=== PATIENT | male | born 1960 | race Caucasian/White ===

== ENCOUNTER → 2017-02-14 11:44 | Outpatient (CLI) | payer MEDICARE, SELFPAY ==
[2017-02-14 13:42] LABS: Hemoglobin A1C 6.7 % (0.0-7.0)
== END ==
PROVIDERS: PCP Internal Medicine Adolescent Medicine; Visit Provider Internal Medicine Adolescent Medicine
DX: E11.621 Type 2 diabetes mellitus with foot ulcer (principal)
CPT/HCPCS: 83036

== ENCOUNTER → 2017-03-06 08:12 | Outpatient (CLI) | payer MEDICARE, SELFPAY ==
--- NOTE | 2017-03-06 08:17 | CA_ITS ---
PROCEDURE: 2-D M-mode and color Doppler study INDICATIONS FOR THE TEST: Chest pain COPD Heart Murmur Tobacco Smoking+ Palpitations Fatigue Syncope Edema Hypertension+Diabetes Mellitus Rheumatic Fever SOB BUTTS+Obesity+Hyperlipidemia+ Family History HD Additional History new onset AFIB PATIENT INFORMATION HEIGHT: 71 WEIGHT: 275 GENDER: Male B/P: 148/82 2-D/M-MODE INTERPRETATION: 2-D MEASUREMENTS OBSERVED VALUES IN CMS Right Ventricular Dimension (RVDd) 2.7 Interventricular Septum (Thickness)(IVsd) 1.3 Left Ventricular Internal Dimensions(LVIDd) 4.0 Left Ventricular Posterior Wall (Thickness)(LVPWd) 1.5 Aortic Root 2.8 Aortic Cusp Separation 2.2 Left Atrial Dimensions (LAD) 4.2 2D 1. Left atrium is mildly enlarged, left ventricle is normal size, there is mild concentric left ventricular hypertrophy, visually estimated ejection fraction approximately 45%, there appears to be mild hypokinesis involving mid to distal septum and anterior wall., Endocardial surfaces are somewhat poorly visualized. 2. The right atrium is mildly enlarged, right ventricle is mildly dilated with normal contractility. 3. The aortic valve is minimally thickened and fibrosed. 4. The mitral and tricuspid valve leaflets are minimally thickened. 5. The pulmonic valve is poorly visualized. 6. No significant pericardial effusion noted. DOPPLER INTERROGATION: Doppler interrogation of the aortic, mitral and tricuspid valvular presence of mild mitral and tricuspid regurgitation, tricuspid and jet velocity insufficient for calculation of the right ventricular systolic pressure, inferior vena cava is dilated without significant inspiratory collapse. CONCLUSION: 1. Biatrial enlargement, normal left ventricular size, mild concentric left ventricular hypertrophy, visually estimated ejection fraction 45%, with segmental wall motion abnormality described above. 2. Mildly enlarged right ventricle normal contractility. 3. Mild mitral and tricuspid regurgitation. 4. No significant pericardial effusion noted.
== END ==
PROVIDERS: Family Provider Internal Medicine Adolescent Medicine; PCP Internal Medicine Adolescent Medicine; Visit Provider Internal Medicine Adolescent Medicine
DX: I48.0 Paroxysmal atrial fibrillation (principal)
CPT/HCPCS: 93306

== ENCOUNTER → 2017-03-22 09:41 | Outpatient (REF) | payer MEDICARE, SELFPAY ==
[2017-03-22 13:41] LABS: Anion Gap 15.3 mEq/L (5-15); Blood Urea Nitrogen 16 mg/dL (7-18); Carbon Dioxide 27 mmol/L (21.0-32.0); Chloride 103 mmol/L (98-107); Estimated Glomerular Filt Rate 69 ml/min (>60); GFR (African American) 83 ML/MIN (>60); Glucose 109 mg/dL (74-106); Potassium 3.3 mmoL/L (3.5-5.1); Sodium 142 mmol/L (136-145)
== END ==
LOC: LAB.CARL 09:41
PROVIDERS: Visit Provider Internal Medicine Adolescent Medicine
DX: R60.9 Edema, unspecified (principal)
CPT/HCPCS: 80048

== ENCOUNTER → 2017-06-12 10:24 | Outpatient (REF) | payer MEDICARE, SELFPAY ==
[2017-06-12 13:27] LABS: Basophils # 0.1 K/mm3 (0-0.2); Basophils % 1.3 % (0.1-2.0); Eosinophils # 0.2 K/mm3 (0.0-0.4); Eosinophils % 2.5 % (0.1-12.0); Hematocrit 53.2 % (42.0-52.0); Hemoglobin 16.6 g/dL (14.1-18.0); Lymphocytes # 1.6 K/mm3 (0.7-4.5); Lymphocytes % 22.1 K/mm3 (10-50); Mean Corpuscular HGB Conc 31.2 g/dL (31.8-35.4); Mean Corpuscular Hemoglobin 28.8 pg (27.0-31.2); Mean Corpuscular Volume 92.4 fl (80-94); Mean Platelet Volume 8.5 fl (7.4-10.4); Monocytes # 0.6 K/mm3 (0.1-1.0); Monocytes % 7.9 % (1.7-9.3); Neutrophils # 4.6 K/mm3 (1.8-7.8); Neutrophils % 66.2 % (37.0-80.0); Platelet Count 231 K/mm3 (142-424); Red Blood Count 5.76 M/mm3 (4.60-6.20); Red Cell Distribution Width 13.8 % (11.5-17.5)
[2017-06-12 13:48] LABS: Hemoglobin A1C 6.1 % (0.0-7.0)
[2017-06-12 17:06] LABS: Alanine Aminotransferase 36 U/L (12-78); Albumin Level 3.6 gm/dL (3.4-5.0); Alkaline Phosphatase 74 U/L (46-116); Anion Gap 14.6 mEq/L (5-15); Aspartate Amino Transferase 26 U/L (15-37); Bilirubin,Total 0.9 mg/dL (0.2-1.0); Blood Urea Nitrogen 13 mg/dL (7-18); Calcium 9.1 mg/dL (8.5-10.1); Carbon Dioxide 26 mmol/L (21.0-32.0); Chloride 101 mmol/L (98-107); Chol/HDL Ratio 6.4 (1-3.5); Cholesterol 193 mg/dL (140-200); Creatinine,Serum 1.19 mg/dL (0.70-1.30); Estimated Glomerular Filt Rate 63 ml/min (>60); GFR (African American) 76 ML/MIN (>60); Globulin 3.5 gm/dl (1.3-3.2); Glucose 121 mg/dL (74-106); HDL Cholesterol 30 mg/dL (27-67); LDL Cholesterol 148 mg/dL (0-130); Potassium 3.6 mmoL/L (3.5-5.1); Sodium 138 mmol/L (136-145); Thyroid Stimulating Hormone 3.86 uIU/ml (0.358-3.740); Total Protein,Serum 7.1 gm/dL (6.4-8.2); Triglycerides 75 mg/dL (30-200); VLDL Cholesterol 15 mg/dL (0-40)
== END ==
LOC: LAB.CARL 10:24
PROVIDERS: Visit Provider Internal Medicine Adolescent Medicine
DX: I10 Essential (primary) hypertension (principal); E11.9 Type 2 diabetes mellitus without complications; E78.5 Hyperlipidemia, unspecified; R53.83 Other fatigue
CPT/HCPCS: 80053; 80061; 83036; 84443; 85025

== ENCOUNTER → 2017-09-25 09:54 | Outpatient (REF) | payer MEDICARE, SELFPAY ==
[2017-09-25 13:21] LABS: Alanine Aminotransferase 32 U/L (12-78); Albumin Level 3.6 gm/dL (3.4-5.0); Albumin/Globulin Ratio 1.1 (1.1-1.8); Alkaline Phosphatase 72 U/L (46-116); Anion Gap 14.2 mEq/L (5-15); Aspartate Amino Transferase 18 U/L (15-37); Blood Urea Nitrogen 13 mg/dL (7-18); Carbon Dioxide 28 mmol/L (21.0-32.0); Chloride 102 mmol/L (98-107); Chol/HDL Ratio 6.8 (1-3.5); Cholesterol 205 mg/dL (140-200); Creatinine,Serum 1.38 mg/dL (0.70-1.30); Estimated Glomerular Filt Rate 53 ml/min (>60); GFR (African American) 64 ML/MIN (>60); Globulin 3.3 gm/dl (1.3-3.2); Glucose 120 mg/dL (74-106); HDL Cholesterol 30 mg/dL (27-67); LDL Cholesterol 161 mg/dL (0-130); Potassium 3.2 mmoL/L (3.5-5.1); Sodium 141 mmol/L (136-145); Total Protein,Serum 6.9 gm/dL (6.4-8.2); Triglycerides 71 mg/dL (30-200); VLDL Cholesterol 14 mg/dL (0-40)
[2017-09-25 13:31] LABS: Hemoglobin A1C 6.7 % (0.0-7.0)
[2017-09-25 13:45] LABS: Basophils # 0.1 K/mm3 (0-0.2); Basophils % 0.9 % (0.1-2.0); Eosinophils # 0.2 K/mm3 (0.0-0.4); Eosinophils % 2.1 % (0.1-12.0); Hematocrit 51.5 % (42.0-52.0); Hemoglobin 16.5 g/dL (14.1-18.0); Lymphocytes # 1.7 K/mm3 (0.7-4.5); Lymphocytes % 19.6 K/mm3 (10-50); Mean Corpuscular HGB Conc 32.1 g/dL (31.8-35.4); Mean Corpuscular Hemoglobin 29.8 pg (27.0-31.2); Mean Corpuscular Volume 92.7 fl (80-94); Mean Platelet Volume 8.5 fl (7.4-10.4); Monocytes # 0.7 K/mm3 (0.1-1.0); Monocytes % 7.6 % (1.7-9.3); Neutrophils % 69.8 % (37.0-80.0); Platelet Count 208 K/mm3 (142-424); Red Blood Count 5.55 M/mm3 (4.60-6.20); Red Cell Distribution Width 14.9 % (11.5-17.5); White Blood Count 8.6 K/mm3 (4.8-10.8)
== END ==
LOC: LAB.CARL 09:54
PROVIDERS: Visit Provider Internal Medicine Adolescent Medicine
DX: I10 Essential (primary) hypertension (principal); E11.9 Type 2 diabetes mellitus without complications; E78.5 Hyperlipidemia, unspecified
CPT/HCPCS: 80053; 80061; 83036; 85025

== ENCOUNTER → 2018-01-01 11:18 | Outpatient (CLI) | payer MEDICARE, SELFPAY ==
[2018-01-01 14:13] LABS: Alanine Aminotransferase 34 U/L (12-78); Albumin Level 3.2 gm/dL (3.4-5.0); Alkaline Phosphatase 72 U/L (46-116); Anion Gap 15.4 mEq/L (5-15); Aspartate Amino Transferase 15 U/L (15-37); Bilirubin,Total 0.3 mg/dL (0.2-1.0); Blood Urea Nitrogen 28 mg/dL (7-18); Calcium 8.6 mg/dL (8.5-10.1); Carbon Dioxide 27 mmol/L (21.0-32.0); Chloride 100 mmol/L (98-107); Chol/HDL Ratio 6.5 (1-3.5); Cholesterol 182 mg/dL (140-200); Creatinine,Serum 1.17 mg/dL (0.70-1.30); Estimated Glomerular Filt Rate 64 ml/min (>60); GFR (African American) 77 ML/MIN (>60); Globulin 3.3 gm/dl (1.3-3.2); Glucose 147 mg/dL (74-106); HDL Cholesterol 28 mg/dL (27-67); LDL Cholesterol 121 mg/dL (0-130); Potassium 3.4 mmoL/L (3.5-5.1); Sodium 139 mmol/L (136-145); Total Protein,Serum 6.5 gm/dL (6.4-8.2); Triglycerides 164 mg/dL (30-200); VLDL Cholesterol 33 mg/dL (0-40)
[2018-01-01 17:31] LABS: Hemoglobin A1C 6.9 % (0.0-7.0)
== END ==
PROVIDERS: Visit Provider Internal Medicine Adolescent Medicine
DX: E11.9 Type 2 diabetes mellitus without complications (principal); E78.5 Hyperlipidemia, unspecified; I10 Essential (primary) hypertension
CPT/HCPCS: 80053; 80061; 83036

== ENCOUNTER → 2018-04-06 08:27 | Outpatient (CLI) | payer BC, SELFPAY ==
[2018-04-06 14:18] LABS: Basophils # 0.1 K/mm3 (0-0.2); Basophils % 1.4 % (0.1-2.0); Eosinophils # 0.1 K/mm3 (0.0-0.4); Hematocrit 44.4 % (42.0-52.0); Hemoglobin 14.6 g/dL (14.1-18.0); Lymphocytes # 1.5 K/mm3 (0.7-4.5); Lymphocytes % 26.5 % (10-50); Mean Corpuscular HGB Conc 32.8 g/dL (31.8-35.4); Mean Corpuscular Hemoglobin 30.2 pg (27.0-31.2); Mean Corpuscular Volume 92.1 fl (80-94); Mean Platelet Volume 8.6 fl (7.4-10.4); Monocytes # 0.5 K/mm3 (0.1-1.0); Monocytes % 8.1 % (1.7-9.3); Neutrophils # 3.6 K/mm3 (1.8-7.8); Platelet Count 337 K/mm3 (142-424); Red Blood Count 4.82 M/mm3 (4.60-6.20); Red Cell Distribution Width 13.9 % (11.5-17.5); White Blood Count 5.8 K/mm3 (4.8-10.8)
[2018-04-06 14:34] LABS: Alanine Aminotransferase 29 U/L (12-78); Albumin Level 3.1 gm/dL (3.4-5.0); Albumin/Globulin Ratio 0.8 (1.1-1.8); Alkaline Phosphatase 75 U/L (46-116); Anion Gap 15.3 mEq/L (5-15); Aspartate Amino Transferase 15 U/L (15-37); Blood Urea Nitrogen 20 mg/dL (7-18); Calcium 9.3 mg/dL (8.5-10.1); Carbon Dioxide 25 mmol/L (21.0-32.0); Chloride 102 mmol/L (98-107); Chol/HDL Ratio 4.5 (1-3.5); Cholesterol 153 mg/dL (140-200); Creatinine,Serum 1.38 mg/dL (0.70-1.30); Estimated Glomerular Filt Rate 53 ml/min (>60); GFR (African American) 64 ML/MIN (>60); Globulin 3.9 gm/dl (1.3-3.2); Glucose 95 mg/dL (74-106); HDL Cholesterol 34 mg/dL (27-67); LDL Cholesterol 103 mg/dL (0-130); Potassium 4.3 mmoL/L (3.5-5.1); Sodium 138 mmol/L (136-145); Triglycerides 82 mg/dL (30-200); VLDL Cholesterol 16 mg/dL (0-40)
[2018-04-06 15:22] LABS: Hemoglobin A1C 6.9 % (0.0-7.0)
== END ==
PROVIDERS: PCP Internal Medicine Adolescent Medicine; Visit Provider Internal Medicine Adolescent Medicine
DX: I25.10 Atherosclerotic heart disease of native coronary artery without angina pectoris (principal); E11.69 Type 2 diabetes mellitus with other specified complication; E78.5 Hyperlipidemia, unspecified
CPT/HCPCS: 36415; 80053; 80061; 83036; 85025

== ENCOUNTER → 2018-09-26 10:35 | Outpatient (CLI) | payer MEDICARE, SELFPAY ==
[2018-09-26 16:48] LABS: Hemoglobin A1C 6.4 % (0.0-7.0)
[2018-09-26 18:11] LABS: Alanine Aminotransferase 25 U/L (12-78); Albumin Level 3.2 gm/dL (3.4-5.0); Alkaline Phosphatase 68 U/L (46-116); Anion Gap 17.3 mEq/L (5-15); Aspartate Amino Transferase 13 U/L (15-37); Bilirubin,Total 0.9 mg/dL (0.2-1.0); Blood Urea Nitrogen 13 mg/dL (7-18); Calcium 8.9 mg/dL (8.5-10.1); Carbon Dioxide 24 mmol/L (21.0-32.0); Chloride 102 mmol/L (98-107); Chol/HDL Ratio 6.5 (1-3.5); Cholesterol 182 mg/dL (140-200); Creatinine,Serum 1.05 mg/dL (0.70-1.30); Estimated Glomerular Filt Rate 72 ml/min (>60); GFR (African American) 87 ML/MIN (>60); Globulin 3.3 gm/dl (1.3-3.2); Glucose 99 mg/dL (74-106); HDL Cholesterol 28 mg/dL (27-67); LDL Cholesterol 137 mg/dL (0-130); Potassium 3.3 mmoL/L (3.5-5.1); Sodium 140 mmol/L (136-145); Total Protein,Serum 6.5 gm/dL (6.4-8.2); Triglycerides 87 mg/dL (30-200); VLDL Cholesterol 17 mg/dL (0-40)
== END ==
PROVIDERS: PCP Internal Medicine Adolescent Medicine; Visit Provider Internal Medicine Adolescent Medicine
DX: E11.9 Type 2 diabetes mellitus without complications (principal); M25.50 Pain in unspecified joint
CPT/HCPCS: 80053; 80061; 83036; 84550

== ENCOUNTER 2019-02-21 12:26 | Observation (INO) ==
--- NOTE | 2019-02-21 12:39 | Emergency Department Note ---
ED Disposition Clinical Impression: Community acquired pneumonia, Acute exacerbation of chronic obstructive airways disease, Congestive heart failure, Atrial fibrillation, Lymphedema Disposition: Admitted As Inpatient Condition on Discharge: Serious Time of Disposition: 16:10 - Critical Care Critical Care Time: No Attestation: On , the high probability of a clinically significant, sudden or life threa tening deterioration of the following system(s) required my full and direct attention, intervention and personal management. The time I documented below is in addition to time spent performing reported procedures but includes the following listed in this critical care notation. Medical Decision Making - Medical Records Medical records reviewed: Yes: I reviewed the patient's medical records. - Mendez Inquiry Pt receiving controlled substance: No Vital Signs: 02/21/19 12:27 02/21/19 15:36 02/21/19 16:00 Temperature 98.4 F Temperature Source Oral Pulse Rate Pulse Rate [Left Radial] 100 H 86 Respiratory Rate 30 H Blood Pressure [Right Arm] 144/55 H 149/66 H Blood Pressure Mean [Right Arm] 84 93 Blood Pressure Position [Right Arm] Sitting Sitting 02 Sat by Pulse Oximetry 92 L 92 L 88 L Oxygen Delivery Method Room Air Room Air Room Air Oxygen Flow Rate (LPM) 02/21/19 16:27 Temperature Temperature Source Pulse Rate 87 Pulse Rate [Left Radial] Respiratory Rate Blood Pressure [Right Arm] Blood Pressure Mean [Right Arm] Blood Pressure Position [Right Arm] 02 Sat by Pulse Oximetry 97 Oxygen Delivery Method Nasal Cannula Oxygen Flow Rate (LPM) 2 - Lab Data Lab results reviewed: Yes: I reviewed the patient's lab results. Lab Results 02/21/19 12:15: WBC 5.5, RBC 5.29, Hgb 15.9, Hct 50.4, MCV 95.3 H, MCH 30.1, MCHC 31.6 L, RDW 14.7, Plt Count 223, MPV 8.3, Neut % (Auto) 78.2, Lymph % (Auto) 9.8 L, [place] % (Auto) 10.9 H, Eos % (Auto) 0.1, Baso % (Auto) 1.0, Neut # (Auto) 4.3, Lymph # (Auto) 0.5 L, [place] # (Auto) 0.6, Eos # (Auto) 0.0, Baso # (Auto) 0.1 02/21/19 12:15: Sodium 143, Potassium 3.8, Chloride 101, Carbon Dioxide 29, Anion Gap 16.8 H, BUN 13, Creatinine 1.31 H, Estimated Creat Clear 106, Estimated GFR 56 L, Est GFR ( Amer) 68, Glucose 96, Calcium 8.1 L, Total Bilirubin 1.2 H, Direct Bilirubin 0.4 H, Indirect Bilirubin 0.8, AST 21, ALT 15, Alkaline Phosphatase 64, Troponin I 0.06, Total Protein 6.5, Albumin 2.9 L 02/21/19 12:15: B-Natriuretic Peptide 267 H 02/21/19 12:30: Specimen Source Right radial, O2 % room air, ABG pH 7.42, ABG pCO2 42.2, ABG pO2 55.7 L, ABG HCO3 27.0 H, ABG Total CO2 28.3 H, ABG O2 Saturation 89 L, ABG Base Excess 2.6 H, Douglas Test Acceptable 02/21/19 14:31: Lactate 1.7 02/21/19 15:55: Troponin I 0.06 Result diagrams: 02/21/19 12:15 02/21/19 12:15 Orders (Tests/Meds): ED MEDICATIONS Generic Name Dose Route Start Last Admin Trade Name Freq PRN Reason Stop Dose Admin Albuterol/Ipratropium 3 ml 02/21/19 16:46 Duoneb 3ml Neb IH 03/23/19 16:45 Q4H MICHAEL Piperacillin Sod/Tazobactam 50 mls @ 100 mls/hr 02/21/19 16:46 Sod 3.375 gm/ Sodium Chloride IV 03/07/19 16:45 Q6H MICHAEL Protocol Methylprednisolone Sodium Succinate 40 mg 02/21/19 16:46 Methylprednisolone Sod Succinate 40mg Vial IV 03/23/19 16:45 Q6H MICHAEL Nicotine 21 mg 02/22/19 09:00 Nicoderm 21mg/24hr Patch TD 03/23/19 16:29 DAILY MICHAEL Sodium Chloride 10 ml 02/21/19 16:46 Rad-Saline Flush 10ml Syringe IV 03/23/19 15:25 NEEDED PRN Maintain IV Site Discontinued Medications Generic Name Dose Route Start Last Admin Trade Name Freq PRN Reason Stop Dose Admin Albuterol/Ipratropium 3 ml 02/21/19 16:01 02/21/19 16:26 Duoneb 3ml Neb IH 02/21/19 16:02 3 ml ONCE ONE Administration Furosemide 40 mg 02/21/19 13:57 02/21/19 14:20 Lasix 40mg/4ml Vial IV 02/21/19 13:58 40 mg ONCE ONE Administration Piperacillin Sod/Tazobactam 50 mls @ 100 mls/hr 02/21/19 13:56 02/21/19 15:05 Sod 3.375 gm/ Sodium Chloride IV 02/21/19 14:25 100 mls/hr ONCE ONE Administration Protocol Ioversol 70 ml 02/21/19 15:22 02/21/19 15:25 Rad-Optiray 350 100ml Vial IV 02/21/19 15:23 70 ml ONCE ONE Administration Protocol Magnesium Oxide 400 mg 02/21/19 13:58 02/21/19 14:20 Mag-Ox 400mg Tab PO 02/21/19 13:59 400 mg ONCE ONE Administration Methylprednisolone Sodium Succinate 125 mg 02/21/19 16:01 02/21/19 16:10 Solu-Medrol 125mg/2ml Vial IV 02/21/19 16:02 125 mg ONCE ONE Administration Nicotine 21 mg 02/21/19 16:30 Nicoderm 21mg/24hr Patch TD 03/23/19 16:29 DAILY MICHAEL Potassium Chloride 20 meq 02/21/19 13:59 02/21/19 14:21 Klor-Con 20meq Tablet PO 02/21/19 14:00 20 meq ONCE ONE Administration Sodium Chloride 20 ml 02/21/19 15:22 02/21/19 15:25 Rad-Ns 20ml Vial IV 02/21/19 15:23 20 ml ONCE ONE Administration Sodium Chloride 10 ml 02/21/19 15:22 02/21/19 15:27 Rad-Saline Flush 10ml Syringe IV 02/21/19 15:23 10 ml ONCE ONE Administration Sodium Chloride 20 ml 02/21/19 15:26 02/21/19 15:27 Rad-Ns 20ml Vial IV 02/21/19 15:27 20 ml ONCE ONE Administration Sodium Chloride 10 ml 02/21/19 15:26 Rad-Saline Flush 10ml Syringe IV 03/23/19 15:25 NEEDED PRN Maintain IV Site ORDERS Category Date Time Status Troponin I Q3H Lab 02/21/19 18:45 Ordered Blood Culture Stat Micro 02/21/19 14:31 Received - Radiology Data #1 Image(s): Chest Image Reviewed: Yes I reviewed the patient's radiology results, Yes I have reviewed radiologist's interpretation Preliminary Findings: Abnormal Patient: Jermaine GaviriaMR#: [id number] : 1960 Acct:[id number] Age/Sex: 58 / M ADM Date: 0 Loc: ER Attending Dr: Ordering Physician: David Ribera MD Date of Service: 02/21/19 Procedure(s): XR chest portable Accession Number(s): [id number] cc: Douglas Gupta MD; Jag Carmichael MD~ PROCEDURE: XR CHEST PORTABLE CLINICAL HISTORY: sob Shortness of breath COMPARISON: CXR CHEST(2 VIEWS-NOT PORTABLE) from 10/22/2014 CXR1 CHEST-PORTABLE from 10/24/2014 FINDINGS: There is cardiomegaly without failure. There is increased density in the right lower lobe consistent with pneumonia with small right effusion. There is increased density in the right paratracheal region possibly related to overlying vasculature probably not significantly changed. CT may better evaluate if clinically desired. . IMPRESSION: The right lower lobe pneumonia with small effusion Dictated by: Douglas Gupta MD 02/21/2019 13:11 Electronically signed by Douglas Gupta MD in [place] 02/21/2019 13:11 - CT Data CT Scan: Chest Time Received: 15:[address] Reviewed: Yes: I have reviewed the patient's CT results Preliminary Findings: Abnormal Findings Narrative: Patient: Jermaine Gaviria MR#: [id number] : 1960 Acct:[id number] Age/Sex: 58 / M ADM Date: 0 Loc: ER Attending Dr: Ordering Physician: David Ribera MD Date of Service: 02/21/19 Procedure(s): CT angio chest Accession Number(s): [id number] cc: Douglas Gupta MD; Jag Carmichael MD; David Ribera MD~ PROCEDURE: CT ANGIO CHEST CLINCIAL INDICATION: Shortness of breath abnormal chest x-ray. Shortness of air, pneumonia, COMPARISON: XR CHEST PORTABLE from 02/21/2019 TECHNIQUE: IV Contrast: 70ML OPTIRAY 350 Axial images obtained with sagittal and coronal reformats. All CT scans at the facility use one or more dose reduction, viz: automated exposure control, ma/kV adjustment per patient size (including targeted exams where dose is matched to indication, i.e. head), or iterative reconstruction technique. FINDINGS: No evidence of pulmonary embolus or aortic aneurysm. There is mild mediastinal adenopathy with mildly prominent lymph nodes in the paratracheal region, AP window, and subcarinal region. No hilar adenopathy evident. There is a small right-sided pleural effusion. Patchy consolidation is present within the inferior aspect of the right upper lobe, inferior right middle lobe, and right lung base with some compressive atelectatic changes in the right lower lobe. Patchy infiltrate is also present in the left lower lobe with some atelectatic changes posteriorly. Patchy central infiltrate also noted in the lingula. There are degenerative changes in the thoracic spine. IMPRESSION: 1. No evidence of pulmonary embolus. 2. Bilateral pneumonia with small right pleural effusion and bibasilar atelectasis Dictated by: Douglas Gupta MD 02/21/2019 15:51 Electronically signed by Douglas Gupta MD in [facility] 02/21/2019 15:51 - ECG Data Tracing #1 I reviewed this ECG and interpreted as documented below: Atrial fibrillation with a ventricular rate of 82 bpm. QRS duration normal at 106 ms. Corrected QT interval normal at 443 ms. Left axis deviation with a QRS axis at -61 degrees. ECG initial impression date: 02/21/19 ECG initial impression time: 16:18 Normal Sinus Rhythm: No Arrhythmias present: afib - Physician Consults Physician Consulted: Dr. Sahu for Dr. Carmichael who is the patient's primary care provider Time: 16:14 Reason -: Admission Comment/Response: Dr. Sahu agrees with admission for this patient and treatment for pneumonia. General Adult HPI - General Chief complaint: Shortness of Breath/Dyspnea Stated complaint: sob Time Seen by Provider: 02/21/19 12:27 Mode of Arrival: EMS Limitations: No Limitations Description of Symptoms (Recalled from ER Triage Doc. by RN): to ed per squad with c/o sob, swelling feet ankles generalized weakness. pt states home health jose worley came to home and reported to squad that pt has been having symptoms x 2 weeks with no improvement. pt currently getting dressing changes to rt foot due to "wound" soco lower legs with redness, swelling up to thigh. pt denies fever, chills, nausea, vomiting, chest pain - History of Present Illness HPI narrative: 58-year-old morbidly obese male with history of COPD and lymphedema presents with a two-week history of progressively worse shortness of breath, fatigue and lower extremity swelling. Onset (ago): week(s) (2) Severity: severe Consistency: constant Relieving factors: none Exacerbating factors: none - Related Data Home Medications Medication Instructions Recorded Confirmed Clopidogrel Bisulfate [Plavix 75mg 75 mg PO DAILY 02/21/19 02/21/19 Tab] Furosemide [Furosemide 20mg Tab] 20 mg PO DAILY 02/21/19 02/21/19 Meloxicam 7.5 mg PO DAILY 02/21/19 02/21/19 Metformin HCl [Metformin 1000mg 500 mg PO BID 02/21/19 02/21/19 Tablets] Rivaroxaban [Xarelto 20mg Tablet*] 20 mg PO DAILY 02/21/19 02/21/19 dilTIAZem HCl [Dilt-Xr] 240 mg PO DAILY 02/21/19 02/21/19 lisinopriL [Lisinopril 40mg Tablet] 80 mg PO DAILY 02/21/19 02/21/19 Allergies Allergy/AdvReac Type Severity Reaction Status Date / Time NO KNOWN ALLERGIES Allergy Uncoded 01/31/17 15:11 [facility] History - Hepatitis A Screen Drug use history?: No High risk sexual behaviors?: No History of sexually transmitted infection?: No Currently employed?: No Childcare worker?: No Do you have indoor plumbing?: Yes Do you have electricity?: Yes Attestation statement:: This patient has been screened for Hepatitis A risk factors. I have reviewed the patient's past medical history: Yes Medical History: Reports:: Diabetes Mellitus Type 2 Denies:: Diabetes Mellitus Type 1 - Social History Smoking Status: Current every day smoker Tobacco Type: cigarettes # Packs/Day (cigarettes): 1 Alcohol Intake: never Alcohol Intake Frequency:: a few times a week Occupational Status: disabled ROS Obtained: Yes Systems reviewed as appropriate & no additional complaints - Constitutional Constitutional: Reports fatigue, Reports malaise - Eyes Eyes: Reports system reviewed and no additional complaints, except as docu - ENT Ears, Nose, Mouth, and Throat: Reports system reviewed and no additional complaints, except as docu - Cardiovascular Cardiovascular: Reports dyspnea on exertion, Reports leg edema - Respiratory Respiratory: Yes cough, Yes dyspnea on exertion - Gastrointestinal Gastrointestingal: Reports: system reviewed and no additional complaints, except as docu - Genitourinary Male Genitourinary: Reports system reviewed and no additional complaints, except as docu - Musculoskeletal Musculoskeletal: Reports system reviewed and no additional complaints, except as docu - Integumentary/Breasts Skin/Breast: Reports system reviewed and no additional complaints, except as docu - Neurologic Neurologic: Reports system reviewed and no additional complaints, except as docu - Endocrine Endocrine: Reports system reviewed and no additional complaints, except as docu - Hematologic/Lymphatic Henatologic/Lymphatic: Reports system reviewed and no additional complaints, except as docu - Allergic/Immunologic Allergic/Immunologic: Reports system reviewed and no additional complaints, except as docu Physical Exam - General General appearance: alert, in no apparent distress - Head Head exam: atraumatic, normocephalic, normal inspection - Eye Eye exam: Present: normal appearance, PERRL, EOMI - ENT ENT exam: Present: normal exam, normal oropharynx, mucous membranes moist, TM's normal bilaterally, normal external ear exam - Neck Neck exam: Present: normal inspection, full ROM, trachea midline. Absent: meningismus, lymphadenopathy - Chest Chest inspection: Present: normal inspection, symmetric chest wall rise. Absent: tenderness - Respiratory Respiratory exam: Present: prolonged expiratory phase, other (Diminished breath sounds bilaterally). Absent: respiratory distress - Cardiovascular Cardiovascular exam: Present: regular rate, normal rhythm, normal heart sounds. Absent: JVD - Abdominal Exam Abdominal exam: Present: soft, normal bowel sounds. Absent: distention, tenderness, guarding - Extremities Exam Extremities exam: Present: normal inspection, full ROM, normal capillary refill. Absent: calf tenderness - Back Exam Back exam: Present: normal inspection. Absent: tenderness - Neurological Exam Neurological exam: Present: alert, oriented X3, CN II-XII intact, normal gait. Absent: motor sensory deficit - Psychiatric Psychiatric exam: Present: normal affect, normal mood - Skin Skin exam: Present: warm, dry, other (Lymphedema and venous stasis noted to lower extremities bilaterally.)
[2019-02-21 12:55] LABS: White Blood Count 5.5 K/mm3 (4.8-10.8)
[2019-02-21 12:56] LABS: Hematocrit 50.4 % (42.0-52.0); Hemoglobin 15.9 g/dL (14.1-18.0); Mean Corpuscular HGB Conc 31.6 g/dL (31.8-35.4); Mean Corpuscular Volume 95.3 fl (80-94); Red Blood Count 5.29 M/mm3 (4.60-6.20)
[2019-02-21 12:57] LABS: Basophils # 0.1 K/mm3 (0-0.2); Eosinophils % 0.1 % (0.1-12.0); Lymphocytes # 0.5 K/mm3 (0.7-4.5); Lymphocytes % 9.8 % (10-50); Mean Platelet Volume 8.3 fl (7.4-10.4); Monocytes # 0.6 K/mm3 (0.1-1.0); Monocytes % 10.9 % (1.7-9.3); Neutrophils # 4.3 K/mm3 (1.8-7.8); Neutrophils % 78.2 % (37.0-80.0); Platelet Count 223 K/mm3 (142-424); Red Cell Distribution Width 14.7 % (11.5-17.5)
[2019-02-21 12:58] LABS: Albumin Level 2.9 gm/dL (3.4-5.0); Bilirubin,Direct 0.4 mg/dL (0.0-0.2); Bilirubin,Indirect 0.8 mg/dL (0.0-0.9); Bilirubin,Total 1.2 mg/dL (0.2-1.0); Calcium 8.1 mg/dL (8.5-10.1); Total Protein,Serum 6.5 gm/dL (6.4-8.2)
[2019-02-21 13:04] LABS: Anion Gap 16.8 mEq/L (5-15)
[2019-02-21 13:22] LABS: ABG Base Excess 2.6 mmol/L (-2.4-2.3); ABG Oxygen Saturation 89 % (90-100); ABG PCO2 42.2 mmhg (35.0-45.0); ABG PH 7.42 mmol/L (7.35-7.45); ABG PO2 55.7 mmhg (80-100); ABG TCO2 28.3 mmhg (23-27)
[2019-02-21 13:23] LABS: Allen's Test Acceptable; Oxygen room air %
--- NOTE | 2019-02-21 17:37 | History & Physical Report ---
*Admission Date: 02/21/19 *Chief complaint: SOA *History of present illness: Jermaine Gaviria is a 58-year-old gentleman with history of blindness, diabetes, hypertension, coronary artery disease status post stent placement in March 2018, and recurring lymphedema and stasis dermatitis of bilateral lower extr emities. He presented to the ER due to worsening shortness of breath over the past week. States he is continued to have dyspnea with exertion, complains of some orthopnea, and worsening heaviness and swelling in his legs. Denies any chest pain, nausea, vomiting, diarrhea. Does complain of worsening general fatigue. Upon presentation to the ER was found to have hypoxemia, elevated BNP, and slight abnormality of troponin. Imaging concerning for pneumonia on chest x-ray however CT shows by lateral congestion and effusions. No white cell count on exam. No fever. Met sepsis criteria due to tachycardia and tachypnea with possible pneumonia versus CHF exacerbation. Per review of previous echo in 2018, left ventricular ejection fraction approximately 45%. [facility] History I have reviewed the patient's past medical history: Yes Medical History: Reports:: Congestive Heart Failure, Coronary Artery Disease, Diabetes Mellitus Type 2, Hypertension Denies:: Diabetes Mellitus Type 1, Home Oxygen *Have you ever received a pneumonia vaccine?: No *Have you received a flu vaccine this season?: No Comment:: blindness - *Social History Smoking Status: Current every day smoker Tobacco Type: cigarettes # Packs/Day (cigarettes): 1 Alcohol Intake: never Alcohol Intake Frequency:: a few times a week *Occupational Status:: disabled *Travel in the last 8 weeks: None Family Hx:: Non-contributory Review of Systems - Review of Systems Review of systems:: pertinent systems reviewed and negative unless documented below Meds Home Medications Medication Instructions Recorded Confirmed Type Clopidogrel Bisulfate [Plavix 75mg 75 mg PO DAILY 02/21/19 02/21/19 History Tab] Furosemide [Furosemide 20mg Tab] 20 mg PO DAILY 02/21/19 02/21/19 History Meloxicam 7.5 mg PO DAILY 02/21/19 02/21/19 History Metformin HCl [Metformin 1000mg 500 mg PO BID 02/21/19 02/21/19 History Tablets] Rivaroxaban [Xarelto 20mg Tablet*] 20 mg PO DAILY 02/21/19 02/21/19 History dilTIAZem HCl [Dilt-Xr] 240 mg PO DAILY 02/21/19 02/21/19 History lisinopriL [Lisinopril 40mg Tablet] 80 mg PO DAILY 02/21/19 02/21/19 History Allergies Allergy/AdvReac Type Severity Reaction Status Date / Time NO KNOWN ALLERGIES Allergy Uncoded 01/31/17 15:11 Exam Vital signs and Labs for Last 24 Hours: Temp Pulse Resp BP Pulse Ox 98.3 F 84 20 138/65 97 02/21/19 17:01 02/21/19 17:01 02/21/19 17:02/21/19 17:02/21/19 16:27 Laboratory Results - last 24 hr 02/21/19 12:15: WBC 5.5, RBC 5.29, Hgb 15.9, Hct 50.4, MCV 95.3 H, MCH 30.1, MCHC 31.6 L, RDW 14.7, Plt Count 223, MPV 8.3, Neut % (Auto) 78.2, Lymph % (Auto) 9.8 L, King % (Auto) 10.9 H, Eos % (Auto) 0.1, Baso % (Auto) 1.0, Neut # (Auto) 4.3, Lymph # (Auto) 0.5 L, King # (Auto) 0.6, Eos # (Auto) 0.0, Baso # (Auto) 0.1 02/21/19 12:15: Sodium 143, Potassium 3.8, Chloride 101, Carbon Dioxide 29, Anion Gap 16.8 H, BUN 13, Creatinine 1.31 H, Estimated Creat Clear 106, Estimated GFR 56 L, Est GFR ( Amer) 68, Glucose 96, Calcium 8.1 L, Total Bilirubin 1.2 H, Direct Bilirubin 0.4 H, Indirect Bilirubin 0.8, AST 21, ALT 15, Alkaline Phosphatase 64, Troponin I 0.06, Total Protein 6.5, Albumin 2.9 L 02/21/19 12:15: B-Natriuretic Peptide 267 H 02/21/19 12:30: Specimen Source Right radial, O2 % room air, ABG pH 7.42, ABG pCO2 42.2, ABG pO2 55.7 L, ABG HCO3 27.0 H, ABG Total CO2 28.3 H, ABG O2 Saturation 89 L, ABG Base Excess 2.6 H, Douglas Test Acceptable 02/21/19 14:31: Lactate 1.7 02/21/19 15:55: Troponin I 0.06 I & O for Last 24 hours: Intake & Output 02/18/19 02/19/19 02/20/19 02/21/19 23:59 23:59 23:59 23:59 Weight 124.738 kg - Constitutional mild distress, obese - *Routine HEENT Exam Head: Present: normocephalic ENT: Present: mucous membranes moist - *Routine Neck Exam Present: supple. Absent: lymphadenopathy - *Routine Respiratory Exam Present: crackles (Bilateral bases), distant breath sounds. Absent: wheezes - *Routine Cardiovascular Exam Present: RRR - *Routine Abdominal Exam Present: soft, normoactive bowel sounds. 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 Absent: cyanosis, clubbing - *Routine Skin Exam Present: warm. Absent: rash - *Routine Neurological Exam Present: alert, oriented X3 Assessment and Plan (1) Blindness Current visit: Yes Status: Chronic Category: Medical Code(s): H54.7 - Unspecified visual loss Blind since childhood. Lives independently. Manages his own ADLs. Complicates care. Will take precaution with placing alert button close to patient and urinal within patient's reach. Up with assistance due to new environment in unfamiliar surroundings to minimize risk for fall and injury (2) Class 2 obesity Current visit: Yes Status: Chronic Category: Medical Code(s): E66.9 - Obesity, unspecified Complicates all aspects of his care (3) Diabetes Current visit: Yes Status: Chronic Qualifiers: Diabetes mellitus type: type 2 Diabetes mellitus complication detail: with nephropathy Category: Medical Code(s): E11.9 - Type 2 diabetes mellitus without complications Fingerstick glucose before meals and at bedtime, sliding scale insulin per protocol. Will hold metformin in the inpatient setting. (4) Acute exacerbation of chronic obstructive airways disease Current visit: Yes Status: Acute Category: Medical Code(s): J44.1 - Chronic obstructive pulmonary disease with (acute) exacerbation Steroids and antibiotics as ordered. Oxygen with goal saturation greater than 92% while awake, greater than 88% while asleep. Breathing treatments every 4hrs as needed (5) Community acquired pneumonia Current visit: Yes Status: Acute Category: Medical Code(s): J18.9 - Pneumonia, unspecified organism Differential for respiratory failure concerning for pneumonia versus CHF exacerbation. Will cover empirically with ceftriaxone while we assess response to diuresis. Cultures obtained due to sepsis criteria. Further management pending culture results and improvement over the next 24 to 48 hours for CHF exacerbation treatment. (6) Congestive heart failure Current visit: Yes Status: Chronic Qualifiers: Heart failure type: systolic Category: Medical Code(s): I50.9 - Heart failure, unspecified Repeat echo pending to assess progression of CHF. Appears to have acute on chronic CHF at this time with volume overload. Will diurese and assess for improvement. Bilateral "pneumonia" concerning more for volume overload and CHF exacerbation infectious etiology in the setting of normal white cell count and no fever. (7) Lymphedema Current visit: Yes Status: Chronic Category: Medical Code(s): I89.0 - Lymphedema, not elsewhere classified We will consult wound care and podiatry for further recommendation. Longstanding. Patient has home health wound care and podiatry that he sees at . In the acute setting however, would appreciate recommendations and reassessment of condition (8) Coagulopathy Current visit: Yes Status: Chronic Category: Medical Code(s): D68.9 - Coagulation defect, unspecified Patient has elevated INR and PTT. Is on dual antiplatelet therapy and anticoagulation with Xarelto for coronary artery disease. Do not suspect endorgan dysfunction at this time in the setting of these medications. (9) Sepsis Current visit: Yes Status: Acute Qualifiers: Sepsis type: sepsis due to unspecified organism Acute respiratory failure type: with hypoxia Severe sepsis shock status: without septic shock Category: Medical Code(s): A41.9 - Sepsis, unspecified organism Heart rate greater than 90, respiratory rate greater than 20 on presentation, presumed infection with respiratory infection/pneumonia. Antibiotics and fluids per protocol. Cultures obtained. Further management pending results. Continue to monitor for resolution symptoms - Assessment and plan all Dx Assessment and Plan for all problems:: 58-year-old visually impaired gentleman with multiple comorbidities who presents with findings concerning for CHF exacerbation versus pneumonia versus sepsis. Treatment as described above. Will monitor for response. Echocardiogram pending. Consults to wound care and podiatry pending appreciate recommendations. Continues to require inpatient management.
[2019-02-21 17:38] LABS: Activated Partial Thrombo Time 45.1 seconds (23.6-34.0); INR 1.41 (0.9-1.1); Prothrombin Time 14.4 seconds (9.4-11.8)
--- NOTE | 2019-02-22 07:23 | Pharmacy Consult Notes ---
[facility] Pharmacy VTE Monitoring - Patient Demographics Admission date: 02/21/19 Report Date: 02/22/19 Time: 07:22 Allergies/Adverse Reactions: Patient Allergies NO KNOWN ALLERGIES Allergy (Uncoded 01/31/17 15:11) Height: 1.8 m Weight: 124.965 kg Patient Problems: Current Active Problems Community acquired pneumonia (Acute) Acute exacerbation of chronic obstructive airways disease (Acute) Congestive heart failure (Chronic) Atrial fibrillation (Acute) Lymphedema (Chronic) Blindness (Chronic) Class 2 obesity (Chronic) Diabetes (Chronic) Coagulopathy (Chronic) Sepsis (Acute) - VTE Risk Labs: VTE Related Lab Results Hgb 15.9 g/dL (14.1-18.0) 02/21/19 12:15 Hct 50.4 % (42.0-52.0) 02/21/19 12:15 Plt Count 223 K/mm3 (142-424) 02/21/19 12:15 PT 14.4 seconds (9.4-11.8) H 02/21/19 17:20 INR 1.41 (0.9-1.1) H 02/21/19 17:20 APTT 45.1 seconds (23.6-34.0) H 02/21/19 17:20 BUN 13 mg/dL (7-18) 02/21/19 12:15 Creatinine 1.31 mg/dL (0.70-1.30) H 02/21/19 12:15 Estimated Creat Clear 106 mL/min (50-200) 02/21/19 12:15 Clinical Trial Participant: No - Prophylaxis VTE Prophylaxis Ordered?: Yes Types of VTE Prophylaxis: TEDS Knee High
[2019-02-22 07:51] LABS: Basophils % 0.4 % (0.1-2.0); Hematocrit 49.2 % (42.0-52.0); Hemoglobin 15.6 g/dL (14.1-18.0); Lymphocytes # 0.2 K/mm3 (0.7-4.5); Lymphocytes % 5.4 % (10-50); Mean Corpuscular HGB Conc 31.7 g/dL (31.8-35.4); Mean Corpuscular Volume 93.5 fl (80-94); Mean Platelet Volume 8.5 fl (7.4-10.4); Monocytes # 0.3 K/mm3 (0.1-1.0); Monocytes % 7.2 % (1.7-9.3); Neutrophils # 3.3 K/mm3 (1.8-7.8); Platelet Count 211 K/mm3 (142-424); Red Blood Count 5.26 M/mm3 (4.60-6.20); Red Cell Distribution Width 14.6 % (11.5-17.5); White Blood Count 3.9 K/mm3 (4.8-10.8)
[2019-02-22 08:01] LABS: Albumin Level 2.8 gm/dL (3.4-5.0); Albumin/Globulin Ratio 0.8 (1.1-1.8); Anion Gap 12.9 mEq/L (5-15); Bilirubin,Total 0.8 mg/dL (0.2-1.0); Calcium 8.1 mg/dL (8.5-10.1); Chol/HDL Ratio 4.7 (1-3.5); Globulin 3.5 gm/dl (1.3-3.2); Phosphorous 3.4 mg/dL (2.4-4.9); Total Protein,Serum 6.3 gm/dL (6.4-8.2)
--- NOTE | 2019-02-22 08:47 | Progress Note ---
Internal Medicine - PN: Subj *Date: 02/22/19 *Time: 08:43 Interval history: Feels much better.... good UOP and good wt loss. No pain Exam Vital signs and Labs for Last 24 Hours: Temp Pulse Resp BP Pulse Ox 97.4 F L 115 H 18 165/78 H 95 02/22/19 04:00 02/22/19 08:37 02/22/19 04:00 02/22/19 04:00 02/22/19 05:45 Laboratory Results - last 24 hr 02/21/19 12:15: WBC 5.5, RBC 5.29, Hgb 15.9, Hct 50.4, MCV 95.3 H, MCH 30.1, MCHC 31.6 L, RDW 14.7, Plt Count 223, MPV 8.3, Neut % (Auto) 78.2, Lymph % (Auto) 9.8 L, Dixie % (Auto) 10.9 H, Eos % (Auto) 0.1, Baso % (Auto) 1.0, Neut # (Auto) 4.3, Lymph # (Auto) 0.5 L, Dixie # (Auto) 0.6, Eos # (Auto) 0.0, Baso # (Auto) 0.1 02/21/19 12:15: Sodium 143, Potassium 3.8, Chloride 101, Carbon Dioxide 29, Anion Gap 16.8 H, BUN 13, Creatinine 1.31 H, Estimated Creat Clear 106, Estimated GFR 56 L, Est GFR ( Amer) 68, Glucose 96, Calcium 8.1 L, Total Bilirubin 1.2 H, Direct Bilirubin 0.4 H, Indirect Bilirubin 0.8, AST 21, ALT 15, Alkaline Phosphatase 64, Troponin I 0.06, Total Protein 6.5, Albumin 2.9 L 02/21/19 12:15: B-Natriuretic Peptide 267 H 02/21/19 12:30: Specimen Source Right radial, O2 % room air, ABG pH 7.42, ABG pCO2 42.2, ABG pO2 55.7 L, ABG HCO3 27.0 H, ABG Total CO2 28.3 H, ABG O2 Saturation 89 L, ABG Base Excess 2.6 H, Douglas Test Acceptable 02/21/19 14:31: Lactate 1.7 02/21/19 15:55: Troponin I 0.06 02/21/19 17:20: PT 14.4 H, INR 1.41 H, APTT 45.1 H 02/21/19 18:45: Troponin I 0.05 02/22/19 05:41: POC Glucose 179 H 02/22/19 07:38: WBC 3.9 L D, RBC 5.26, Hgb 15.6, Hct 49.2, MCV 93.5, MCH 29.7, MCHC 31.7 L, RDW 14.6, Plt Count 211, MPV 8.5, Neut % (Auto) 86.0 H, Lymph % (Auto) 5.4 L, Dixie % (Auto) 7.2, Eos % (Auto) 1.0, Baso % (Auto) 0.4, Neut # (Auto) 3.3, Lymph # (Auto) 0.2 L, Dixie # (Auto) 0.3, Eos # (Auto) 0.0, Baso # (Auto) 0.0 02/22/19 07:38: Sodium 139, Potassium 2.9 L* D, Chloride 101, Carbon Dioxide 28, Anion Gap 12.9, BUN 19 H D, Creatinine 1.39 H, Estimated Creat Clear 100, Estimated GFR 52 L, Est GFR ( Amer) 63, Glucose 200 H D, Calcium 8.1 L, Phosphorus 3.4, Magnesium 1.8, Total Bilirubin 0.8, AST 18, ALT 10 L D, Alkaline Phosphatase 60, Total Protein 6.3 L, Albumin 2.8 L, Globulin 3.5 H, Albumin/Globulin Ratio 0.8 L, Triglycerides 49, Cholesterol 126 L, LDL Cholesterol 89, VLDL Cholesterol 10, HDL Cholesterol 27, Cholesterol/HDL Ratio 4.7 H 02/22/19 07:38: C-Reactive Protein 11.4 H I & O for Last 24 hours: Intake & Output 02/19/19 02/20/19 02/21/19 02/22/19 11:59 11:59 11:59 11:59 Intake Total 390 / 390 Output Total 2450 / 2450 Balance -2059 / Weight 275 lb 8 oz Microbiology Reports for the Last 24 Hours: Microbiology 02/21/19 19:15 Sputum - Expectorated Sputum Gram Stain - Final - Constitutional no acute distress, morbidly obese - *Routine HEENT Exam Head: Present: normocephalic ENT: Present: mucous membranes moist - *Routine Neck Exam Present: full ROM. Absent: JVD - *Routine Respiratory Exam Present: rales (in bases). Absent: accessory muscle use - *Routine Cardiovascular Exam Present: murmur, irregular rhythm - *Routine Abdominal Exam Present: soft, normoactive bowel sounds. Absent: tenderness - *Routine Extremities Exam Present: edema (2 plus - some better than yesterday.). Absent: cyanosis - *Routine Neurological Exam Present: alert, oriented X3 Assessment and Plan (1) Blindness Current visit: Yes Status: Chronic Category: Medical Code(s): H54.7 - Unspecified visual loss (2) Class 2 obesity Current visit: Yes Status: Chronic Category: Medical Code(s): E66.9 - Obesity, unspecified (3) Diabetes Current visit: Yes Status: Chronic Qualifiers: Diabetes mellitus type: type 2 Diabetes mellitus complication detail: with nephropathy Category: Medical Code(s): E11.9 - Type 2 diabetes mellitus without complications (4) Acute exacerbation of chronic obstructive airways disease Current visit: Yes Status: Acute Category: Medical Code(s): J44.1 - Chronic obstructive pulmonary disease with (acute) exacerbation Patient without wheezing. Stop steroids. Respiratory issues seem to be more from CHF exacerbation. (5) Community acquired pneumonia Current visit: Yes Status: Acute Category: Medical Code(s): J18.9 - Pneumonia, unspecified organism (6) Congestive heart failure Current visit: Yes Status: Chronic Qualifiers: Heart failure type: systolic Category: Medical Code(s): I50.9 - Heart failure, unspecified EF 35% on prelim echo. Continue IV diuresis. Will be appropriate for Entresto. Stop lisinopril today. Ongoing meds for afib issues. (7) Lymphedema Current visit: Yes Status: Chronic Category: Medical Code(s): I89.0 - Lymphedema, not elsewhere classified (8) Coagulopathy Current visit: Yes Status: Chronic Category: Medical Code(s): D68.9 - Coagulation defect, unspecified (9) Sepsis Current visit: Yes Status: Acute Qualifiers: Sepsis type: sepsis due to unspecified organism Acute respiratory failure type: with hypoxia Severe sepsis shock status: without septic shock Category: Medical Code(s): A41.9 - Sepsis, unspecified organism (10) Hypokalemia Current visit: Yes Status: Acute Category: Medical Code(s): E87.6 - Hypokalemia Probably from diuretic issues. Replace orally
[2019-02-22 08:48] LABS: Lymphocytes % 4 % (10-50); Monocytes % 4 % (2-9); Neutrophils % 92 % (42-76); RBC Morphology Normal; Total Cells Counted 100
--- NOTE | 2019-02-22 09:37 | Consult Report ---
*Admission Date: 02/21/19 <Madonna Esparza - 02/22/19 11:03> *Reason for consult:: B/L Lymphedema, ulcer on right ankle, foot care <Madonna Esparza 02/22/19 11:03> *History of present illness: Jermaine Gaviria is a 58-year-old gentleman with history of blindness, diabetes, hypertension, coronary artery disease status post stent placement in March 2018, and recurring lymphedema and stasis dermatitis of bilateral lower extremities. The patient was admitted on 02/21/2019 for SOA, he Met sepsis criteria due to tachycardia and tachypnea with possible pneumonia versus CHF exacerbation. The patient has since then bee diuresed well with Lasix and edema is some better this am. Patient states he is breathing better as well. The patient states he sees a Home Health Physical Therapist in [place], Dr. Nura Piedra for his routine foot care and has a follow up appointment on 03/14/19. <GerardoannmarieMadonna Alyce 02/22/19 11:03> Review of Systems - Constitutional Reports weakness <VilmaMadonna Alyce 02/22/19 11:03> - Eyes Reports loss of vision <VilmaMadonna Alyce 02/22/19 11:03> Comments: Patient is blind in both eyes, and has been since the age of 75 years old. 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 <GerardoannmarieMadonna Alyce 02/22/19 11:03> - ENT Denies abnormal hearing, Denies dizziness <GerardoannmarieMadonna Alyce 02/22/19 11:03> - *Cardiovascular Reports shortness of breath with activity, Denies chest pain <SantoshimerMadonna Alyce 02/22/19 11:03> - *Respiratory Reports cough <SantoshimerMadonna Alyce 02/22/19 11:03> - *Gastrointestinal Denies abdominal pain <GerardoannmarieMadonna Alyce 02/22/19 11:03> - *Musculoskeletal Reports numbness, Reports stiffness <GerardoannmarieMadonna Alyce 02/22/19 11:03> - Integumentary/Breasts Reports dry skin, Reports redness, Reports skin ulcer <Madonna Esparza 02/22/19 11:03> - *Neurologic Reports localized weakness, Denies confusion <SantoshimerMadonna Alyce 02/22/19 11:03> - Psychiatric Denies anxiety <VilmaMadonna Alyce 02/22/19 11:03> [facility] History I have reviewed the patient's past medical history: Yes <VilmaMadonna Alyce 02/22/19 11:03> Medical History: Reports:: Congestive Heart Failure, Coronary Artery Disease, Diabetes Mellitus Type 2, Hypertension Denies:: Diabetes Mellitus Type 1, Home Oxygen <Madonna Esparza 02/22/19 11:03> *Have you ever received a pneumonia vaccine?: No <SantoshimerMadonna Alyce 02/22/19 11:03> *Have you received a flu vaccine this season?: No <VilmaMadonna Mead 02/22/19 11:03> - *Social History Educational Level: Completed High School <SantoshimerMadonna Alyce 02/22/19 11:03> Smoking Status: Current every day smoker <VilmaMadonna Alyce 02/22/19 11:03> Tobacco Type: cigarettes <SantoshimerMadonna Alyce 02/22/19 11:03> # Packs/Day (cigarettes): 2 <VilmaMadonna Alyce 02/22/19 11:03> #Yrs smoked (if former smoker): 45 <GerardosalbadorimerMadonna Alyce 02/22/19 11:03> Alcohol Intake: current <SantoshimerMadonna Alyce 02/22/19 11:03> Alcohol Intake Frequency:: holidays/special occasions only <SantoshimerMadonna Alyce 02/22/19 11:03> *Occupational Status:: disabled <VilmaMadonna Alyce 02/22/19 11:03> *Travel in the last 8 weeks: None <VilmaMadonna L 02/22/19 11:03> Family Hx:: Non-contributory <Madonna Esparza 02/22/19 11:03> Meds Home Medications Medication Instructions Recorded Confirmed Type Clopidogrel Bisulfate [Plavix 75mg 75 mg PO DAILY 02/21/19 02/21/19 History Tab] Furosemide [Furosemide 20mg Tab] 20 mg PO DAILY 02/21/19 02/21/19 History Meloxicam 7.5 mg PO DAILY 02/21/19 02/21/19 History Rivaroxaban [Xarelto 20mg Tablet*] 20 mg PO DAILY 02/21/19 02/21/19 History dilTIAZem HCl [Dilt-Xr] 240 mg PO DAILY 02/21/19 02/21/19 History lisinopriL [Lisinopril 40mg Tablet] 80 mg PO DAILY 02/21/19 02/21/19 History Metformin HCl 500 mg PO BID 02/22/19 02/22/19 History <Digna Lantigua - 02/22/19 13:58> Allergies Allergy/AdvReac Type Severity Reaction Status Date / Time No Known Allergies Allergy Unverified 02/22/19 07:24 <Digna Lantigua - 02/22/19 13:58> Exam Vital signs and Labs for Last 24 Hours: Temp Pulse Resp BP Pulse Ox 97.7 F 115 H 20 131/89 95 02/22/19 08:00 02/22/19 08:37 02/22/19 08:00 02/22/19 08:00 02/22/19 08:00 Laboratory Results - last 24 hr 02/21/19 12:15: WBC 5.5, RBC 5.29, Hgb 15.9, Hct 50.4, MCV 95.3 H, MCH 30.1, MCHC 31.6 L, RDW 14.7, Plt Count 223, MPV 8.3, Neut % (Auto) 78.2, Lymph % (Auto) 9.8 L, [place] % (Auto) 10.9 H, Eos % (Auto) 0.1, Baso % (Auto) 1.0, Neut # (Auto) 4.3, Lymph # (Auto) 0.5 L, [place] # (Auto) 0.6, Eos # (Auto) 0.0, Baso # (Auto) 0.1 02/21/19 12:15: Sodium 143, Potassium 3.8, Chloride 101, Carbon Dioxide 29, Anion Gap 16.8 H, BUN 13, Creatinine 1.31 H, Estimated Creat Clear 106, Estimated GFR 56 L, Est GFR ( Amer) 68, Glucose 96, Calcium 8.1 L, Total Bilirubin 1.2 H, Direct Bilirubin 0.4 H, Indirect Bilirubin 0.8, AST 21, ALT 15, Alkaline Phosphatase 64, Troponin I 0.06, Total Protein 6.5, Albumin 2.9 L 02/21/19 12:15: B-Natriuretic Peptide 267 H 02/21/19 12:30: Specimen Source Right radial, O2 % room air, ABG pH 7.42, ABG pCO2 42.2, ABG pO2 55.7 L, ABG HCO3 27.0 H, ABG Total CO2 28.3 H, ABG O2 Saturation 89 L, ABG Base Excess 2.6 H, [place] Test Acceptable 02/21/19 14:31: Lactate 1.7 02/21/19 15:55: Troponin I 0.06 02/21/19 17:20: PT 14.4 H, INR 1.41 H, APTT 45.1 H 02/21/19 18:45: Troponin I 0.05 02/22/19 05:41: POC Glucose 179 H 02/22/19 07:38: WBC 3.9 L D, RBC 5.26, Hgb 15.6, Hct 49.2, MCV 93.5, MCH 29.7, MCHC 31.7 L, RDW 14.6, Plt Count 211, MPV 8.5, Neut % (Auto) 86.0 H, Lymph % (Auto) 5.4 L, [place] % (Auto) 7.2, Eos % (Auto) 1.0, Baso % (Auto) 0.4, Neut # (Auto) 3.3, Lymph # (Auto) 0.2 L, [place] # (Auto) 0.3, Eos # (Auto) 0.0, Baso # (Auto) 0.0, Total Counted 100, Neutrophils % (Manual) 92 H, Lymphocytes % (Manual) 4 L, Monocytes % (Manual) 4, Platelet Estimate Normal, RBC Morphology Normal 02/22/19 07:38: Sodium 139, Potassium 2.9 L* D, Chloride 101, Carbon Dioxide 28, Anion Gap 12.9, BUN 19 H D, Creatinine 1.39 H, Estimated Creat Clear 100, Estimated GFR 52 L, Est GFR ( Amer) 63, Glucose 200 H D, Calcium 8.1 L, Phosphorus 3.4, Magnesium 1.8, Total Bilirubin 0.8, AST 18, ALT 10 L D, Alkaline Phosphatase 60, Total Protein 6.3 L, Albumin 2.8 L, Globulin 3.5 H, Albumin/Globulin Ratio 0.8 L, Triglycerides 49, Cholesterol 126 L, LDL Cholesterol 89, VLDL Cholesterol 10, HDL Cholesterol 27, Cholesterol/HDL Ratio 4.7 H 02/22/19 07:38: ESR 7 02/22/19 07:38: C-Reactive Protein 11.4 H <RhinaDigna - 02/22/19 13:58> Temp Pulse Resp BP Pulse Ox 97.7 F 115 H 20 131/89 92 L 02/22/19 08:00 02/22/19 08:37 02/22/19 08:00 02/22/19 08:00 02/22/19 08:00 Laboratory Results - last 24 hr 02/21/19 12:15: WBC 5.5, RBC 5.29, Hgb 15.9, Hct 50.4, MCV 95.3 H, MCH 30.1, MCHC 31.6 L, RDW 14.7, Plt Count 223, MPV 8.3, Neut % (Auto) 78.2, Lymph % (Auto) 9.8 L, [place] % (Auto) 10.9 H, Eos % (Auto) 0.1, Baso % (Auto) 1.0, Neut # (Auto) 4.3, Lymph # (Auto) 0.5 L, [place] # (Auto) 0.6, Eos # (Auto) 0.0, Baso # (Auto) 0.1 02/21/19 12:15: Sodium 143, Potassium 3.8, Chloride 101, Carbon Dioxide 29, Anion Gap 16.8 H, BUN 13, Creatinine 1.31 H, Estimated Creat Clear 106, Estimated GFR 56 L, Est GFR ( Amer) 68, Glucose 96, Calcium 8.1 L, Total Bilirubin 1.2 H, Direct Bilirubin 0.4 H, Indirect Bilirubin 0.8, AST 21, ALT 15, Alkaline Phosphatase 64, Troponin I 0.06, Total Protein 6.5, Albumin 2.9 L 02/21/19 12:15: B-Natriuretic Peptide 267 H 02/21/19 12:30: Specimen Source Right radial, O2 % room air, ABG pH 7.42, ABG pCO2 42.2, ABG pO2 55.7 L, ABG HCO3 27.0 H, ABG Total CO2 28.3 H, ABG O2 Saturation 89 L, ABG Base Excess 2.6 H, [place] Test Acceptable 02/21/19 14:31: Lactate 1.7 02/21/19 15:55: Troponin I 0.06 02/21/19 17:20: PT 14.4 H, INR 1.41 H, APTT 45.1 H 02/21/19 18:45: Troponin I 0.05 02/22/19 05:41: POC Glucose 179 H 02/22/19 07:38: WBC 3.9 L D, RBC 5.26, Hgb 15.6, Hct 49.2, MCV 93.5, MCH 29.7, MCHC 31.7 L, RDW 14.6, Plt Count 211, MPV 8.5, Neut % (Auto) 86.0 H, Lymph % (Auto) 5.4 L, [place] % (Auto) 7.2, Eos % (Auto) 1.0, Baso % (Auto) 0.4, Neut # (Auto) 3.3, Lymph # (Auto) 0.2 L, [place] # (Auto) 0.3, Eos # (Auto) 0.0, Baso # (Auto) 0.0, Total Counted 100, Neutrophils % (Manual) 92 H, Lymphocytes % ([place]) 4 L, Monocytes % (Manual) 4, Platelet Estimate Normal, RBC Morphology Normal 02/22/19 07:38: Sodium 139, Potassium 2.9 L* D, Chloride 101, Carbon Dioxide 28, Anion Gap 12.9, BUN 19 H D, Creatinine 1.39 H, Estimated Creat Clear 100, Estimated GFR 52 L, Est GFR ( Amer) 63, Glucose 200 H D, Calcium 8.1 L, Phosphorus 3.4, Magnesium 1.8, Total Bilirubin 0.8, AST 18, ALT 10 L D, Alkaline Phosphatase 60, Total Protein 6.3 L, Albumin 2.8 L, Globulin 3.5 H, Albumin/Globulin Ratio 0.8 L, Triglycerides 49, Cholesterol 126 L, LDL Cholesterol 89, VLDL Cholesterol 10, HDL Cholesterol 27, Cholesterol/HDL Ratio 4.7 H 02/22/19 07:38: C-Reactive Protein 11.4 H <Madonna Esparza - 02/22/19 11:03> I & O for Last 24 hours: Intake & Output 02/19/19 02/20/19 02/21/19 02/22/19 11:59 11:59 11:59 11:59 Intake Total 390 / 390 Output Total 2900 / 2900 Balance -2510 / -2510 Weight 275 lb 8 oz <Digna Lantigua - 02/22/19 13:58> Intake & Output 02/19/19 02/20/19 02/21/19 02/22/19 23:59 23:59 23:59 23:59 Intake Total 380 / 380 Output Total 550 / 550 2350 / 2350 Balance -170 / -170 -2340 / -2340 Weight 281 lb 275 lb 8 oz <SantoshimerMadonna L - 02/22/19 11:03> Microbiology Reports for the Last 24 Hours: Microbiology 02/21/19 19:15 Sputum - Expectorated Sputum Gram Stain - Final <RhinaDigna hanna - 02/22/19 13:58> Microbiology 02/21/19 19:15 Sputum - Expectorated Sputum Gram Stain - Final <VilmaMadonna L - 02/22/19 11:03> - *Routine HEENT Exam Head: Present: normocephalic <SantoshimerMadonna Mead - 02/22/19 11:03> ENT: Present: mucous membranes moist <SantoshimerMadonna L - 02/22/19 11:03> - *Routine Neck Exam Present: supple, full ROM <SantoshimerMadonna Mead - 02/22/19 11:03> - *Routine Respiratory Exam Absent: respiratory distress <SantoshimerMadonna L - 02/22/19 11:03> - *Routine Cardiovascular Exam Absent: JVD <GerardoannmarieMadonna L - 02/22/19 11:03> - *Routine Abdominal Exam Absent: distended <GerardoannmarieMadonna Alyec - 02/22/19 11:03> - *Routine Extremities Exam Present: edema, normal capillary refill, amputation. Absent: calf tenderness <GerardoannmarieMadonna L 02/22/19 11:03> Comments: Right 5th digit was amputated in 2014. The patient stated he had some infection in the toe. <Madonna Esparza 02/22/19 11:03> - Routine Back/Spine/Pelvis Exam Back/Spine: Present: full ROM <Madonna Esparza 02/22/19 11:03> - *Routine Skin Exam Present: erythema, dry <Madonna Esparza 02/22/19 11:03> Comments: B/L Lymphedema, 3+ edema to B/L legs, ankles and feet. <Madonna Esparza 02/22/19 11:03> - *Routine Neurological Exam Present: oriented X3 <Madonna Esparza 02/22/19 11:03> - Routine Psychiatric Exam Present: normal affect, cooperative <Madonna Esparza 02/22/19 11:03> - Detailed Lower Extremity Exam Lower leg: Bilateral swelling, Bilateral erythema, Bilateral warmth <Madonna Esparza 02/22/19 11:03> Ankle: Right wound (anterior ankle ), Bilateral erythema, Bilateral swelling <Madonna Esparza 02/22/19 11:03> Foot/Toes: Left nail abnormalities (hallux partial nail avulsion ), Right amputation (5th digit ), Right deformity (2nd digit, skin tag medial side), Bilateral erythema, Bilateral hammer toe, Bilateral onychomycosis, Bilateral swelling (Blister to the left midfoot, deroofed, clear drainage noted.) <Madonna Esparza 02/22/19 11:03> Leg image: 1 - Right lower leg lymphedema, 3+ edema noted. No open lesions or weeping noted. Dry skin noted to ankle, foot and between toes. No maceration noted interdigits. Ulcer to anterior right ankle ( 2.2 cm x 1.2cm x 0.0 cm). The ulcer is dry, scabbed, mild erythema surrounding skin, dry and cracked. Right 5th digit amputated 2 - Left lower leg lymphedema, 3+ edema noted. No open lesions or weeping noted. Dry skin noted to ankle, foot and between toes. No maceration noted interdigits. <Madonna Esparza - 02/22/19 11:03> Ankle image: 1 - Right anterior ankle ulcer ( 2.2cm x 1.2cm x 0.0 cm ) dry and scabbed, no drainage noted, surrounding skin has some erythema, and dry cracked skin. 2 - Left midfoot blister, de-roofed with clear drainage noted, left intact. <Madonna Esparza - 02/22/19 11:03> Results - Labs Result Diagrams: 02/22/19 07:38 02/22/19 07:38 <Digna Lantigua - 02/22/19 13:58> Labs: Abnormal lab results 02/21/19 02/21/19 02/21/19 Range/Units 12:15 12:15 12:15 WBC (4.8-10.8) K/mm3 MCV 95.3 H (80-94) fl MCHC 31.6 L (31.8-35.4) g/dL Neut % (Auto) (37.0-80.0) % Lymph % (Auto) 9.8 L (10-50) % [place] % (Auto) 10.9 H (1.7-9.3) % Lymph # (Auto) 0.5 L (0.7-4.5) K/mm3 Neutrophils % (Manual) (42-76) % Lymphocytes % (Manual) (10-50) % PT (9.4-11.8) seconds INR (0.9-1.1) APTT (23.6-34.0) seconds ABG pO2 (80-100) mmhg ABG HCO3 (22.0-26.0) mmhg ABG Total CO2 (23-27) mmhg ABG O2 Saturation (90-100) % ABG Base Excess (-2.4-2.3) mmol/L Potassium (3.5-5.1) mmoL/L Anion Gap 16.8 H (5-15) mEq/L BUN (7-18) mg/dL Creatinine 1.31 H (0.70-1.30) mg/dL Estimated GFR 56 L (>60) ml/min Glucose (74-106) mg/dL POC Glucose (70-110) Calcium 8.1 L (8.5-10.1) mg/dL Total Bilirubin 1.2 H (0.2-1.0) mg/dL Direct Bilirubin 0.4 H (0.0-0.2) mg/dL ALT (12-78) U/L C-Reactive Protein (0.0-0.9) mg/dL B-Natriuretic Peptide 267 H (0-100) pg/mL Total Protein (6.4-8.2) gm/dL Albumin 2.9 L (3.4-5.0) gm/dL Globulin (1.3-3.2) gm/dl Albumin/Globulin Ratio (1.1-1.8) Cholesterol (140-200) mg/dL Cholesterol/HDL Ratio (1-3.5) 02/21/19 02/21/19 02/22/19 Range/Units 12:30 17:20 05:41 WBC (4.8-10.8) K/mm3 MCV (80-94) fl MCHC (31.8-35.4) g/dL Neut % (Auto) (37.0-80.0) % Lymph % (Auto) (10-50) % [place] % (Auto) (1.7-9.3) % Lymph # (Auto) (0.7-4.5) K/mm3 Neutrophils % (Manual) (42-76) % Lymphocytes % (Manual) (10-50) % PT 14.4 H (9.4-11.8) seconds INR 1.41 H (0.9-1.1) APTT 45.1 H (23.6-34.0) seconds ABG pO2 55.7 L (80-100) mmhg ABG HCO3 27.0 H (22.0-26.0) mmhg ABG Total CO2 28.3 H (23-27) mmhg ABG O2 Saturation 89 L (90-100) % ABG Base Excess 2.6 H (-2.4-2.3) mmol/L Potassium (3.5-5.1) mmoL/L Anion Gap (5-15) mEq/L BUN (7-18) mg/dL Creatinine (0.70-1.30) mg/dL Estimated GFR (>60) ml/min Glucose (74-106) mg/dL POC Glucose 179 H (70-110) Calcium (8.5-10.1) mg/dL Total Bilirubin (0.2-1.0) mg/dL Direct Bilirubin (0.0-0.2) mg/dL ALT (12-78) U/L C-Reactive Protein (0.0-0.9) mg/dL B-Natriuretic Peptide (0-100) pg/mL Total Protein (6.4-8.2) gm/dL Albumin (3.4-5.0) gm/dL Globulin (1.3-3.2) gm/dl Albumin/Globulin Ratio (1.1-1.8) Cholesterol (140-200) mg/dL Cholesterol/HDL Ratio (1-3.5) 02/22/19 02/22/19 02/22/19 Range/Units 07:38 07:38 07:38 WBC 3.9 L D (4.8-10.8) K/mm3 MCV (80-94) fl MCHC 31.7 L (31.8-35.4) g/dL Neut % (Auto) 86.0 H (37.0-80.0) % Lymph % (Auto) 5.4 L (10-50) % [place] % (Auto) (1.7-9.3) % Lymph # (Auto) 0.2 L (0.7-4.5) K/mm3 Neutrophils % (Manual) 92 H (42-76) % Lymphocytes % (Manual) 4 L (10-50) % PT (9.4-11.8) seconds INR (0.9-1.1) APTT (23.6-34.0) seconds ABG pO2 (80-100) mmhg ABG HCO3 (22.0-26.0) mmhg ABG Total CO2 (23-27) mmhg ABG O2 Saturation (90-100) % ABG Base Excess (-2.4-2.3) mmol/L Potassium 2.9 L* D (3.5-5.1) mmoL/L Anion Gap (5-15) mEq/L BUN 19 H D (7-18) mg/dL Creatinine 1.39 H (0.70-1.30) mg/dL Estimated GFR 52 L (>60) ml/min Glucose 200 H D (74-106) mg/dL POC Glucose (70-110) Calcium 8.1 L (8.5-10.1) mg/dL Total Bilirubin (0.2-1.0) mg/dL Direct Bilirubin (0.0-0.2) mg/dL ALT 10 L D (12-78) U/L C-Reactive Protein 11.4 H (0.0-0.9) mg/dL B-Natriuretic Peptide (0-100) pg/mL Total Protein 6.3 L (6.4-8.2) gm/dL Albumin 2.8 L (3.4-5.0) gm/dL Globulin 3.5 H (1.3-3.2) gm/dl Albumin/Globulin Ratio 0.8 L (1.1-1.8) Cholesterol 126 L (140-200) mg/dL Cholesterol/HDL Ratio 4.7 H (1-3.5) H & H 02/21/19 02/22/19 Range/Units 12:15 07:38 Hgb 15.9 15.6 (14.1-18.0) g/dL Hct 50.4 49.2 (42.0-52.0) % Coagulation 02/21/19 Range/Units 17:20 INR 1.41 H (0.9-1.1) All other labs normal. <Digna Lantigua - 02/22/19 13:58> Abnormal lab results 02/21/19 02/21/19 02/21/19 Range/Units 12:15 12:15 12:15 WBC (4.8-10.8) K/mm3 MCV 95.3 H (80-94) fl MCHC 31.6 L (31.8-35.4) g/dL Neut % (Auto) (37.0-80.0) % Lymph % (Auto) 9.8 L (10-50) % [place] % (Auto) 10.9 H (1.7-9.3) % Lymph # (Auto) 0.5 L (0.7-4.5) K/mm3 Neutrophils % (Manual) (42-76) % Lymphocytes % (Manual) (10-50) % PT (9.4-11.8) seconds INR (0.9-1.1) APTT (23.6-34.0) seconds ABG pO2 (80-100) mmhg ABG HCO3 (22.0-26.0) mmhg ABG Total CO2 (23-27) mmhg ABG O2 Saturation (90-100) % ABG Base Excess (-2.4-2.3) mmol/L Potassium (3.5-5.1) mmoL/L Anion Gap 16.8 H (5-15) mEq/L BUN (7-18) mg/dL Creatinine 1.31 H (0.70-1.30) mg/dL Estimated GFR 56 L (>60) ml/min Glucose (74-106) mg/dL POC Glucose (70-110) Calcium 8.1 L (8.5-10.1) mg/dL Total Bilirubin 1.2 H (0.2-1.0) mg/dL Direct Bilirubin 0.4 H (0.0-0.2) mg/dL ALT (12-78) U/L C-Reactive Protein (0.0-0.9) mg/dL B-Natriuretic Peptide 267 H (0-100) pg/mL Total Protein (6.4-8.2) gm/dL Albumin 2.9 L (3.4-5.0) gm/dL Globulin (1.3-3.2) gm/dl Albumin/Globulin Ratio (1.1-1.8) Cholesterol (140-200) mg/dL Cholesterol/HDL Ratio (1-3.5) 02/21/19 02/21/19 02/22/19 Range/Units 12:30 17:20 05:41 WBC (4.8-10.8) K/mm3 MCV (80-94) fl MCHC (31.8-35.4) g/dL Neut % (Auto) (37.0-80.0) % Lymph % (Auto) (10-50) % [place] % (Auto) (1.7-9.3) % Lymph # (Auto) (0.7-4.5) K/mm3 Neutrophils % (Manual) (42-76) % Lymphocytes % (Manual) (10-50) % PT 14.4 H (9.4-11.8) seconds INR 1.41 H (0.9-1.1) APTT 45.1 H (23.6-34.0) seconds ABG pO2 55.7 L (80-100) mmhg ABG HCO3 27.0 H (22.0-26.0) mmhg ABG Total CO2 28.3 H (23-27) mmhg ABG O2 Saturation 89 L (90-100) % ABG Base Excess 2.6 H (-2.4-2.3) mmol/L Potassium (3.5-5.1) mmoL/L Anion Gap (5-15) mEq/L BUN (7-18) mg/dL Creatinine (0.70-1.30) mg/dL Estimated GFR (>60) ml/min Glucose (74-106) mg/dL POC Glucose 179 H (70-110) Calcium (8.5-10.1) mg/dL Total Bilirubin (0.2-1.0) mg/dL Direct Bilirubin (0.0-0.2) mg/dL ALT (12-78) U/L C-Reactive Protein (0.0-0.9) mg/dL B-Natriuretic Peptide (0-100) pg/mL Total Protein (6.4-8.2) gm/dL Albumin (3.4-5.0) gm/dL Globulin (1.3-3.2) gm/dl Albumin/Globulin Ratio (1.1-1.8) Cholesterol (140-200) mg/dL Cholesterol/HDL Ratio (1-3.5) 02/22/19 02/22/19 02/22/19 Range/Units 07:38 07:38 07:38 WBC 3.9 L D (4.8-10.8) K/mm3 MCV (80-94) fl MCHC 31.7 L (31.8-35.4) g/dL Neut % (Auto) 86.0 H (37.0-80.0) % Lymph % (Auto) 5.4 L (10-50) % [place] % (Auto) (1.7-9.3) % Lymph # (Auto) 0.2 L (0.7-4.5) K/mm3 Neutrophils % (Manual) 92 H (42-76) % Lymphocytes % (Manual) 4 L (10-50) % PT (9.4-11.8) seconds INR (0.9-1.1) APTT (23.6-34.0) seconds ABG pO2 (80-100) mmhg ABG HCO3 (22.0-26.0) mmhg ABG Total CO2 (23-27) mmhg ABG O2 Saturation (90-100) % ABG Base Excess (-2.4-2.3) mmol/L Potassium 2.9 L* D (3.5-5.1) mmoL/L Anion Gap (5-15) mEq/L BUN 19 H D (7-18) mg/dL Creatinine 1.39 H (0.70-1.30) mg/dL Estimated GFR 52 L (>60) ml/min Glucose 200 H D (74-106) mg/dL POC Glucose (70-110) Calcium 8.1 L (8.5-10.1) mg/dL Total Bilirubin (0.2-1.0) mg/dL Direct Bilirubin (0.0-0.2) mg/dL ALT 10 L D (12-78) U/L C-Reactive Protein 11.4 H (0.0-0.9) mg/dL B-Natriuretic Peptide (0-100) pg/mL Total Protein 6.3 L (6.4-8.2) gm/dL Albumin 2.8 L (3.4-5.0) gm/dL Globulin 3.5 H (1.3-3.2) gm/dl Albumin/Globulin Ratio 0.8 L (1.1-1.8) Cholesterol 126 L (140-200) mg/dL Cholesterol/HDL Ratio 4.7 H (1-3.5) H & H 02/21/19 02/22/19 Range/Units 12:15 07:38 Hgb 15.9 15.6 (14.1-18.0) g/dL Hct 50.4 49.2 (42.0-52.0) % Coagulation 02/21/19 Range/Units 17:20 INR 1.41 H (0.9-1.1) All other labs normal. <Madonna Esparza L - 02/22/19 11:03> Assessment and Plan (1) Blindness Current visit: Yes Status: Chronic Category: Medical Code(s): H54.7 - Unspecified visual loss (2) Class 2 obesity Current visit: Yes Status: Chronic Category: Medical Code(s): E66.9 - Obesity, unspecified (3) Diabetes Current visit: Yes Status: Chronic Qualifiers: Diabetes mellitus type: type 2 Diabetes mellitus complication detail: with nephropathy Category: Medical Code(s): E11.9 - Type 2 diabetes mellitus without complications (4) Acute exacerbation of chronic obstructive airways disease Current visit: Yes Status: Acute Category: Medical Code(s): J44.1 - Chronic obstructive pulmonary disease with (acute) exacerbation (5) Community acquired pneumonia Current visit: Yes Status: Acute Category: Medical Code(s): J18.9 - Pneumonia, unspecified organism (6) Congestive heart failure Current visit: Yes Status: Chronic Qualifiers: Heart failure type: systolic Category: Medical Code(s): I50.9 - Heart failure, unspecified (7) Lymphedema Start date: 02/22/19 Current visit: Yes Status: Chronic Category: Medical Code(s): I89.0 - Lymphedema, not elsewhere classified Lymphedema Clinic consult for today to assess and treat. Possible Unna boot application to b/l lower legs. (8) Coagulopathy Current visit: Yes Status: Chronic Category: Medical Code(s): D68.9 - Coagulation defect, unspecified (9) Sepsis Current visit: Yes Status: Acute Qualifiers: Sepsis type: sepsis due to unspecified organism Acute respiratory failure type: with hypoxia Severe sepsis shock status: without septic shock Category: Medical Code(s): A41.9 - Sepsis, unspecified organism (10) Hypokalemia Current visit: Yes Status: Acute Category: Medical Code(s): E87.6 - Hypok alemia <Madonna Esparza Alyce - 02/22/19 13:43> (1) Blindness Current visit: Yes Status: Chronic Category: Medical Code(s): H54.7 - Unspecified visual loss (2) Class 2 obesity Current visit: Yes Status: Chronic Category: Medical Code(s): E66.9 - Obesity, unspecified (3) Diabetes Current visit: Yes Status: Chronic Qualifiers: Diabetes mellitus type: type 2 Diabetes mellitus complication detail: with nephropathy Category: Medical Code(s): E11.9 - Type 2 diabetes mellitus without complications (4) Acute exacerbation of chronic obstructive airways disease Current visit: Yes Status: Acute Category: Medical Code(s): J44.1 - Chronic obstructive pulmonary disease with (acute) exacerbation (5) Community acquired pneumonia Current visit: Yes Status: Acute Category: Medical Code(s): J18.9 - Pneumonia, unspecified organism (6) Congestive heart failure Current visit: Yes Status: Chronic Qualifiers: Heart failure type: systolic Category: Medical Code(s): I50.9 - Heart failure, unspecified (7) Lymphedema Start date: 02/22/19 Current visit: Yes Status: Chronic Category: Medical Code(s): I89.0 - Lymphedema, not elsewhere classified (8) Coagulopathy Current visit: Yes Status: Chronic Category: Medical Code(s): D68.9 - Coagulation defect, unspecified (9) Sepsis Current visit: Yes Status: Acute Qualifiers: Sepsis type: sepsis due to unspecified organism Acute respiratory failure type: with hypoxia Severe sepsis shock status: without septic shock Category: Medical Code(s): A41.9 - Sepsis, unspecified organism (10) Hypokalemia Current visit: Yes Status: Acute Category: Medical Code(s): E87.6 - Hypokalemia (11) Lymphedema of both lower extremities Current visit: Yes Status: Acute Category: Medical Code(s): I89.0 - Lymphedema, not elsewhere classified (12) History of foot surgery Current visit: Yes Status: Acute Category: Surgical Code(s): Z98.890 - Other specified postprocedural states (13) History of osteomyelitis Current visit: Yes Status: Acute Category: Medical Code(s): Z87.39 - Personal history of other diseases of the musculoskeletal system and connective tissue (14) Chronic ulcer of right ankle Current visit: Yes Status: Acute Category: Medical Code(s): L97.319 - Non-pressure chronic ulcer of right ankle with unspecified severity (15) Varicose veins of both legs with edema Current visit: Yes Status: Acute Category: Medical Code(s): I83.893 - Varicose veins of bilateral lower extremities with other complications <Digna Lantigua - 02/22/19 13:58> - Assessment and plan all Dx Assessment and Plan for all problems:: Physician Attestation I was present during all of the critical components of the office visit. The patient was seen, evaluated and examined by me. I have read the office note that was documented by the staff and/or [employer] and agree with the documentation. I saw the patient. We discussed plan of care. He is being treated by Dr. Nura Piedra [facility] and has home health care. He has a history of right ankle ulceration. The wound is closed with some dried yellow eschar and scabbing and crusts noted but hypopigmented skin from where ulcer was is visible. No SOI to either LE. 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 I called and discussed plan of care with Dr. Nura Piedra with [facility] ([phone]). He stated the patient is under his care and has a history of right ankle ulcer. The ulcer heals and breaks open again with swelling from varicoe veins and lymphedema. Dr. Piedra mentioned possibly doing a tibialis anterior tendon release to reduce pressure from the ankle to try to prevent the wound from returning, but concerned over complication of drop foot. He recommended continue home health care (which is already arranged) and is okay for Unna boots and compression/lymphedema therapy until his follow up 03/14/19. Unna boot applied to bilateral lower extremity by wound care. Follow up with Dr. Piedra and [facility] as previously scheduled. <Digna Lantigua - 02/22/19 13:58> Plan 1.Podiatry consulted with the patient this am, cleaned his legs with Hibbiclens solution and 4x4 gauze. 2. Instructed the patient to try to keep legs elevated and heels offloaded on a pillow while in bed as much as possible to reduce edema. 3. Lymphedema consulted and will be up today to see the patient, may place unna boots on lower legs. 4. Patient diet advanced to 2Gm Low Sodium, may now have breakfast. <Madonna Esparza - 02/22/19 11:03>
--- NOTE | 2019-02-22 14:17 | Cardiology Report ---
APPROVED REPORT EXAM: Comprehensive 2D, Doppler, and color-flow Echocardiogram Model And Mold Maker Plaster: Jaz Avila RDCS Ht: 5 ft 6 in Wt: 233lbs BSA: 2.13 BP: 138/65 mmHg Indications: COPD, Atrial Fibrillation, Obesity 2D Dimensions LVOT 1.91 cm (M/F) 1.5-2.5 M-Mode Dimensions RVDd 2.61 cm (0.9-2.6)LVDd 4.97 cm (3.5-5.7) LVDs 4.49 cm (3.5-5.7)IVSd 1.39 cm (0.6-1.1) PWd 1.10 cm (0.6-1.1)EF (Teich) 21.10% FS 9.70% EDV (Teich) 116.60 mL ESV (Teich) 92.00 mL Left Ventricle Left atrium is mildly enlarged, left ventricle is normal size, mild concentric left ventricular hypertrophy, moderately reduced left ventricular systolic function, visually estimated ejection fraction 35 to 40% with left ventricular global hypokinesis, there is abnormal septal motion. Diastolic parameters are inconclusive. Right Ventricle Right atrium and right ventricular normal size and contractility. Aortic Valve Aortic valve is minimally thickened and fibrosed. Mitral Valve Mitral valve is grossly normal, there is no mitral regurgitation. Tricuspid Valve Tricuspid valve is grossly normal, there is mild tricuspid regurgitation. Pulmonic Valve Pulmonic valve is poorly visualized. Aortic Great Vessels Aortic root is normal size. Pericardium No significant pericardial effusion noted. Conclusion 1. Technically difficult study because of the patient factors and poor acoustic windows 2. Mildly enlarged left atrium, normal left ventricular size, mild concentric left ventricular hypertrophy, moderately reduced left ventricular systolic function, visually estimated ejection fraction 35 to 40%, left ventricle is globally hypokinetic, there is abnormal septal motion. Diastolic parameters are inconclusive. 3. Mild mitral and tricuspid regurgitation. 4. No significant pericardial effusion noted. Electronically signed by : Crow Alexander, 02/22/2019 14:16:47
--- NOTE | 2019-02-22 14:34 | Pharmacy Consult Notes ---
- Pharmacy Consult Date: 02/22/19 Time: 14:34 Referring provider: DR. NEGRON Reason for Consult:: VANCOMYCIN DOSING Allergies and ADEs:: Allergies Allergy/AdvReac Type Severity Reaction Status Date / Time No Known Allergies Allergy Unverified 02/22/19 07:24 Home Medications:: Home Medications Medication Instructions Recorded Confirmed Type Clopidogrel Bisulfate [Plavix 75mg 75 mg PO DAILY 02/21/19 02/21/19 History Tab] Furosemide [Furosemide 20mg Tab] 20 mg PO DAILY 02/21/19 02/21/19 History Meloxicam 7.5 mg PO DAILY 02/21/19 02/21/19 History Rivaroxaban [Xarelto 20mg Tablet*] 20 mg PO DAILY 02/21/19 02/21/19 History dilTIAZem HCl [Dilt-Xr] 240 mg PO DAILY 02/21/19 02/21/19 History lisinopriL [Lisinopril 40mg Tablet] 80 mg PO DAILY 02/21/19 02/21/19 History Metformin HCl 500 mg PO BID 02/22/19 02/22/19 History Height: 1.8 m Weight: 124.965 kg Laboratory Results:: Laboratory Results - last 24 hr 02/21/19 14:31: Lactate 1.7 02/21/19 15:55: Troponin I 0.06 02/21/19 17:20: PT 14.4 H, INR 1.41 H, APTT 45.1 H 02/21/19 18:45: Troponin I 0.05 02/22/19 05:41: POC Glucose 179 H 02/22/19 07:38: WBC 3.9 L D, RBC 5.26, Hgb 15.6, Hct 49.2, MCV 93.5, MCH 29.7, MCHC 31.7 L, RDW 14.6, Plt Count 211, MPV 8.5, Neut % (Auto) 86.0 H, Lymph % (Auto) 5.4 L, Roberts % (Auto) 7.2, Eos % (Auto) 1.0, Baso % (Auto) 0.4, Neut # (Auto) 3.3, Lymph # (Auto) 0.2 L, Roberts # (Auto) 0.3, Eos # (Auto) 0.0, Baso # (Auto) 0.0, Total Counted 100, Neutrophils % (Manual) 92 H, Lymphocytes % (Manual) 4 L, Monocytes % (Manual) 4, Platelet Estimate Normal, RBC Morphology Normal 02/22/19 07:38: Sodium 139, Potassium 2.9 L* D, Chloride 101, Carbon Dioxide 28, Anion Gap 12.9, BUN 19 H D, Creatinine 1.39 H, Estimated Creat Clear 100, Estimated GFR 52 L, Est GFR ( Amer) 63, Glucose 200 H D, Calcium 8.1 L, Phosphorus 3.4, Magnesium 1.8, Total Bilirubin 0.8, AST 18, ALT 10 L D, Alkaline Phosphatase 60, Total Protein 6.3 L, Albumin 2.8 L, Globulin 3.5 H, Albumin/Globulin Ratio 0.8 L, Triglycerides 49, Cholesterol 126 L, LDL Cholesterol 89, VLDL Cholesterol 10, HDL Cholesterol 27, Cholesterol/HDL Ratio 4.7 H 02/22/19 07:38: ESR 7 02/22/19 07:38: C-Reactive Protein 11.4 H 02/22/19 11:38: POC Glucose 245 H Medical History: Reports:: Congestive Heart Failure, Coronary Artery Disease, Diabetes Mellitus Type 2, Hypertension Denies:: Diabetes Mellitus Type 1, Home Oxygen Assessment and Plan (1) Blindness Current visit: Yes Status: Chronic Category: Medical Code(s): H54.7 - Unspecified visual loss (2) Class 2 obesity Current visit: Yes Status: Chronic Category: Medical Code(s): E66.9 - Obesity, unspecified (3) Diabetes Current visit: Yes Status: Chronic Qualifiers: Diabetes mellitus type: type 2 Diabetes mellitus complication detail: with nephropathy Category: Medical Code(s): E11.9 - Type 2 diabetes mellitus without complications (4) Acute exacerbation of chronic obstructive airways disease Current visit: Yes Status: Acute Category: Medical Code(s): J44.1 - Chronic obstructive pulmonary disease with (acute) exacerbation (5) Community acquired pneumonia Current visit: Yes Status: Acute Category: Medical Code(s): J18.9 - Pneumonia, unspecified organism (6) Congestive heart failure Current visit: Yes Status: Chronic Qualifiers: Heart failure type: systolic Category: Medical Code(s): I50.9 - Heart failure, unspecified (7) Lymphedema Start date: 02/22/19 Current visit: Yes Status: Chronic Category: Medical Code(s): I89.0 - Ly mphedema, not elsewhere classified (8) Coagulopathy Current visit: Yes Status: Chronic Category: Medical Code(s): D68.9 - Coagulation defect, unspecified (9) Sepsis Current visit: Yes Status: Acute Qualifiers: Sepsis type: sepsis due to unspecified organism Acute respiratory failure type: with hypoxia Severe sepsis shock status: without septic shock Category: Medical Code(s): A41.9 - Sepsis, unspecified organism (10) Hypokalemia Current visit: Yes Status: Acute Category: Medical Code(s): E87.6 - Hypokalemia (11) Lymphedema of both lower extremities Current visit: Yes Status: Acute Category: Medical Code(s): I89.0 - Lymphedema, not elsewhere classified (12) History of foot surgery Current visit: Yes Status: Acute Category: Surgical Code(s): Z98.890 - Other specified postprocedural states (13) History of osteomyelitis Current visit: Yes Status: Acute Category: Medical Code(s): Z87.39 - Personal history of other diseases of the musculoskeletal system and connective tissue (14) Chronic ulcer of right ankle Current visit: Yes Status: Acute Category: Medical Code(s): L97.319 - Non- pressure chronic ulcer of right ankle with unspecified severity (15) Varicose veins of both legs with edema Current visit: Yes Status: Acute Category: Medical Code(s): I83.893 - Varicose veins of bilateral lower extremities with other complications - Assessment and plan all Dx Assessment and Plan for all problems:: BASED ON PATIENT'S FACTORS, RECOMMEND STARTING WITH VANCOMYCIN 2250 MG Q18H AT THIS TIME.
--- NOTE | 2019-02-22 15:43 | Cardiology Report ---
APPROVED REPORT Bilateral Lower Extremity Venous Study for DVT. Carbonating Stone Cleaner: Brenda Sherman RT(R) Indications Lower Extremity Edema: Bilateral Current Smoker edema Risk Factors Obesity Current Smoker Patient had excessive swelling in LE. Legs had cracking, oozing, skin including blisters on top of feet. Vein Imaging CFV (R): compressive, spontaneous, phasic, augmentation FEM (R): compressive, spontaneous, phasic, augmentation POP (R): compressive, spontaneous, phasic, augmentation PTV (R): Compressible GSV (R): compressive, spontaneous, phasic, augmentation SSV (R): Compressible Peroneals (R):Compressible GAS (R): Compressible CFV (L): compressive, spontaneous, phasic, augmentation FEM (L): compressive, spontaneous, phasic, augmentation POP (L): compressive, spontaneous, phasic, augmentation PTV (L): Compressible GSV (L): compressive, spontaneous, phasic, augmentation GAS (L): Compressible Findings No evidence of DVT or superficial thrombophlebitis in the veins scanned of the right lower extremity. No evidence of DVT or superficial thrombophlebitis in the veins scanned of the left lower extremity. Conclusion No evidence of DVT or superficial thrombophlebitis in the veins scanned of the right lower extremity. No evidence of DVT or superficial thrombophlebitis in the veins scanned of the left lower extremity. subcutaneous edema Electronically signed by : Douglas Gupta MD 02/22/2019 15:42:53
[2019-02-23 07:39] LABS: Basophils % 0.1 % (0.1-2.0); Eosinophils % 0.1 % (0.1-12.0); Hematocrit 51.4 % (42.0-52.0); Hemoglobin 15.8 g/dL (14.1-18.0); Lymphocytes # 0.4 K/mm3 (0.7-4.5); Lymphocytes % 5.4 % (10-50); Mean Corpuscular HGB Conc 30.7 g/dL (31.8-35.4); Mean Corpuscular Volume 95.8 fl (80-94); Monocytes # 0.4 K/mm3 (0.1-1.0); Monocytes % 4.6 % (1.7-9.3); Neutrophils # 7.2 K/mm3 (1.8-7.8); Neutrophils % 89.7 % (37.0-80.0); Platelet Count 216 K/mm3 (142-424); Red Blood Count 5.37 M/mm3 (4.60-6.20); Red Cell Distribution Width 14.6 % (11.5-17.5)
[2019-02-23 07:47] LABS: Anion Gap 12.4 mEq/L (5-15); Calcium 8.7 mg/dL (8.5-10.1)
[2019-02-23 09:07] LABS: Thyroid Stimulating Hormone 1.45 uIU/ml (0.358-3.740)
--- NOTE | 2019-02-23 09:07 | Progress Note ---
Internal Medicine - PN: Subj *Date: 02/23/19 *Time: 09:05 Interval history: Overall patient feels better. Up on the side of the bed, breathing is easier. Continues to have a mild cough. Exam Vital signs and Labs for Last 24 Hours: Temp Pulse Resp BP Pulse Ox 97.9 F 113 H 18 112/85 99 02/23/19 08:00 02/23/19 08:00 02/23/19 08:00 02/23/19 08:00 02/23/19 08:00 Laboratory Results - last 24 hr 02/22/19 07:38: ESR 7 02/22/19 11:38: POC Glucose 245 H 02/22/19 21:03: POC Glucose 183 H 02/23/19 06:08: POC Glucose 158 H 02/23/19 06:50: WBC 8.0 D, RBC 5.37, Hgb 15.8, Hct 51.4, MCV 95.8 H, MCH 29.5, MCHC 30.7 L, RDW 14.6, Plt Count 216, MPV 9.0, Neut % (Auto) 89.7 H, Lymph % (Auto) 5.4 L, Lake % (Auto) 4.6, Eos % (Auto) 0.1, Baso % (Auto) 0.1, Neut # (Auto) 7.2, Lymph # (Auto) 0.4 L, [place] # (Auto) 0.4, Eos # (Auto) 0.0, Baso # (Auto) 0.0 02/23/19 06:50: Sodium 141, Potassium 3.4 L, Chloride 102, Carbon Dioxide 30, Anion Gap 12.4, BUN 29 H D, Creatinine 1.22, Estimated Creat Clear 113, Estimated GFR 61, Est GFR ( Amer) 73, Glucose 156 H D, Calcium 8.7 I & O for Last 24 hours: Intake & Output 02/20/19 02/21/19 02/22/19 02/23/19 11:59 11:59 11:59 11:59 Intake Total 540 / 540 520 / 520 Output Total 3550 / 3550 900 / 900 Balance -3010 / -3010 -380 / -380 Weight 275 lb 8 oz 274 lb 1 oz Microbiology Reports for the Last 24 Hours: Microbiology 02/21/19 14:31 Blood Blood Culture - Preliminary Gram Positive Cocci 02/21/19 19:15 Sputum - Expectorated Sputum Gram Stain - Final 02/21/19 19:15 Sputum - Expectorated Sputum Sputum Culture - Preliminary Narrative: Alert, oriented x3. Has had some runs of rapid A. fib with no chest pain, rates as high as 150 but they spontaneously resolved. Pressures been acceptable. Legs wrapped in compression stockings. Lungs are clear with better air entry. Moving all extremities well. Abdomen soft and nontender Assessment and Plan (1) Blindness Current visit: Yes Status: Chronic Category: Medical Code(s): H54.7 - Unspecified visual loss (2) Class 2 obesity Current visit: Yes Status: Chronic Category: Medical Code(s): E66.9 - Obesity, unspecified (3) Diabetes Current visit: Yes Status: Chronic Qualifiers: Diabetes mellitus type: type 2 Diabetes mellitus complication detail: with nephropathy Category: Medical Code(s): E11.9 - Type 2 diabetes mellitus without complications (4) Acute exacerbation of chronic obstructive airways disease Current visit: Yes Status: Acute Category: Medical Code(s): J44.1 - Chronic obstructive pulmonary disease with (acute) exacerbation (5) Community acquired pneumonia Current visit: Yes Status: Acute Category: Medical Code(s): J18.9 - Pneumonia, unspecified organism (6) Congestive heart failure Current visit: Yes Status: Chronic Qualifiers: Heart failure type: systolic Category: Medical Code(s): I50.9 - Heart failure, unspecified (7) Lymphedema Start date: 02/22/19 Current visit: Yes Status: Chronic Category: Medical Code(s): I89.0 - Lymphedema, not elsewhere classified (8) Coagulopathy Current visit: Yes Status: Chronic Category: Medical Code(s): D68.9 - Coagulation defect, unspecified (9) Sepsis Current visit: Yes Status: Acute Qualifiers: Sepsis type: sepsis due to unspecified organism Acute respiratory failure type: with hypoxia Severe sepsis shock status: without septic shock Category: Medical Code(s): A41.9 - Sepsis, unspecified organism Sepsis improving. Hemodynamically stable. Cultures from blood have revealed gram-positive cocci. Await final sensitivity. Vancomycin added yesterday. Patient tolerating this well. Anticipate discharge with antibiotics once sensitivities from sputum cultures and blood cultures are known. (10) Hypokalemia Current visit: Yes Status: Acute Category: Medical Code(s): E87.6 - Hypokalemia (11) Lymphedema of both lower extremities Current visit: Yes Status: Acute Category: Medical Code(s): I89.0 - Lymphedema, not elsewhere classified (12) History of foot surgery Current visit: Yes Status: Acute Category: Surgical Code(s): Z98.890 - Other specified postprocedural states (13) History of osteomyelitis Current visit: Yes Status: Acute Category: Medical Code(s): Z87.39 - Personal history of other diseases of the musculoskeletal system and connective tissue (14) Chronic ulcer of right ankle Current visit: Yes Status: Acute Category: Medical Code(s): L97.319 - Non- pressure chronic ulcer of right ankle with unspecified severity (15) Varicose veins of both legs with edema Current visit: Yes Status: Acute Category: Medical Code(s): I83.893 - Varicose veins of bilateral lower extremities with other complications (16) Atrial fibrillation Current visit: Yes Status: Acute Category: Medical Code(s): I48.91 - Unspecified atrial fibrillation Add digoxin today. Patient already on diltiazem. Patient is asymptomatic. Add TSH, magnesium and cardiac enzymes to labs this morning
[2019-02-23 09:53] LABS: Eosinophils % 1 % (0-3); Lymphocytes % 5 % (10-50); Monocytes % 5 % (2-9); Neutrophils % 89 % (42-76); Nucleated Red Blood Cells 1; Total Cells Counted 100
[2019-02-23 09:54] LABS: RBC Morphology Normal
--- NOTE | 2019-02-23 14:19 | Electrocardiograph Report ---
APPROVED REPORT Exam: Resting ECG HR:124 bpm ECG Measurements Heart Rate 124 AXES NM 184 P 23 QRSd 102 QRS -56 QT 282 T50 QTc 405 <Conclusion> Sinus tachycardia with occasional premature ventricular complexes and fusion complexes with junctional escape complexes Left axis deviation Anterior infarct, age undetermined Abnormal ECG Electronically signed by : Kevin Walker, 02/23/2019 14:18:49
--- NOTE | 2019-02-23 14:21 | Electrocardiograph Report ---
APPROVED REPORT Exam: Resting ECG HR:82 bpm ECG Measurements Heart Rate 82 AXES QRSd 106 QRS -61 QT 380 T67 QTc 443 <Conclusion> Atrial fibrillation Left axis deviation Abnormal ECG Electronically signed by : Kevin Walker, 02/23/2019 14:21:12
[2019-02-24 07:37] LABS: Basophils % 0.3 % (0.1-2.0); Eosinophils % 0.2 % (0.1-12.0); Hematocrit 50.8 % (42.0-52.0); Hemoglobin 15.6 g/dL (14.1-18.0); Lymphocytes # 0.4 K/mm3 (0.7-4.5); Lymphocytes % 6.6 % (10-50); Mean Corpuscular HGB Conc 30.6 g/dL (31.8-35.4); Mean Corpuscular Volume 95.8 fl (80-94); Mean Platelet Volume 8.7 fl (7.4-10.4); Monocytes # 0.3 K/mm3 (0.1-1.0); Monocytes % 5.6 % (1.7-9.3); Neutrophils % 87.3 % (37.0-80.0); Platelet Count 180 K/mm3 (142-424); Red Cell Distribution Width 14.5 % (11.5-17.5); White Blood Count 5.8 K/mm3 (4.8-10.8)
[2019-02-24 07:45] LABS: Anion Gap 8.6 mEq/L (5-15); Calcium 8.4 mg/dL (8.5-10.1)
--- NOTE | 2019-02-24 08:39 | Progress Note ---
Internal Medicine - PN: Subj *Date: 02/24/19 *Time: 08:37 Interval history: Patient had an episode through the night of coughing, chest pain, some anxiety issues, was given Ativan and a breathing treatment, the seem to help him and this morning he feels a little bit better. Is up in the chair. Exam Vital signs and Labs for Last 24 Hours: Temp Pulse Resp BP Pulse Ox 99.0 F 101 H 22 184/77 H 92 L 02/24/19 04:00 02/24/19 06:59 02/24/19 04:00 02/24/19 04:00 02/24/19 06:59 Laboratory Results - last 24 hr 02/23/19 06:50: Total Counted 100, Neutrophils % (Manual) 89 H, Lymphocytes % (Manual) 5 L, Monocytes % (Manual) 5, Eosinophils % (Manual) 1, Nucleated RBCs 1, Platelet Estimate Normal, RBC Morphology Normal 02/23/19 06:50: Magnesium 1.9, Troponin I < 0.02, TSH 1.45 D 02/23/19 11:13: POC Glucose 152 H 02/23/19 17:17: POC Glucose 160 H 02/23/19 20:41: POC Glucose 112 H 02/24/19 05:46: POC Glucose 103 02/24/19 07:10: WBC 5.8 D, RBC 5.30, Hgb 15.6, Hct 50.8, MCV 95.8 H, MCH 29.4, MCHC 30.6 L, RDW 14.5, Plt Count 180, MPV 8.7, Neut % (Auto) 87.3 H, Lymph % (Auto) 6.6 L, Bond % (Auto) 5.6, Eos % (Auto) 0.2, Baso % (Auto) 0.3, Neut # (Auto) 5.0, Lymph # (Auto) 0.4 L, Bond # (Auto) 0.3, Eos # (Auto) 0.0, Baso # (Auto) 0.0 02/24/19 07:10: Sodium 139, Potassium 3.6, Chloride 99, Carbon Dioxide 35 H, Anion Gap 8.6, BUN 25 H, Creatinine 1.27, Estimated Creat Clear 109, Estimated GFR 58 L, Est GFR ( Amer) 70, Glucose 101, Calcium 8.4 L I & O for Last 24 hours: Intake & Output 02/21/19 02/22/19 02/23/19 02/24/19 11:59 11:59 11:59 11:59 Intake Total 540 / 540 760 / 760 620 / 620 Output Total 3550 / 3550 900 / 900 1750 / 1750 Balance -3010 / -3010 -140 / -140 -1130 / -1130 Weight 275 lb 8 oz 274 lb 1 oz 275 lb 6 oz Microbiology Reports for the Last 24 Hours: Microbiology 02/21/19 19:15 Sputum - Expectorated Sputum Gram Stain - Final 02/21/19 19:15 Sputum - Expectorated Sputum Sputum Culture - Preliminary Gram Negative Rods Gram Negative Rods#2 02/21/19 14:31 Blood Blood Culture - Preliminary Staphylococcus capitis 02/21/19 14:31 Blood Blood Culture - Preliminary NO GROWTH AFTER 48 HOURS Narrative: Patient is awake. Alert. Has rhonchi and loose wheezes in both lower lung cardona, heart rate irregular with rate in the low 100s. Blood pressure has been slightly high. Legs are wrapped and look much better. Abdomen soft and nontender. Assessment and Plan (1) Blindness Current visit: Yes Status: Chronic Category: Medical Code(s): H54.7 - Unspecified visual loss (2) Class 2 obesity Current visit: Yes Status: Chronic Category: Medical Code(s): E66.9 - Obesity, unspecified (3) Diabetes Current visit: Yes Status: Chronic Qualifiers: Diabetes mellitus type: type 2 Diabetes mellitus complication detail: with nephropathy Category: Medical Code(s): E11.9 - Type 2 diabetes mellitus without complications (4) Acute exacerbation of chronic obstructive airways disease Current visit: Yes Status: Acute Category: Medical Code(s): J44.1 - Chronic obstructive pulmonary disease with (acute) exacerbation (5) Community acquired pneumonia Current visit: Yes Status: Acute Category: Medical Code(s): J18.9 - Pneumonia, unspecified organism (6) Congestive heart failure Current visit: Yes Status: Chronic Qualifiers: Heart failure type: systolic Category: Medical Code(s): I50.9 - Heart failure, unspecified (7) Lymphedema Start date: 02/22/19 Current visit: Yes Status: Chronic Category: Medical Code(s): I89.0 - Lymphedema, not elsewhere classified (8) Coagulopathy Current visit: Yes Status: Chronic Category: Medical Code(s): D68.9 - Coagulation defect, unspecified (9) Sepsis Current visit: Yes Status: Acute Qualifiers: Sepsis type: sepsis due to unspecified organism Acute respiratory failure type: with hypoxia Severe sepsis shock status: without septic shock Category: Medical Code(s): A41.9 - Sepsis, unspecified organism (10) Hypokalemia Current visit: Yes Status: Acute Category: Medical Code(s): E87.6 - Hypokalemia (11) Lymphedema of both lower extremities Current visit: Yes Status: Acute Category: Medical Code(s): I89.0 - Lymphedema, not elsewhere classified (12) History of foot surgery Current visit: Yes Status: Acute Category: Surgical Code(s): Z98.890 - Other specified postprocedural states (13) History of osteomyelitis Current visit: Yes Status: Acute Category: Medical Code(s): Z87.39 - Personal history of other diseases of the musculoskeletal system and connective tissue (14) Chronic ulcer of right ankle Current visit: Yes Status: Acute Category: Medical Code(s): L97.319 - Non- pressure chronic ulcer of right ankle with unspecified severity (15) Varicose veins of both legs with edema Current visit: Yes Status: Acute Category: Medical Code(s): I83.893 - Varicose veins of bilateral lower extremities with other complications (16) Atrial fibrillation Current visit: Yes Status: Acute Category: Medical Code(s): I48.91 - Unspecified atrial fibrillation - Assessment and plan all Dx Assessment and Plan for all problems:: Patient with multiple comorbidities as noted above. In regards to lung crackles and rhonchi check chest x-ray today. Sputum culture is growing 2 species of gram-negative rods. Await final sensitivities, continue ceftriaxone and vancomycin to cover both his lung infection and his skin issues with his lower extremities as well as the staph culture from blood. Lisinopril has been held for 2 days in anticipation of starting Entresto. This will be started today and hopefully will help with diuresis and his blood pressure issues.
[2019-02-24 09:47] LABS: Lymphocytes % 6 % (10-50); Monocytes % 5 % (2-9); Neutrophils % 89 % (42-76); Total Cells Counted 100
[2019-02-24 09:50] LABS: Hypochromasia 1+
[2019-02-24 09:51] LABS: Nucleated Red Blood Cells 4
--- NOTE | 2019-02-24 10:42 | Progress Note ---
Internal Medicine - PN: Subj *Date: 02/24/19 *Time: 10:41 Exam Vital signs and Labs for Last 24 Hours: Temp Pulse Resp BP Pulse Ox 99.8 F H 61 22 141/77 H 94 L 02/24/19 08:00 02/24/19 09:51 02/24/19 08:00 02/24/19 08:00 02/24/19 08:00 Laboratory Results - last 24 hr 02/23/19 11:13: POC Glucose 152 H 02/23/19 17:17: POC Glucose 160 H 02/23/19 20:41: POC Glucose 112 H 02/24/19 05:46: POC Glucose 103 02/24/19 07:10: WBC 5.8 D, RBC 5.30, Hgb 15.6, Hct 50.8, MCV 95.8 H, MCH 29.4, MCHC 30.6 L, RDW 14.5, Plt Count 180, MPV 8.7, Neut % (Auto) 87.3 H, Lymph % (Auto) 6.6 L, [place] % (Auto) 5.6, Eos % (Auto) 0.2, Baso % (Auto) 0.3, Neut # (Auto) 5.0, Lymph # (Auto) 0.4 L, [place] # (Auto) 0.3, Eos # (Auto) 0.0, Baso # (Auto) 0.0, Total Counted 100, Neutrophils % (Manual) 89 H, Lymphocytes % (Manual) 6 L, Monocytes % (Manual) 5, Nucleated RBCs 4, Platelet Estimate Slight decrease, Hypochromasia 1+ 02/24/19 07:10: Sodium 139, Potassium 3.6, Chloride 99, Carbon Dioxide 35 H, Anion Gap 8.6, BUN 25 H, Creatinine 1.27, Estimated Creat Clear 109, Estimated GFR 58 L, Est GFR ( Amer) 70, Glucose 101, Calcium 8.4 L I & O for Last 24 hours: Intake & Output 02/21/19 02/22/19 02/23/19 02/24/19 23:59 23:59 23:59 23:59 Intake Total 380 / 380 680 / 680 610 / 610 250 / 250 Output Total 550 / 1100 3300 / 3600 1500 / 1500 970 / 970 Balance -170 / -720 -2620 / -2920 -890 / -890 -720 / -720 Weight 127.459 kg 124.9 kg 124.313 kg 124.908 kg Microbiology Reports for the Last 24 Hours: Microbiology 02/21/19 19:15 Sputum - Expectorated Sputum Gram Stain - Final 02/21/19 19:15 Sputum - Expectorated Sputum Sputum Culture - Preliminary Gram Negative Rods Gram Negative Rods#2 02/21/19 14:31 Blood Blood Culture - Preliminary Staphylococcus capitis 02/21/19 14:31 Blood Blood Culture - Preliminary NO GROWTH AFTER 48 HOURS Assessment and Plan (1) Blindness Current visit: Yes Status: Chronic Category: Medical Code(s): H54.7 - Unspecified visual loss (2) Class 2 obesity Current visit: Yes Status: Chronic Category: Medical Code(s): E66.9 - Obesity, unspecified (3) Diabetes Current visit: Yes Status: Chronic Qualifiers: Diabetes mellitus type: type 2 Diabetes mellitus complication detail: with nephropathy Category: Medical Code(s): E11.9 - Type 2 diabetes mellitus without complications (4) Acute exacerbation of chronic obstructive airways disease Current visit: Yes Status: Acute Category: Medical Code(s): J44.1 - Chronic obstructive pulmonary disease with (acute) exacerbation (5) Community acquired pneumonia Current visit: Yes Status: Acute Category: Medical Code(s): J18.9 - Pneumonia, unspecified organism (6) Congestive heart failure Current visit: Yes Status: Chronic Qualifiers: Heart failure type: systolic Category: Medical Code(s): I50.9 - Heart failure, unspecified (7) Lymphedema Start date: 02/22/19 Current visit: Yes Status: Chronic Category: Medical Code(s): I89.0 - Lymphedema, not elsewhere classified (8) Coagulopathy Current visit: Yes Status: Chronic Category: Medical Code(s): D68.9 - Coagulation defect, unspecified (9) Sepsis Current visit: Yes Status: Acute Qualifiers: Sepsis type: sepsis due to unspecified organism Acute respiratory failure type: with hypoxia Severe sepsis shock status: without septic shock Category: Medical Code(s): A41.9 - Sepsis, unspecified organism (10) Hypokalemia Current visit: Yes Status: Acute Category: Medical Code(s): E87.6 - Hypokalemia (11) Lymphedema of both lower extremities Current visit: Yes Status: Acute Category: Medical Code(s): I89.0 - Lymphedema, not elsewhere classified (12) History of foot surgery Current visit: Yes Status: Acute Category: Surgical Code(s): Z98.890 - Other specified postprocedural states (13) History of osteomyelitis Current visit: Yes Status: Acute Category: Medical Code(s): Z87.39 - Personal history of other diseases of the musculoskeletal system and connective tissue (14) Chronic ulcer of right ankle Current visit: Yes Status: Acute Category: Medical Code(s): L97.319 - Non- pressure chronic ulcer of right ankle with unspecified severity (15) Varicose veins of both legs with edema Current visit: Yes Status: Acute Category: Medical Code(s): I83.893 - Varicose veins of bilateral lower extremities with other complications (16) Atrial fibrillation Current visit: Yes Status: Acute Category: Medical Code(s): I48.91 - Unspecified atrial fibrillation The patient's infection will respond to the chosen ABx?: Yes Is the patient receiving the right drug, dose, and route?: Yes Could a more targeted ABx be ordered?: No (VANCO-STAPH CAPITIS, ROCEPHIN-GRAM NEGATIVE RODS. CONTINUE CURRENT.)
[2019-02-25 07:57] LABS: Anion Gap 12.6 mEq/L (5-15); Calcium 8.1 mg/dL (8.5-10.1)
[2019-02-25 07:58] LABS: Basophils % 0.7 % (0.1-2.0); Eosinophils % 0.1 % (0.1-12.0); Hematocrit 53.6 % (42.0-52.0); Hemoglobin 17.1 g/dL (14.1-18.0); Lymphocytes # 0.5 K/mm3 (0.7-4.5); Mean Corpuscular HGB Conc 31.8 g/dL (31.8-35.4); Mean Corpuscular Volume 91.6 fl (80-94); Monocytes # 0.3 K/mm3 (0.1-1.0); Monocytes % 9.3 % (1.7-9.3); Neutrophils # 2.7 K/mm3 (1.8-7.8); Neutrophils % 75.9 % (37.0-80.0); Platelet Count 141 K/mm3 (142-424); Red Blood Count 5.85 M/mm3 (4.60-6.20); Red Cell Distribution Width 14.6 % (11.5-17.5); White Blood Count 3.5 K/mm3 (4.8-10.8)
--- NOTE | 2019-02-25 11:48 | Pharmacy Consult Notes ---
- Pharmacy Consult Date: 02/25/19 Time: 11:47 Referring provider: DR. NEGRON Reason for Consult:: VANCOMYCIN TROUGH LEVEL Allergies and ADEs:: Allergies Allergy/AdvReac Type Severity Reaction Status Date / Time No Known Allergies Allergy Unverified 02/22/19 07:24 Home Medications:: Home Medications Medication Instructions Recorded Confirmed Type Clopidogrel Bisulfate [Plavix 75mg 75 mg PO DAILY 02/21/19 02/21/19 History Tab] Furosemide [Furosemide 20mg Tab] 20 mg PO DAILY 02/21/19 02/21/19 History Meloxicam 7.5 mg PO DAILY 02/21/19 02/21/19 History Rivaroxaban [Xarelto 20mg Tablet*] 20 mg PO DAILY 02/21/19 02/21/19 History dilTIAZem HCl [Dilt-Xr] 240 mg PO DAILY 02/21/19 02/21/19 History lisinopriL [Lisinopril 40mg Tablet] 80 mg PO DAILY 02/21/19 02/21/19 History Metformin HCl 500 mg PO BID 02/22/19 02/22/19 History Height: 1.8 m Weight: 124.908 kg Laboratory Results:: Laboratory Results - last 24 hr 02/24/19 16:20: POC Glucose 110 02/24/19 20:35: Vancomycin Trough 15.2 02/24/19 20:58: POC Glucose 111 H 02/25/19 05:46: POC Glucose 116 H 02/25/19 06:55: WBC 3.5 L D, RBC 5.85, Hgb 17.1, Hct 53.6 H, MCV 91.6, MCH 29.1, MCHC 31.8, RDW 14.6, Plt Count 141 L, MPV 10.0, Neut % (Auto) 75.9, Lymph % (Auto) 14.0, [place] % (Auto) 9.3, Eos % (Auto) 0.1, Baso % (Auto) 0.7, Neut # (Auto) 2.7, Lymph # (Auto) 0.5 L, [place] # (Auto) 0.3, Eos # (Auto) 0.0, Baso # (Auto) 0.0 02/25/19 06:55: Sodium 138, Potassium 4.6 D, Chloride 100, Carbon Dioxide 30, Anion Gap 12.6, BUN 18 D, Creatinine 1.02, Estimated Creat Clear 136, Estimated GFR 74, Est GFR ( Amer) 90 D, Glucose 117 H, Calcium 8.1 L Medical History: Reports:: Congestive Heart Failure, Coronary Artery Disease, Diabetes Mellitus Type 2, Hypertension Denies:: Diabetes Mellitus Type 1, Home Oxygen Assessment and Plan (1) Blindness Current visit: Yes Status: Chronic Category: Medical Code(s): H54.7 - Unspecified visual loss (2) Class 2 obesity Current visit: Yes Status: Chronic Category: Medical Code(s): E66.9 - Obesity, unspecified (3) Diabetes Current visit: Yes Status: Chronic Qualifiers: Diabetes mellitus type: type 2 Diabetes mellitus complication detail: with nephropathy Category: Medical Code(s): E11.9 - Type 2 diabetes mellitus without complications (4) Acute exacerbation of chronic obstructive airways disease Current visit: Yes Status: Acute Category: Medical Code(s): J44.1 - Chronic obstructive pulmonary disease with (acute) exacerbation (5) Community acquired pneumonia Current visit: Yes Status: Acute Category: Medical Code(s): J18.9 - Pneumonia, unspecified organism (6) Congestive heart failure Current visit: Yes Status: Chronic Qualifiers: Heart failure type: systolic Category: Medical Code(s): I50.9 - Heart failure, unspecified (7) Lymphedema Start date: 02/22/19 Current visit: Yes Status: Chronic Category: Medical Code(s): I89.0 - Lymphedema, not elsewhere classified (8) Coagulopathy Current visit: Yes Status: Chronic Category: Medical Code(s): D68.9 - Coagulation defect, unspecified (9) Sepsis Current visit: Yes Status: Acute Qualifiers: Sepsis type: sepsis due to unspecified organism Acute respiratory failure type: with hypoxia Severe sepsis shock status: without septic shock Category: Medical Code(s): A41.9 - Sepsis, unspecified organism (10) Hypokalemia Current visit: Yes Status: Acute Category: Medical Code(s): E87.6 - Hypokalemia (11) Lymphedema of both lower extremities Current visit: Yes Status: Acute Category: Medical Code(s): I89.0 - Lymphedema, not elsewhere classified (12) History of foot surgery Current visit: Yes Status: Acute Category: Surgical Code(s): Z98.890 - Other specified postprocedural states (13) History of osteomyelitis Current visit: Yes Status: Acute Category: Medical Code(s): Z87.39 - Personal history of other diseases of the musculoskeletal system and connective tissue (14) Chronic ulcer of right ankle Current visit: Yes Status: Acute Category: Medical Code(s): L97.319 - Non- pressure chronic ulcer of right ankle with unspecified severity (15) Varicose veins of both legs with edema Current visit: Yes Status: Acute Category: Medical Code(s): I83.893 - Varicose veins of bilateral lower extremities with other complications (16) Atrial fibrillation Current visit: Yes Status: Acute Category: Medical Code(s): I48.91 - Unspecified atrial fibrillation - Assessment and plan all Dx Assessment and Plan for all problems:: BASED ON PATIENT FACTORS AND VANCOMYCIN TROUGH LEVEL, RECOMMEND CONTINUING VANCOMYCIN 2250 MG IV Q18H. PHARMACY WILL CONTINUE TO MONITOR DAILY AND ADJUST APPROPRIATE.
--- NOTE | 2019-02-25 13:05 | Progress Note ---
Internal Medicine - PN: Subj *Date: 02/25/19 *Time: 13:02 Exam Vital signs and Labs for Last 24 Hours: Temp Pulse Resp BP Pulse Ox 97.8 F 94 H 20 129/77 92 L 02/25/19 12:00 02/25/19 12:00 02/25/19 12:00 02/25/19 12:00 02/25/19 12:00 Laboratory Results - last 24 hr 02/24/19 16:20: POC Glucose 110 02/24/19 20:35: Vancomycin Trough 15.2 02/24/19 20:58: POC Glucose 111 H 02/25/19 05:46: POC Glucose 116 H 02/25/19 06:55: WBC 3.5 L D, RBC 5.85, Hgb 17.1, Hct 53.6 H, MCV 91.6, MCH 29.1, MCHC 31.8, RDW 14.6, Plt Count 141 L, MPV 10.0, Neut % (Auto) 75.9, Lymph % (Auto) 14.0, [place] % (Auto) 9.3, Eos % (Auto) 0.1, Baso % (Auto) 0.7, Neut # (Auto) 2.7, Lymph # (Auto) 0.5 L, [place] # (Auto) 0.3, Eos # (Auto) 0.0, Baso # (Auto) 0.0 02/25/19 06:55: Sodium 138, Potassium 4.6 D, Chloride 100, Carbon Dioxide 30, Anion Gap 12.6, BUN 18 D, Creatinine 1.02, Estimated Creat Clear 136, Estimated GFR 74, Est GFR ( Amer) 90 D, Glucose 117 H, Calcium 8.1 L 02/25/19 11:46: POC Glucose 100 I & O for Last 24 hours: Intake & Output 02/22/19 02/23/19 02/24/19 02/25/19 23:59 23:59 23:59 23:59 Intake Total 680 / 680 610 / 610 490 / 490 490 / 490 Output Total 3300 / 3600 1500 / 1500 3170 / 3570 1200 / 1200 Balance -2620 / -2920 -890 / -890 -2680 / -3080 -710 / -710 Weight 124.9 kg 124.313 kg 124.908 kg Microbiology Reports for the Last 24 Hours: Microbiology 02/21/19 19:15 Sputum - Expectorated Sputum Gram Stain - Final 02/21/19 19:15 Sputum - Expectorated Sputum Sputum Culture - Final Escherichia coli Proteus vulgaris Assessment and Plan (1) Blindness Current visit: Yes Status: Chronic Category: Medical Code(s): H54.7 - Unspecified visual loss (2) Class 2 obesity Current visit: Yes Status: Chronic Category: Medical Code(s): E66.9 - Obesity, unspecified (3) Diabetes Current visit: Yes Status: Chronic Qualifiers: Diabetes mellitus type: type 2 Diabetes mellitus complication detail: with nephropathy Category: Medical Code(s): E11.9 - Type 2 diabetes mellitus without complications (4) Acute exacerbation of chronic obstructive airways disease Current visit: Yes Status: Acute Category: Medical Code(s): J44.1 - Chronic obstructive pulmonary disease with (acute) exacerbation (5) Community acquired pneumonia Current visit: Yes Status: Acute Category: Medical Code(s): J18.9 - Pneumonia, unspecified organism (6) Congestive heart failure Current visit: Yes Status: Chronic Qualifiers: Heart failure type: systolic Category: Medical Code(s): I50.9 - Heart failure, unspecified (7) Lymphedema Start date: 02/22/19 Current visit: Yes Status: Chronic Category: Medical Code(s): I89.0 - Lymphedema, not elsewhere classified (8) Coagulopathy Current visit: Yes Status: Chronic Category: Medical Code(s): D68.9 - Coagulation defect, unspecified (9) Sepsis Current visit: Yes Status: Acute Qualifiers: Sepsis type: sepsis due to unspecified organism Acute respiratory failure type: with hypoxia Severe sepsis shock status: without septic shock Category: Medical Code(s): A41.9 - Sepsis, unspecified organism (10) Hypokalemia Current visit: Yes Status: Acute Category: Medical Code(s): E87.6 - Hypokalemia (11) Lymphedema of both lower extremities Current visit: Yes Status: Acute Category: Medical Code(s): I89.0 - Lymphedema, not elsewhere classified (12) History of foot surgery Current visit: Yes Status: Acute Category: Surgical Code(s): Z98.890 - Other specified postprocedural states (13) History of osteomyelitis Current visit: Yes Status: Acute Category: Medical Code(s): Z87.39 - Personal history of other diseases of the musculoskeletal system and connective tissue (14) Chronic ulcer of right ankle Current visit: Yes Status: Acute Category: Medical Code(s): L97.319 - Non- pressure chronic ulcer of right ankle with unspecified severity (15) Varicose veins of both legs with edema Current visit: Yes Status: Acute Category: Medical Code(s): I83.893 - Varicose veins of bilateral lower extremities with other complications (16) Atrial fibrillation Current visit: Yes Status: Acute Category: Medical Code(s): I48.91 - Unspecified atrial fibrillation The patient's infection will respond to the chosen ABx?: No (SENSITIVITIES SHOWED RESISTANCE TO ROCEPHIN) Is the patient receiving the right drug, dose, and route?: No Could a more targeted ABx be ordered?: Yes (SPOKE WITH DR NEGRON. DISCONTINUED ROCEPHIN. STARTED JOAN.)
--- NOTE | 2019-02-25 15:50 | Progress Note ---
Internal Medicine - PN: Subj *Date: 02/25/19 *Time: 15:48 Interval history: Patient states that he feels better than yesterday, has diuresed fairly well. Blood pressure is somewhat improved. Exam Vital signs and Labs for Last 24 Hours: Temp Pulse Resp BP Pulse Ox 97.8 F 93 H 20 129/77 92 L 02/25/19 12:00 02/25/19 14:24 02/25/19 12:00 02/25/19 12:00 02/25/19 12:00 Laboratory Results - last 24 hr 02/24/19 16:20: POC Glucose 110 02/24/19 20:35: Vancomycin Trough 15.2 02/24/19 20:58: POC Glucose 111 H 02/25/19 05:46: POC Glucose 116 H 02/25/19 06:55: WBC 3.5 L D, RBC 5.85, Hgb 17.1, Hct 53.6 H, MCV 91.6, MCH 29.1, MCHC 31.8, RDW 14.6, Plt Count 141 L, MPV 10.0, Neut % (Auto) 75.9, Lymph % (Auto) 14.0, [place] % (Auto) 9.3, Eos % (Auto) 0.1, Baso % (Auto) 0.7, Neut # (Auto) 2.7, Lymph # (Auto) 0.5 L, [place] # (Auto) 0.3, Eos # (Auto) 0.0, Baso # (Auto) 0.0 02/25/19 06:55: Sodium 138, Potassium 4.6 D, Chloride 100, Carbon Dioxide 30, Anion Gap 12.6, BUN 18 D, Creatinine 1.02, Estimated Creat Clear 136, Estimated GFR 74, Est GFR ( Amer) 90 D, Glucose 117 H, Calcium 8.1 L 02/25/19 11:46: POC Glucose 100 I & O for Last 24 hours: Intake & Output 02/23/19 02/24/19 02/25/19 02/26/19 11:59 11:59 11:59 11:59 Intake Total 760 / 760 620 / 620 730 / 730 Output Total 900 / 900 1870 / 1870 3400 / 3400 Balance -140 / -140 -1250 / -1250 -2670 / -2670 Weight 274 lb 1 oz 275 lb 6 oz Microbiology Reports for the Last 24 Hours: Microbiology 02/21/19 19:15 Sputum - Expectorated Sputum Gram Stain - Final 02/21/19 19:15 Sputum - Expectorated Sputum Sputum Culture - Final Escherichia coli Proteus vulgaris Narrative: Up in the chair at bedside. Feet remain swollen with significant wounds as noted, wrapped as previously noted. Lungs somewhat clearer. Abdomen soft, heart rate regular. No JVD. Assessment and Plan (1) Blindness Current visit: Yes Status: Chronic Category: Medical Code(s): H54.7 - Unspecified visual loss (2) Class 2 obesity Current visit: Yes Status: Chronic Category: Medical Code(s): E66.9 - Obesity, unspecified (3) Diabetes Current visit: Yes Status: Chronic Qualifiers: Diabetes mellitus type: type 2 Diabetes mellitus complication detail: with nephropathy Category: Medical Code(s): E11.9 - Type 2 diabetes mellitus without complicati ons (4) Acute exacerbation of chronic obstructive airways disease Current visit: Yes Status: Acute Category: Medical Code(s): J44.1 - Chronic obstructive pulmonary disease with (acute) exacerbation (5) Community acquired pneumonia Current visit: Yes Status: Acute Category: Medical Code(s): J18.9 - Pneumonia, unspecified organism Cultures have returned showing E. coli and Proteus, ESBL positive. We will change therapy to Invanz. (6) Congestive heart failure Current visit: Yes Status: Chronic Qualifiers: Heart failure type: systolic Category: Medical Code(s): I50.9 - Heart failure, unspecified 35% ejection fraction, acute on chronic CHF. Interestingly his brother called the nursing staff today to let us know that patient had been to the [facility] in March of last year, had received a couple of stents and transferred to [facility] where pacemaker had been recommended, but patient has refused. Plan to start Entresto today. This has been started, follow closely. (7) Lymphedema Start date: 02/22/19 Current visit: Yes Status: Chronic Category: Medical Code(s): I89.0 - Lymphedema, not elsewhere classified (8) Coagulopathy Current visit: Yes Status: Chronic Category: Medical Code(s): D68.9 - Coagulation defect, unspecified (9) Sepsis Current visit: Yes Status: Acute Qualifiers: Sepsis type: sepsis due to unspecified organism Acute respiratory failure type: with hypoxia Severe sepsis shock status: without septic shock Category: Medical Code(s): A41.9 - Sepsis, unspecified organism (10) Hypokalemia Current visit: Yes Status: Acute Category: Medical Code(s): E87.6 - Hypokalemia (11) Lymphedema of both lower extremities Current visit: Yes Status: Acute Category: Medical Code(s): I89.0 - Lymphedema, not elsewhere classified (12) History of foot surgery Current visit: Yes Status: Acute Category: Surgical Code(s): Z98.890 - Other specified postprocedural states (13) History of osteomyelitis Current visit: Yes Status: Acute Category: Medical Code(s): Z87.39 - Personal history of other diseases of the musculoskeletal system and connective tissue (14) Chronic ulcer of right ankle Current visit: Yes Status: Acute Category: Medical Code(s): L97.319 - Non- pressure chronic ulcer of right ankle with unspecified severity (15) Varicose veins of both legs with edema Current visit: Yes Status: Acute Category: Medical Code(s): I83.893 - Varicose veins of bilateral lower extremities with other complications (16) Atrial fibrillation Current visit: Yes Status: Acute Category: Medical Code(s): I48.91 - Unspecified atrial fibrillation
--- NOTE | 2019-02-26 07:54 | Progress Note ---
Internal Medicine - PN: Subj *Date: 02/26/19 *Time: 08:40 Interval history: Overnight patient did well. Continue to require oxygen. Cultures still pending for sensitivity as of this morning. This afternoon respiratory cultures showed ESBL resistance with likely ertapenem being the only antibiotic that will treat both Proteus and E. coli. Tolerating good p.o. intake. Extensive discussion this morning about care moving forward. Patient really wants to go home however discussed having strong concern for his ability to be safe and care for himself knowing that he will need IV antibiotics with a PICC line and careful management to decrease risk for infection for at least 2 weeks. Discussed transitioning to swing status, discharging to a facility such as [facility], or home health with family/friends caring for him. Hemodynamically stable, no chest pain, nausea, vomiting. Exam Vital signs and Labs for Last 24 Hours: Temp Pulse Resp BP Pulse Ox 97.8 F 65 20 102/68 L 95 02/26/19 04:00 02/26/19 06:02 02/26/19 04:00 02/26/19 04:00 02/26/19 06:02 Laboratory Results - last 24 hr 02/25/19 05:46: POC Glucose 116 H 02/25/19 06:55: WBC 3.5 L D, RBC 5.85, Hgb 17.1, Hct 53.6 H, MCV 91.6, MCH 29.1, MCHC 31.8, RDW 14.6, Plt Count 141 L, MPV 10.0, Neut % (Auto) 75.9, Lymph % (Auto) 14.0, [place] % (Auto) 9.3, Eos % (Auto) 0.1, Baso % (Auto) 0.7, Neut # (Auto) 2.7, Lymph # (Auto) 0.5 L, [place] # (Auto) 0.3, Eos # (Auto) 0.0, Baso # (Auto) 0.0 02/25/19 06:55: Sodium 138, Potassium 4.6 D, Chloride 100, Carbon Dioxide 30, Anion Gap 12.6, BUN 18 D, Creatinine 1.02, Estimated Creat Clear 136, Estimated GFR 74, Est GFR ( Amer) 90 D, Glucose 117 H, Calcium 8.1 L 02/25/19 11:46: POC Glucose 100 01/13/20 16:58: POC Glucose 126 H 02/25/19 20:02: POC Glucose 145 H I & O for Last 24 hours: Intake & Output 02/23/19 02/24/19 02/25/19 02/26/19 23:59 23:59 23:59 23:59 Intake Total 610 / 610 490 / 490 850 / 850 Output Total 1500 / 1500 3170 / 3570 2600 / 2600 550 / 550 Balance -890 / -890 -2680 / -3080 -1750 / -1750 -550 / -550 Weight 124.313 kg 124.908 kg 124.369 kg Microbiology Reports for the Last 24 Hours: Microbiology 02/21/19 19:15 Sputum - Expectorated Sputum Gram Stain - Final 02/21/19 19:15 Sputum - Expectorated Sputum Sputum Culture - Final Escherichia coli Proteus vulgaris Narrative: Up in the chair at bedside, alert and oriented x3. Feet remain swollen with significant wounds as noted, wrapped as previously noted. Lungs with fair air movement bilaterally, faint crackles on right posterior lung field Abdomen soft heart rate regular, no murmur, no JVD. Assessment and Plan (1) Blindness Current visit: Yes Status: Chronic Category: Medical Code(s): H54.7 - Unspecified visual loss (2) Class 2 obesity Current visit: Yes Status: Chronic Category: Medical Code(s): E66.9 - Obesity, unspecified (3) Diabetes Current visit: Yes Status: Chronic Qualifiers: Diabetes mellitus type: type 2 Diabetes mellitus complication detail: with nephropathy Category: Medical Code(s): E11.9 - Type 2 diabetes mellitus without complications (4) Acute exacerbation of chronic obstructive airways disease Current visit: Yes Status: Acute Category: Medical Code(s): J44.1 - Chronic obstructive pulmonary disease with (acute) exacerbation (5) Community acquired pneumonia Current visit: Yes Status: Acute Category: Medical Code(s): J18.9 - Pneumonia, unspecified organism (6) Congestive heart failure Current visit: Yes Status: Chronic Qualifiers: Heart failure type: systolic Category: Medical Code(s): I50.9 - Heart failure, unspecified (7) Lymphedema Start date: 02/22/19 Current visit: Yes Status: Chronic Category: Medical Code(s): I89.0 - Lymphedema, not elsewhere classified (8) Coagulopathy Current visit: Yes Status: Chronic Category: Medical Code(s): D68.9 - Coagulation defect, unspecified (9) Sepsis Current visit: Yes Status: Acute Qualifiers: Sepsis type: sepsis due to unspecified organism Acute respiratory failure type: with hypoxia Severe sepsis shock status: without septic shock Category: Medical Code(s): A41.9 - Sepsis, unspecified organism (10) Hypokalemia Current visit: Yes Status: Acute Category: Medical Code(s): E87.6 - Hypokalemia (11) Lymphedema of both lower extremities Current visit: Yes Status: Acute Category: Medical Code(s): I89.0 - Lymphedema, not elsewhere classified (12) History of foot surgery Current visit: Yes Status: Acute Category: Surgical Code(s): Z98.890 - Other specified postprocedural states (13) History of osteomyelitis Current visit: Yes Status: Acute Category: Medical Code(s): Z87.39 - Personal history of other diseases of the musculoskeletal system and connective tissue (14) Chronic ulcer of right ankle Current visit: Yes Status: Acute Category: Medical Code(s): L97.319 - Non- pressure chronic ulcer of right ankle with unspecified severity (15) Varicose veins of both legs with edema Current visit: Yes Status: Acute Category: Medical Code(s): I83.893 - Varicose veins of bilateral lower extremities with other complications (16) Atrial fibrillation Current visit: Yes Status: Acute Category: Medical Code(s): I48.91 - Unspecified atrial fibrillation (17) Acute hypoxemic respiratory failure Current visit: Yes Status: Acute Category: Medical Code(s): J96.01 - Acute respiratory failure with hypoxia On presentation patient had a PSI of 90 points for age, sex, CHF history, renal disease history, PA O2 less than 60. Found to have pneumonia. Complicated by blindness, insulin-dependent diabetes, and worsening peripheral edema. At this time his cultures are growing 2 different gram-negative rods from sputum sample. Awaiting sensitivity, but anticipate needing prolonged course of IV antibiotics. Will additionally need oxygen at discharge, this is a new requirement for him. - Assessment and plan all Dx Assessment and Plan for all problems:: 58-year-old male with multiple comorbidities, blindness, worsening congestive heart failure with ESBL pneumonia. Sensitivities returns afternoon showing limited available antibiotic options. Have ordered PIC, anticipate placement Monday morning. Will transition to ertapenem for continued therapy, 14 days total therapy for his pneumonia. We will also need continued oxygen therapy and wound management of his legs. At this time, feel patient would be best served by long-term though his preference is to go home. Have strong reservation about his ability to care for himself in the home setting given his vision impairment and comorbidities. Will discuss options again in the morning with the patient. Continues to require inpatient management. No other changes to wound management, diabetes management, CHF exacerbation.
--- NOTE | 2019-02-27 08:07 | Progress Note ---
Internal Medicine - PN: Subj *Date: 02/27/19 *Time: 08:04 Interval history: Overall patient has done well over the past 24 hours. No fevers. I reviewed blood cultures and sputum cultures with patient today. Reviewed his overall condition with him. Exam Vital signs and Labs for Last 24 Hours: Temp Pulse Resp BP Pulse Ox 98.2 F 88 18 150/79 H 94 L 02/27/19 04:00 02/27/19 06:12 02/27/19 04:00 02/27/19 04:00 02/27/19 06:12 Laboratory Results - last 24 hr 02/26/19 05:34: POC Glucose 117 H 02/26/19 11:17: POC Glucose 124 H 02/26/19 16:50: POC Glucose 95 02/26/19 20:44: POC Glucose 135 H 02/27/19 05:54: POC Glucose 89 I & O for Last 24 hours: Intake & Output 02/24/19 02/25/19 02/26/19 02/27/19 11:59 11:59 11:59 11:59 Intake Total 620 / 620 730 / 730 720 / 720 1330 / 1330 Output Total 1870 / 1870 3400 / 3400 1950 / 1950 1300 / 1300 Balance -1250 / -1250 -2670 / -2670 -1230 / -1230 30 / 30 Weight 275 lb 6 oz 274 lb 3 oz 273 lb 3 oz Microbiology Reports for the Last 24 Hours: Microbiology 02/21/19 14:31 Blood Blood Culture - Final NO GROWTH AFTER 5 DAYS Narrative: Patient is sitting up on the side of the bed. Breathing easily. Heart rate regular. Eating breakfast vigorously. No evidence of neurologic dysfunction over his baseline. Legs remain wrapped with bandages. Feet remain reddened, thick, brawny, afflicted with old wound scarring. Assessment and Plan (1) Blindness Current visit: Yes Status: Chronic Category: Medical Code(s): H54.7 - Unspecified visual loss (2) Class 2 obesity Current visit: Yes Status: Chronic Category: Medical Code(s): E66.9 - Obesity, unspecified (3) Diabetes Current visit: Yes Status: Chronic Qualifiers: Diabetes mellitus type: type 2 Diabetes mellitus complication detail: with nephropathy Category: Medical Code(s): E11.9 - Type 2 diabetes mellitus without complications (4) Acute exacerbation of chronic obstructive airways disease Current visit: Yes Status: Acute Category: Medical Code(s): J44.1 - Chronic obstructive pulmonary disease with (acute) exacerbation (5) Community acquired pneumonia Current visit: Yes Status: Acute Category: Medical Code(s): J18.9 - Pneumonia, unspecified organism (6) Congestive heart failure Current visit: Yes Status: Chronic Qualifiers: Heart failure type: systolic Category: Medical Code(s): I50.9 - Heart failure, unspecified (7) Lymphedema Start date: 02/22/19 Current visit: Yes Status: Chronic Category: Medical Code(s): I89.0 - Lymphedema, not elsewhere classified (8) Coagulopathy Current visit: Yes Status: Chronic Category: Medical Code(s): D68.9 - Coagulation defect, unspecified (9) Sepsis Current visit: Yes Status: Acute Qualifiers: Sepsis type: sepsis due to unspecified organism Acute respiratory failure type: with hypoxia Severe sepsis shock status: without septic shock Category: Medical Code(s): A41.9 - Sepsis, unspecified organism (10) Hypokalemia Current visit: Yes Status: Acute Category: Medical Code(s): E87.6 - Hypokalemia (11) Lymphedema of both lower extremities Current visit: Yes Status: Acute Category: Medical Code(s): I89.0 - Lymphedema, not elsewhere classified (12) History of foot surgery Current visit: Yes Status: Acute Category: Surgical Code(s): Z98.890 - Other specified postprocedural states (13) History of osteomyelitis Current visit: Yes Status: Acute Category: Medical Code(s): Z87.39 - Personal history of other diseases of the musculoskeletal system and connective tissue (14) Chronic ulcer of right ankle Current visit: Yes Status: Acute Category: Medical Code(s): L97.319 - Non- pressure chronic ulcer of right ankle with unspecified severity (15) Varicose veins of both legs with edema Current visit: Yes Status: Acute Category: Medical Code(s): I83.893 - Varicose veins of bilateral lower extremities with other complications (16) Atrial fibrillation Current visit: Yes Status: Acute Category: Medical Code(s): I48.91 - Unspecified atrial fibrillation (17) Acute hypoxemic respiratory failure Current visit: Yes Status: Acute Category: Medical Code(s): J96.01 - Acute respiratory failure with hypoxia - Assessment and plan all Dx Assessment and Plan for all problems:: I had a long discussion with patient about his ongoing medical problems. He has 2 separate gram-negative rods in his sputum, both of which are sensitive to intravenous Invanz. I believe patient needs a PICC line today and then placed at a swing bed/short-term rehabilitation facility for 10 to 14 days to finish up his IV antibiotics. I do not believe home health care is a good option for this patient given his multiple medical problems, the new institution of [facility] which could cause orthostatic hypotension at home and given that he lives by himself with poor self-care activities I would be very concerned about safety issues. Also, patient needs several more days of physical therapy/hygiene for his feet which have been chronically infected and he is unable to take care of these in an adequate manner. Patient is resistant to this idea. I have basically told him this is the only option that I would recommend. We will find a facility acceptable to patient. Care management is contacting his family to discuss the case with him.
[2019-02-27 20:38] LABS: Anion Gap 4.8 mEq/L (5-15); Calcium 8.5 mg/dL (8.5-10.1)
--- NOTE | 2019-02-28 09:40 | Discharge Summary ---
General - General Admission date:: 02/21/19 Discharge date: 02/28/19 HPI HPI: Jermaine Gaviria is a 58-year-old gentleman with history of blindness, diabetes, hypertension, coronary artery disease status post stent placement in March 2018, and recurring lymphedema and stasis dermatitis of bilateral lower extremities. He presented to the ER due to worsening shortness of breath over the past week. States he is continued to have dyspnea with exertion, complains of some orthopnea, and worsening heaviness and swelling in his legs. Denies any chest pain, nausea, vomiting, diarrhea. Does complain of worsening general fatigue. Upon presentation to the ER was found to have hypoxemia, elevated BNP, and slight abnormality of troponin. Imaging concerning for pneumonia on chest x-ray however CT shows by lateral congestion and effusions. No white cell count on exam. No fever. Met sepsis criteria due to tachycardia and tachypnea with possible pneumonia versus CHF exacerbation. Per review of previous echo in 2018, left ventricular ejection fraction approximately 45%. Hospital Course Hospital Course: Mr. Gaviria was admitted for respiratory failure and found to have ESBL pneumonia with Proteus and E. coli. Sensitivities returned during his hospital stay necessitating treatment for 14 days with Invanz. PICC line was placed the day before discharge on 02/27/2019 with plan for completing Invanz antibiotics for treatment of pneumonia on 03/10/2019. Respiratory status gradually improved with no longer needing oxygen by day of discharge. His care overall was complicated by his chronic heart failure which appears to be getting worse on echo performed during this admission, and his blindness which she has had since the age of 5, his chronic stasis dermatitis in his lower extremities and chronic lymphedema. Wound care was involved with Unna boots and wraps of his feet. At this time he is medically stable for discharge however is not safe to go home with the complexity of his care and his vision impairment. Plan to discharge to [facility] for continued management of wound care, PIC management, daily antibiotics, and physical therapy while there to optimize his chance of getting discharged home in stable condition after completion of IV antibiotics. Patient's diabetes is been managed with sliding scale insulin. Resume his home regimen of medications at time of discharge. Denies chest pain or shortness of breath. Still having a slightly productive cough. Denies nausea, vomiting, diarrhea. Does complain of some rash in his groin but he tends to get these with antibiotics and it is being treated with topical cream and powder. Patient otherwise has no complaints today and is ready to be discharged from the hospital. For his brother to transport him via private vehicle and I stressed the importance of the patient going to the group home today for best chance of successfully completing treatment and decreasing risk for readmission. We will Follow in the outpatient setting at [facility] once he is admitted there. Objective Vital signs: Temp Pulse Resp BP Pulse Ox 97.5 F L 70 18 162/70 H 91 L 02/28/19 08:00 02/28/19 08:25 02/28/19 08:00 02/28/19 08:00 02/28/19 08:00 Narrative: Patient is sitting up in bedside chair. Breathing comfortably no acute distress on room air. Heart rate regular. 2+ edema to knees, baseline No evidence of neurologic dysfunction over his baseline. Legs remain wrapped with bandages. Chronic stasis changes in feet distal to bandage Feet remain reddened, thick, brawny, afflicted with old wound scarring; peeling Results Labs on day of discharge: Labs from last 24 hours 02/28/19 02/27/19 02/27/19 06:08 20:25 20:25 Sodium 142 Potassium 3.8 Chloride 104 Carbon Dioxide 37 H D Anion Gap 4.8 L BUN 22 H Creatinine 1.35 H D Estimated Creat Clear 102 Estimated GFR 54 L Est GFR ( Amer) 65 D Glucose 173 H POC Glucose 88 Calcium 8.5 Vancomycin Trough 20.9 H 02/27/19 02/27/19 02/27/19 20:13 16:33 10:29 Sodium Potassium Chloride Carbon Dioxide Anion Gap BUN Creatinine Estimated Creat Clear Estimated GFR Est GFR ( Amer) Glucose POC Glucose 153 H 99 121 H Calcium Vancomycin Trough Preliminary micro results at discharge 02/21/19 14:31 Blood Culture - Preliminary Blood Staphylococcus capitis DS: Diagnosis - Discharge Diagnosis (1) Blindness Status: Chronic (2) Class 2 obesity Status: Chronic (3) Diabetes Status: Chronic (4) Acute exacerbation of chronic obstructive airways disease Status: Acute (5) Community acquired pneumonia Status: Acute (6) Congestive heart failure Status: Chronic (7) Lymphedema Status: Chronic (8) Coagulopathy Status: Chronic (9) Sepsis Status: Resolved (10) Hypokalemia Status: Resolved (11) Lymphedema of both lower extremities Status: Chronic (12) History of foot surgery Status: Chronic (13) History of osteomyelitis Status: Chronic (14) Chronic ulcer of right ankle Status: Chronic (15) Varicose veins of both legs with edema Status: Chronic (16) Atrial fibrillation Status: Chronic (17) Acute hypoxemic respiratory failure Status: Resolved Discharge Plan - Patient Discharge Instructions ACTIVITY: Ambulate as tolerated DIET: continue same diet Patient Instructions: DI for Pneumonia -- Adult, DI for Multiple Drug-resistant Organism (MDRO) Infection, Extended Spectrum Beta-Lactamase Infection, DI for Extended Spectrum Beta-Lactamase Infection - Follow up Plan Disposition: [facility] Home Medications: Home Medications Medication Instructions Recorded Confirmed Type Clopidogrel Bisulfate [Plavix 75mg 75 mg PO DAILY 02/21/19 02/21/19 History Tab] Furosemide [Furosemide 20mg Tab] 20 mg PO DAILY 02/21/19 02/21/19 History Meloxicam 7.5 mg PO DAILY 02/21/19 02/21/19 History Rivaroxaban [Xarelto 20mg Tablet*] 20 mg PO DAILY 02/21/19 02/21/19 History dilTIAZem HCl [Dilt-Xr] 240 mg PO DAILY 02/21/19 02/21/19 History lisinopriL [Lisinopril 40mg Tablet] 80 mg PO DAILY 02/21/19 02/21/19 History Metformin HCl 500 mg PO BID 02/22/19 02/22/19 History Digoxin [Digoxin 0.125mg Tablet] 125 mcg PO DAILY 30 Days #30 tab 02/28/19 Rx Ertapenem Sodium [Invanz 1gm Vial] 1 gm IV Q24H 10 Days #10 vial 02/28/19 Rx Sacubitril/Valsartan [Entresto 1 each PO BID 30 Days #60 tab 02/28/19 Rx 24/26mg Tablet] Prescriptions/Medication Reconciliation: New Ipratropium/Albuterol Sulfate [Duoneb 3mL neb] 3 ml IH Q6HP PRN ampul.neb PRN Reason: Shortness Of Breath Or Wheezing Sacubitril/Valsartan [Entresto 24/26mg Tablet] 1 each PO BID 30 Days #60 tab Nicotine [Nicoderm 21mg/24hr patch] 21 mg TD DAILY patch.td24 Digoxin [Digoxin 0.125mg Tablet] 125 mcg PO DAILY 30 Days #30 tab Ertapenem Sodium [Invanz 1gm Vial] 1 gm IV Q24H 10 Days #10 vial Continued Rivaroxaban [Xarelto 20mg Tablet*] 20 mg PO DAILY Furosemide [Furosemide 20mg Tab] 20 mg PO DAILY dilTIAZem HCl [Dilt-Xr] 240 mg PO DAILY Clopidogrel Bisulfate [Plavix 75mg Tab] 75 mg PO DAILY lisinopriL [Lisinopril 40mg Tablet] 80 mg PO DAILY Metformin HCl 500 mg PO BID Changed Meloxicam 7.5 mg PO DAILY PRN 30 Days PRN Reason: Moderate Pain - Problem Reconciliation Problems Reviewed?: Yes
--- NOTE | 2019-02-28 10:59 | Pharmacy Consult Notes ---
- Pharmacy Consult Date: 02/28/19 Time: 10:58 Referring provider: DR. NEGRON Reason for Consult:: VANCOMYCIN TROUGH LEVEL Allergies and ADEs:: Allergies Allergy/AdvReac Type Severity Reaction Status Date / Time No Known Allergies Allergy Unverified 02/22/19 07:24 Home Medications:: Home Medications Medication Instructions Recorded Confirmed Type Clopidogrel Bisulfate [Plavix 75mg 75 mg PO DAILY 02/21/19 02/21/19 History Tab] Furosemide [Furosemide 20mg Tab] 20 mg PO DAILY 02/21/19 02/21/19 History Rivaroxaban [Xarelto 20mg Tablet*] 20 mg PO DAILY 02/21/19 02/21/19 History dilTIAZem HCl [Dilt-Xr] 240 mg PO DAILY 02/21/19 02/21/19 History lisinopriL [Lisinopril 40mg Tablet] 80 mg PO DAILY 02/21/19 02/21/19 History Metformin HCl 500 mg PO BID 02/22/19 02/22/19 History Digoxin [Digoxin 0.125mg Tablet] 125 mcg PO DAILY 30 Days #30 tab 02/28/19 Rx Ertapenem Sodium [Invanz 1gm Vial] 1 gm IV Q24H 10 Days #10 vial 02/28/19 Rx Ipratropium/Albuterol Sulfate 3 ml IH Q6HP PRN ampul.neb 02/28/19 Rx [Duoneb 3mL neb] Meloxicam 7.5 mg PO DAILY PRN 30 Days 02/28/19 02/21/19 Rx Nicotine [Nicoderm 21mg/24hr 21 mg TD DAILY patch.td24 02/28/19 Rx patch] Sacubitril/Valsartan [Entresto 1 each PO BID 30 Days #60 tab 02/28/19 Rx 24/26mg Tablet] Height: 1.8 m Weight: 114.05 kg Laboratory Results:: Laboratory Results - last 24 hr 02/27/19 16:33: POC Glucose 99 02/27/19 20:13: POC Glucose 153 H 02/27/19 20:25: Sodium 142, Potassium 3.8, Chloride 104, Carbon Dioxide 37 H D, Anion Gap 4.8 L, BUN 22 H, Creatinine 1.35 H D, Estimated Creat Clear 102, Estimated GFR 54 L, Est GFR ( Amer) 65 D, Glucose 173 H, Calcium 8.5 02/27/19 20:25: Vancomycin Trough 20.9 H 02/28/19 06:08: POC Glucose 88 Medical History: Reports:: Congestive Heart Failure, Coronary Artery Disease, Diabetes Mellitus Type 2, Hypertension Denies:: Diabetes Mellitus Type 1, Home Oxygen Assessment and Plan (1) Blindness Current visit: Yes Status: Chronic Category: Medical Code(s): H54.7 - Unspecified visual loss (2) Class 2 obesity Current visit: Yes Status: Chronic Category: Medical Code(s): E66.9 - Obesity, unspecified (3) Diabetes Current visit: Yes Status: Chronic Qualifiers: Diabetes mellitus type: type 2 Diabetes mellitus complication detail: with nephropathy Category: Medical Code(s): E11.9 - Type 2 diabetes mellitus without complications (4) Acute exacerbation of chronic obstructive airways disease Current visit: Yes Status: Acute Category: Medical Code(s): J44.1 - Chronic obstructive pulmonary disease with (acute) exacerbation (5) Community acquired pneumonia Current visit: Yes Status: Acute Category: Medical Code(s): J18.9 - Pneumonia, unspecified organism (6) Congestive heart failure Current visit: Yes Status: Chronic Qualifiers: Heart failure type: systolic Category: Medical Code(s): I50.9 - Heart failure, unspecified (7) Lymphedema Start date: 02/22/19 Current visit: Yes Status: Chronic Category: Medical Code(s): I89.0 - Lymphedema, not elsewhere classified (8) Coagulopathy Current visit: Yes Status: Chronic Category: Medical Code(s): D68.9 - Coagulation defect, unspecified (9) Sepsis Current visit: Yes Status: Resolved Qualifiers: Sepsis type: sepsis due to unspecified organism Acute respiratory failure type: with hypoxia Severe sepsis shock status: without septic shock Category: Medical Code(s): A41.9 - Sepsis, unspecified organism (10) Hypokalemia Current visit: Yes Status: Resolved Category: Medical Code(s): E87.6 - Hypokalemia (11) Lymphedema of both lower extremities Current visit: Yes Status: Chronic Category: Medical Code(s): I89.0 - Lymphedema, not elsewhere classified (12) History of foot surgery Current visit: Yes Status: Chronic Category: Surgical Code(s): Z98.890 - Other specified postprocedural states (13) History of osteomyelitis Current visit: Yes Status: Chronic Category: Medical Code(s): Z87.39 - Personal history of other diseases of the musculoskeletal system and connective tissue (14) Chronic ulcer of right ankle Current visit: Yes Status: Chronic Category: Medical Code(s): L97.319 - Non-pressure chronic ulcer of right ankle with unspecified severity (15) Varicose veins of both legs with edema Current visit: Yes Status: Chronic Category: Medical Code(s): I83.893 - Varicose veins of bilateral lower extremities with other complications (16) Atrial fibrillation Current visit: Yes Status: Chronic Category: Medical Code(s): I48.91 - Unspecified atrial fibrillation (17) Acute hypoxemic respiratory failure Current visit: Yes Status: Resolved Category: Medical Code(s): J96.01 - Acute respiratory failure with hypoxia - Assessment and plan all Dx Assessment and Plan for all problems:: BASED ON PATIENT FACTORS AND VANCOMYCIN TROUGH LEVEL LAST NIGHT, RECOMMEND CHANGING INTERVAL TO VANCOMYCIN 2250 MG IV Q24H. PATIENT IS BEING DISCHARGED ON INVANZ TODAY.
--- NOTE | 2019-02-28 11:05 | Progress Note ---
Internal Medicine - PN: Subj *Date: 02/28/19 *Time: 11:05 Exam Vital signs and Labs for Last 24 Hours: Temp Pulse Resp BP Pulse Ox 97.5 F L 70 18 162/70 H 91 L 02/28/19 08:00 02/28/19 08:25 02/28/19 08:00 02/28/19 08:00 02/28/19 08:00 Laboratory Results - last 24 hr 02/27/19 16:33: POC Glucose 99 02/27/19 20:13: POC Glucose 153 H 02/27/19 20:25: Sodium 142, Potassium 3.8, Chloride 104, Carbon Dioxide 37 H D, Anion Gap 4.8 L, BUN 22 H, Creatinine 1.35 H D, Estimated Creat Clear 102, Estim ated GFR 54 L, Est GFR ( Amer) 65 D, Glucose 173 H, Calcium 8.5 02/27/19 20:25: Vancomycin Trough 20.9 H 02/28/19 06:08: POC Glucose 88 I & O for Last 24 hours: Intake & Output 02/25/19 02/26/19 02/27/19 02/28/19 23:59 23:59 23:59 23:59 Intake Total 850 / 850 1440 / 1440 2218 / 2218 240 / 240 Output Total 2600 / 2600 1550 / 1550 1200 / 1200 1000 / 1000 Balance -1750 / -1750 -110 / -110 1018 / 1018 -760 / -760 Weight 124.369 kg 123.916 kg 114.05 kg Assessment and Plan (1) Blindness Current visit: Yes Status: Chronic Category: Medical Code(s): H54.7 - Unspecified visual loss (2) Class 2 obesity Current visit: Yes Status: Chronic Category: Medical Code(s): E66.9 - Obesity, unspecified (3) Diabetes Current visit: Yes Status: Chronic Qualifiers: Diabetes mellitus type: type 2 Diabetes mellitus complication detail: with nephropathy Category: Medical Code(s): E11.9 - Type 2 diabetes mellitus without complications (4) Acute exacerbation of chronic obstructive airways disease Current visit: Yes Status: Acute Category: Medical Code(s): J44.1 - Chronic obstructive pulmonary disease with (acute) exacerbation (5) Community acquired pneumonia Current visit: Yes Status: Acute Category: Medical Code(s): J18.9 - Pneumonia, unspecified organism (6) Congestive heart failure Current visit: Yes Status: Chronic Qualifiers: Heart failure type: systolic Category: Medical Code(s): I50.9 - Heart failure, unspecified (7) Lymphedema Start date: 02/22/19 Current visit: Yes Status: Chronic Category: Medical Code(s): I89.0 - Lymphedema, not elsewhere classified (8) Coagulopathy Current visit: Yes Status: Chronic Category: Medical Code(s): D68.9 - Coagulation defect, unspecified (9) Sepsis Current visit: Yes Status: Resolved Qualifiers: Sepsis type: sepsis due to unspecified organism Acute respiratory failure type: with hypoxia Severe sepsis shock status: without septic shock Category: Medical Code(s): A41.9 - Sepsis, unspecified organism (10) Hypokalemia Current visit: Yes Status: Resolved Category: Medical Code(s): E87.6 - Hypokalemia (11) Lymphedema of both lower extremities Current visit: Yes Status: Chronic Category: Medical Code(s): I89.0 - Lymphedema, not elsewhere classified (12) History of foot surgery Current visit: Yes Status: Chronic Category: Surgical Code(s): Z98.890 - Other specified postprocedural states (13) History of osteomyelitis Current visit: Yes Status: Chronic Category: Medical Code(s): Z87.39 - Personal history of other diseases of the musculoskeletal system and connective tissue (14) Chronic ulcer of right ankle Current visit: Yes Status: Chronic Category: Medical Code(s): L97.319 - Non-pressure chronic ulcer of right ankle with unspecified severity (15) Varicose veins of both legs with edema Current visit: Yes Status: Chronic Category: Medical Code(s): I83.893 - Varicose veins of bilateral lower extremities with other complications (16) Atrial fibrillation Current visit: Yes Status: Chronic Category: Medical Code(s): I48.91 - Unspecified atrial fibrillation (17) Acute hypoxemic respiratory failure Current visit: Yes Status: Resolved Category: Medical Code(s): J96.01 - Acute respiratory failure with hypoxia The patient's infection will respond to the chosen ABx?: Yes Is the patient receiving the right drug, dose, and route?: Yes Could a more targeted ABx be ordered?: No 10 (PATIENT IS BEING DISCHARGED TODAY TO CONTINUE 10 DAYS OF INVANZ AT [facility])
== END 2019-02-28 12:31 ==
LOC: ER 12:26 → 2ND 12:26
PROVIDERS: ADMIT Family Medicine; ATTEND Internal Medicine Adolescent Medicine
CPT/HCPCS: 36415; 36569; 71010; 71020; 71045; 71046; 71275; 73610; 73630; 80048; 80053; 80061; 80076; 80202; 82803; 82962; 83605; 83735; 83880; 84100; 84443; 84484; 85007; 85025; 85610; 85651; 85730; 86140; 87040; 87070; 87077; 87186; 87205; 93005; 93306; 93970; 94640; 94760; 94761; 96366; 96374; 96375; 99284; C1751; G0378; J1335; J2543; J3370; Q9967

== ENCOUNTER 2019-06-11 10:00 | Outpatient (RCR) | payer MEDICARE, SELFPAY ==
--- NOTE | 2019-04-29 09:59 | HMH.PTOPWND ---
Rehab Outpt Wound Evaluation Rehab OP Wound Evaluation Start: 04/29/19 09:03 Freq: Status: Active Protocol: Document 04/29/19 09:51 CHARLIE (Rec: 04/29/19 09:59 PHOBOBBY [id number]) Electronically Signed By Ray Haider, PT 04/29/19 09:51 Subjective/History History History Pt is 58 yowm who presents with many year hx of B LE edema and chronic anterior R ankle wound. He reports that currently his ankle wound, looks better than it has in a long time, and it does present with no open sores noted at this time. He has obvious severe varicosity throughout B lower legs and hemosiderin staining, R > L. He presents wearing compression stockings that he got ~ 1 yr ago, but he has significant difficulty donning them. He is completley blind at baseline and reports significant OA, although he does live alone. He has further hx of DM-II, CAD, HTN, and CHF. Subjective Subjective No current c/o pain, sensation to B feet is decreased with monofilament testing. Lymphedema Eval Classification of Lymphedema Secondary Lymphedema Yes Stemmer's sign Stemmer's Sign yes Stage of Lymphedema Lymphedema stages Stage II (Pitting edema, increased fibrosis w/ decreased pitting) Skin Changes Dry Skin Yes Hyperkeratosis Yes: minimal Redness Yes Wounds Yes Discoloration of Skin Yes Other Changes Yes Pain Scale Pain Scale (0-10) 0 Affected Extremities Areas Affected by Lymphedema/Edema Right Lower Extremity,Left Lower Extremity Manual Lymphatic Drainage Treatment Area MLD Treatment Area Right Lower Extremity,Left Lower Extremity Wound Problems/Impairments Impairments Problems/Impairmments Impaired Range of Motion, Impaired Gait Pattern,Impaired Walking,Impaired Household Care,Increased Edema, L
--- NOTE | 2019-05-23 11:26 | HMH.RHREAS ---
Rehab Reassessment Rehab OP Re-assessment Start: 05/23/19 11:22 Freq: Status: Active Protocol: Document 05/23/19 11:23 CHARLIE (Rec: 05/23/19 11:26 CHARLIE [id number]) Electronically Signed By Ray Haider, PT 05/23/19 11:23 Rehab Re-assessment Subjective Subjective Pt reports he feels much better overall, he likes his compression wraps. Objective Objective Notes Circumferential measurements: R LE is 198.0 cm which is -14. 9 cm since initial eval. L LE is 189.5 cm which is -13. 2 cm since initial eval. Assessment Progress Assessment Progressing as Expected Assessment Notes Pt with decreased edema overall, but some edema continues. R anterior ankle wound appears healthy. Patient goals met ST,2,3 Goals Not Met LT,2,3,4 Revised Goals none Plan Plan Continue per initial POC. Frequency of Therapy 2 x/wk Duration of therapy 8 wks Time and Billing Re-Eval Time 15 Re-Eval Billing Units 1 PHYSICIAN CERTIFICATION: I certify the specified therapy services for Jermaine Gaviria are required, authorized, and reviewed every 30 days.
== END 2019-06-11 10:05 | disposition home or self-care (01) ==
LOC: PT 10:00
PROVIDERS: Visit Provider Podiatrist
DX: I89.0 Lymphedema, not elsewhere classified (principal)
CPT/HCPCS: 97140; 97163; 97164; 97760

== ENCOUNTER → 2020-10-05 18:10 | Outpatient (CLI) | payer MEDICARE, SELFPAY ==
[2020-10-05 19:05] LABS: Chloride 99 mmol/L (98-107)
[2020-10-05 19:06] LABS: Potassium 3.8 mmoL/L (3.5-5.1); Sodium 136 mmol/L (136-145)
[2020-10-05 19:08] LABS: Alanine Aminotransferase 9 U/L (12-78); Alkaline Phosphatase 113 U/L (38-126); Anion Gap 14.8 mEq/L (5-15); Aspartate Amino Transferase 51 U/L (17-59); Bilirubin,Total 0.9 mg/dl (0.2-1.3); Blood Urea Nitrogen 17 mg/dl (9-20); Carbon Dioxide 26 mmol/L (22.0-30.0); Cholesterol 115 mg/dl (140-200); Estimated Glomerular Filt Rate 68 ml/min (>60); GFR (African American) 82 ML/MIN (>60); Triglycerides 88 mg/dl (30-150); VLDL Cholesterol 18 mg/dL (0-40)
[2020-10-05 19:09] LABS: Albumin Level 3.4 g/dl (3.5-5.0); Albumin/Globulin Ratio 1.1 (1.1-1.8); Calcium 8.7 mg/dl (8.4-10.2); Chol/HDL Ratio 2.5 (1-3.5); Glucose 101 mg/dl (74-100); HDL Cholesterol 46 mg/dl (40-60); Total Protein,Serum 6.4 g/dl (6.3-8.2)
[2020-10-05 19:17] LABS: Basophils # 0.1 K/mm3 (0-0.2); Basophils % 0.8 % (0.1-2.0); Eosinophils # 0.1 K/mm3 (0.0-0.4); Eosinophils % 1.1 % (0.1-12.0); Hematocrit 45.7 % (42.0-52.0); Hemoglobin 14.8 g/dL (14.1-18.0); Lymphocytes # 1.1 K/mm3 (0.7-4.5); Lymphocytes % 17.8 % (10-50); Mean Corpuscular HGB Conc 32.5 g/dL (31.8-35.4); Mean Corpuscular Hemoglobin 29.8 pg (27.0-31.2); Mean Corpuscular Volume 91.6 fl (80-94); Monocytes # 0.6 K/mm3 (0.1-1.0); Monocytes % 9.4 % (1.7-9.3); Neutrophils # 4.5 K/mm3 (1.8-7.8); Neutrophils % 70.9 % (37.0-80.0); Platelet Count 374 K/mm3 (142-424); Red Blood Count 4.98 M/mm3 (4.60-6.20); Red Cell Distribution Width 14.2 % (11.5-17.5); White Blood Count 6.4 K/mm3 (4.8-10.8)
[2020-10-05 19:19] LABS: Direct LDL Cholesterol 49.28 mg/dL (100-129)
[2020-10-05 20:04] LABS: Hemoglobin A1C 5.8 % (4.0-6.0)
[2020-10-05 20:35] LABS: Erythrocyte Sedimentation Rate 34 mm/hr (0-20)
== END ==
PROVIDERS: Visit Provider Internal Medicine Adolescent Medicine
DX: I25.10 Atherosclerotic heart disease of native coronary artery without angina pectoris (principal); E11.9 Type 2 diabetes mellitus without complications; L97.512 Non-pressure chronic ulcer of other part of right foot with fat layer exposed; Z79.84 Long term (current) use of oral hypoglycemic drugs
CPT/HCPCS: 80053; 80061; 83036; 85025; 85651; 86140

== ENCOUNTER → 2020-10-06 11:25 | Outpatient (CLI) | payer MEDICARE, SELFPAY ==
--- NOTE | 2020-10-06 11:35 | XR_ITS ---
PROCEDURE: XR FOOT RT MIN 3V CLINICAL INDICATION: ULCER OF RT FOOT W/ FAT LAYER EXPOSED COMPARISON: CR FTR3 FOOT-RT-3 VIEWS from 10/22/2014 CR XR FOOT RT MIN 3V from 02/22/2019 CR XR FOOT LT MIN 3V from 02/22/2019 FINDINGS: Status post 5th metatarsal amputation. Osteoarthritic changes are present at the 1st MTP joint. There is a persistent area of lucency involving the proximal and medial aspect of the proximal phalanx of the 4th toe the which could be due to an area of osteomyelitis and may be slightly more prominent. Cystic changes are present at the distal aspect of the 1st metatarsal. IMPRESSION: Persistent lucency at the proximal and medial aspect of the proximal phalanx of the great toe and may be slightly more prominent compared to the previous exam. This could be due to an area osteomyelitis or erosive arthritic changes. Dictated by: Douglas Gupta MD 10/06/2020 13:47 Douglas Gupta MD in [place] 10/06/2020 13:50
== END ==
PROVIDERS: PCP Internal Medicine Adolescent Medicine; Visit Provider Internal Medicine Adolescent Medicine
DX: L97.512 Non-pressure chronic ulcer of other part of right foot with fat layer exposed (principal)
CPT/HCPCS: 73630

== ENCOUNTER → 2020-10-07 19:55 | Outpatient (CLI) | payer MEDICARE, SELFPAY | PROVIDERS: Visit Provider Nurse Practitioner | DX: Z51.89 Encounter for other specified aftercare (principal); L97.514 Non-pressure chronic ulcer of other part of right foot with necrosis of bone; L97.512 Non-pressure chronic ulcer of other part of right foot with fat layer exposed | CPT/HCPCS: 87070; 87077; 87186; 87205 ==

== ENCOUNTER 2020-10-19 14:08 | Inpatient (IN) | payer MEDICARE, SELFPAY ==
[2020-10-19 14:11] VITALS: BP 124/61; PULSE 84; RESP 18; TEMP 36.9; O2SAT 98; BMI 29.1
--- NOTE | 2020-10-19 14:34 | HMH.EDSKAF ---
ED Disposition Clinical Impression: Gangrene associated with type 2 diabetes mellitus Cellulitis Qualifiers: Site of cellulitis: extremity Site of cellulitis of extremity: lower extremity Laterality: right Qualified Code(s): L03.115 - Cellulitis of right lower limb Disposition: Admitted as Observation Condition on Discharge: Fair - Critical Care Critical Care Time: No Attestation: On 10/19/20, the high probability of a clinically significant, sudden or life threatening deterioration of the following system(s) required my full and direct attention, intervention and personal management. The time I documented below is in addition to time spent performing reported procedures but includes the following listed in this critical care notation. Medical Decision Making - Medical Records Medical records reviewed: Yes: I reviewed the patient's medical records. - Mendez Inquiry Pt receiving controlled substance: No Vital Signs: 10/19/20 14:11 Temperature 98.4 F Temperature Source Oral Pulse Rate [Right Radial] 84 Respiratory Rate 18 Blood Pressure [Right Arm] 124/61 Blood Pressure Mean [Right Arm] 82 Blood Pressure Source [Right Arm] Automatic Cuff Blood Pressure Position [Right Arm] Sitting 02 Sat by Pulse Oximetry 98 Oxygen Delivery Method Room Air - Lab Data Lab results reviewed: Yes: I reviewed the patient's lab results. Lab Results 10/19/20 15:08: WBC 6.7, RBC 4.86, Hgb 14.3, Hct 44.4, MCV 91.4, MCH 29.4, MCHC 32.2, RDW 13.8, Plt Count 354, MPV 9.4, Neut % (Auto) 75.8, Lymph % (Auto) 14.2, Bailey % (Auto) 8.3, Eos % (Auto) 0.7, Baso % (Auto) 1.1, Neut # (Auto) 5.1, Lymph # (Auto) 0.9, Bailey # (Auto) 0.6, Eos # (Auto) 0.1, Baso # (Auto) 0.1 10/19/20 15:08: Sodium 136, Potassium 3.2 L, Chloride 99, Carbon Dioxide 29, Anion Gap 11.2, BUN 18, Creatinine 1.10, Estimated Creat Clear 95, Estimated GFR 68, Est GFR ( Amer) 82, Glucose 109 H, Calcium 8.9, Total Bilirubin 0.7, AST 19, ALT 12, Alkaline Phosphatase 103, Total Protein 6.4, Albumin 3.2 L, Globulin 3.2, Albumin/Globulin Ratio 1.0 L 10/19/20 15:08: Lactate 1.1 Result diagrams: 10/19/20 15:08 10/19/20 15:08 Orders (Tests/Meds): ED MEDICATIONS Generic Name Dose Route Start Last Admin Trade Name Vipin PRN Reason Stop Dose Admin Piperacillin Sod/Tazobactam 50 mls @ 100 mls/hr 10/19/20 22:00 Sod 3.375 gm/ Sodium Chloride IV 10/26/20 21:59 Q6H MICHAEL Piperacillin Sod/Tazobactam 50 mls @ 100 mls/hr 10/19/20 16:15 Sod 3.375 gm/ Sodium Chloride IV 11/02/20 16:14 Q8H MICHAEL ORDERS Category Date Time Status Consult to Podiatry [CONS] Routine Cons 10/19/20 15:58 Active Rapid PCR Covid and Flu A/B Stat Lab 10/19/20 15:53 Received - Radiology Data #1 Image(s): Foot/Toes Image Reviewed: Yes I reviewed the patient's radiology image, Yes I have reviewed radiologist's interpretation Preliminary Findings: Abnormal (Swelling without evidence of gas gangrene) - Physician Consults Physician Consulted: Neus Time: 15:50 Reason -: Admission Comment/Response: Agreed to admit the patient and has requested a podiatry consult to be entered by me. Medical Decision Narrative: The patient presents to the emergency department complaining of right foot pain and swelling. He is a diabetic. The patient's work-up in the emergency department is consistent with gangrene of the right foot. There is significant swelling. Cellulitis is is obvious. A plain radiograph did not reveal any gas within the tissues. The patient is failing outpatient antibiotic management. Therefore, the patient will be admitted to the in-service department Skin/Abscess/FB HPI - General Chief complaint: Skin/Abscess/Foreign Body Stated complaint: rt ankle pain,drainage Time Seen by Provider: 10/19/20 14:34 Mode of Arrival: Ambulatory Source of Information: Patient - History of Present Illness HPI narrative: The patient presents to the emergency department c
--- NOTE | 2020-10-19 14:40 | XR_ITS ---
PROCEDURE INFORMATION: Exam: XR Right Foot Exam date and time: 10/19/2020 2:40 PM Age: 59 years old Clinical indication: Other: Gangrenous 2nd toe, RT foot; Prior surgery; Surgery date: 6+ months; Surgery type: RT fifth toe removed; Additional info: Suspected gangrene TECHNIQUE: Imaging protocol: XR Right foot. Views: 1 or 2 views. COMPARISON: No relevant prior studies available. FINDINGS: Bones/joints: Status post amputation of the 5th toe at the proximal portion of the metatarsal. No definite evidence of osteomyelitis as imaged. Hallux valgus deformity noted. Degenerative changes are noted throughout the foot. Soft tissues: Lateral soft tissue swelling is present without evidence of subcutaneous emphysematous changes. IMPRESSION: 1. Status post amputation of the 5th toe at the proximal portion of the metatarsal. 2. Lateral soft tissue swelling is present without evidence of subcutaneous emphysematous changes. 3. No definite evidence of osteomyelitis as imaged. 4. Hallux valgus deformity noted.
[2020-10-19 15:22] LABS: Basophils # 0.1 K/mm3 (0-0.2); Basophils % 1.1 % (0.1-2.0); Eosinophils # 0.1 K/mm3 (0.0-0.4); Eosinophils % 0.7 % (0.1-12.0); Hematocrit 44.4 % (42.0-52.0); Hemoglobin 14.3 g/dL (14.1-18.0); Lymphocytes # 0.9 K/mm3 (0.7-4.5); Lymphocytes % 14.2 % (10-50); Mean Corpuscular HGB Conc 32.2 g/dL (31.8-35.4); Mean Corpuscular Hemoglobin 29.4 pg (27.0-31.2); Mean Corpuscular Volume 91.4 fl (80-94); Mean Platelet Volume 9.4 fl (7.4-10.4); Monocytes # 0.6 K/mm3 (0.1-1.0); Monocytes % 8.3 % (1.7-9.3); Neutrophils # 5.1 K/mm3 (1.8-7.8); Neutrophils % 75.8 % (37.0-80.0); Platelet Count 354 K/mm3 (142-424); Red Blood Count 4.86 M/mm3 (4.60-6.20); Red Cell Distribution Width 13.8 % (11.5-17.5); White Blood Count 6.7 K/mm3 (4.8-10.8)
[2020-10-19 15:29] LABS: Chloride 99 mmol/L (98-107); Potassium 3.2 mmoL/L (3.5-5.1); Sodium 136 mmol/L (136-145)
[2020-10-19 15:31] LABS: Alanine Aminotransferase 12 U/L (12-78); Aspartate Amino Transferase 19 U/L (17-59); Blood Urea Nitrogen 18 mg/dl (9-20); Creatinine Clearance Estimated 95 mL/min (50-200); Estimated Glomerular Filt Rate 68 ml/min (>60); GFR (African American) 82 ML/MIN (>60)
[2020-10-19 15:32] LABS: Albumin Level 3.2 g/dl (3.5-5.0); Alkaline Phosphatase 103 U/L (38-126); Anion Gap 11.2 mEq/L (5-15); Bilirubin,Total 0.7 mg/dl (0.2-1.3); Calcium 8.9 mg/dl (8.4-10.2); Carbon Dioxide 29 mmol/L (22.0-30.0); Globulin 3.2 g/dL (1.3-3.2); Glucose 109 mg/dl (74-100); Lactic Acid 1.1 mmol/L (0.7-2.1); Total Protein,Serum 6.4 g/dl (6.3-8.2)
[2020-10-19 16:00] LABS: Coronavirus 19, PCR Not Detected (NotDetected); Influenza A, PCR Not Detected (NotDetected); Influenza B, PCR Not Detected (NotDetected)
[2020-10-19 17:10] VITALS: BP 129/75; PULSE 72; RESP 16; TEMP 36.8; O2SAT 97
[2020-10-19 17:38] VITALS: BP 128/71; PULSE 84; RESP 20; TEMP 36.9; O2SAT 97; BMI 34.3
--- NOTE | 2020-10-19 18:57 | PC.WOUNDNOTE ---
R foot ganegrene, other pic taken at different view and will not upload. Pic nuber is 39 and 40. R pinky toe amputated.
--- NOTE | 2020-10-19 19:42 | PC.NURSE ---
Nicotine patch 21 mg applied at approx 1845. Awaiting med to be on apr. Have faxed order for night watch. Dr. Arteaga ordered nicotine patch prn and diabetic diet.
--- NOTE | 2020-10-19 19:54 | PC.NURSE ---
Sara at [facility] is calling in RE to setting up ordered MRI on pt.
[2020-10-19 20:00] VITALS: BP 110/51; PULSE 85; RESP 20; TEMP 36.5; O2SAT 99
[2020-10-20] VITALS (23 sets, daily range): BP systolic 109–177; BP diastolic 52–88; PULSE 51–79; RESP 12–22; TEMP 36.5–43; O2SAT 96–99; BMI 34.2
--- NOTE | 2020-10-20 02:37 | PC.NURSE ---
Patient is alert and oriented x4. Patient is able to ambulated independently in the room. He is very pleasant and cooperative with care. Patient has had complaints of pain in the right lower extremity. VSS, call light within reach, will continue to monitor.
[2020-10-20 06:02] LABS: POC Glucose,Bedside 117 (70-110)
[2020-10-20 06:25] LABS: Erythrocyte Sedimentation Rate 101 mm/hr (0-20)
--- NOTE | 2020-10-20 07:30 | HMH.PHAINT ---
MEDICATION RECONCILIATION COMPLETED USING EXTERNAL PHARMACY FILL HISTORY.
--- NOTE | 2020-10-20 07:31 | HMH.PHAVTE ---
[facility] Pharmacy VTE Monitoring - Patient Demographics Admission date: 10/19/20 Report Date: 10/20/20 Time: 07:31 Allergies/Adverse Reactions: Patient Allergies No Known Allergies Allergy (Verified 10/19/20 14:53) Height: 1.78 m Weight: 108.545 kg Patient Problems: Current Active Problems Cellulitis (Acute) Gangrene associated with type 2 diabetes mellitus (Acute) - VTE Risk Labs: VTE Related Lab Results Hgb 14.3 g/dL (14.1-18.0) 10/19/20 15:08 Hct 44.4 % (42.0-52.0) 10/19/20 15:08 Plt Count 354 K/mm3 (142-424) 10/19/20 15:08 BUN 18 mg/dl (9-20) 10/19/20 15:08 Creatinine 1.10 mg/dl (0.66-1.25) 10/19/20 15:08 Estimated Creat Clear 95 mL/min (50-200) 10/19/20 15:08 - Prophylaxis VTE Prophylaxis Ordered?: Yes Types of VTE Prophylaxis: TEDS Knee High Location of Applied Device: Left Leg
--- NOTE | 2020-10-20 07:48 | HMH.HP ---
*Admission Date: 10/19/20 *Chief complaint: foot infection *History of present illness: Mr. Gaviria is a legally blind 59-year-old male with multiple comorbidities including coronary artery disease, CHF, type 2 diabetes, peripheral artery disease, history of AK. He smokes daily and drinks daily. Presented to the ER last night due to worsening smell with his right foot. Over the past week and a half he has been seen by both myself and podiatry for intermittent pain in his foot and concern for infection/diabetic ulcer. Was being worked up as an outpatient on antibiotics (doxycycline), status post x-ray with suspicion for osteomyelitis, awaiting ABIs and MRI. Unfortunately his foot has progressed per his report leading to him coming to the ER last night for further management. He was noted to have increased redness/cellulitis in the distal lower extremity. Progression of gangrene of his middle digit on right foot. No significant drainage but does have a foul odor. Initial labs noted to have slight increase in his inflammatory markers from a week and a half ago. Admitted to medicine for further management of his chronic comorbidities and consultation with podiatry for possible amputation. On assessment this morning, patient is in good spirits. Denies significant pain. Complains of worsening progression of some pain at home intermittently with smell of his foot. It concerned him to the point he came to the ER for further assessment. Denies any nausea, vomiting, shortness of breath, chest pain, confusion. Asked on morning rounds if he could go outside and smoke, informed him that this was not possible. [facility] History I have reviewed the patient's past medical history: Yes Medical History: Reports:: Atrial Fibrillation, Coronary Artery Disease, Diabetes Mellitus Type 2, Hypertension Denies:: Cancer, MRSA *Have you ever received a pneumonia vaccine?: No *Have you received a flu vaccine this season?: No Other Medical History: Reports: Glaucoma Other Surgeries: Yes: Coronary Stent Amputation: Yes (R pinky toe) - *Social History Smoking Status: Current every day smoker # Packs/Day (cigarettes): 1 Alcohol Intake: current Alcohol Intake Frequency:: a few times a week *Occupational Status:: unemployed *Travel in the last 8 weeks: None Family Hx:: No significant family history Review of Systems - Review of Systems Review of systems:: pertinent systems reviewed and negative unless documented below (14 point review of systems performed, pertinent positives and negatives as per HPI) Meds Home Medications Medication Instructions Recorded Confirmed Type Atorvastatin Calcium [Lipitor 20mg 20 mg PO HS 10/19/20 10/19/20 History Tab] Digoxin [Digoxin 0.125mg Tablet] 125 mcg PO DAILY 10/19/20 10/20/20 History Furosemide [Furosemide 20mg Tab*] 20 mg PO DAILY 10/19/20 10/20/20 History Metformin HCl 500 mg PO BID 10/19/20 10/19/20 History Rivaroxaban [Xarelto 20mg Tablet*] 20 mg PO DAILY 10/19/20 10/20/20 History Sacubitril/Valsartan [Entresto 49 1 tab PO BID 10/19/20 10/19/20 History mg-51 mg Tablet] allopurinoL [Allopurinol 300mg 300 mg PO DAILY 10/19/20 10/20/20 History tablet] dilTIAZem HCl [Diltiazem 180mg 180 mg PO DAILY 10/19/20 10/19/20 History 24Hr ER Cap] Allergies Allergy/AdvReac Type Severity Reaction Status Date / Time No Known Allergies Allergy Verified 10/19/20 14:53 Exam Vital signs and Labs for Last 24 Hours: Temp Pulse Resp BP Pulse Ox 97.9 F 78 18 114/55 L 98 10/20/20 07:44 10/20/20 07:44 10/20/20 07:44 10/20/20 07:44 10/20/20 07:44 Laboratory Results - last 24 hr 10/19/20 15:08: WBC 6.7, RBC 4.86, Hgb 14.3, Hct 44.4, MCV 91.4, MCH 29.4, MCHC 32.2, RDW 13.8, Plt Count 354, MPV 9.4, Neut % (Auto) 75.8, Lymph % (Auto) 14.2, [place] % (Auto) 8.3, Eos % (Auto) 0.7, Baso % (Auto) 1.1, Neut # (Auto) 5.1, Lymph # (Auto) 0.9, [place]imble # (Auto) 0.6, Eos # (Auto) 0.1, Baso # (Auto) 0.1 10/19/20
--- NOTE | 2020-10-20 08:00 | US_ITS ---
APPROVED REPORT Exam Type: Lower Extremity Segmental Pressures Solution Director: CHET UrbinaT Indications Claudication: Bilaterally Rest Pain: Bilaterally Edema Current Smoker PT HAS GANGRENE RT 3RD TOE, ULCER SOLE OF RT FOOT,CELLULITIS,5TH TOE AMPUTATION. Risk Factors Hypertension Hyperlipidemia Diabetes Current Smoker Pressures/Indices Right Indices Left Indices Brachial 163.00 mmHg Brachial 175.00 mmHg Low Thigh 125.00 mmHg 0.71 Low Thigh 255.00 mmHg Calf 80.00 mmHg 0.46 Calf 117.00 mmHg 0.67 Ankle(PT) 63.00 mmHg 0.36 Ankle(PT) 104.00 mmHg 0.59 Ankle(DP) 78.00 mmHg 0.45 Ankle(DP) 123.00 mmHg 0.70 Digit 38.00 mmHg 0.22 Digit 62.00 mmHg 0.35 Findings RT AKSHAT:0.45 LT AKSHAT:0.70 RT TBI:0.22 LT TBI:0.35 DAMPENED PULSES AT ALL LEVELS BILATERAL DAMPANED WAVEFORMS AT ALL LEVELS BILATERAL Conclusion RT AKSHAT:0.45 LT AKSHAT:0.70 RT TBI:0.22 LT TBI:0.35 Severe Rt and moderate lt arterial dz RUE BP 12pt < LUE suggesting stenosis on the rt DAMPENED PULSES AT ALL LEVELS BILATERAL DAMPANED WAVEFORMS AT ALL LEVELS BILATERAL Electronically signed by : Douglas Gupta MD 10/20/2020 16:29:10
--- NOTE | 2020-10-20 08:23 | HMH.ORTHOCON ---
*Admission Date: 10/19/20 <Madonna Esparza - 10/20/20 08:26> *Reason for consult:: Cellulits Right foot and Multiple DM ulcers, gangrene toe <Madonna Esparza - 10/20/20 08:26> *History of present illness: *Admission Date: 10/19/20 *Chief complaint: foot infection [facility] History I have reviewed the patient's past medical history: Yes Medical History: Reports:: Atrial Fibrillation, Coronary Artery Disease, Diabetes Mellitus Type 2, Hypertension Denies:: Cancer, MRSA *Have you ever received a pneumonia vaccine?: No *Have you received a flu vaccine this season?: No Other Medical History: Reports: Glaucoma Other Surgeries: Yes: Coronary Stent Amputation: Yes (R pinky toe) - *Social History Smoking Status: Current every day smoker # Packs/Day (cigarettes): 1 Alcohol Intake: current Alcohol Intake Frequency:: a few times a week *Occupational Status:: unemployed *Travel in the last 8 weeks: None Podiatry consult-patient resting in bed this morning was admitted yesterday for increasing pain and cellulitis to the right lower extremity. Patient stated more drainage and was noted to the toes on the right foot. Patient was obtaining ABIs when entering the room. Patient is scheduled for MRI later today and possibly TMA surgery once all of his testing is completed. Site was marked and dated. Patient will be having a cardiology consult today as well. <Madonna Esparza - 10/20/20 09:01> [facility] History I have reviewed the patient's past medical history: Yes <Madonna Esparza - 10/20/20 13:00> Medical History: Reports:: Atrial Fibrillation, Coronary Artery Disease, Diabetes Mellitus Type 2, Hypertension Denies:: Cancer, MRSA <Madonna Esparza - 10/20/20 08:26> *Have you ever received a pneumonia vaccine?: No <Madonna Esparza 10/20/20 08:26> *Have you received a flu vaccine this season?: No <Madonna Esparza 10/20/20 08:26> Other Medical History: Reports: Glaucoma <Madonna Esparza 10/20/20 08:26> Other Surgeries: Yes: Coronary Stent <Madonna Esparza 10/20/20 08:26> Amputation: Yes (R pinky toe) <Madonna Esparza 10/20/20 08:26> - *Social History Smoking Status: Current every day smoker <Madonna Esparza 10/20/20 08:26> # Packs/Day (cigarettes): 1 <Madonna Esparza 10/20/20 08:26> Alcohol Intake: current <Madonna Esparza 10/20/20 08:26> Alcohol Intake Frequency:: a few times a week <Madonna Esparza 10/20/20 08:26> *Occupational Status:: unemployed <Madonna Esparza 10/20/20 08:26> *Travel in the last 8 weeks: None <Madonna Esparza 10/20/20 08:26> Family Hx:: Unable to obtain <Madonna Esparza 10/20/20 13:13> Review of Systems - Constitutional Denies chills, Denies fever(s) <Madonna Esparza 10/20/20 13:00> - Eyes Reports other (Legally blind in both eyes) <Madonna Esparza 10/20/20 13:00> - ENT Denies abnormal hearing <Madonna Esparza 10/20/20 13:00> - *Cardiovascular Reports leg swelling, Reports foot swelling (Right foot and lower extremity cellulitis), Denies chest pain, Denies shortness of breath <VilmaMadonna Mead 10/20/20 13:00> - *Respiratory Denies cough, Denies shortness of breath <VilmaMadonna Mead 10/20/20 13:00> - *Gastrointestinal Denies abdominal pain <VilmaMadonna Mead 10/20/20 13:00> - *Genitourinary Denies difficulty urinating <VilmaMadonna Mead 10/20/20 13:00> - *Musculoskeletal Reports abnormal walking (Related to ulcers to right foot) <SantoshimerMadonna Mead 10/20/20 13:00> - Integumentary/Breasts Reports dry skin, Reports redness, Reports wounds (Right hallux ulcer, right subfirst, right third (gangrene), R4th exp. bone) <Madonna Esparza 10/20/20 13:00> - *Neurologic Reports loss of vision (Legally blind), Denies abnormal speech, Denies confusion <Madonna Esparza 10/20/20 13:00> - Psychiatric Denies confusion, Denies irritability <Madonna Esparza 10/20/20 13:00> - Endocrine Denies cold intolerance <Madonna Esparza
--- NOTE | 2020-10-20 08:33 | CA_ITS ---
APPROVED REPORT EXAM: Comprehensive 2D, Doppler, and color-flow Echocardiogram Manager Content: Brenda Sherman RT(R) Ht: 5 ft 10 in Wt: 239lbs BSA: 2.25 BP: 114/55 mmHg Indications: smoker, HTN, DM, CAD, AFIB, gangrene right foot 2D Dimensions LVOT 2.24 cm (M/F) 1.5-2.5 LA Volume 92.70 mL LA Volume Index 41.20 mL/m2 (M/F) 16-34 M-Mode Dimensions RVDd 2.53 cm (0.9-2.6) LA Diam 5.41 cm (1.9-4.0) LVDd 5.78 cm (3.5-5.7) Ao Diam 2.42 cm (2.0-3.7) LVDs 4.58 cm (3.5-5.7) IVSd 0.92 cm (0.6-1.1) PWd 1.08 cm (0.6-1.1) EF (Teich) 41.70% FS 20.80% EDV (Teich) 165.20 mL ESV (Teich) 96.30 mL Aortic Valve AI PHT 520.00 ms Left Ventricle Left atrium is moderately enlarged, left ventricle is normal size, there is no concentric left ventricular hypertrophy, visually estimated ejection fraction 55% with no regional wall motion abnormality, diastolic parameters are inconclusive. Right Ventricle Right atrium and right ventricle are mildly enlarged with normal contractility. Aortic Valve Aortic valve is thickened and calcified without aortic stenosis, there is mild aortic insufficiency. Mitral Valve Mitral valve is thickened and and calcified, there is restriction in the leaflet mobility, there is mitral stenosis, which is not quantified in this study. There is at least moderate mitral regurgitation, a repeat study with focus on mitral inflow velocity and pressure half-time is recommended to calculate mitral valve area. Tricuspid Valve Right cuspid valve is grossly normal, there is trace tricuspid regurgitation, tricuspid regurgitation jet velocity is inadequate for calculation of the right ventricular systolic pressure. Pulmonic Valve Pulmonic valve is poorly visualized. Great Vessels Aortic root is normal size. Inferior vena cava is mildly dilated with normal inspiratory collapse. Pericardium No significant pericardial effusion noted. Conclusion 1. Biatrial enlargement, normal left ventricular size, visually estimated ejection fraction 55% with no regional wall motion abnormality, diastolic parameters are inconclusive. 2. Thickened and calcified aortic valve without aortic stenosis, there is mild aortic insufficiency. 3. Abnormal mitral valve with mitral stenosis, repeat study with better Doppler technique is recommended as described above to calculate mitral valve area. Moderate mitral regurgitation. 4. Mild tricuspid regurgitation, tricuspid regurgitation jet velocity is inadequate for calculation of the right ventricular systolic pressure. 5. No significant pericardial effusion noted. Electronically signed by : Crow Alexander MD 10/20/2020 19:05:51
--- NOTE | 2020-10-20 08:53 | HMH.CNCARD ---
History of Present Illness Consult date: 10/20/20 Requesting physician: Jag Carmichael Consult reason: pre-op evaluation Chief complaint: Atrial fib and preop clearance History of present illness: 59-year-old male admitted to [facility] with gangrene of the right foot. Patient is legally blind. Cardiology was consulted from PCP and silo operator due to possible amputation of the right toes and foot due to gangrene. Patient does have swelling of the lower extremities. Patient does wear compression hose to alleviate the swelling. Patient denies chest pain, tightness or pressure. Patient denies shortness of breath with exertion. Patient denies palpitations or dizziness. Patient does have history of atrial fibrillation. Patient states he was diagnosed with atrial fibrillation 3 years ago. Patient is currently taking Xarelto for anticoagulation. Xarelto is currently being held by PCP due to possible surgery. He does state he did undergo heart catheterization with 2 stent placements in [facility] with Dr. Cast in 2019. Patient states he has followed up with Dr. Cast within the past year. Patient does have history of cardiomyopathy in which she is on Entresto. History of of renal artery stenosis in which patient states he did have a stent placed in his kidney in 1995. Patient is a known smoker of 1 pack/day and has been for 30+ years. Patient has known diabetes which is controlled. History of hypertension which is controlled. Patient is currently being treated for gangrene of the right foot and toes by podiatry. Patient did undergo AKSHAT this a.m. which was abnormal. Podiatry is requesting cardiac clearance due to patient's history of cardiomyopathy and atrial fibrillation. Discussed plan of care with Dr. Cast. Orders and recommendations were received from Dr. Cast. Obtain echocardiogram to assess LV function and valve status. Pending on the results of the echocardiogram, medication and treatment therapies may be recommended. Due to the abnormal AKSHAT, we will set patient up for a bilateral lower extremity runoff tomorrow afternoon to determine the extent of PAD. Please make sure patient does not take his evening dose of Xarelto. Discussed with patient the risk and benefits of undergoing a bilateral lower extremity runoff with right groin access. Patient verbalized understanding and is agreeable to procedure. Spoke with Dr. Quigley regarding patient having bilateral lower extremity runoff tomorrow afternoon. She is agreeable to this. Pending on the results of the bilateral lower extremity runoff, medication and treatment therapies may be recommended. Thank you for allowing cardiology to participate in the care of this patient. [facility] History I have reviewed the patient's past medical history: Yes Medical History: Reports:: Atrial Fibrillation, Coronary Artery Disease, Diabetes Mellitus Type 2, Hypertension Denies:: Cancer, MRSA *Have you ever received a pneumonia vaccine?: No *Have you received a flu vaccine this season?: No Other Medical History: Reports: Glaucoma Other Surgeries: Yes: Coronary Stent Amputation: Yes (R pinky toe) - *Social History Smoking Status: Current every day smoker # Packs/Day (cigarettes): 1 Alcohol Intake: current Alcohol Intake Frequency:: a few times a week *Occupational Status:: unemployed *Travel in the last 8 weeks: None Family Hx:: Coronary Artery Disease, Hyperlipidemia, Hypertension Meds Home Medications Medication Instructions Recorded Confirmed Type Atorvastatin Calcium [Lipitor 20mg 20 mg PO HS 10/19/20 10/19/20 History Tab] Digoxin [Digoxin 0.125mg Tablet] 125 mcg PO DAILY 10/19/20 10/20/20 History Furosemide [Furosemide 20mg Tab*] 20 mg PO DAILY 10/19/20 10/20/20 History Metformin HCl 500 mg PO BID 10/19/20 10/19/20 History Rivaroxaban [Xarelto 20mg Tablet*] 20 mg PO DAILY 10/19/20 10/20/20 History Sacubitril/Valsartan [Entresto 49 1 tab PO B
--- NOTE | 2020-10-20 09:12 | HMH.PHACONS ---
- Pharmacy Consult Date: 10/20/20 Time: 09:12 Referring provider: DR. CURTIS Reason for Consult:: VANCOMYCIN DOSING Allergies and ADEs:: Allergies Allergy/AdvReac Type Severity Reaction Status Date / Time No Known Allergies Allergy Verified 10/19/20 14:53 Home Medications:: Home Medications Medication Instructions Recorded Confirmed Type Atorvastatin Calcium [Lipitor 20mg 20 mg PO HS 10/19/20 10/19/20 History Tab] Digoxin [Digoxin 0.125mg Tablet] 125 mcg PO DAILY 10/19/20 10/20/20 History Furosemide [Furosemide 20mg Tab*] 20 mg PO DAILY 10/19/20 10/20/20 History Metformin HCl 500 mg PO BID 10/19/20 10/19/20 History Rivaroxaban [Xarelto 20mg Tablet*] 20 mg PO DAILY 10/19/20 10/20/20 History Sacubitril/Valsartan [Entresto 49 1 tab PO BID 10/19/20 10/19/20 History mg-51 mg Tablet] allopurinoL [Allopurinol 300mg 300 mg PO DAILY 10/19/20 10/20/20 History tablet] dilTIAZem HCl [Diltiazem 180mg 180 mg PO DAILY 10/19/20 10/19/20 History 24Hr ER Cap] Height: 1.78 m Weight: 108.545 kg Laboratory Results:: Laboratory Results - last 24 hr 10/19/20 15:08: WBC 6.7, RBC 4.86, Hgb 14.3, Hct 44.4, MCV 91.4, MCH 29.4, MCHC 32.2, RDW 13.8, Plt Count 354, MPV 9.4, Neut % (Auto) 75.8, Lymph % (Auto) 14.2, [place] % (Auto) 8.3, Eos % (Auto) 0.7, Baso % (Auto) 1.1, Neut # (Auto) 5.1, Lymph # (Auto) 0.9, [place] # (Auto) 0.6, Eos # (Auto) 0.1, Baso # (Auto) 0.1 10/19/20 15:08: Sodium 136, Potassium 3.2 L, Chloride 99, Carbon Dioxide 29, Anion Gap 11.2, BUN 18, Creatinine 1.10, Estimated Creat Clear 95, Estimated GFR 68, Est GFR ( Amer) 82, Glucose 109 H, Calcium 8.9, Total Bilirubin 0.7, AST 19, ALT 12, Alkaline Phosphatase 103, Total Protein 6.4, Albumin 3.2 L, Globulin 3.2, Albumin/Globulin Ratio 1.0 L 10/19/20 15:08: Lactate 1.1 10/19/20 15:53: SARS-CoV-2 (PCR) Not detected, Influenza A Untype (PCR) Not detected, Influenza Type B (PCR) Not detected 10/20/20 04:45: POC Glucose 117 H 10/20/20 05:45: ESR 101 H 10/20/20 05:45: C-Reactive Protein 65.0 H Medical History: Reports:: Atrial Fibrillation, Coronary Artery Disease, Diabetes Mellitus Type 2, Hypertension Denies:: Cancer, MRSA Assessment and Plan (1) Gangrene associated with type 2 diabetes mellitus Status: Acute Category: Medical Code(s): E11.52 - Type 2 diabetes mellitus with diabetic peripheral angiopathy with gangrene (2) Type 2 diabetes mellitus Status: Chronic Category: Medical Code(s): E11.9 - Type 2 diabetes mellitus without complications (3) Obesity (BMI 30.0-34.9) Status: Chronic Category: Medical Code(s): E66.9 - Obesity, unspecified (4) Tobacco use disorder Status: Chronic Category: Medical Code(s): F17.200 - Nicotine dependence, unspecified, uncomplicated (5) PAD (peripheral artery disease) Status: Chronic Category: Medical Code(s): I73.9 - Peripheral vascular disease, unspecified (6) Blind Status: Chronic Category: Medical Code(s): H54.7 - Unspecified visual loss - Assessment and plan all Dx Assessment and Plan for all problems:: Age: 59 yo Serum creatinine: 1.1 mg/dL Height: 70.1 Inches Weight (kg): 108.5 Assessment: IBW (kg): 73.23 Dosing wt(kg): 108.5 Estimated Creatinine clearance (ml/min): 73.0 CRCL method: Cockcroft and Gault using ibw(default). Drug selected: Vancomycin Loading dose (mg): 0 Vd (liters): 86.8 (factor used: 0.8 L/kg) Michael (hr-1): 0.065 Half life (hrs): 10.66 Recommended dose: 1500 mg Interval: 12 hrs Infusion time (hrs): 2.0 Predicted peak (mcg/mL): 29.9 Predicted trough (mcg/mL): 15.61 Total body weight is being used for vancomycin dosing. Recommendations: Give Vancomycin 1500 mg q 12 hrs with an expected Cpeak of 29.9 mcg/ml and an expected Ctrough of 15.61 mcg/ml ----Vanco only - ignore for aminoglycosides----- CLvanco= 5.64
--- NOTE | 2020-10-20 11:02 | MR_ITS ---
PROCEDURE INFORMATION: Exam: MR Right Lower Extremity Other Than Joint Without and With Contrast; Foot Exam date and time: 10/20/2020 11:02 AM Age: 59 years old Clinical indication: Foot and toes; Patient HX: Diabetic ulcer right foot, pain and drainage. TECHNIQUE: Imaging protocol: MR of the Right lower extremity without and with intravenous contrast. Exam focused on the foot. Contrast material: PROHANCE; Contrast volume: 22 ml; Contrast route: IV; COMPARISON: CR XR FOOT RT 2V 10/19/2020 2:54 PM FINDINGS: Limitations: The large [id number] needed to image the entire foot and ankle results in proportionally lower anatomic detail. Bones and cartilage: Abnormal signal involving the marrow space of the fourth toe remaining phalanges and fourth metatarsal head is demonstrated on both T1 weighted and fluid sensitive sequences, as well as demonstrating abnormal enhancement, consistent with osteomyelitis. Bone marrow edema and mild enhancement involving the first metatarsal head and great toe proximal phalanx is favored to be degenerative in the absence of a visible associated skin abnormality. If there is an ulcer that is not apparent on MRI, then this area would be suspicious for early osteomyelitis. Somewhat linear regions of mild bone marrow edema involving the talus and calcaneus a suggest subacute healing nondisplaced insufficiency fractures. The amputation has been performed through the proximal fifth metatarsal diaphysis with a well-healed amputation site. There is severe primary osteoarthritis of the first metatarsophalangeal joint. There are either periarticular erosions or subchondral cysts involving the first metatarsal head. Moderate hallux valgus is associated with a moderate bunion deformity. There is a large talar beak without subtalar joint coalition. Joint spaces: Moderate joint space narrowing involves the midfoot with multifocal subchondral cystic changes that are favored to be degenerative, although a crystal arthropathy such as gout cannot be excluded. LIGAMENTS: Lisfranc ligament: Unremarkable. No evidence of tear. TENDONS: Flexor tendons of foot: Unremarkable. No evidence of tear. Tibialis posterior tendon: Unremarkable as visualized. Peroneal tendons: Unremarkable as visualized. Extensor tendons of foot: Unremarkable. No evidence of tear. Tibialis anterior tendon: Unremarkable as visualized. Tarsal canal (Sinus tarsi): Unremarkable. Tarsal tunnel: Unremarkable. Soft tissues: The skin of the fourth toe is irregular favored to represent ulceration. There is no abscess. Diffuse subcutaneous edema suggests cellulitis. Plantar fascia: Unremarkable as visualized. IMPRESSION: 1. Osteomyelitis of the fourth toe and fourth metatarsal head. 2. If there is no ulcer adjacent to the first metatarsophalangeal joint, bone marrow edema and enhancement in this region is favored to be reactive. However, if there is an ulcer in this area that is not apparent on MRI, the changes would be suspicious for early osteomyelitis. 3. Cellulitis without abscess. 4. Probable subacute healing nondisplaced insufficiency fractures of the talus and calcaneus. 5. Moderate hallux valgus with severe primary osteoarthritis of the great toe metatarsophalangeal joint.
--- NOTE | 2020-10-20 15:23 | P.PN_ITS ---
[facility] Anesthesia Checklist - Structural Data Admitted From: Inpatient Planned Operative Procedure/s: r tma Consent for Planned Operative Procedure(s) Verified: Yes - Airway Assessment C-Spine Mobility Assessed: Yes TMJ Mobility Assessed: Yes Dentition: Poor Dentition - Neurological Assessment Level of Consciousness: Awake, Alert, Appropriate - Anesthesia Plan Anesthesia Risk discussed: Yes Anesthesia Plan: Verified ASA Class: III Anesthesia Type: General - Preoperative Comments Pre-Operative Comments: pt is blind [facility] History I have reviewed the patient's past medical history: Yes Medical History: Reports:: Atrial Fibrillation, Coronary Artery Disease, Diabetes Mellitus Type 2, Hypertension Denies:: Cancer, MRSA *Have you ever received a pneumonia vaccine?: No *Have you received a flu vaccine this season?: No Other Medical History: Reports: Glaucoma Anesthesia experience/problems:: none Other Surgeries: Yes: Coronary Stent Amputation: Yes (R pinky toe) - *Social History Smoking Status: Current every day smoker # Packs/Day (cigarettes): 1 Alcohol Intake: current Alcohol Intake Frequency:: a few times a week Substance Use Type: denies use *Occupational Status:: unemployed *Travel in the last 8 weeks: None Family Hx:: Unable to obtain
--- NOTE | 2020-10-20 16:14 | XR_ITS ---
PROCEDURE: XR FOOT RT MIN 3V CLINICAL INDICATION: Post op COMPARISON: CR XR FOOT RT 2V from 10/19/2020 MR MR FOOT RT WO/W CON from 10/20/2020 FINDINGS: Status post transmetatarsal amputation digits 1 through 4. Prior amputation base of digit 5. Postsurgical changes with bandage present. There is prominent bony hypertrophy along the distal and anterior aspect of the talus IMPRESSION: Interval transmetatarsal amputation Dictated by: Douglas Gupta MD 10/20/2020 16:49 Douglas Gupta MD in OV 10/20/2020 16:49
--- NOTE | 2020-10-20 16:14 | HMH.OPNOTE ---
Date of procedure: 10/20/20 Pre-op Diagnosis:: 1. Right diabetic foot infection 2. Right foot osteomyelitis 3. Right diabetic foot ulcer 4. Right toe gangrene, PAD Post-op Diagnosis:: Same Procedure performed:: 1. Right foot open transmetatarsal amputation 2. Right foot incision and drainage 3. Application of antibiotic beads Surgeon:: Digna Lantigua DPM VISOR INSTALLER:: Dimitri Gaviria Anesthesia: local (20cc 0.5% marcaine plain), LMA Estimated blood loss (mL): 15 Clinical Note:: Patient is a 59-year-old male who was admitted 10/19/2020 with worsening right foot infection. He was scheduled for MRI and ABIs outpatient today. Patient obtain both exams which showed abnormal ABIs. Cardiology consulted, plan runoff for tomorrow. Discussed due to the significant malodor and infection, proceed with right foot I&D and open amputation today. Discussed staging and bringing back after runoff in 2 days for washout and transmetatarsal amputation with delayed primary closure. All risks and benefits of the surgery were discussed with the patient. We discussed conservative versus surgical treatment options. We discussed conservative care including continued oral vs IV antibiotics and local wound care versus surgical incision and drainage. Patient understands that they could have wound healing complications including delayed healing and infection. We discussed that if the wound does not heal, it is possible that they may need further debridement. Patient understands if infection spreads into the bone, it may warrant proximal amputation and could result in further loss of digits, loss of partial foot or loss of leg. We discussed the risks and benefits in great detail. Other surgical risks include: prolonged pain and swelling, further infection requiring oral or IV antibiotics, delay in healing of soft tissue or bone, nerve or blood vessel damage, CRPS/RSD, DVT, anesthesia complications, and even . All questions answered. Patient verbalized understanding. Consent obtained verbally by patient with 2 witnesses as the patient is legally blind. Operative findings:: Pre debridement: Previous right 5th toe amputation, site well healed. Right 4th toe DM ulcer to the lateral side with exposed bone, malodor noted, site measures 2.0 x 1.5 x 0.3cm. Right sub 4th plantar surface diabetic ulcer is superficial measures 1.3 x 2.0 x 0 cm. Right third toe gangrene diabetic ulcer noted, gangrene measures 4.0 x 2.5 x 0 cm. Right hallux medial side ulcer noted no drainage when compressed site measures 0.7 x 0.5 x 0 cm. Right foot has significant malodor. Ulceration noted to the plantar subfourth metatarsal and plantar medial hallux. Open wound with exposed proximal phalanx head on the fourth toe. The third and fourth toe were both gangrenous. Drainage noted to the fourth toe, wound culture taken. Cellulitis noted to the dorsal forefoot. Malodor and purulence noted throughout the foot extending of the flexor tendons of the third and fourth toes. Operative note:: On this date and time patient was deemed an appropriate surgical candidate. With informed consent signed, the patient was taken to the operating theater. The patient was positioned supine. LMA anesthesia was induced. No tourniquet used. Pre-op right forefoot block given with 15 cc 0.5% marcaine plain. Right open transmetatarsal amputation, incision/drainage, irrigation and debridement: Previous amputation of the fifth toe and metatarsal noted. Attention was directed to the right foot where multiple toe wounds and sub 4th and 1st metatarsal ulcers noted. Exposed lateral fourth PIPJ noted with purulent drainage and malodor. Wound culture taken. Cellulitis noted extending to the forefoot. A fish mouth incision was mapped out at the level of the MPJs. Utilizing a 15 blade dissection was carried down sharply full-thickness ~1cm to the level of the bone around the proximal phalanx bases, which were disarticulated from the metatarsals. The prox
--- NOTE | 2020-10-20 16:17 | P.PN_ITS ---
[facility] Anesthesia Record Part I Intake, IV Amount: 1,500 Estimated blood loss (mL): 0 Urine output (mL): 0 Blood Pressure: 143/73 SaO2: 96 Pulse Rate: 51 Respiratory Rate: 12 Temperature: 97.8 F Patient is:: Awake, Stable Stable to PACU at:: 16:15
--- NOTE | 2020-10-20 16:31 | PC.NURSE ---
1618-checked fsbs with results 106-notified ORE CRUSHER, no further orders 1631-radiology at bedside
--- NOTE | 2020-10-20 16:58 | PC.NURSE ---
1647-detailed report called RenuRN 164-pt transported to 2nd floor room 207 via hospital bed w/soco rails up and left in care of APOLINAR Joshi. Detailed report given at bedside, javiers, pt stable
[2020-10-20 17:00] LABS: POC Glucose,Bedside 106 (70-110)
[2020-10-20 22:03] LABS: POC Glucose,Bedside 126 (70-110)
[2020-10-21] VITALS (17 sets, daily range): BP systolic 111–168; BP diastolic 63–87; PULSE 51–73; RESP 16–18; TEMP 36.4–37.7; O2SAT 90–99; BMI 34.8; BMI 34.7
--- NOTE | 2020-10-21 | IR_ITS ---
APPROVED REPORT Patient Location: Inpatient [facility] Consultant: ADIN Jacques RT (R) PROCEDURES 1. Catheter placement in the abdominal aorta 2. Abdominal aortogram 3. Bilateral iliofemoral runoff 4. Catheter placement in the right common iliac artery 5. Sheath placement in the right external iliac artery 6. Angioplasty of the right common femoral artery 7. Post angioplasty angiogram of the right common femoral artery INDICATION 1. Ischemic right foot, 2. Peripheral vascular disease SCAI INDICATION Patient is a 59-year-old white male with an ischemic right foot. He has gangrene of the toes. Underwent surgery. There is concerned that he may have poor healing. He had abnormal ankle-brachial indices. Also with known renal artery stenosis post stents. Secondary to this referred for a runoff via the left groin Informed consent was obtained prior to the procedure. COMPLICATIONS None Estimated Blood Loss: Less than 10 mls TECHNIQUE 1% lidocaine used to anesthetize the left femoral groin. The left femoral artery was accessed via the Seldinger technique. Catheters used for the procedure a pigtail catheter, a rim catheter, a long destination sheath and a trailblazer catheter ANGIOGRAPHIC RESULTS Coronary arteries are not evaluated on this examination. Pigtail catheter was placed in the abdominal aorta. Abdominal aortogram was performed which showed mild luminal irregularities of the abdominal aorta. There was a stent noted in the proximal right renal artery. That stent was free of disease. The left renal artery was solitary and angiographically normal. There was a high bifurcation of the iliac arteries. The iliac arteries were angiographically normal. Specifically normal flow into the common, external and internal iliac arteries Pigtail catheter was pulled to the distal abdominal aorta. Bilateral iliofemoral runoff was performed. On the right, the proximal right common femoral artery had a 90% stenosis. This was prior to the bifurcation of the profundus and the superficial femoral artery. Patient was noted to have an AV fistula which is apparently old that is in the right superficial femoral artery going to the femoral vein. There was normal flow in the proximal right superficial femoral artery with diffuse 30% stenosis. There was then a another eccentric 50 to 60% stenosis in the mid right superficial femoral artery. The popliteal had normal flow. The PT trunk was noted to have an 80% stenosis with diffuse 70% stenosis at the bifurcation of the anterior tibial and peroneal. Patient was then noted to have 90% stenosis of the anterior tibial. Posterior tibial was 100% occluded. Scant flow in the peroneal. One-vessel runoff to the foot. On the left, patient was noted to have moderate diffuse disease on the left superficial femoral artery. There was a focal proximal 60% stenosis followed by another distal 30% and then distal 80% stenosis. Diffuse disease in the popliteal with a one-vessel runoff to the foot via the anterior tibial. After diagnostic cardiac catheterization was performed I went in with a rim catheter up and over with an advantage wire. I went into the common iliac artery on the right. Use the advantage wire to go down into the profundus. I was then able to exchange my 5 [place] sheath for a long 6 [place] sheath. I had some difficulty getting across his high bifurcation. I used a trailblazer to help get me across. Once I was across I was able to advance the sheath. I then performed angiography which confirmed a 90% stenosis in the proximal right common femoral artery. My goal was to improve inflow. I therefore ballooned with a 6.0 x 20 mm balloon. Res
--- NOTE | 2020-10-21 | XR_ITS ---
PROCEDURE INFORMATION: Exam: XR Chest Exam date and time: 10/21/2020 12:00 AM Age: 59 years old Clinical indication: Device placement; Patient HX: Picc line placement confirmation TECHNIQUE: Imaging protocol: XR of the chest. Views: 1 view. COMPARISON: CR XR CHEST PORTABLE PICC PLAC 10/21/2020 6:14 PM FINDINGS: Tubes, catheters and devices: PICC line remains doubled over in the subclavian vein. Lungs: Bibasilar pulmonary opacities are similar to the comparison. Pleural spaces: Unremarkable. No pleural effusion. No pneumothorax. Heart/Mediastinum: Unremarkable. No cardiomegaly. Bones/joints: Unremarkable. IMPRESSION: PICC line remains doubled over in the subclavian vein.
[2020-10-21 01:52] LABS: Vancomycin,Peak 21.4 ug/ml (11-39)
[2020-10-21 05:25] LABS: POC Glucose,Bedside 105 (70-110)
--- NOTE | 2020-10-21 05:37 | PC.NURSE ---
No acute changes. Pt has slept at intervals. C/O discomfort x1 this shift. Medicated per apr. Pt has tolerated well. DSG to (R) foot is intact. Foot is floated. FSBS 105 this am. Pt informed to have light breakfast per MD. Consent is on chart. Will continue to monitor.
[2020-10-21 06:27] LABS: Basophils # 0.1 K/mm3 (0-0.2); Basophils % 0.5 % (0.1-2.0); Eosinophils % 0.4 % (0.1-12.0); Hematocrit 38.6 % (42.0-52.0); Hemoglobin 12.3 g/dL (14.1-18.0); Lymphocytes # 0.9 K/mm3 (0.7-4.5); Lymphocytes % 9.9 % (10-50); Mean Corpuscular HGB Conc 31.8 g/dL (31.8-35.4); Mean Corpuscular Hemoglobin 29.1 pg (27.0-31.2); Mean Corpuscular Volume 91.3 fl (80-94); Mean Platelet Volume 9.3 fl (7.4-10.4); Monocytes # 0.7 K/mm3 (0.1-1.0); Monocytes % 7.1 % (1.7-9.3); Neutrophils # 7.6 K/mm3 (1.8-7.8); Neutrophils % 82.1 % (37.0-80.0); Platelet Count 337 K/mm3 (142-424); Red Blood Count 4.22 M/mm3 (4.60-6.20); White Blood Count 9.3 K/mm3 (4.8-10.8)
[2020-10-21 06:50] LABS: Alanine Aminotransferase 8 U/L (12-78); Albumin Level 2.6 g/dl (3.5-5.0); Albumin/Globulin Ratio 0.9 (1.1-1.8); Alkaline Phosphatase 73 U/L (38-126); Anion Gap 10.2 mEq/L (5-15); Aspartate Amino Transferase 18 U/L (17-59); Bilirubin,Total 0.8 mg/dl (0.2-1.3); Blood Urea Nitrogen 17 mg/dl (9-20); Calcium 8.1 mg/dl (8.4-10.2); Carbon Dioxide 28 mmol/L (22.0-30.0); Chloride 101 mmol/L (98-107); Creatinine Clearance Estimated 121 mL/min (50-200); Estimated Glomerular Filt Rate 76 ml/min (>60); GFR (African American) 92 ML/MIN (>60); Glucose 110 mg/dl (74-100); Potassium 3.2 mmoL/L (3.5-5.1); Sodium 136 mmol/L (136-145); Total Protein,Serum 5.6 g/dl (6.3-8.2)
[2020-10-21 06:56] LABS: C-Reactive Protein 68.5 mg/L (0-4)
[2020-10-21 07:18] LABS: Erythrocyte Sedimentation Rate 82 mm/hr (0-20)
--- NOTE | 2020-10-21 08:13 | HMH.ACPN2 ---
Internal Medicine - PN: Subj *Date: 10/21/20 *Time: 08:13 Interval history: Patient is status post right metatarsal amputation. Slightly nauseated and feels like he has a dry mouth but otherwise feels pretty good. No significant pain complaints. Exam Vital signs and Labs for Last 24 Hours: Temp Pulse Resp BP Pulse Ox 98.9 F 57 L 16 166/84 H 97 10/21/20 04:00 10/21/20 04:00 10/21/20 04:00 10/21/20 04:00 10/21/20 04:00 Laboratory Results - last 24 hr 10/20/20 16:18: POC Glucose 106 10/20/20 20:52: POC Glucose 126 H 10/21/20 00:55: Vancomycin Peak 21.4 10/21/20 05:11: POC Glucose 105 10/21/20 05:59: WBC 9.3 D, RBC 4.22 L, Hgb 12.3 L, Hct 38.6 L, MCV 91.3, MCH 29.1, MCHC 31.8, RDW 14.0, Plt Count 337, MPV 9.3, Neut % (Auto) 82.1 H, Lymph % (Auto) 9.9 L, Kenton % (Auto) 7.1, Eos % (Auto) 0.4, Baso % (Auto) 0.5, Neut # (Auto) 7.6, Lymph # (Auto) 0.9, Kenton # (Auto) 0.7, Eos # (Auto) 0.0, Baso # (Auto) 0.1 10/21/20 05:59: Sodium 136, Potassium 3.2 L, Chloride 101, Carbon Dioxide 28, Anion Gap 10.2, BUN 17, Creatinine 1.00, Estimated Creat Clear 121, Estimated GFR 76, Est GFR ( Amer) 92, Glucose 110 H, Calcium 8.1 L, Total Bilirubin 0.8, AST 18, ALT 8 L D, Alkaline Phosphatase 73, C-Reactive Protein 68.5 H, Total Protein 5.6 L, Albumin 2.6 L, Globulin 3.0, Albumin/Globulin Ratio 0.9 L 10/21/20 05:59: ESR 82 H I & O for Last 24 hours: Intake & Output 10/18/20 10/19/20 10/20/20 10/21/20 11:59 11:59 11:59 11:59 Intake Total 1620 / 1620 Output Total 0 / 0 850 / 850 Balance 0 / 0 770 / 770 Weight 239 lb 4.8 oz 243 lb 6 oz Microbiology Reports for the Last 24 Hours: Microbiology 10/20/20 15:15 Toe,Right Fourth Gram Stain - Final 10/20/20 15:15 Toe,Right Fourth Wound Culture - Preliminary Narrative: Patient is alert. Talkative. Oriented. Anterior lung cardona are clear. Heart rate regular. Face symmetric. Previous visual loss noted. Abdomen soft. Right leg foot stump in bandage which is clean and dry. Patient is able to move all extremities equally. Assessment and Plan (1) Gangrene associated with type 2 diabetes mellitus Status: Acute Category: Medical Code(s): E11.52 - Type 2 diabetes mellitus with diabetic peripheral angiopathy with gangrene (2) Type 2 diabetes mellitus Status: Chronic Category: Medical Code(s): E11.9 - Type 2 diabetes mellitus without complications (3) Obesity (BMI 30.0-34.9) Status: Chronic Category: Medical Code(s): E66.9 - Obesity, unspecified (4) Tobacco use disorder Status: Chronic Category: Medical Code(s): F17.200 - Nicotine dependence, unspecified, uncomplicated (5) PAD (peripheral artery disease) Status: Chronic Category: Medical Code(s): I73.9 - Peripheral vascular disease, unspecified (6) Blind Status: Chronic Category: Medical Code(s): H54.7 - Unspecified visual loss (7) Cellulitis of right lower extremity Status: Acute Category: Medical Code(s): L03.115 - Cellulitis of right lower limb (8) Cellulitis of right foot Status: Acute Category: Medical Code(s): L03.115 - Cellulitis of right lower limb (9) Ulcer of right great toe due to diabetes mellitus Status: Acute Category: Medical Code(s): E11.621 - Type 2 diabetes mellitus with foot ulcer; L97.519 - Non-pressure chronic ulcer of other part of right foot with unspecified severity (10) Diabetic ulcer of right foot associated with diabetes mellitus due to underlying condition, limited to breakdown of skin Status: Acute Category: Medical Code(s): E08.621 - Diabetes mellitus due to underlying condition with foot ulcer; L97.511 - Non-pressure chronic ulcer of other part of right foot limited to breakdown of skin (11) Skin ulcer of fourth toe of right foot with necrosis of bone Start date: 10/20/20 Status: Acute Category: Medical Code(s): L97.514 - Non-pressure chronic ulcer of other part of right foot with necr
--- NOTE | 2020-10-21 09:01 | XR_ITS ---
PROCEDURE INFORMATION: Exam: XR Chest Exam date and time: 10/21/2020 9:01 AM Age: 59 years old Clinical indication: Device placement; Patient HX: Confirm picc line placement TECHNIQUE: Imaging protocol: XR of the chest. Views: 1 view. COMPARISON: No relevant prior studies available. FINDINGS: Tubes, catheters and devices: PICC line is doubled over in the subclavian vein. The terminus is in the axillary vein. Lungs: Faint bibasilar pulmonary opacities may reflect infection or edema. Pleural spaces: Unremarkable. No pleural effusion. No pneumothorax. Heart/Mediastinum: Unremarkable. No cardiomegaly. Bones/joints: Unremarkable. IMPRESSION: PICC line is doubled over in the subclavian vein. The terminus is in the axillary vein.
--- NOTE | 2020-10-21 09:02 | HMH.PNCARD ---
Subjective Date: 10/21/20 Time: 09:00 Principal diagnosis: Right foot gangrene and PAD Interval history: 59-year-old male admitted to [facility] with gangrene of the right foot and possible toe amputations. Patient is legally blind. Patient does have swelling of the lower extremities. Patient does wear compression hose to alleviate the swelling. Patient denies chest pain, tightness or pressure. Patient denies shortness of breath with exertion. Patient denies palpitations or dizziness. Patient does have history of atrial fibrillation. Patient states he was diagnosed with atrial fibrillation 3 years ago. Patient is currently taking Xarelto for anticoagulation. Xarelto is currently being held by PCP due to possible surgery. Patient does have history of cardiomyopathy in which she is on Entresto. Patient has known diabetes which is controlled. History of hypertension which is controlled. Patient is currently being treated for gangrene of the right foot and toes by podiatry. Patient did undergo AKSHAT this a.m. which was abnormal. Patient did undergo procedure with Dr. Lantigua yesterday for debridement and partial amputation of the toe. Echocardiogram did reveal EF 55% with no regional wall motion abnormality, abnormal mitral valve with mitral stenosis and moderate mitral regurgitation. We will repeat echocardiogram with better Doppler technique to verify mitral valve status. Vital signs are stable. Patient does remain in atrial fibrillation at a controlled rate. Discussed plan of care with Dr. Cast. Orders and recommendations were received from Dr. Cast. Due to the abnormal AKSHAT, we will set patient up for a bilateral lower extremity runoff this afternoon determine the extent of PAD. Xarelto has been stopped since yesterday. Discussed with patient the risk and benefits of undergoing a bilateral lower extremity runoff with right groin access. Patient verbalized understanding and is agreeable to procedure. Pending on the results of the bilateral lower extremity runoff, medication and treatment therapies may be recommended. Echo:Conclusion 1. Biatrial enlargement, normal left ventricular size, visually estimated ejection fraction 55% with no regional wall motion abnormality, diastolic parameters are inconclusive. 2. Thickened and calcified aortic valve without aortic stenosis, there is mild aortic insufficiency. 3. Abnormal mitral valve with mitral stenosis, repeat study with better Doppler technique is recommended as described above to calculate mitral valve area. Moderate mitral regurgitation. 4. Mild tricuspid regurgitation, tricuspid regurgitation jet velocity is inadequate for calculation of the right ventricular systolic pressure. 5. No significant pericardial effusion noted. Thank you for allowing cardiology to participate in the care of this patient. Exam Vital signs and Labs for Last 24 Hours: Temp Pulse Resp BP Pulse Ox 99.8 F H 63 18 137/63 95 10/21/20 08:00 10/21/20 08:38 10/21/20 08:00 10/21/20 08:00 10/21/20 08:00 Laboratory Results - last 24 hr 10/20/20 16:18: POC Glucose 106 10/20/20 20:52: POC Glucose 126 H 10/21/20 00:55: Vancomycin Peak 21.4 10/21/20 05:11: POC Glucose 105 10/21/20 05:59: WBC 9.3 D, RBC 4.22 L, Hgb 12.3 L, Hct 38.6 L, MCV 91.3, MCH 29.1, MCHC 31.8, RDW 14.0, Plt Count 337, MPV 9.3, Neut % (Auto) 82.1 H, Lymph % (Auto) 9.9 L, Parker % (Auto) 7.1, Eos % (Auto) 0.4, Baso % (Auto) 0.5, Neut # (Auto) 7.6, Lymph # (Auto) 0.9, Parker # (Auto) 0.7, Eos # (Auto) 0.0, Baso # (Auto) 0.1 10/21/20 05:59: Sodium 136, Potassium 3.2 L, Chloride 101, Carbon Dioxide 28, Anion Gap 10.2, BUN 17, Creatinine 1.00, Estimated Creat Clear 121, Estimated GFR 76, Est GFR ( Amer) 92, Glucose 110 H, Calcium 8.1 L, Total Bilirubin 0.8, AST 18, ALT 8 L D, Alkaline Phosphatase 73, C-Reactive Protein 68.5 H, Total Protein 5.6 L, Albumin 2.6 L, Globulin 3.0, Albumin/Globulin Rati
--- NOTE | 2020-10-21 09:10 | CA_ITS ---
APPROVED REPORT EXAM: Limited 2D Echocardiogram Prom Burn Off Operator: Sara Smiht RVT Ht: 5 ft 10 in Wt: 243lbs BSA: 2.27 BP: 110/65 mmHg Indications: REPEAT MV DOPPLER Conclusion 1. Limited Doppler of mitral valve performed, the mean gradient across the mitral valve is 8 mmHg, valve area by pressure half-time is 1.48 cm??? represents moderate mitral stenosis, there is moderate mitral regurgitation. Electronically signed by : Crow Alexander MD 10/22/2020 14:45:57
--- NOTE | 2020-10-21 09:42 | SW/DCPLANNER ---
Addendum entered by Soheila Palmer 10/26/20 12:58: PATIENT WAS ACCEPTED TO [facility] ... FAMILY HAS BEEN INFORMED OF HIM DISCHARGING THERE TODAY. PATIENT WILL GO VIA EMS... Addendum entered by Soheila Palmer 10/26/20 11:46: INFORMATION WAS SENT TO [facility] FOR REVIEW SINCE [facility] DID NOT HAVE A BED FOR THIS PATIENT... [facility] AT FIRST WAS INTERESTED IN THIS PATIENT AND NOW CALLED AND STATED IT MIGHT BE IN THE BEST INTEREST TO LOOK FOR A BED ELSEWHERE... I HAVE SENT IT TO [facility] SINCE HIS ONLY FAMILY LIVE IN [facility].. WAITING TO HEAR BACK TO WHETHER HE HAS BEEN ACCEPTED OR NOT... Addendum entered by Soheila Palmer 10/22/20 09:54: PATIENT IS TO GO BACK TO SURGERY TODAY WITH DR PUENTE, PLACEMENT IS GOING TO BE NECESSARY SINCE PATIENT IS LEGALLY BLIND AND LIVES ALONE.. HE WAS INTERESTED IN [facility] BUT THEY ARE NOT ACCEPTING PATIENTS AT THIS TIME, I HAVE SENT A MESSAGE TO [facility] TO SEE IF THEY HAVE ANY BEDS.. WAITING A ON A CALL TO WHETHER THEY HAVE BED AVAILABILITY.. I HAVE ALSO ASKED DR CURTIS IF HE WOULD ACCEPT HIM AT [facility] IF THEY HAVE A BED AND ACCEPT HIS INSURANCE... Original Note: ROUNDED WITH MD THIS MORNING TO DISCUSS DISCHARGE PLANNING: DR NEGRON DISCUSSED WITH PATIENT THE NEED FOR HIM TO HAVE SKILLED CARE ONCE PATIENT IS MEDICALLY READY FOR A DISPOSITION FROM THE HOSPITAL.. PATIENT STATED HE WOULD GO TO [facility] BUT THEY CURRENTLY ARE NOT ACCEPTING PATIENTS... I MENTIONED [facility] AND HE SAID THAT WOULD BE OK IF THEY HAVE A BED AVAILABLE...HE IS GOING TO GO BACK TO SURGERY ON MONDAY AND WILL NEED A PICC LINE AND PT/OT EVAL SINCE PATIENT IS A [employer] WHICH IS A REQUIREMENT...
--- NOTE | 2020-10-21 10:28 | P.PN_ITS ---
[facility] Anesthesia Record Part II Discharge Time: 16:45 Destination: Medical Surgical Department PACU nurse assessment reviewed?: Yes Patient Condition:: Good Anesthesia Complications:: None Swallowing reflex intact?: Yes Cyanosis?: No Blood Pressure: 143/75 Pulse Rate: 60 Temperature: 97.7 F Mental Status: Alert & Oriented Pain level:: 0 Nausea and/or vomitting:: None Intake, IV Amount: 0
--- NOTE | 2020-10-21 10:35 | HMH.OTEV ---
OT Inpatient Evaluation Rehab OT IP Evaluation Start: 10/21/20 09:34 Freq: ONCE Status: Complete Protocol: Document 10/21/20 10:21 JG (Rec: 10/21/20 10:35 JG [id number]) Rehab OT IP Assessment Subjective History Date of procedure: 10/20/20 Pre-op Diagnosis:: 1. Right diabetic foot infection 2. Right foot osteomyelitis 3. Right diabetic foot ulcer 4. Right toe gangrene, PAD Post-op Diagnosis:: Same Procedure performed:: 1. Right foot open transmetatarsal amputation 2. Right foot incision and drainage 3. Application of antibiotic beadside Clinical Note:: Patient is a 59-year-old male who was admitted 10/19/2020 with worsening right foot infection. He was scheduled for MRI and ABIs outpatient today. Patient obtain both exams which showed abnormal ABIs. Cardiology consulted, plan runoff for tomorrow. Discussed due to the significant malodor and infection, proceed with right foot I&D and open amputation today. Discussed staging and bringing back after runoff in 2 days for washout and transmetatarsal amputation with delayed primary closure. All risks and benefits of the surgery were discussed with the patient. We discussed conservative versus surgical treatment options. We discussed conservative care including continued oral vs IV antibiotics and local wound care versus surgical incision and drainage. Patient understands that they could have wound healing complications including
--- NOTE | 2020-10-21 11:02 | HMH.PTEV ---
Physical Therapy Evaluation Rehab PT IP Evaluation Start: 10/21/20 08:00 Freq: ONCE Status: Active Protocol: Document 10/21/20 10:00 PHORLINO (Rec: 10/21/20 11:02 PHORNE [id number]) Subjective/History History History 59 yowm adm to [facility] with worsening R foot wound, now S/ P TMA due to osteomyelitis. He is blind and lives alone at baseline with steps into his basement. Subjective Subjective Pt reports no c/o pain in R foot this am. Rehab PT IP Eval Objective Appearance Patient Behavior Appropriate Patient Orientation Person,Place,Time Difficulty following instructions none Speech Pattern Clear Ambulation Patient Able to Ambulate No Balance Ability to Arise Able, uses arms to help Sitting Balance Steady, safe Standing Balance Unsteady Dynamic Sitting Balance Ability Good Dynamic Standing Balance Ability Fair Transfers Bed Transfer Ability Contact Guard/Hand Hold Chair Transfer Ability Minimal x 2 (25% assist) Sit to Stand Bed Transfer Ability Minimal x 1 (25% assist) Sit to Stand Chair Transfer Ability Minimal x 1 (25% assist) ROM All Extremities PT ROM Status WFL MMT All Extremities PT MMT WFL Abnormal MMT Grade R foot NT Rehab PT IP prob,goals,plan Problems Date of Evaluation: 10/21/20 PT IP Problems Bed Mobility,Transfers,Gait, Balance,Self care,Safety Rehab Potential Rehab Potential Good Plan PT Intervention Plan Bed Mobility,Transfers,Gait, Balance,Self care,Safety, Therapeutic Exercise PT Plan Frequency BID Duration LOS Discharge Goals Bed Transfer Ability Contact Guard/Hand Hold Sit to Stand Chair Transfer Ability Minimal x 1 (25% assist) Ambulation Assistive Device Rolling Walker Ambulation Distance (feet) 5 Discharge Plan PT Discharge Plan Pt is most appropriate for rehab placement at this time due to significant increased risk of falls or other injury. He has difficulty maintaining NWB of the R LE and his house is not accessible for w/c. G -code Required No Eval Complexity Eval Charge Codes 79067 - High Complexity
--- NOTE | 2020-10-21 11:28 | HMH.ORTHPN ---
Subjective Date: 10/21/20 <Madonna Esparaz - 10/21/20 11:30> Time: 07:35 <Madonna Esparza - 10/21/20 11:30> Principal diagnosis: Right foot gangrene and PAD <Madonna Esparza - 10/21/20 11:30> Interval history: Patient resting in bed states he did not have a very good restful night. Patient is complaining a little bit of nausea or upset stomach. The dressing remains clean dry and intact. We will not be doing a dressing change today due to patient having runoff and will be planning for Dr. Lantigua check back to the OR tomorrow for repeat right foot irrigation and debridement, wash out with transmetatarsal amputation delayed primary closure on 10/22/20 @1330. <Madonna Esparza - 10/21/20 12:35> PN: Obj Ex Vital signs: Temp Pulse Resp BP Pulse Ox 97.7 F 65 18 111/78 96 10/21/20 10:28 10/21/20 15:45 10/21/20 15:45 10/21/20 15:45 10/21/20 15:45 <Digna Lantigua - 10/21/20 17:09> Temp Pulse Resp BP Pulse Ox 97.7 F 60 18 143/75 H 95 10/21/20 10:28 10/21/20 10:28 10/21/20 08:00 10/21/20 10:28 10/21/20 08:00 <Madonna Esparza - 10/21/20 11:30> - Constitutional no acute distress <Madonna Esparza - 10/21/20 12:35> - Routine HEENT Exam Head: Present: normocephalic <Madonna Esparza - 10/21/20 12:35> Eye: Present: EOMI <GerardoannmarieMadonna Alyce - 10/21/20 12:35> ENT: Present: mucous membranes moist <SantoshimerMadonna Alyce - 10/21/20 12:35> - Routine Neck Exam Present: trachea midline <VilmaMadonna L - 10/21/20 12:35> - Routine Respiratory Exam Absent: respiratory distress <Madonna Esparza - 10/21/20 12:35> - Routine Cardiovascular Exam Present: RRR <Madonna Esparza 10/21/20 12:35> - Detailed Lower Extremity Exam Bottom foot image: 1 - s/p POD #1- Right foot open transmetatarsal amputation, Right foot incision and drainage, Application of antibiotic beads. Postop dressing remains clean dry and intact. The initial surgical dressing will not be changed today. Patient will be having runoff today by cardiology. Plan for repeat right foot irrigation and debridement, washout with transmetatarsal amputation delayed primary closure on 10/22/2020 at 1330. <Madonna Esparza 10/21/20 12:35> - Routine Skin Exam Present: warm, wounds ( S/P R TMA ) <Madonna Esparza 10/21/20 12:35> - Routine Neurological Exam Present: alert, oriented X3, hearing grossly intact, normal speech <Madonna Esparza 10/21/20 12:35> - Routine Psychiatric Exam Present: normal affect, cooperative <Madonna Esparza 10/21/20 12:35> Progress Note: A&P (1) Gangrene associated with type 2 diabetes mellitus Status: Acute (2) Type 2 diabetes mellitus Status: Chronic (3) Obesity (BMI 30.0-34.9) Status: Chronic (4) Tobacco use disorder Status: Chronic (5) PAD (peripheral artery disease) Status: Chronic (6) Blind Status: Chronic (7) Cellulitis of right lower extremity Status: Acute (8) Cellulitis of right foot Status: Acute (9) Ulcer of right great toe due to diabetes mellitus Status: Acute (10) Diabetic ulcer of right foot associated with diabetes mellitus due to underlying condition, limited to breakdown of skin Status: Acute (11) Skin ulcer of fourth toe of right foot with necrosis of bone Status: Acute (12) Osteomyelitis Start date: 10/21/20 Status: Acute <Madonna Esparza 10/21/20 12:37> (1) Gangrene associated with type 2 diabetes mellitus Status: Acute (2) Type 2 diabetes mellitus Status: Chronic (3) Obesity (BMI 30.0-34.9) Status: Chronic (4) Tobacco use disorder Status: Chronic (5) PAD (peripheral artery disease) Status: Chronic (6) Blind Status: Chronic (7) Cellulitis of right lower extremity Status: Acute (8) Cellulitis of right foot Status: Acute (9) Ulcer of right great toe due to diabetes mellitus Status:
[2020-10-21 12:40] LABS: POC Glucose,Bedside 122 (70-110)
[2020-10-21 17:08] LABS: POC Glucose,Bedside 103 (70-110)
--- NOTE | 2020-10-21 17:49 | PC.NURSE ---
Pt has been pleasant and cooperative this shift. A&O X4. No complaints of pain or SOA. Pt is currently on room air with sats. >90%. Lungs CTA. No edema noted. RT foot dressing per Podiatry noted to be C/D/I. LT groin angiogram dressing C/D/I. Pt uses the urinal to void clear, dark-yellow urine without issue. No BM thus far this shift. Pt ambulates with stand-by assistance to/from the bathroom and throughout the room. Pt also sat up in the recliner for several hours today. 20 G peripheral IV in the LT forearm is patent and SL. VSS. Call light within reach. Will continue to monitor.
--- NOTE | 2020-10-21 18:50 | XR_ITS ---
PROCEDURE INFORMATION: Exam: XR Chest Exam date and time: 10/21/2020 6:50 PM Age: 59 years old Clinical indication: Device placement; Patient HX: Confirm picc placement after repositioning; Additional info: Picc repositioned TECHNIQUE: Imaging protocol: XR of the chest. Views: 1 view. COMPARISON: CR XR CHEST PORTABLE PICC PLAC 10/21/2020 6:32 PM FINDINGS: Tubes, catheters and devices: PICC line now terminates just to the left of midline in the left brachiocephalic vein. Lungs: Unchanged pulmonary opacities. Pleural spaces: Unremarkable. No pleural effusion. No pneumothorax. Heart/Mediastinum: Unremarkable. No cardiomegaly. Bones/joints: Unremarkable. IMPRESSION: PICC line now terminates just to the left of midline in the left brachiocephalic vein. Consider advancement by about 10 cm
[2020-10-21 20:57] LABS: POC Glucose,Bedside 142 (70-110)
[2020-10-21 22:12] LABS: Vancomycin,Trough 18.5 ug/mL (5.0-10.0)
[2020-10-22] VITALS (19 sets, daily range): BP systolic 110–179; BP diastolic 40–94; PULSE 55–94; RESP 16–19; TEMP 36.4–37.4; O2SAT 92–100
[2020-10-22 02:23] LABS: Vancomycin,Peak 24.8 ug/ml (11-39)
--- NOTE | 2020-10-22 03:01 | PC.NURSE ---
No acute changes overnight. A&O. no c/o pain this shift. PT is on room air, lungs CTA. post op drsg on right foot CDI. L groin drsg CDI. no evidence of hematoma. Pt ambulates with stand by assist. IV patent, SL. VSS, call light in reach, no concerns at this time.
[2020-10-22 05:46] LABS: POC Glucose,Bedside 104 (70-110)
[2020-10-22 07:09] LABS: Basophils # 0.1 K/mm3 (0-0.2); Basophils % 0.5 % (0.1-2.0); Eosinophils % 0.4 % (0.1-12.0); Hematocrit 36.2 % (42.0-52.0); Hemoglobin 11.4 g/dL (14.1-18.0); Lymphocytes # 1.2 K/mm3 (0.7-4.5); Lymphocytes % 12.1 % (10-50); Mean Corpuscular HGB Conc 31.5 g/dL (31.8-35.4); Mean Corpuscular Hemoglobin 28.7 pg (27.0-31.2); Mean Corpuscular Volume 91.1 fl (80-94); Monocytes # 0.7 K/mm3 (0.1-1.0); Monocytes % 6.9 % (1.7-9.3); Neutrophils # 7.7 K/mm3 (1.8-7.8); Neutrophils % 80.1 % (37.0-80.0); Platelet Count 331 K/mm3 (142-424); Red Blood Count 3.97 M/mm3 (4.60-6.20); Red Cell Distribution Width 14.1 % (11.5-17.5); White Blood Count 9.6 K/mm3 (4.8-10.8)
[2020-10-22 07:17] LABS: Alanine Aminotransferase 9 U/L (12-78); Albumin Level 2.7 g/dl (3.5-5.0); Albumin/Globulin Ratio 0.9 (1.1-1.8); Alkaline Phosphatase 69 U/L (38-126); Anion Gap 11.2 mEq/L (5-15); Aspartate Amino Transferase 20 U/L (17-59); Bilirubin,Total 0.7 mg/dl (0.2-1.3); Blood Urea Nitrogen 15 mg/dl (9-20); Calcium 8.1 mg/dl (8.4-10.2); Carbon Dioxide 28 mmol/L (22.0-30.0); Chloride 101 mmol/L (98-107); Creatinine Clearance Estimated 121 mL/min (50-200); Estimated Glomerular Filt Rate 86 ml/min (>60); GFR (African American) 104 ML/MIN (>60); Glucose 101 mg/dl (74-100); Potassium 3.2 mmoL/L (3.5-5.1); Sodium 137 mmol/L (136-145); Total Protein,Serum 5.7 g/dl (6.3-8.2)
[2020-10-22 07:22] LABS: C-Reactive Protein 177.8 mg/L (0-4)
[2020-10-22 07:38] LABS: Erythrocyte Sedimentation Rate > 140 mm/hr (0-20)
--- NOTE | 2020-10-22 07:52 | PC.NURSE ---
Spoke to Dr Gupta in regards to PICC line placed 10/21. due to termination point and not being able to advance any further and the length of intended use, Dr Gupta states that it would be optimal to have a new line inserted instead of using the current PICC line. notified wardrobe attendant that new line was needed.
--- NOTE | 2020-10-22 08:05 | HMH.ORTHPN ---
Subjective Date: 10/22/20 <Madonna Esparza - 10/22/20 08:08> Time: 07:30 <Madonna Esparza - 10/22/20 08:08> Principal diagnosis: Right foot gangrene and PAD <Madonna Esparza - 10/22/20 08:08> Interval history: Patient sitting up in recliner this morning and just finishing up his breakfast. We had ordered an early breakfast tray as long as he is n.p.o. after 8:00 this morning nothing else until his surgery scheduled at 2:45pm today. I did go ahead and do a dressing change on the patient and observe the site. There was still some seeping around the suture line where the sutures are loosely sutured throughout the TMA site. Area was wiped with Betadine and redressed with Betadine soaked 4 x 4 Kerlix and Arcadio wrap. Discussed with the patient the proceedings of the surgery today verbal consent has been obtained and witnessed by me and Fabiola Read RN and placed on the chart this morning. Patient's right lower leg has been marked with purple marking pen for appropriate site for procedure today. <Madonna Esparza - 10/22/20 08:33> PN: Obj Ex Vital signs: Temp Pulse Resp BP Pulse Ox 98.6 F 94 H 19 132/63 94 L 10/22/20 07:49 10/22/20 08:00 10/22/20 08:00 10/22/20 07:49 10/22/20 08:00 <Digna Lantigua - 10/22/20 15:05> Temp Pulse Resp BP Pulse Ox 98.6 F 94 H 19 132/63 94 L 10/22/20 07:49 10/22/20 08:00 10/22/20 07:49 10/22/20 07:49 10/22/20 07:49 <Madonna Esparza - 10/22/20 08:08> - Constitutional no acute distress <Madonna Esparza - 10/22/20 08:33> - Routine HEENT Exam Head: Present: normocephalic <Madonna Esparza 10/22/20 08:33> Eye: Present: EOMI <Madonna Esparza 10/22/20 08:33> ENT: Present: mucous membranes moist <Madonna Esparza 10/22/20 08:33> - Routine Neck Exam Present: trachea midline <Madonna Esparza 10/22/20 08:33> - Routine Respiratory Exam Absent: respiratory distress <Madonna Esparza 10/22/20 08:33> - Routine Cardiovascular Exam Present: RRR <Madonna Esparza 10/22/20 08:33> - Routine Abdominal Exam Present: soft <Madonna Esparza 10/22/20 08:33> - Detailed Lower Extremity Exam Bottom foot image: 1 - S/P POD #2- Right foot open transmetatarsal amputation, Right foot incision and drainage, Application of antibiotic beads. Postop dressing was removed and the site was cleaned with Betadine and redressed with Betadine soaked 4 x 4 and covered with dry sterile gauze Curlex and Arcadio wrap. Right lower extremity has been marked with a purple marking pen for the appropriate site and date for procedure.Plan for repeat right foot irrigation and debridement, washout with transmetatarsal amputation delayed primary closure on 10/22/2020 at 2:45 PM <Madonna Esparza 10/22/20 08:33> - Routine Skin Exam Present: erythema, dry, wounds (S/P R TMA) <Madonna Esparza 10/22/20 08:33> - Routine Neurological Exam Present: alert, oriented X3, hearing grossly intact, normal speech. Absent: vision grossly intact (Patient legally blind both eyes) <Madonna Esparza 10/22/20 08:33> - Routine Psychiatric Exam Present: normal affect, cooperative <Madonna Esparza 10/22/20 08:33> Progress Note: A&P (1) Gangrene associated with type 2 diabetes mellitus Status: Acute (2) Type 2 diabetes mellitus Status: Chronic (3) Obesity (BMI 30.0-34.9) Status: Chronic (4) Tobacco use disorder Status: Chronic (5) PAD (peripheral artery disease) Status: Chronic (6) Blind Status: Chronic (7) Cellulitis of right lower extremity Status: Acute (8) Cellulitis of right foot Status: Acute (9) Ulcer of right great toe due to diabetes mellitus Status: Acute (10) Diabetic ulcer of right foot associated with diabetes mellitus due to underlying condition, limited to breakdown of skin Status: Acute (11) Skin ulcer of fourth toe of right foot with necr
--- NOTE | 2020-10-22 08:16 | HMH.ACPN2 ---
Internal Medicine - PN: Subj *Date: 10/22/20 *Time: 08:16 Interval history: Patient is up in a chair, ate a full breakfast about 1 hour ago. Podiatry notes reviewed. Appreciate consult info. PICC line was placed yesterday without incident in the left arm. Exam Vital signs and Labs for Last 24 Hours: Temp Pulse Resp BP Pulse Ox 98.6 F 94 H 19 132/63 94 L 10/22/20 07:49 10/22/20 08:00 10/22/20 07:49 10/22/20 07:49 10/22/20 07:49 Laboratory Results - last 24 hr 10/21/20 11:55: POC Glucose 122 H 10/21/20 16:47: POC Glucose 103 10/21/20 20:44: POC Glucose 142 H 10/21/20 21:00: Vancomycin Trough 18.5 H 10/22/20 01:20: Vancomycin Peak 24.8 10/22/20 05:34: POC Glucose 104 10/22/20 06:37: WBC 9.6, RBC 3.97 L, Hgb 11.4 L, Hct 36.2 L, MCV 91.1, MCH 28.7, MCHC 31.5 L, RDW 14.1, Plt Count 331, MPV 9.0, Neut % (Auto) 80.1 H, Lymph % (Auto) 12.1, [place] % (Auto) 6.9, Eos % (Auto) 0.4, Baso % (Auto) 0.5, Neut # (Auto) 7.7, Lymph # (Auto) 1.2, [place] # (Auto) 0.7, Eos # (Auto) 0.0, Baso # (Auto) 0.1 10/22/20 06:37: Sodium 137, Potassium 3.2 L, Chloride 101, Carbon Dioxide 28, Anion Gap 11.2, BUN 15, Creatinine 0.90, Estimated Creat Clear 121, Estimated GFR 86, Est GFR ( Amer) 104, Glucose 101 H, Calcium 8.1 L, Total Bilirubin 0.7, AST 20, ALT 9 L, Alkaline Phosphatase 69, C-Reactive Protein 177.8 H, Total Protein 5.7 L, Albumin 2.7 L, Globulin 3.0, Albumin/Globulin Ratio 0.9 L 10/22/20 06:37: ESR > 140 H I & O for Last 24 hours: Intake & Output 10/19/20 10/20/20 10/21/20 10/22/20 11:59 11:59 11:59 11:59 Intake Total 2100 / 2100 660 / 660 Output Total 0 / 0 1450 / 1450 845 / 845 Balance 0 / 0 650 / 650 -185 / -185 Weight 239 lb 4.8 oz 242 lb 8.136 oz Microbiology Reports for the Last 24 Hours: Microbiology 10/20/20 15:15 Toe,Right Fourth Gram Stain - Final 10/20/20 15:15 Toe,Right Fourth Wound Culture - Preliminary 10/20/20 15:15 Foot,Right - Right Third Bone Culture - Preliminary 10/20/20 15:15 Foot,Right - Right Bone Culture - Preliminary NO GROWTH AFTER 24 HOURS 10/20/20 15:15 Foot,Right - Right Big Bone Culture - Preliminary NO GROWTH AFTER 24 HOURS Narrative: Alert, pleasant, Cranial nerves unchanged from baseline. Good air movement. Heart rate regular. Abdomen soft, extremity exam normal except for wrapped right lower extremity. Exam per podiatry. Assessment and Plan (1) Gangrene associated with type 2 diabetes mellitus Status: Acute Category: Medical Code(s): E11.52 - Type 2 diabetes mellitus with diabetic peripheral angiopathy with gangrene (2) Type 2 diabetes mellitus Status: Chronic Category: Medical Code(s): E11.9 - Type 2 diabetes mellitus without complications (3) Obesity (BMI 30.0-34.9) Status: Chronic Category: Medical Code(s): E66.9 - Obesity, unspecified (4) Tobacco use disorder Status: Chronic Category: Medical Code(s): F17.200 - Nicotine dependence, unspecified, uncomplicated (5) PAD (peripheral artery disease) Status: Chronic Category: Medical Code(s): I73.9 - Peripheral vascular disease, unspecified (6) Blind Status: Chronic Category: Medical Code(s): H54.7 - Unspecified visual loss (7) Cellulitis of right lower extremity Status: Acute Category: Medical Code(s): L03.115 - Cellulitis of right lower limb (8) Cellulitis of right foot Status: Acute Category: Medical Code(s): L03.115 - Cellulitis of right lower limb (9) Ulcer of right great toe due to diabetes mellitus Status: Acute Category: Medical Code(s): E11.621 - Type 2 diabetes mellitus with foot ulcer; L97.519 - Non-pressure chronic ulcer of other part of right foot with unspecified severity (10) Diabetic ulcer of right foot associated with diabetes mellitus due to underlying condition, limited to breakdown of skin Status: Acute Category: Medical Code(s): E08.621 -
--- NOTE | 2020-10-22 09:02 | HMH.PNCARD ---
Subjective Date: 10/22/20 Time: 08:40 Principal diagnosis: Right foot gangrene and PAD Interval history: 59-year-old male admitted to [facility] with gangrene of the right foot and possible toe amputations 2 days go. Patient is legally blind. Patient did undergo bilateral lower extremity runoff yesterday with Dr. Cast. Patient is noted to have severe on the left and right femoral artery. Successful angioplasty was performed of the right common femoral artery. A discussion was with patient regarding the severity of his stenosis and PAD. Discussed with patient poor outcome of the right lower extremity due to nonhealing wound. Patient verbalized understanding. Patient is to undergo amputation of toes of the right foot today with Dr. Lantigua. Patient denies chest pain, tightness or pressure. Patient denies shortness of breath. Right groin cath site healing well no redness or swelling noted. Patient denies palpitations or dizziness. Patient is noted to have atrial fibrillation at a controlled heart rate. Patient will need to be started on Plavix 75 mg daily due to PAD. Patient will also need to be restarted on his Xarelto 20 mg daily due to atrial fibrillation and high risk for stroke. Echocardiogram revealed abnormal mitral valve with mitral stenosis. Echo cardiogram was repeated to determine severity of mitral valve. Repeat echocardiogram results are pending at this time. No further cardiac testing is indicated at this time. Patient will need to follow-up in 1 to 2 weeks with cardiology for possible further cardiac work-up. Please notify cardiology of any changes in patient status. Discussed plan of care with Dr. Cast. Orders and recommendations were received from Dr. Cast. Echo:Conclusion 1. Biatrial enlargement, normal left ventricular size, visually estimated ejection fraction 55% with no regional wall motion abnormality, diastolic parameters are inconclusive. 2. Thickened and calcified aortic valve without aortic stenosis, there is mild aortic insufficiency. 3. Abnormal mitral valve with mitral stenosis, repeat study with better Doppler technique is recommended as described above to calculate mitral valve area. Moderate mitral regurgitation. 4. Mild tricuspid regurgitation, tricuspid regurgitation jet velocity is inadequate for calculation of the right ventricular systolic pressure. 5. No significant pericardial effusion noted. Bilateral Runoff: IMPRESSION 1. Normal abdominal aorta 2. Patent stent in the right renal artery 3. Normal solitary left renal artery 4. Critical stenosis noted in the proximal right common femoral artery 5. Diffuse disease in the right superficial femoral artery with critical stenosis at the trifurcation and one-vessel runoff to the foot via the anterior tibial 6. Severe stenosis noted in the distal left superficial femoral artery with one-vessel runoff to the foot via the anterior tibial 7. Successful angioplasty of the proximal right common femoral artery resulting in 20% residual stenosis 8. Old AV fistula noted in the right superficial femoral artery in its proximal portion 9. Successful placement of an Angio-Seal device in the left common femoral artery PLAN 1. Patient has severe peripheral vascular disease. Severe disease below the knee. One-vessel runoff of the foot via the anterior tibial. My goal with the angioplasty of the right common femoral artery is to improve inflow to the collaterals to his right leg to help heal. He has severe distal disease. If he failed aggressive medical therapy there could give consideration to trying to work on the distal right superficial femoral artery extending into the PT trunk and improve flow to the one vessel which is the anterior tibial. At this time, the disease is severe. I favor improving inflow with aggressive medical therapy including Plavix and continuing on his Xarelto. I
[2020-10-22 11:55] LABS: POC Glucose,Bedside 128 (70-110)
--- NOTE | 2020-10-22 12:02 | HMH.ACPN ---
Internal Medicine - PN: Subj *Date: 10/22/20 *Time: 12:02 Exam Vital signs and Labs for Last 24 Hours: Temp Pulse Resp BP Pulse Ox 98.6 F 94 H 19 132/63 94 L 10/22/20 07:49 10/22/20 08:00 10/22/20 08:00 10/22/20 07:49 10/22/20 08:00 Laboratory Results - last 24 hr 10/21/20 11:55: POC Glucose 122 H 10/21/20 16:47: POC Glucose 103 10/21/20 20:44: POC Glucose 142 H 10/21/20 21:00: Vancomycin Trough 18.5 H 10/22/20 01:20: Vancomycin Peak 24.8 10/22/20 05:34: POC Glucose 104 10/22/20 06:37: WBC 9.6, RBC 3.97 L, Hgb 11.4 L, Hct 36.2 L, MCV 91.1, MCH 28.7, MCHC 31.5 L, RDW 14.1, Plt Count 331, MPV 9.0, Neut % (Auto) 80.1 H, Lymph % (Auto) 12.1, [place] % (Auto) 6.9, Eos % (Auto) 0.4, Baso % (Auto) 0.5, Neut # (Auto) 7.7, Lymph # (Auto) 1.2, [place] # (Auto) 0.7, Eos # (Auto) 0.0, Baso # (Auto) 0.1 10/22/20 06:37: Sodium 137, Potassium 3.2 L, Chloride 101, Carbon Dioxide 28, Anion Gap 11.2, BUN 15, Creatinine 0.90, Estimated Creat Clear 121, Estimated GFR 86, Est GFR ( Amer) 104, Glucose 101 H, Calcium 8.1 L, Total Bilirubin 0.7, AST 20, ALT 9 L, Alkaline Phosphatase 69, C-Reactive Protein 177.8 H, Total Protein 5.7 L, Albumin 2.7 L, Globulin 3.0, Albumin/Globulin Ratio 0.9 L 10/22/20 06:37: ESR > 140 H 10/22/20 11:45: POC Glucose 128 H I & O for Last 24 hours: Intake & Output 10/19/20 10/20/20 10/21/20 10/22/20 23:59 23:59 23:59 23:59 Intake Total 1620 / 1620 1140 / 1140 Output Total 300 / 300 1500 / 1875 495 / 495 Balance 1320 / 1320 -360 / -735 -495 / -495 Weight 108.664 kg 108.545 kg 110 kg Microbiology Reports for the Last 24 Hours: Microbiology 10/20/20 15:15 Toe,Right Fourth Gram Stain - Final 10/20/20 15:15 Toe,Right Fourth Wound Culture - Preliminary 10/20/20 15:15 Foot,Right - Right Third Bone Culture - Preliminary 10/20/20 15:15 Foot,Right - Right Bone Culture - Preliminary NO GROWTH AFTER 24 HOURS 10/20/20 15:15 Foot,Right - Right Big Bone Culture - Preliminary NO GROWTH AFTER 24 HOURS Assessment and Plan (1) Gangrene associated with type 2 diabetes mellitus Status: Acute Category: Medical Code(s): E11.52 - Type 2 diabetes mellitus with diabetic peripheral angiopathy with gangrene (2) Type 2 diabetes mellitus Status: Chronic Category: Medical Code(s): E11.9 - Type 2 diabetes mellitus without complications (3) Obesity (BMI 30.0-34.9) Status: Chronic Category: Medical Code(s): E66.9 - Obesity, unspecified (4) Tobacco use disorder Status: Chronic Category: Medical Code(s): F17.200 - Nicotine dependence, unspecified, uncomplicated (5) PAD (peripheral artery disease) Status: Chronic Category: Medical Code(s): I73.9 - Peripheral vascular disease, unspecified (6) Blind Status: Chronic Category: Medical Code(s): H54.7 - Unspecified visual loss (7) Cellulitis of right lower extremity Status: Acute Category: Medical Code(s): L03.115 - Cellulitis of right lower limb (8) Cellulitis of right foot Status: Acute Category: Medical Code(s): L03.115 - Cellulitis of right lower limb (9) Ulcer of right great toe due to diabetes mellitus Status: Acute Category: Medical Code(s): E11.621 - Type 2 diabetes mellitus with foot ulcer; L97.519 - Non-pressure chronic ulcer of other part of right foot with unspecified severity (10) Diabetic ulcer of right foot associated with diabetes mellitus due to underlying condition, limited to breakdown of skin Status: Acute Category: Medical Code(s): E08.621 - Diabetes mellitus due to underlying condition with foot ulcer; L97.511 - Non-pressure chronic ulcer of other part of right foot limited to breakdown of skin (11) Skin ulcer of fourth toe of right foot with necrosis of bone Start date: 10/20/20 Status: Acute Category: Medical Code(s): L97.514 - Non-pressure chronic ulcer of other part of right foot with necrosis o
--- NOTE | 2020-10-22 12:12 | HMH.PHACONS ---
- Pharmacy Consult Date: 10/22/20 Time: 12:12 Referring provider: DR. COLEY Reason for Consult:: VANCOMYCIN LEVELS Allergies and ADEs:: Allergies Allergy/AdvReac Type Severity Reaction Status Date / Time No Known Allergies Allergy Verified 10/19/20 14:53 Home Medications:: Home Medications Medication Instructions Recorded Confirmed Type Atorvastatin Calcium [Lipitor 20mg 20 mg PO HS 10/19/20 10/19/20 History Tab] Digoxin [Digoxin 0.125mg Tablet] 125 mcg PO DAILY 10/19/20 10/20/20 History Furosemide [Furosemide 20mg Tab*] 20 mg PO DAILY 10/19/20 10/20/20 History Metformin HCl 500 mg PO BID 10/19/20 10/19/20 History Rivaroxaban [Xarelto 20mg Tablet*] 20 mg PO DAILY 10/19/20 10/20/20 History Sacubitril/Valsartan [Entresto 49 1 tab PO BID 10/19/20 10/19/20 History mg-51 mg Tablet] allopurinoL [Allopurinol 300mg 300 mg PO DAILY 10/19/20 10/20/20 History tablet] dilTIAZem HCl [Diltiazem 180mg 180 mg PO DAILY 10/19/20 10/19/20 History 24Hr ER Cap] Height: 1.78 m Weight: 110 kg Laboratory Results:: Laboratory Results - last 24 hr 10/21/20 11:55: POC Glucose 122 H 10/21/20 16:47: POC Glucose 103 10/21/20 20:44: POC Glucose 142 H 10/21/20 21:00: Vancomycin Trough 18.5 H 10/22/20 01:20: Vancomycin Peak 24.8 10/22/20 05:34: POC Glucose 104 10/22/20 06:37: WBC 9.6, RBC 3.97 L, Hgb 11.4 L, Hct 36.2 L, MCV 91.1, MCH 28.7, MCHC 31.5 L, RDW 14.1, Plt Count 331, MPV 9.0, Neut % (Auto) 80.1 H, Lymph % (Auto) 12.1, [place] % (Auto) 6.9, Eos % (Auto) 0.4, Baso % (Auto) 0.5, Neut # (Auto) 7.7, Lymph # (Auto) 1.2, [place] # (Auto) 0.7, Eos # (Auto) 0.0, Baso # (Auto) 0.1 10/22/20 06:37: Sodium 137, Potassium 3.2 L, Chloride 101, Carbon Dioxide 28, Anion Gap 11.2, BUN 15, Creatinine 0.90, Estimated Creat Clear 121, Estimated GFR 86, Est GFR ( Amer) 104, Glucose 101 H, Calcium 8.1 L, Total Bilirubin 0.7, AST 20, ALT 9 L, Alkaline Phosphatase 69, C-Reactive Protein 177.8 H, Total Protein 5.7 L, Albumin 2.7 L, Globulin 3.0, Albumin/Globulin Ratio 0.9 L 10/22/20 06:37: ESR > 140 H 10/22/20 11:45: POC Glucose 128 H Medical History: Reports:: Atrial Fibrillation, Coronary Artery Disease, Diabetes Mellitus Type 2, Hypertension Denies:: Cancer, MRSA Assessment and Plan (1) Gangrene associated with type 2 diabetes mellitus Status: Acute Category: Medical Code(s): E11.52 - Type 2 diabetes mellitus with diabetic peripheral angiopathy with gangrene (2) Type 2 diabetes mellitus Status: Chronic Category: Medical Code(s): E11.9 - Type 2 diabetes mellitus without complications (3) Obesity (BMI 30.0-34.9) Status: Chronic Category: Medical Code(s): E66.9 - Obesity, unspecified (4) Tobacco use disorder Status: Chronic Category: Medical Code(s): F17.200 - Nicotine dependence, unspecified, uncomplicated (5) PAD (peripheral artery disease) Status: Chronic Category: Medical Code(s): I73.9 - Peripheral vascular disease, unspecified (6) Blind Status: Chronic Category: Medical Code(s): H54.7 - Unspecified visual loss (7) Cellulitis of right lower extremity Status: Acute Category: Medical Code(s): L03.115 - Cellulitis of right lower limb (8) Cellulitis of right foot Status: Acute Category: Medical Code(s): L03.115 - Cellulitis of right lower limb (9) Ulcer of right great toe due to diabetes mellitus Status: Acute Category: Medical Code(s): E11.621 - Type 2 diabetes mellitus with foot ulcer; L97.519 - Non-pressure chronic ulcer of other part of right foot with unspecified severity (10) Diabetic ulcer of right foot associated with diabetes mellitus due to underlying condition, limited to breakdown of skin Status: Acute Category: Medical Code(s): E08.621 - Diabetes mellitus due to underlying condition with foot ulcer; L97.511 - Non-pressure chronic ulcer of other part of right foot limited to breakdown of skin (11) Skin ulcer of fourth toe of right foot with ne
--- NOTE | 2020-10-22 16:03 | PC.NURSE ---
Pt has been pleasant and cooperative this shift. A&O X4. Pt has complained of pain X1 thus far and was given Morphine per MAR with favorable results. Pt is currently on room air with sats. >90%. Lungs CTA. No edema noted. RT foot dressing per Podiatry noted to be C/D/I. LT groin angiogram dressing C/D/I. Pt uses the urinal to void clear, dark-yellow urine without issue. No BM thus far this shift. Pt ambulates with stand-by assistance and the use of a post-op shoe. Pt worked with PT and also sat up in the recliner for several hours today. 20 G peripheral IV in the LT forearm is patent and SL. VSS. Call light within reach. Will continue to monitor.
--- NOTE | 2020-10-22 17:58 | HMH.ANESI ---
[facility] Anesthesia Record Part I Intake, IV Amount: 300 Estimated blood loss (mL): 0 Urine output (mL): 0 Blood Pressure: 110/40 SaO2: 94 Pulse Rate: 63 Respiratory Rate: 18 Temperature: 97.6 F Patient is:: Drowsy, Oral/Nasal airway Stable to PACU at:: 17:58
--- NOTE | 2020-10-22 18:00 | HMH.OPNOTE ---
Date of procedure: 10/22/20 Pre-op Diagnosis:: 1. Right diabetic foot infection 2. Right foot osteomyelitis 3. Right diabetic foot ulcer 4. Right foot gangrene, PAD Post-op Diagnosis:: Same Procedure performed:: 1. Right foot irrigation and debridement 2. Right foot TMA with delayed primary closure 3. Application of abx beads 4. Application of QUAN drain Surgeon:: Digna Lantigua DPM [employer] SUPERVISOR:: Rosario Ruiz Anesthesia: LMA Estimated blood loss (mL): 5 Clinical Note:: Staged wash out after 10/20/20 open amputation. Run off 10/21/20 showed poor prognosis due to single vessel run off below knee. Patient understands that they could have wound healing complications including delayed healing and infection. We discussed that if the wound does not heal, it is possible that they may need further debridement and amputation. Patient understands if infection spreads into the bone, it may warrant proximal amputation and could result in further loss of partial foot or loss of leg. We discussed the risks and benefits in great detail. Other surgical risks include: prolonged pain and swelling, further infection requiring oral or IV antibiotics, delay in healing of soft tissue or bone, nerve or blood vessel damage, CRPS/RSD, DVT, anesthesia complications, and even . All questions answered. Patient verbalized understanding. Consent obtained verbally by patient with 2 witnesses as the patient is legally blind. Operative findings:: Right foot s/p open TMA 10/20/20. Sutures loosely intact and removed. There was superficial skin sloughing noted dorsal over the forefoot/midfoot, ~6x6cm. The flap was dusky and discolored brown. There was minimal bleeding noted. Some clotted blood vessels noted. High risk for proximal amp (BKA) due to lack of flow, severe PAD and infection. Operative note:: On this date and time patient was deemed an appropriate surgical candidate. With informed consent signed, the patient was taken to the operating theater. The patient was positioned supine. LMA anesthesia was induced. No tourniquet used. Right transmetatarsal amputation, irrigation and debridement with delayed primary closure: Previous open transmetatarsal amputation noted. Attention was directed to the right foot where cellulitis noted to be improved. Sutures removed. The skin flap was dusky and discolored brown. No arline purulence noted. The non-viable soft tissue was sharply excisionally debrided with 15' blade, forceps and curette thru skin, subq, deep fascia to level of metatarsals. The wound did have a sinus tract ~3cm along the plantar foot. The 1st metatarsal was discolored compared to mets 2-4. A piece of the 1st metatarsal was sent to pathology for a clean proximal margin and a piece for bone culture. The remaining metatarsals looked within normal limits, bone hard, no obvious signs of osteomyelitis noted. Next Xperience irrigation was used to flush the wound and pulse lavage. The wound was reexplored and no further signs of infection noted. Application of antibiotic beads: Minimal bleeding. No vessels were tied or cauterized. 1 g of vancomycin powder was mixed with the OsteoSet antibiotic beads and inserted into the TMA site. Application of QUAN drain: A 7 flat QUAN drain was then inserted. 2-0 Vicryl was used to loosely reapproximate deep tissue over the first metatarsal. 0 Prolene was then used to reapproximate the skin flap in a simple interrupted suture fashion. Care taken not to over tighten or put tension on the skin. Concern for break down of the 6 x 6 cm dusky area of skin sloughing dorsally. The skin was cleansed. Betadine soaked gauze was applied with a dry sterile dressing. The patient was awoken from anesthesia and transferred to recovery with vital signs stable and neurovascular status intact. Materials: 0-0 Prolene, [employer] Osteoset abx beads (5cc), 1g vancomycin powder Plan: Transfer back to floor. Patient is to maintain dressing clean dry and intact. QUAN drain dio
[2020-10-22 22:49] LABS: POC Glucose,Bedside 139 (70-110)
[2020-10-23] VITALS (10 sets, daily range): BP systolic 119–168; BP diastolic 68–86; PULSE 58–83; RESP 15–22; TEMP 36.4–37; O2SAT 92–98; BMI 35.9
--- NOTE | 2020-10-23 05:00 | PC.NURSE ---
patient awake watching tv no changes no complaints. right elevated on pillow.
--- NOTE | 2020-10-23 07:03 | HMH.DCSUM ---
General - General Admission date:: 10/19/20 <Kevin Walker - 10/26/20 08:50> 10/19/20 <JanyJag - 10/23/20 07:03> Discharge date: 10/23/20 <Jag Carmichael - 10/23/20 07:03> HPI HPI: Mr. Gaviria is a legally blind 59-year-old male with multiple comorbidities including coronary artery disease, CHF, type 2 diabetes, peripheral artery disease, history of NE. He smokes daily and drinks daily. Presented to the ER last night due to worsening smell with his right foot. Over the past week and a half he has been seen by both myself and podiatry for intermittent pain in his foot and concern for infection/diabetic ulcer. Was being worked up as an outpatient on antibiotics (doxycycline), status post x-ray with suspicion for osteomyelitis, awaiting ABIs and MRI. Unfortunately his foot has progressed per his report leading to him coming to the ER last night for further management. He was noted to have increased redness/cellulitis in the distal lower extremity. Progression of gangrene of his middle digit on right foot. No significant drainage but does have a foul odor. Initial labs noted to have slight increase in his inflammatory markers from a week and a half ago. Admitted to medicine for further management of his chronic comorbidities and consultation with podiatry for possible amputation. On assessment this morning, patient is in good spirits. Denies significant pain. Complains of worsening progression of some pain at home intermittently with smell of his foot. It concerned him to the point he came to the ER for further assessment. Denies any nausea, vomiting, shortness of breath, chest pain, confusion. Asked on morning rounds if he could go outside and smoke, informed him that this was not possible. <Jag Carmichael - 10/23/20 07:03> Hospital Course Hospital Course: Patient was admitted to hospital. Broad-spectrum antibiotics started because of significant likelihood of polymicrobial infection. Podiatry performed 2 different debridements including toe amputations, please see podiatry notes for details. Bone cultures from amputation showed E. coli in the bone, sensitive to several antibiotics, also Providencia species grew from the bone specimen as well. Also sensitive to multiple antibiotics. Patient was placed on Zosyn for possible Pseudomonas coverage but Pseudomonas was never cultured from any of his wounds. Blood cultures remain clean. This morning he was doing well. Podiatry evaluated patient is concerned about his flap that is somewhat dusky and boggy. His runoff studies indicate that he will have a very poor likelihood of healing at this amputation level and will probably do better with a BKA. Patient is psychologically unprepared to proceed with this at this point. Plan will be to send him to skilled care today for wound care, dressing changes as above per podiatry, Invanz 1 g daily for the next 6 weeks given his osteomyelitis and follow-up with podiatry next week. Other medications for chronic conditions will be as listed in the discharge summary. Please note patient should receive Cov[facility] vaccination [facility] at the [facility]. <AaronKevin - 10/26/20 08:50> 10/11/20 right foot wound culture: Escherichia coli, Morganella morganii (both stable to cefepime, ertapenem or Zosyn) Patient has 2 different charts with 2 different MR numbers. This chart does not show all of the previous specimens. SNF Orders: -maintain right foot dressing clean dry and intact. -daily dressing changes: cleanse skin with saline. Dry thoroughly. Apply Betadine soaked gauze to the incision site with dry sterile dressing. -QUAN drain management. -NWB to right foot (ok to put heel down in post op shoe for transfers) with walker or wheelchair. -PICC, IV Abx: awaiting pharm recs (see above) -Weekly labs: cbc, esr, crp, bmp faxed to Dr. Carmichael and Dr. Lantigua's office -Follow up next week with Podiatry as previously scheduled
[2020-10-23 07:38] LABS: Basophils # 0.1 K/mm3 (0-0.2); Basophils % 0.9 % (0.1-2.0); Hematocrit 42.2 % (42.0-52.0); Hemoglobin 13.1 g/dL (14.1-18.0); Lymphocytes # 0.5 K/mm3 (0.7-4.5); Lymphocytes % 4.6 % (10-50); Mean Corpuscular Volume 93.7 fl (80-94); Monocytes # 0.2 K/mm3 (0.1-1.0); Monocytes % 2.2 % (1.7-9.3); Neutrophils # 9.9 K/mm3 (1.8-7.8); Neutrophils % 92.3 % (37.0-80.0); Platelet Count 396 K/mm3 (142-424); Red Blood Count 4.51 M/mm3 (4.60-6.20); White Blood Count 10.7 K/mm3 (4.8-10.8)
[2020-10-23 07:40] LABS: MANUAL DIFFERENTIAL MANUAL DIFFERENTIAL (MANUAL DIFF)
[2020-10-23 07:53] LABS: Lymphocytes % 4 % (10-50); Monocytes % 4 % (2-9); Neutrophils % 92 % (42-76); Platelet Estimate Normal; Total Cells Counted 100
[2020-10-23 07:54] LABS: Acanthocytes 1+; Poikilocytosis 2+; Stomatocytes 1+
[2020-10-23 08:04] LABS: C-Reactive Protein 191.5 mg/L (0-4)
[2020-10-23 08:09] LABS: Erythrocyte Sedimentation Rate 74 mm/hr (0-20)
--- NOTE | 2020-10-23 08:53 | P.PN_ITS ---
[facility] Anesthesia Record Part II Discharge Time: 18:27 Destination: Medical Surgical Department PACU nurse assessment reviewed?: Yes Patient Condition:: Good Anesthesia Complications:: None Swallowing reflex intact?: Yes Cyanosis?: No Blood Pressure: 149/82 Pulse Rate: 60 Temperature: 97.5 F Mental Status: Alert & Oriented Pain level:: 0 Nausea and/or vomitting:: None Intake, IV Amount: 0
--- NOTE | 2020-10-23 09:17 | HMH.ORTHPN ---
Subjective Date: 10/23/20 Time: 08:45 Principal diagnosis: Right foot gangrene and PAD Interval history: Patient resting comfortably in the recliner. QUAN drain intact. Patient reports pain has improved. Has questions about vaccine and length of stay at SNF. I recommended he get vaccine and may need up to 6 weeks of IV abx. PN: Obj Ex Vital signs: Temp Pulse Resp BP Pulse Ox 97.5 F L 60 22 149/82 H 98 10/23/20 08:54 10/23/20 08:59 10/23/20 08:00 10/23/20 08:54 10/23/20 08:00 - Constitutional no acute distress - Routine HEENT Exam Head: Present: normocephalic Eye: Present: other (blind) - Routine Respiratory Exam Absent: respiratory distress - Routine Abdominal Exam Present: obese - Detailed Lower Extremity Exam Foot/Toes: Right amputation (TMA) Top foot image: 1 - Right TMA with QUAN drain intact. ~5cc blood noted in drain. Sutures are clean dry and intact. Dorsal skin ~6x6cm dusky bluish-purple appearance. Skin cool to distal foot. Decreased pedal pulses. No pedal hair growth. No calf or thigh pain noted b/l. Progress Note: A&P (1) Gangrene associated with type 2 diabetes mellitus Status: Acute (2) Type 2 diabetes mellitus Status: Chronic (3) Obesity (BMI 30.0-34.9) Status: Chronic (4) Tobacco use disorder Status: Chronic (5) PAD (peripheral artery disease) Status: Chronic (6) Blind Status: Chronic (7) Cellulitis of right lower extremity Status: Acute (8) Cellulitis of right foot Status: Acute (9) Ulcer of right great toe due to diabetes mellitus Status: Acute (10) Diabetic ulcer of right foot associated with diabetes mellitus due to underlying condition, limited to breakdown of skin Status: Acute (11) Skin ulcer of fourth toe of right foot with necrosis of bone Status: Acute (12) Osteomyelitis Status: Acute (13) S/P transmetatarsal amputation of foot Status: Acute (14) History of amputation of lesser toe of right foot Status: Acute Assessment and Plan for All Diagnoses:: Surgeries: 10/20/20, s/p right foot open transmetatarsal amputation, foot incision and drainage, application of antibiotic beads 10/22/20, s/p right foot irrigation and debridement, TMA with delayed primary closure, application of abx beads, application of QUAN drain POD#1 Microbiology 10/20/20 15:15 Toe,Right Fourth Gram Stain - Final 10/20/20 15:15 Toe,Right Fifth - Final 10/20/20 15:15 Toe,Right Fourth Wound Culture - Preliminary 10/20/20 15:15 Foot,Right - Right Third Bone Culture - Preliminary Escherichia coli 10/20/20 15:15 Foot,Right - Right Big Bone Culture - Preliminary NO GROWTH AFTER 48 HOURS 10/20/20 15:15 Foot,Right - Right Bone Culture - Preliminary NO GROWTH AFTER 48 HOURS Laboratory Tests 10/22/20 10/22/20 10/22/20 01:20 06:37 06:37 WBC 9.6 ESR C-Reactive Protein 177.8 H Vancomycin Peak 24.8 10/22/20 10/23/20 10/23/20 06:37 07:13 07:13 WBC 10.7 ESR > 140 H 74 H C-Reactive Protein 191.5 H Vancomycin Peak 10/11/20 right foot wound culture: Escherichia coli, Morganella morganii (both susceptible to cefepime, ertapenem or Zosyn) Patient has 2 different charts with 2 different MR numbers. This chart does not show all of the previous specimens. Dressing changed at beside today. QUAN drain left intact. Discussed in order to heal, need infection controlled and adequate blood flow. I explained to the patient the poor circulation and high risk for a more proximal amputation. He is still smoking 1 pack daily. Discussed smoking cessation. Will f/u next week and see how the skin looks. Overall fair to poor healing potential. Continue IV antibiotics: vanco, zosyn while at [facility]. PICC line. Will need SNF with PICC, wound dressing changes.
[2020-10-23 09:18] LABS: Anion Gap 13.3 mEq/L (5-15); Blood Urea Nitrogen 22 mg/dl (9-20); Calcium 8.7 mg/dl (8.4-10.2); Carbon Dioxide 27 mmol/L (22.0-30.0); Chloride 103 mmol/L (98-107); Creatinine Clearance Estimated 104 mL/min (50-200); Estimated Glomerular Filt Rate 62 ml/min (>60); GFR (African American) 74 ML/MIN (>60); Glucose 207 mg/dl (74-100); Potassium 3.3 mmoL/L (3.5-5.1); Sodium 140 mmol/L (136-145)
[2020-10-23 10:34] LABS: Vancomycin,Trough 18.2 ug/mL (5.0-10.0)
[2020-10-23 10:48] LABS: Coronavirus 19, PCR Not Detected (NotDetected); Influenza A, PCR Not Detected (NotDetected); Influenza B, PCR Not Detected (NotDetected)
--- NOTE | 2020-10-23 12:32 | HMH.PHACONS ---
- Pharmacy Consult Date: 10/23/20 Time: 12:32 Referring provider: DR. CURTIS Reason for Consult:: VANCOMYCIN TROUGH LEVEL Allergies and ADEs:: Allergies Allergy/AdvReac Type Severity Reaction Status Date / Time No Known Allergies Allergy Verified 10/19/20 14:53 Home Medications:: Home Medications Medication Instructions Recorded Confirmed Type Furosemide [Furosemide 20mg Tab*] 20 mg PO DAILY 10/19/20 10/20/20 History Rivaroxaban [Xarelto 20mg Tablet*] 20 mg PO DAILY 10/19/20 10/20/20 History Aspirin [Aspirin 81mg chewable 81 mg PO DAILY 30 Days #30 tab 10/22/20 Rx tab] Atorvastatin Calcium [Lipitor 20mg 20 mg PO HS 30 Days #30 tab 10/22/20 Rx Tab] Clopidogrel Bisulfate [Plavix 75mg 75 mg PO DAILY 30 Days #30 tab 10/22/20 Rx Tab] Digoxin [Digoxin 0.125mg Tablet] 125 mcg PO DAILY 30 Days #30 tab 10/22/20 Rx Metformin HCl 500 mg PO BID 30 Days #60 tab 10/22/20 Rx Nicotine [Nicoderm 21mg/24hr 21 mg TD DAILYP PRN 30 Days #30 10/22/20 Rx patch] patch Oxycodone HCl/Acetaminophen 1 each PO Q4HP PRN 10 Days #60 tab 10/22/20 Rx [Percocet 5/325mg tablet] Rivaroxaban [Xarelto 10mg tablet] 20 mg PO QPMWITHMEAL 30 Days #30 10/22/20 Rx tab Sacubitril/Valsartan [Entresto 49 1 tab PO BID 30 Days #60 tab 10/22/20 Rx mg-51 mg Tablet] allopurinoL [Allopurinol 300mg 300 mg PO DAILY 30 Days #30 tab 10/22/20 Rx tablet] dilTIAZem HCl [Diltiazem 180mg 180 mg PO DAILY 30 Days #30 cap 10/22/20 Rx 24Hr ER Cap] Height: 1.78 m Weight: 113.908 kg Laboratory Results:: Laboratory Results - last 24 hr 10/22/20 21:21: POC Glucose 139 H 10/23/20 07:13: WBC 10.7, RBC 4.51 L, Hgb 13.1 L, Hct 42.2, MCV 93.7, MCH 29.0, MCHC 31.0 L, RDW 14.0, Plt Count 396, MPV 9.0, Neut % (Auto) 92.3 H, Lymph % (Auto) 4.6 L, [place] % (Auto) 2.2, Eos % (Auto) 0.0 L, Baso % (Auto) 0.9, Neut # (Auto) 9.9 H, Lymph # (Auto) 0.5 L, [place] # (Auto) 0.2, Eos # (Auto) 0.0, Baso # (Auto) 0.1, Total Counted 100, Neutrophils % (Manual) 92 H, Lymphocytes % (Manual) 4 L, Monocytes % (Manual) 4, Platelet Estimate Normal, Poikilocytosis 2+, Stomatocytes 1+, Acanthocytes (Spur) 1+, ESR 74 H 10/23/20 07:13: C-Reactive Protein 191.5 H 10/23/20 08:49: Sodium 140, Potassium 3.3 L, Chloride 103, Carbon Dioxide 27, Anion Gap 13.3, BUN 22 H D, Creatinine 1.20 D, Estimated Creat Clear 104, Estimated GFR 62, Est GFR ( Amer) 74 D, Glucose 207 H, Calcium 8.7 10/23/20 08:49: Vancomycin Trough 18.2 H 10/23/20 10:40: SARS-CoV-2 (PCR) Not detected, Influenza A Untype (PCR) Not detected, Influenza Type B (PCR) Not detected Medical History: Reports:: Atrial Fibrillation, Coronary Artery Disease, Diabetes Mellitus Type 2, Hypertension Denies:: Cancer, MRSA Assessment and Plan (1) Gangrene associated with type 2 diabetes mellitus Status: Acute Category: Medical Code(s): E11.52 - Type 2 diabetes mellitus with diabetic peripheral angiopathy with gangrene (2) Type 2 diabetes mellitus Status: Chronic Category: Medical Code(s): E11.9 - Type 2 diabetes mellitus without complications (3) Obesity (BMI 30.0-34.9) Status: Chronic Category: Medical Code(s): E66.9 - Obesity, unspecified (4) Tobacco use disorder Status: Chronic Category: Medical Code(s): F17.200 - Nicotine dependence, unspecified, uncomplicated (5) PAD (peripheral artery disease) Status: Chronic Category: Medical Code(s): I73.9 - Peripheral vascular disease, unspecified (6) Blind Status: Chronic Category: Medical Code(s): H54.7 - Unspecified visual loss (7) Cellulitis of right lower extremity Status: Acute Category: Medical Code(s): L03.115 - Cellulitis of right lower limb (8) Cellulitis of right foot Status: Acute Category: Medical Code(s): L03.115 - Cellulitis of right lower limb (9) Ulcer of right great toe due to diabetes mellitus Status: Acute Category: Medical Code(s): E11.621 - Type 2 diabetes becky
--- NOTE | 2020-10-23 13:20 | XR_ITS ---
PROCEDURE: XR CHEST PORTABLE PICC PLAC CLINICAL HISTORY: PICC line placement COMPARISON: CT CT ANGIO CHEST from 02/21/2019 CR XR CHEST PORTABLE from 02/21/2019 CR XR CHEST 2V from 02/24/2019 CR XR CHEST PORTABLE PICC PLAC from 02/27/2019 FINDINGS: Right upper extremity PICC line has been placed. The tip is in the subclavian region. There is a loop within the catheter at the upper arm area. Cardiomegaly. Lungs are clear bilaterally. No acute bony abnormalities. IMPRESSION: Malpositioned right upper extremity PICC line Dictated by: Douglas Gupta MD 10/23/2020 14:14 Douglas Gupta MD in [place] 10/23/2020 14:14
--- NOTE | 2020-10-23 13:40 | DIET.NUTRFU ---
PO intakes 75%, weight up 6#, no edema noted, BG moderate- avg. 125, no BM yet. Pt with no nutritional complaints/concerns.
--- NOTE | 2020-10-23 14:43 | XR_ITS ---
PROCEDURE: XR CHEST PORTABLE CLINICAL HISTORY: re postitioned picc COMPARISON: CT CT ANGIO CHEST from 02/21/2019 CR XR CHEST 2V from 02/24/2019 CR XR CHEST PORTABLE PICC PLAC from 02/27/2019 CR XR CHEST PORTABLE PICC PLAC from 10/23/2020 FINDINGS: Right upper extremity PICC line has been reposition. The tip is now in the region the SVC. Mild cardiomegaly. No lobar consolidation or collapse. IMPRESSION: Right upper extremity PICC line now in good position Dictated by: Douglas Gupta MD 10/23/2020 15:28 Douglas Gupta MD in [facility] 10/23/2020 15:28
[2020-10-23 17:08] LABS: POC Glucose,Bedside 228 (70-110)
--- NOTE | 2020-10-23 18:15 | HMH.ACPN2 ---
Internal Medicine - PN: Subj *Date: 10/23/20 *Time: 08:32 Interval history: Overall well this morning. No fevers. Tolerating breakfast. in good spirits. QUAN in right foot with scant drainage. Denies nausea, vomiting, diarrhea. Pain fairly well controlled. Awaiting placement Exam Vital signs and Labs for Last 24 Hours: Temp Pulse Resp BP Pulse Ox 98.6 F 81 22 155/85 H 98 10/23/20 16:00 10/23/20 16:00 10/23/20 16:00 10/23/20 16:00 10/23/20 16:00 Laboratory Results - last 24 hr 10/22/20 21:21: POC Glucose 139 H 10/23/20 06:07: POC Glucose 228 H 10/23/20 07:13: WBC 10.7, RBC 4.51 L, Hgb 13.1 L, Hct 42.2, MCV 93.7, MCH 29.0, MCHC 31.0 L, RDW 14.0, Plt Count 396, MPV 9.0, Neut % (Auto) 92.3 H, Lymph % (Auto) 4.6 L, [place] % (Auto) 2.2, Eos % (Auto) 0.0 L, Baso % (Auto) 0.9, Neut # (Auto) 9.9 H, Lymph # (Auto) 0.5 L, [place] # (Auto) 0.2, Eos # (Auto) 0.0, Baso # (Auto) 0.1, Total Counted 100, Neutrophils % (Manual) 92 H, Lymphocytes % (Manual) 4 L, Monocytes % (Manual) 4, Platelet Estimate Normal, Poikilocytosis 2+, Stomatocytes 1+, Acanthocytes (Spur) 1+, ESR 74 H 10/23/20 07:13: C-Reactive Protein 191.5 H 10/23/20 08:49: Sodium 140, Potassium 3.3 L, Chloride 103, Carbon Dioxide 27, Anion Gap 13.3, BUN 22 H D, Creatinine 1.20 D, Estimated Creat Clear 104, Estimated GFR 62, Est GFR ( Amer) 74 D, Glucose 207 H, Calcium 8.7 10/23/20 08:49: Vancomycin Trough 18.2 H 10/23/20 10:40: SARS-CoV-2 (PCR) Not detected, Influenza A Untype (PCR) Not detected, Influenza Type B (PCR) Not detected I & O for Last 24 hours: Intake & Output 10/20/20 10/21/20 10/22/20 10/23/20 23:59 23:59 23:59 23:59 Intake Total 1620 / 1620 1140 / 1140 650 / 650 1760 / 1760 Output Total 300 / 300 1500 / 1875 520 / 520 312 / 312 Balance 1320 / 1320 -360 / -735 130 / 130 1448 / 1448 Weight 108.545 kg 110 kg 113.908 kg Microbiology Reports for the Last 24 Hours: Microbiology 10/20/20 15:15 Foot,Right - Right Third Bone Culture - Preliminary Escherichia coli 10/20/20 15:15 Toe,Right Fourth Gram Stain - Final 10/20/20 15:15 Toe,Right Fourth Wound Culture - Preliminary 10/20/20 15:15 Toe,Right Fifth - Final 10/20/20 15:15 Foot,Right - Right Big Bone Culture - Preliminary NO GROWTH AFTER 48 HOURS 10/20/20 15:15 Foot,Right - Right Bone Culture - Preliminary NO GROWTH AFTER 48 HOURS - Constitutional no acute distress, obese - *Routine HEENT Exam Head: Present: normocephalic Eye: Present: other (Blind) ENT: Present: mucous membranes moist - *Routine Respiratory Exam Present: CTA bilaterally - *Routine Cardiovascular Exam Present: RRR - *Routine Abdominal Exam Present: soft, normoactive bowel sounds. Absent: tenderness - *Routine Extremities Exam Absent: cyanosis, clubbing Comments: Improvement in erythema of right lower extremity. Foot in postsurgical bandage, scant blood on bandage, QUAN in place with minimal discharge. - *Routine Skin Exam Present: warm. Absent: rash - *Routine Neurological Exam Present: alert, oriented X3 Assessment and Plan (1) Gangrene associated with type 2 diabetes mellitus Status: Acute Category: Medical Code(s): E11.52 - Type 2 diabetes mellitus with diabetic peripheral angiopathy with gangrene (2) Congestive heart failure Status: Chronic Qualifiers: Heart failure type: systolic Category: Medical Code(s): I50.9 - Heart failure, unspecified (3) Atrial fibrillation Status: Chronic Qualifiers: Atrial fibrillation type: unspecified Qualified Code(s): I48.91 - Unspecified atrial fibrillation Category: Medical Code(s): I48.91 - Unspecified atrial fibrillation (4) Lymphedema Status: Chronic Category: Medical Code(s): I89.0 - Lymphedema, not elsewhere classified (5) Blindness Status: Chronic Qualifiers: Right eye visual impairmen
[2020-10-23 22:21] LABS: POC Glucose,Bedside 195 (70-110)
[2020-10-23 22:21] LABS: POC Glucose,Bedside 147 (70-110)
[2020-10-24] VITALS (7 sets, daily range): BP systolic 136–160; BP diastolic 63–85; PULSE 61–92; RESP 16–18; TEMP 36.6–38.1; O2SAT 97–98; BMI 35.6
--- NOTE | 2020-10-24 03:35 | PC.NURSE ---
Pt has not c/o any discomfort to foot this shift. QUAN drain emptied. 5 ml of sanguineous drainage noted. Pt was assisted to BR. DSG to NGA changed from prior picc due to drainage. IV to LFA DC. Medications administered per apr. Will continue to monitor.
[2020-10-24 05:37] LABS: POC Glucose,Bedside 130 (70-110)
[2020-10-24 06:43] LABS: Basophils % 0.1 % (0.1-2.0); Eosinophils % 0.3 % (0.1-12.0); Hematocrit 35.2 % (42.0-52.0); Lymphocytes % 10.4 % (10-50); Mean Corpuscular HGB Conc 30.7 g/dL (31.8-35.4); Mean Corpuscular Hemoglobin 28.3 pg (27.0-31.2); Mean Corpuscular Volume 92.3 fl (80-94); Mean Platelet Volume 8.2 fl (7.4-10.4); Monocytes # 0.5 K/mm3 (0.1-1.0); Monocytes % 5.6 % (1.7-9.3); Neutrophils % 83.6 % (37.0-80.0); Platelet Count 362 K/mm3 (142-424); Red Blood Count 3.81 M/mm3 (4.60-6.20); Red Cell Distribution Width 13.5 % (11.5-17.5); White Blood Count 9.6 K/mm3 (4.8-10.8)
[2020-10-24 06:52] LABS: Hemoglobin 10.8 g/dL (14.1-18.0)
[2020-10-24 06:53] LABS: Anion Gap 9.1 mEq/L (5-15); Blood Urea Nitrogen 23 mg/dl (9-20); Calcium 8.4 mg/dl (8.4-10.2); Carbon Dioxide 31 mmol/L (22.0-30.0); Chloride 106 mmol/L (98-107); Creatinine Clearance Estimated 124 mL/min (50-200); Estimated Glomerular Filt Rate 76 ml/min (>60); GFR (African American) 92 ML/MIN (>60); Glucose 120 mg/dl (74-100); Potassium 3.1 mmoL/L (3.5-5.1); Sodium 143 mmol/L (136-145)
--- NOTE | 2020-10-24 09:17 | HMH.ACPN2 ---
Internal Medicine - PN: Subj *Date: 10/24/20 *Time: 09:17 Interval history: Patient is in good spirits, up in his recliner, comfortable. No pain issues. Exam Vital signs and Labs for Last 24 Hours: Temp Pulse Resp BP Pulse Ox 97.9 F 92 H 18 140/69 97 10/24/20 08:00 10/24/20 09:04 10/24/20 08:00 10/24/20 08:00 10/24/20 08:00 Laboratory Results - last 24 hr 10/23/20 06:07: POC Glucose 228 H 10/23/20 08:49: Sodium 140, Potassium 3.3 L, Chloride 103, Carbon Dioxide 27, Anion Gap 13.3, BUN 22 H D, Creatinine 1.20 D, Estimated Creat Clear 104, Estimated GFR 62, Est GFR ( Amer) 74 D, Glucose 207 H, Calcium 8.7 10/23/20 08:49: Vancomycin Trough 18.2 H 10/23/20 10:40: SARS-CoV-2 (PCR) Not detected, Influenza A Untype (PCR) Not detected, Influenza Type B (PCR) Not detected 10/23/20 17:54: POC Glucose 195 H 10/23/20 21:02: POC Glucose 147 H 10/24/20 05:28: POC Glucose 130 H 10/24/20 06:30: WBC 9.6, RBC 3.81 L, Hgb 10.8 L D, Hct 35.2 L, MCV 92.3, MCH 28.3, MCHC 30.7 L, RDW 13.5, Plt Count 362, MPV 8.2, Neut % (Auto) 83.6 H, Lymph % (Auto) 10.4, [place] % (Auto) 5.6, Eos % (Auto) 0.3, Baso % (Auto) 0.1, Neut # (Auto) 8.0 H, Lymph # (Auto) 1.0, [place] # (Auto) 0.5, Eos # (Auto) 0.0, Baso # (Auto) 0.0 10/24/20 06:30: Sodium 143, Potassium 3.1 L, Chloride 106, Carbon Dioxide 31 H, Anion Gap 9.1, BUN 23 H, Creatinine 1.00, Estimated Creat Clear 124, Estimated GFR 76, Est GFR ( Amer) 92 D, Glucose 120 H D, Calcium 8.4 I & O for Last 24 hours: Intake & Output 10/21/20 10/22/20 10/23/20 10/24/20 11:59 11:59 11:59 11:59 Intake Total 2100 / 2100 660 / 660 1570 / 1570 1770 / 1770 Output Total 1450 / 1450 845 / 845 337 / 337 310 / 310 Balance 650 / 650 -185 / -185 1233 / 1233 1460 / 1460 Weight 242 lb 8.136 oz 251 lb 2 oz 249 lb 1 oz Microbiology Reports for the Last 24 Hours: Microbiology 10/22/20 16:55 Foot,Right Gram Stain - Final 10/22/20 16:55 Foot,Right Surgical Biopsy Culture - Preliminary 10/22/20 16:55 Foot,Right - Wound Bone Culture - Preliminary 10/20/20 15:15 Foot,Right - Right Third Bone Culture - Preliminary Escherichia coli 10/20/20 15:15 Toe,Right Fourth Gram Stain - Final 10/20/20 15:15 Toe,Right Fourth Wound Culture - Preliminary Gram Negative Rods Gram Negative Rods#2 10/20/20 15:15 Foot,Right - Right Big Bone Culture - Preliminary NO GROWTH AFTER 72 HOURS 10/20/20 15:15 Foot,Right - Right Bone Culture - Preliminary NO GROWTH AFTER 72 HOURS Narrative: Alert, pleasant, talkative, oriented x3. Cardiopulmonary exam unchanged. Abdomen soft. Neurologic exam unchanged. Right foot in boot and dressing which is clean and dry. Left foot with good perfusion Assessment and Plan (1) Gangrene associated with type 2 diabetes mellitus Status: Acute Category: Medical Code(s): E11.52 - Type 2 diabetes mellitus with diabetic peripheral angiopathy with gangrene (2) Congestive heart failure Status: Chronic Qualifiers: Heart failure type: systolic Category: Medical Code(s): I50.9 - Heart failure, unspecified (3) Atrial fibrillation Status: Chronic Qualifiers: Atrial fibrillation type: unspecified Qualified Code(s): I48.91 - Unspecified atrial fibrillation Category: Medical Code(s): I48.91 - Unspecified atrial fibrillation (4) Lymphedema Status: Chronic Category: Medical Code(s): I89.0 - Lymphedema, not elsewhere classified (5) Blindness Status: Chronic Qualifiers: Right eye visual impairment category: right - unspecified blindness Left eye visual impairment category: left - unspecified blindness Qualified Code(s): H54.3 - Unqualified visual loss, both eyes Category: Medical Code(s): H54.7 - Unspecified visual loss (6) Class 2 obesity Status: Chronic Category
[2020-10-24 11:53] LABS: POC Glucose,Bedside 165 (70-110)
[2020-10-24 16:58] LABS: POC Glucose,Bedside 146 (70-110)
[2020-10-24 23:10] LABS: POC Glucose,Bedside 167 (70-110)
[2020-10-25] VITALS (7 sets, daily range): BP systolic 117–164; BP diastolic 69–90; PULSE 56–84; RESP 16–20; TEMP 36.6–36.8; O2SAT 98–99
--- NOTE | 2020-10-25 06:53 | PC.NURSE ---
Patient is A&Ox4. No acute changes noted this shift. Patient right foot dressing is CDI. VSS, call light within reach, will continue to monitor.
--- NOTE | 2020-10-25 08:34 | HMH.ACPN2 ---
Internal Medicine - PN: Subj *Date: 10/25/20 *Time: 08:34 Interval history: Patient reports no changes, up in chair, has eaten 100% of his breakfast. Exam Vital signs and Labs for Last 24 Hours: Temp Pulse Resp BP Pulse Ox 98 F 56 L 20 149/90 H 98 10/25/20 04:00 10/25/20 04:00 10/25/20 04:00 10/25/20 04:00 10/25/20 04:00 Laboratory Results - last 24 hr 10/24/20 11:45: POC Glucose 165 H 10/24/20 16:51: POC Glucose 146 H 10/24/20 20:36: POC Glucose 167 H I & O for Last 24 hours: Intake & Output 10/22/20 10/23/20 10/24/20 10/25/20 11:59 11:59 11:59 11:59 Intake Total 660 / 660 1570 / 1570 1770 / 1770 840 / 840 Output Total 845 / 845 337 / 337 310 / 310 Balance -185 / -185 1233 / 1233 1460 / 1460 830 / 830 Weight 251 lb 2 oz 249 lb 1 oz Microbiology Reports for the Last 24 Hours: Microbiology 10/22/20 16:55 Foot,Right Gram Stain - Final 10/22/20 16:55 Foot,Right Surgical Biopsy Culture - Preliminary 10/20/20 15:15 Toe,Right Fourth Gram Stain - Final 10/20/20 15:15 Toe,Right Fourth Wound Culture - Preliminary Escherichia coli Providencia rettgeri 10/22/20 16:55 Foot,Right - Wound Bone Culture - Preliminary Gram Negative Rods 10/20/20 15:15 Foot,Right - Right Third Bone Culture - Final Escherichia coli Enterococcus faecalis 10/20/20 15:15 Foot,Right - Right Big Bone Culture - Preliminary NO GROWTH AFTER 4 DAYS 10/20/20 15:15 Foot,Right - Right Bone Culture - Preliminary NO GROWTH AFTER 4 DAYS Narrative: Foot is wrapped, QUAN drain draining minimal serosanguineous drainage. Left leg with some brawny skin changes but good pulses. Cardiopulmonary gram unchanged. ENT exam unchanged. Neuro exam unchanged. Assessment and Plan (1) Gangrene associated with type 2 diabetes mellitus Status: Acute Category: Medical Code(s): E11.52 - Type 2 diabetes mellitus with diabetic peripheral angiopathy with gangrene (2) Congestive heart failure Status: Chronic Qualifiers: Heart failure type: systolic Category: Medical Code(s): I50.9 - Heart failure, unspecified (3) Atrial fibrillation Status: Chronic Qualifiers: Atrial fibrillation type: unspecified Qualified Code(s): I48.91 - Unspecified atrial fibrillation Category: Medical Code(s): I48.91 - Unspecified atrial fibrillation (4) Lymphedema Status: Chronic Category: Medical Code(s): I89.0 - Lymphedema, not elsewhere classified (5) Blindness Status: Chronic Qualifiers: Right eye visual impairment category: right - unspecified blindness Left eye visual impairment category: left - unspecified blindness Qualified Code(s): H54.3 - Unqualified visual loss, both eyes Category: Medical Code(s): H54.7 - Unspecified visual loss (6) Class 2 obesity Status: Chronic Category: Medical Code(s): E66.9 - Obesity, unspecified (7) Diabetes Status: Chronic Qualifiers: Diabetes mellitus type: type 2 Diabetes mellitus case manager specialist insulin use: without case manager specialist use Diabetes mellitus complication status: with neurologic complications Diabetes mellitus complication detail: with polyneuropathy Qualified Code(s): E11.42 - Type 2 diabetes mellitus with diabetic polyneuropathy Category: Medical Code(s): E11.9 - Type 2 diabetes mellitus without complications (8) Coagulopathy Status: Chronic Category: Medical Code(s): D68.9 - Coagulation defect, unspecified (9) Sepsis Status: Resolved Qualifiers: Sepsis type: sepsis due to unspecified organism Acute respiratory failure type: with hypoxia Severe sepsis shock status: without septic shock Category: Medical Code(s): A41.9 - Sepsis, unspecified organism (10) Hypokalemia Status: Res
[2020-10-25 17:24] LABS: POC Glucose,Bedside 124 (70-110)
[2020-10-25 19:55] LABS: POC Glucose,Bedside 150 (70-110)
[2020-10-25 19:55] LABS: POC Glucose,Bedside 106 (70-110)
--- NOTE | 2020-10-25 20:08 | PC.NURSE ---
Pt has had multiple loose bowel movements this shift. 5mL of serosang drainage removed from QUAN drain. Multiple blood clots noted in bulb and unable to remove. No other acute changes or complaints.
[2020-10-26] VITALS: BP 148/77; PULSE 66; RESP 20; TEMP 36.6; O2SAT 98
[2020-10-26 02:05] LABS: POC Glucose,Bedside 137 (70-110)
[2020-10-26 04:00] VITALS: BP 160/80; PULSE 82; RESP 20; TEMP 36.6; O2SAT 96
--- NOTE | 2020-10-26 04:06 | PC.NURSE ---
Patient is alert and oriented x4. Patient has had no complaints this shift. PICC line is patent and dressing is C/D/I. Patient has rested comfortably. VSS, call light within reach, will continue to monitor.
[2020-10-26 04:47] VITALS: BMI 35.6
[2020-10-26 05:48] LABS: Basophils # 0.1 K/mm3 (0-0.2); Basophils % 0.8 % (0.1-2.0); Eosinophils # 0.1 K/mm3 (0.0-0.4); Eosinophils % 1.4 % (0.1-12.0); Hematocrit 31.5 % (42.0-52.0); Hemoglobin 9.8 g/dL (14.1-18.0); Lymphocytes # 1.3 K/mm3 (0.7-4.5); Lymphocytes % 17.7 % (10-50); Mean Corpuscular HGB Conc 31.1 g/dL (31.8-35.4); Mean Corpuscular Hemoglobin 28.8 pg (27.0-31.2); Mean Corpuscular Volume 92.6 fl (80-94); Monocytes # 0.4 K/mm3 (0.1-1.0); Monocytes % 5.9 % (1.7-9.3); Neutrophils # 5.5 K/mm3 (1.8-7.8); Neutrophils % 74.3 % (37.0-80.0); Platelet Count 336 K/mm3 (142-424); Red Cell Distribution Width 13.6 % (11.5-17.5); White Blood Count 7.4 K/mm3 (4.8-10.8)
[2020-10-26 05:48] LABS: POC Glucose,Bedside 105 (70-110)
[2020-10-26 05:50] LABS: Chloride 106 mmol/L (98-107); Potassium 3.5 mmoL/L (3.5-5.1); Sodium 139 mmol/L (136-145)
[2020-10-26 05:53] LABS: Blood Urea Nitrogen 17 mg/dl (9-20); Creatinine Clearance Estimated 124 mL/min (50-200); Estimated Glomerular Filt Rate 98 ml/min (>60); GFR (African American) 119 ML/MIN (>60)
[2020-10-26 05:54] LABS: Anion Gap 5.5 mEq/L (5-15); Calcium 8.4 mg/dl (8.4-10.2); Carbon Dioxide 31 mmol/L (22.0-30.0); Glucose 102 mg/dl (74-100)
[2020-10-26 05:59] LABS: C-Reactive Protein 32.6 mg/L (0-4)
[2020-10-26 06:11] LABS: Erythrocyte Sedimentation Rate > 140 mm/hr (0-20)
[2020-10-26 08:00] VITALS: BP 164/98; PULSE 71; RESP 16; TEMP 37.2; O2SAT 97
--- NOTE | 2020-10-26 08:15 | HMH.ORTHPN ---
Subjective Date: 10/26/20 Time: 07:50 Principal diagnosis: Right foot gangrene and PAD Interval history: Patient resting comfortably in the recliner. QUAN drain intact. Patient reports no pain. PN: Obj Ex Vital signs: Temp Pulse Resp BP Pulse Ox 98 F 82 20 160/80 H 96 10/26/20 04:00 10/26/20 04:00 10/26/20 04:00 10/26/20 04:00 10/26/20 04:00 - Constitutional no acute distress - Routine HEENT Exam Head: Present: normocephalic - Routine Abdominal Exam Present: obese - Detailed Lower Extremity Exam Top foot image: 1 - Right TMA with QUAN drain intact. ~5cc blood noted in drain. Sutures are clean dry and intact. Dorsal skin ~6x6cm previous dusky bluish-purple appearance is now black eschar. No purulence. Flap is boggy around the medial aspect. Skin cool to distal foot. Decreased pedal pulses. No pedal hair growth. No calf or thigh pain noted b/l. Progress Note: A&P (1) Gangrene associated with type 2 diabetes mellitus Status: Acute (2) Congestive heart failure Status: Chronic (3) Atrial fibrillation Status: Chronic (4) Lymphedema Status: Chronic (5) Blindness Status: Chronic (6) Class 2 obesity Status: Chronic (7) Diabetes Status: Chronic (8) Coagulopathy Status: Chronic (9) Sepsis Status: Resolved (10) Hypokalemia Status: Resolved (11) Lymphedema of both lower extremities Status: Chronic (12) History of foot surgery Status: Chronic (13) History of osteomyelitis Status: Chronic Assessment and Plan for All Diagnoses:: 10/20/20, s/p right foot open transmetatarsal amputation, foot incision and drainage, application of antibiotic beads 10/22/20, s/p right foot irrigation and debridement, TMA with delayed primary closure, application of abx beads, application of QUAN drain POD#4 Microbiology 10/20/20 15:15 Toe,Right Fourth Gram Stain - Final 10/20/20 15:15 Foot,Right - Right Third Bone Culture - Final Escherichia coli Enterococcus faecalis 10/20/20 15:15 Foot,Right - Right Big Bone Culture - Final NO GROWTH AFTER 5 DAYS 10/22/20 16:55 Foot,Right - Wound Bone Culture - Preliminary Providencia rettgeri 10/20/20 15:15 Toe,Right Fourth Wound Culture - Preliminary Escherichia coli Providencia rettgeri Gram Positive Cocci Laboratory Tests 10/26/20 10/26/20 10/26/20 05:15 05:15 05:15 WBC 7.4 ESR > 140 H Estimated GFR 98 C-Reactive Protein 32.6 H D Dressing changed at beside today. QUAN drain left intact. Discussed in order to heal, need infection controlled and adequate blood flow. I explained to the patient the poor circulation and high risk for a more proximal amputation. He is still smoking 1 pack daily. Discussed smoking cessation. Will f/u next week and see how the skin looks. Overall poor healing potential. Will likely need BKA. Continue IV antibiotics: vanco, zosyn while at [facility]. PICC line. Will need SNF with PICC, wound dressing changes. NWB-PWB to heel of right lower extremity with DME assistance (walker, wheelchair). Stable for discharge from Podiatry stand point. Has f/u scheduled Monday11/02/20 @1130. SNF Orders: -maintain right foot dressing clean dry and intact. -daily dressing changes: cleanse skin with saline. Dry thoroughly. Apply Betadine soaked gauze to the incision site with dry sterile dressing. -QUAN drain management. -PWB to right foot (ok to put heel down in post op shoe for transfers) with walker or wheelchair. -PICC, IV Abx: discussed Invanz with PCP. -Weekly labs: cbc, esr, crp, bmp faxed to Dr. Carmichael and Dr. Lantigua's office. -Follow up next week with Podiatry as previously scheduled 11/02/20 @1130
[2020-10-26 09:32] VITALS: PULSE 71
[2020-10-26 11:01] LABS: POC Glucose,Bedside 137 (70-110)
--- NOTE | 2020-10-26 12:37 | PC.NURSE ---
Received call from invoice classification clerk, pt will be going to [facility]. # to call report is
--- NOTE | 2020-10-26 12:49 | PC.NURSE ---
1248 - Report called to Jennifer @ [facility] @ this time.
== END 2020-10-26 14:19 | DRG 617 ==
LOC: ER 15:53 → 2ND 17:28
PROVIDERS: Internal Medicine Adolescent Medicine; Internal Medicine Cardiovascular Disease; Podiatrist; Admitting Provider Family Medicine; Emergency Provider Emergency Medicine; PCP Internal Medicine Adolescent Medicine; Visit Provider Internal Medicine Adolescent Medicine
PROC: 0Y6M0Z9 Detachment at Right Foot, Partial 1st Ray, Open Approach (ICD-10-PCS; principal; 2020-10-20 15:00)
PROC: 047K3ZZ Dilation of Right Femoral Artery, Percutaneous Approach (ICD-10-PCS; principal; 2020-10-21 14:00)
PROC: 0JBQ0ZZ Excision of Right Foot Subcutaneous Tissue and Fascia, Open Approach (ICD-10-PCS; principal; 2020-10-22 14:45)
DX: E11.69 Type 2 diabetes mellitus with other specified complication (principal); E11.52 Type 2 diabetes mellitus with diabetic peripheral angiopathy with gangrene; L03.115 Cellulitis of right lower limb; I42.9 Cardiomyopathy, unspecified; M86.171 Other acute osteomyelitis, right ankle and foot; E11.621 Type 2 diabetes mellitus with foot ulcer; Z79.01 Long term (current) use of anticoagulants; Z79.84 Long term (current) use of oral hypoglycemic drugs; I48.91 Unspecified atrial fibrillation; L97.512 Non-pressure chronic ulcer of other part of right foot with fat layer exposed; I70.235 Atherosclerosis of native arteries of right leg with ulceration of other part of foot; Z20.822 Contact with and (suspected) exposure to COVID-19; Z89.421 Acquired absence of other right toe(s); F17.200 Nicotine dependence, unspecified, uncomplicated; H54.8 Legal blindness, as defined in USA; H40.9 Unspecified glaucoma; E66.9 Obesity, unspecified; Z68.35 Body mass index [BMI] 35.0-35.9, adult; I70.203 Unspecified atherosclerosis of native arteries of extremities, bilateral legs; L97.511 Non-pressure chronic ulcer of other part of right foot limited to breakdown of skin; L97.514 Non-pressure chronic ulcer of other part of right foot with necrosis of bone; E78.5 Hyperlipidemia, unspecified; I25.2 Old myocardial infarction; B96.20 Unspecified Escherichia coli [E. coli] as the cause of diseases classified elsewhere; B96.89 Other specified bacterial agents as the cause of diseases classified elsewhere; E87.6 Hypokalemia; I11.0 Hypertensive heart disease with heart failure; I50.9 Heart failure, unspecified; Z79.02 Long term (current) use of antithrombotics/antiplatelets; I77.1 Stricture of artery
CPT/HCPCS: 28805; 20700; 11043; 36410; 36415; 36569; 37224; 71045; 73620; 73630; 73720; 75625; 80048; 80053; 80202; 82962; 83605; 85007; 85025; 85651; 86140; 87040; 87070; 87075; 87077; 87186; 87205; 88304; 88305; 88311; 93306; 93308; 93923; 96365; 97110; 97163; 97165; 97530; 99152; 99153; 99284; A9576; C1713; C1725; C1751; C1760; C1766; C1769; C1776; C1894; J1335; J1644; J2405; J2543; J3370; Q9966; U0003

== ENCOUNTER → 2021-09-27 10:17 | Outpatient (POV) | payer MEDICARE, SELFPAY ==
[2021-09-27 11:45] VITALS: BP 169/88; PULSE 60; RESP 20; TEMP 36.6; O2SAT 96; BMI 30.4
--- NOTE | 2021-09-27 16:23 | HMH.PMCON ---
Assessment and Plan (1) Bilateral knee pain Status: Acute Category: Medical Code(s): M25.561 - Pain in right knee; M25.562 - Pain in left knee - Assessment and plan all Dx Assessment and Plan for all problems:: Patient has significant bilateral knee pain. This is a chronic issue and is causing decreased range of motion. Patient did have limited flexion and extension of bilateral knees and crepitus with clicking and locking during exam. I have ordered the patient a compounding cream at today's visit. I have also discussed with the patient regarding bilateral intra-articular knee injections. Risk and benefits were discussed with the patient. He would like to proceed forward with these injections. If his bilateral knee pain worsens or changes in sensation we will order imaging. we will schedule him for bilateral intra-articular knee injections at today's visit. Patient has been instructed to contact the clinic with any concerns before the next appointment. Dr. Corbin has reviewed this note and agrees with this plan of care. This note was dictated using voice recognition software and make contain errors or omissions. HPI - Data of Consult Patient: new to practice Consult date: 09/27/21 Requesting Physician: Yessy Santamaria APRN Primary Care Provider: Jag Carmichael MD Family Provider: Kevin Walker - Consult Narrative Reason for consult: Bilateral knee pain History of present illness: Mr. Gaviria is a 60 year old male presents today as a new patient. He is a referral from Dr. Kevin Walker. Patient rates his pain today a 5 out of 10. He states his pain is all in his bilateral knees with his left being worse than his right. Patient denies any new trauma or injury to the site. Patient states that he has had this issue for 20 plus years. He states it is worse with activity and describes it as a heavy, throbbing sensation. Patient states he is seen physical therapy currently for this issue. Patient is completely blind. He does use a cane as an assistive device. Patient does have a history of a right below the knee amputation in 2020 due to osteomyelitis. Patient states he has used [id number] Tylenol with minimal improvement. He also has tried topical creams with minimal relief. Patient had been previously diagnosed as diabetic however he states that at his last appointment with Dr. Carmichael that his A1c was 5.5. He stated that Dr. Carmichael has told him he can stop taking his metformin. Patient also has a history of A. fib and is currently on Xarelto. Patient denies any issues with this medication. He states he had tried gabapentin 300 mg in the past however felt like he was in a fog and disconnected so he continued use. His Mendez is [id number]. Is been reviewed and appropriate. CC: Yessy Santamaria APRN [facility] History I have reviewed the patient's past medical history: Yes Medical History: Reports:: Atrial Fibrillation, Hyperlipidemia, Hypertension Denies:: Diabetes Mellitus Type 2 *Have you ever received a pneumonia vaccine?: No *Have you received a flu vaccine this season?: No Other Medical History: Reports: Arthritis, Hypothyroidism Laterality Cases: Right: Other Other Surgeries: Yes: Colon Resection Amputation: Yes (DAVID) - *Social History Smoking Status: Current every day smoker # Packs/Day (cigarettes): 1 Alcohol Intake: never *Occupational Status:: other *Travel in the last 8 weeks: None Family Hx:: Unable to obtain Review of Systems - Review of Systems Review of systems:: pertinent systems reviewed and negative unless documented below Review of Systems: General: No recent weight changes, no fever, no sleep disturbances Respiratory: No cough, no shortness of air, no recurring pulmonary infections Cardiovascular/peripheral vascular: No chest pain, no palpitations, no edema, no shortness of breath Gastrointestinal: No new onset incontinence, normal bowel movements reported Genitourinary: No new onset inc
== END ==
PROVIDERS: PCP Internal Medicine Adolescent Medicine; Visit Provider Nurse Practitioner Family
DX: M25.561 Pain in right knee (principal); M25.562 Pain in left knee
CPT/HCPCS: 99202; G0463

== ENCOUNTER 2021-10-01 11:01 | Day surgery (SDC) | payer MEDICARE, SELFPAY ==
[2021-10-01 11:09] VITALS: BP 152/85; PULSE 68; RESP 20; TEMP 36.6; O2SAT 96; BMI 24.4
--- NOTE | 2021-10-01 11:27 | HMH.PMPROC ---
- Procedure Date: 10/01/21 Time: 11:42 Anesthesiologist:: Abhishek Padron CRNA Complications:: None Pre-procedure Diagnosis:: Osteoarthritis bilateral knees. Post-procedure Diagnosis:: Same Indications for Procedure:: Patient is a pleasant 60-year-old male who complains of bilateral knee pain. Patient has below-knee amputation on the right. He does use a prosthetic for ambulation. He has had intra-articular knee injections in the past. He would like to repeat this. Procedure Details:: Pre-procedure Diagnosis: Bilateral knee pain with degenerative osteoarthritis both knees Post-procedure Diagnosis: Same Procedure Details: Bilateral intra-articular knee injection Informed consent was obtained risk and benefits of the procedure were explained to the patient. Patient was taken the procedure room both knees were prepped using ChloraPrep. A 25-gauge needle was used to inject 10 mL bupivacaine 0.25% and Depo-Medrol 40 mg into each knee. We did a total of 80 mg Depo-Medrol for both knees. The patient tolerated the procedure well with no complications. Plan and Disposition:: We will follow-up with him in 2 weeks. Will reevaluate symptoms at that time. Plan and Disposition:: Patient was discharged without incident.
[2021-10-01 11:39] VITALS: BP 171/91; PULSE 68; RESP 20; O2SAT 98
== END 2021-10-01 11:40 | disposition home or self-care (01) ==
LOC: SC.PAINP 11:03
PROVIDERS: PCP Internal Medicine; Visit Provider Nurse Anesthetist, Certified Registered
DX: M17.0 Bilateral primary osteoarthritis of knee (principal)
CPT/HCPCS: 20610; J1040

== ENCOUNTER 2021-10-07 10:00 | Outpatient (RCR) | payer MEDICARE, SELFPAY ==
--- NOTE | 2021-05-19 12:43 | HMH.PTOPEV ---
PT Outpatient Evaluation Rehab PT Outpatient Evaluation Start: 05/19/21 09:30 Freq: Status: Active Protocol: Document 05/19/21 09:30 NATHAN (Rec: 05/19/21 12:43 PDESEROUX [id number]) Electronically Signed By Abhishek Plascencia, BRANDY 05/19/21 09:30 Outpatient Therapy Subjective History Subjective History Pt. is a 60 year old male who presents to [facility] Outpatient Physical Therapy Services for the initial evaluation this date(05/19/21) w/ c/o chronic and intermittent P!, weakness, gait/balance deficits, edema, and prosthetic length concerns of traumatic onset S/P RLE below-knee or BK amputation in November 2020. Pt. reports amputation was secondary to Osteomyelitis. Pt. states he feels like the prosthetic limb is too short when he is standing or ambulating w/ standard walker. Pt. also c's/ o decreased confidence and stability when standing/ ambulating on the prosthetic limb. Pt. reports he lives in a 1-story home w/ a basement that has 10 steps. Pt. states having a caregiver 3 days/wk. that comes and does his laundry and plans out his clothes/laundry/medicine. Pt. states that he is independent w/ ADLs, but needs assistance w/ ambulation at home. Pt. reports owning a standard walker and SPC. Pt. reports having 3 months of Home Health P.T. where he worked on standing and walking around his home. Pt. reports his goals w/ Outpatient P.T. are to improve tolerance w/ standing and ambulating w/o AD , improve prosthetic fitting, and negotiate his stairs to do his laundry down in his basement. Pt. RTMD in a couple of months. Current
== END 2021-10-21 09:03 | disposition home or self-care (01) ==
LOC: PT.CARL 10:00
PROVIDERS: PCP Podiatrist Foot & Ankle Surgery; Visit Provider Internal Medicine Adolescent Medicine
DX: S88.111A Complete traumatic amputation at level between knee and ankle, right lower leg, initial encounter
CPT/HCPCS: 97110; 97116; 97140; 97163; 97164; 97530

== ENCOUNTER → 2021-10-13 13:42 | Outpatient (POV) | payer MEDICARE, SELFPAY ==
--- NOTE | 2021-10-13 14:40 | EXP.PAIN.SOA ---
[facility] Pain Management SOAP Note Subjective:: Patient is a pleasant 60-year-old male who presents today for follow-up of bilateral intra-articular knee injections on 10/01/2021. We are currently treating the patient for osteoarthritis of bilateral knees, bilateral knee pain. Patient states he had 0 improvement in his pain symptoms following these injections. Today patient rates his pain a 4 out of 10 and states it is all in his bilateral knees. Patient denies any new trauma or injury to the site. This has been an ongoing issue over the last 20 years. Patient describes this as a heavy, throbbing sensation that is worse with increased activity. He has been seen by physical therapy however states it only provided minimal improvement. He does use [id number]-[id number] Tylenol with some relief of symptoms. Patient was prescribed compounding cream at our last visit. He states this has provided minimal relief as of right now. Patient has had this as a chronic issue. Patient does have a history of a right below the knee amputation due to osteomyelitis. He does use a cane as an assistive device and wheelchair as needed. Patient does have a history of A. fib and is currently on Xarelto. His Mendez is [id number]. Is been reviewed and appropriate. Review of Systems: General: No recent weight changes, no fever, no sleep disturbances Respiratory: No cough, no shortness of air, no recurring pulmonary infections Cardiovascular/peripheral vascular: No chest pain, no palpitations, no edema, no shortness of breath Gastrointestinal: No new onset incontinence, normal bowel movements reported Genitourinary: No new onset incontinence Musculoskeletal: Bilateral knee pain Psychiatric: [Normal mood/affect] Neurological: [Denies weakness in extremities], [denies balance issues] Objective:: Physical Exam: General: Alert and oriented x3, no acute distress, pleasant and cooperative Lungs: Respirations even and unlabored, symmetrical chest expansion Eyes: PERRL Musculoskeletal: Flexion and extension of bilateral knees somewhat guarded secondary to pain, [antalgic gait noted] Neurological: Speech clear, no gross sensory deficit Assessment:: Osteoarthritis bilateral knees, bilateral knee pain Plan:: Patient continues to have significant pain along his bilateral knees. Patient did have limited flexion and extension of his knees during today's exam. I have discussed with the patient regarding a genicular nerve block. Risk and benefits were discussed with the patient. He would like to proceed forward with this injection. Patient is currently on Xarelto. Patient states his left side is his worst side. We will schedule the patient for a left genicular nerve block. Patient has been instructed to contact the clinic with any concerns before the next appointment. Dr. Corbin has reviewed this note and agrees with this plan of care. This note was dictated using voice recognition software and make contain errors or omissions. PFSH PFSH Social History Smoking Status: Current every day smoker alcohol intake: never current occupational status: other
[2021-10-13 14:41] VITALS: BP 188/96; PULSE 77; RESP 20; TEMP 36.8; O2SAT 97; BMI 38.3
== END ==
PROVIDERS: PCP Family Medicine; Visit Provider Nurse Practitioner Family
DX: M17.0 Bilateral primary osteoarthritis of knee (principal)
CPT/HCPCS: 99212; G0463

== ENCOUNTER 2021-11-02 11:49 | Day surgery (SDC) | payer MEDICARE, SELFPAY ==
[2021-11-02 12:03] VITALS: BP 171/89; PULSE 63; RESP 18; TEMP 36.9; O2SAT 99; BMI 27.7
[2021-11-02 12:15] VITALS: BP 175/81; PULSE 80; RESP 18; O2SAT 97
--- NOTE | 2021-11-02 12:17 | P.PCN_ITS ---
Procedure Date: 11/02/21 Time: 12:17 Anesthesiologist:: Abhishek Padron CRNA Complications:: None Pre-procedure Diagnosis:: Osteoarthritis left knee Post-procedure Diagnosis:: Same Indications for Procedure:: Patient is a pleasant 60-year-old right below the knee amputee that comes to our clinic today for a left genicular nerve block. Patient has had several intra- articular knee injections bilaterally with minimal help. He states the pain is constant, dull, aching. Pain intensifies significantly with ambulation. He does use a prosthesis for his right leg. He rates his pain 7/10 today. Procedure Details:: Pre-procedure Diagnosis:: Left knee pain with degenerative osteoarthritis Post-procedure Diagnosis: Same Indications for Procedure: Left knee genicular block Informed consent was obtained and the risk and benefits of the procedure was explained to the patient. The patient was taken to the procedure room. The left knee was prepped using ChloraPrep. I placed 22-gauge needles into the area of the left superior medial genicular nerve, left superior lateral genicular nerve and left inferior medial genicular nerve. Needle placement was confirmed in AP and lateral views with dye. We then injected bupivacaine 0.25% 3 mL's and Depo-Medrol 25 mg into each area of the left superior medial genicular nerve, left superior lateral genicular nerve and left inferior medial genicular nerve. Patient tolerated the procedure well with no complications. Plan and Disposition:: We will follow-up with her in 2 weeks. Will reevaluate symptoms at that time. Plan and Disposition:: Patient was discharged without incident.
== END 2021-11-02 12:15 | disposition home or self-care (01) ==
PROVIDERS: PCP Family Medicine; Visit Provider Nurse Anesthetist, Certified Registered
DX: M17.12 Unilateral primary osteoarthritis, left knee (principal)
CPT/HCPCS: 64454; J1040

== ENCOUNTER → 2021-11-17 11:14 | Outpatient (POV) | payer MEDICARE, SELFPAY ==
[2021-11-17 11:58] VITALS: BP 174/82; PULSE 58; RESP 18; TEMP 36.6; O2SAT 98; BMI 27.7
--- NOTE | 2021-11-17 12:30 | EXP.PAIN.SOA ---
[facility] Pain Management SOAP Note Subjective:: Patient is a pleasant 60-year-old male who presents today for follow-up of left knee genicular nerve block. We are currently treating the patient for osteoarthritis of bilateral knees, bilateral knee pain. Patient states that he has not noticed significant improvement following this block. He states that his pain is okay when he is in a sitting position. Today patient rates his pain a 3 out of 10. He states the pain is in his bilateral knees with the left being worse than the right. Patient denies any new trauma or injury. He denies any change in location or type of pain he experiences. Patient does describe this as a heavy, throbbing sensation that is worse with increased movement. Patient has been to physical therapy in the past however at his last visit they stated he had plateaued and they discontinued the remainder visits. Patient does use his compounding cream that he states provides improvement of his symptoms. Patient does have a history of a below the knee amputation due to osteomyelitis. He uses a walker and wheelchair for ambulation. Patient does also have a cane however he states he has not used that because he typically only used going into his basement which she has not done for over a year. Patient is blind and has a history of A. fib and is currently on Xarelto. His Mendez is [phone]. It has been reviewed and appropriate. Review of Systems: General: No recent weight changes, no fever, no sleep disturbances Respiratory: No cough, no shortness of air, no recurring pulmonary infections Cardiovascular/peripheral vascular: No chest pain, no palpitations, no edema, no shortness of breath Gastrointestinal: No new onset incontinence, normal bowel movements reported Genitourinary: No new onset incontinence Musculoskeletal: Bilateral knee pain Psychiatric: [Normal mood/affect] Neurological: [Denies weakness in extremities], [denies balance issues] Objective:: Physical Exam: General: Alert and oriented x3, no acute distress, pleasant and cooperative Lungs: Respirations even and unlabored, symmetrical chest expansion Eyes: PERRL Musculoskeletal: Flexion and extension of bilateral knees somewhat guarded secondary to pain, [antalgic gait noted] Neurological: Speech clear, no gross sensory deficit Assessment:: Osteoarthritis bilateral knees, bilateral knee pain Plan:: Patient continues to have significant pain in his bilateral knees. At this time he does not need additional injective therapy. I will prescribe him tizanidine 4 mg at night and provide a 1 month supply of this medication. We will follow-up with the patient in 1 month for reevaluation of symptoms and follow-up. Patient has been instructed to contact the clinic with any concerns before the next appointment. Dr. Corbin has reviewed this note and agrees with this plan of care. This note was dictated using voice recognition software and make contain errors or omissions. [facility] Medical History (Updated 11/02/21 @ 12:10 by Jacqui Ramirez RN) A-fib Amputation below knee Below-knee amputation of right lower extremity Congenital glaucoma of both eyes Diabetes mellitus Diverticula, colon Eye anomaly, congenital Eye globe prosthesis Osteomyelitis Surgical History (Updated 11/02/21 @ 12:09 by Jacqui Ramirez RN) History of colon surgery Family History (Updated 11/02/21 @ 12:09 by Jacqui Ramirez RN) Other No significant family history Social History Smoking Status: Current every day smoker alcohol intake: never current occupational status: disabled Travel in the last 8 weeks: None
== END | disposition home or self-care (01) ==
PROVIDERS: Visit Provider Nurse Practitioner Family
DX: M17.0 Bilateral primary osteoarthritis of knee (principal)
CPT/HCPCS: 99212; G0463

== ENCOUNTER → 2022-02-22 13:24 | Outpatient (CLI) | payer MEDICARE, SELFPAY ==
--- NOTE | 2022-02-22 13:31 | XR_ITS ---
FINAL REPORT CLINICAL HISTORY: knee pain FINDINGS: Right knee Three views were obtained. There is no acute fracture or dislocation. The patient is status post below the knee amputation. Mild degenerative changes are present. Note is made of vascular calcification. No acute soft tissue abnormality is identified. IMPRESSION: Postoperative and degenerative change as above. Reviewed, Interpreted and Dictated by Samuel Fan III, MD Transcribed by Latonia Salazar Authenticated and [facility]
--- NOTE | 2022-02-22 13:31 | XR_ITS ---
FINAL REPORT CLINICAL HISTORY: knee pain FINDINGS: Left knee Three views were obtained. There is no acute fracture or dislocation. There are mild degenerative changes. Note is made of mild vascular calcification. No acute soft tissue abnormality is identified. IMPRESSION: Mild degenerative changes. Reviewed, Interpreted and Dictated by Samuel Fan III, MD Transcribed by Latonia Salazar Authenticated and [facility]
== END ==
LOC: RAD 13:25
PROVIDERS: PCP Family Medicine; Visit Provider Orthopaedic Surgery
DX: M25.561 Pain in right knee (principal); M25.562 Pain in left knee
CPT/HCPCS: 73562

== ENCOUNTER → 2022-05-04 23:54 | Outpatient (CLI) | payer MEDICARE, SELFPAY ==
[2022-05-04 17:39] LABS: Basophils # 0.1 K/mm3 (0-0.2); Basophils % 1.3 % (0.1-2.0); Eosinophils # 0.2 K/mm3 (0.0-0.4); Eosinophils % 2.1 % (0.1-12.0); Hematocrit 52.4 % (42.0-52.0); Hemoglobin 16.9 g/dL (14.1-18.0); Lymphocytes # 1.7 K/mm3 (0.7-4.5); Lymphocytes % 19.1 % (10-50); Mean Corpuscular HGB Conc 32.2 g/dL (31.8-35.4); Mean Corpuscular Hemoglobin 30.3 pg (27.0-31.2); Mean Corpuscular Volume 94.1 fl (80-94); Mean Platelet Volume 10.4 fl (7.4-10.4); Monocytes # 0.7 K/mm3 (0.1-1.0); Monocytes % 8.3 % (1.7-9.3); Neutrophils # 6.1 K/mm3 (1.8-7.8); Neutrophils % 69.2 % (37.0-80.0); Platelet Count 220 K/mm3 (142-424); Red Blood Count 5.57 M/mm3 (4.60-6.20); Red Cell Distribution Width 14.1 % (11.5-17.5); White Blood Count 8.7 K/mm3 (4.8-10.8)
[2022-05-04 18:43] LABS: Alanine Aminotransferase 16 U/L (12-78); Albumin Level 3.7 g/dl (3.5-5.0); Albumin/Globulin Ratio 1.5 (1.1-1.8); Alkaline Phosphatase 108 U/L (38-126); Anion Gap 9.6 mEq/L (5-15); Aspartate Amino Transferase 22 U/L (17-59); Bilirubin,Total 1.1 mg/dl (0.2-1.3); Blood Urea Nitrogen 17 mg/dl (9-20); Calcium 8.5 mg/dl (8.4-10.2); Carbon Dioxide 29 mmol/L (22.0-30.0); Chloride 100 mmol/L (98-107); Chol/HDL Ratio 3.6 (1-3.5); Cholesterol 135 mg/dl (140-200); Estimated Glomerular Filt Rate 61 ml/min (>60); GFR (African American) 74 ML/MIN (>60); Globulin 2.4 g/dL (1.3-3.2); Glucose 116 mg/dl (74-100); HDL Cholesterol 37 mg/dl (40-60); Potassium 3.6 mmoL/L (3.5-5.1); Sodium 135 mmol/L (136-145); Total Protein,Serum 6.1 g/dl (6.3-8.2); Triglycerides 129 mg/dl (30-150); VLDL Cholesterol 26 mg/dL (0-40)
[2022-05-04 18:54] LABS: Direct LDL Cholesterol 81.03 mg/dL (100-129)
[2022-05-04 19:14] LABS: Thyroid Stimulating Hormone 3.99 uIU/mL (0.465-4.68)
== END ==
PROVIDERS: PCP Family Medicine; Visit Provider Family Medicine
DX: I10 Essential (primary) hypertension; E11.42 Type 2 diabetes mellitus with diabetic polyneuropathy; Z00.00 Encounter for general adult medical examination without abnormal findings; E03.9 Hypothyroidism, unspecified
CPT/HCPCS: 80053; 80061; 83036; 84443; 85025

== ENCOUNTER → 2022-05-31 13:39 | Outpatient (CLI) | payer MEDICARE, SELFPAY ==
--- NOTE | 2022-05-31 13:52 | XR_ITS ---
FINAL REPORT CLINICAL HISTORY: PAIN IN RT KNEE COMPARISON: 02/22/2022 FINDINGS: Right knee Three views were obtained. There is no acute fracture or dislocation. There are moderate degenerative changes of the knee. Vascular calcification is identified. IMPRESSION: Degenerative and chronic appearing findings. Reviewed, Interpreted and Dictated by Samuel Fan III, MD Transcribed by Latonia Salazar Authenticated and [facility]
== END ==
LOC: RAD 13:43
PROVIDERS: PCP Family Medicine; Visit Provider Student in an Organized Health Care Education/Training Program
DX: M17.11 Unilateral primary osteoarthritis, right knee (principal); S88.911A Complete traumatic amputation of right lower leg, level unspecified, initial encounter
CPT/HCPCS: 73562

== ENCOUNTER → 2022-09-07 23:29 | Outpatient (CLI) | payer MEDICARE, SELFPAY ==
[2022-09-07 17:28] LABS: Basophils # 0.1 K/mm3 (0-0.2); Eosinophils # 0.2 K/mm3 (0.0-0.4); Eosinophils % 2.2 % (0.1-12.0); Hematocrit 55.7 % (42.0-52.0); Hemoglobin 17.2 g/dL (14.1-18.0); Lymphocytes # 1.2 K/mm3 (0.7-4.5); Lymphocytes % 15.8 % (10-50); Mean Corpuscular HGB Conc 30.9 g/dL (31.8-35.4); Mean Corpuscular Hemoglobin 29.8 pg (27.0-31.2); Mean Corpuscular Volume 96.3 fl (80-94); Mean Platelet Volume 10.8 fl (7.4-10.4); Monocytes # 0.6 K/mm3 (0.1-1.0); Monocytes % 8.1 % (1.7-9.3); Neutrophils # 5.5 K/mm3 (1.8-7.8); Neutrophils % 73.1 % (37.0-80.0); Platelet Count 191 K/mm3 (142-424); Red Blood Count 5.78 M/mm3 (4.60-6.20); Red Cell Distribution Width 13.7 % (11.5-17.5); White Blood Count 7.5 K/mm3 (4.8-10.8)
[2022-09-07 17:36] LABS: Alanine Aminotransferase 19 U/L (12-78); Albumin Level 3.8 g/dl (3.5-5.0); Albumin/Globulin Ratio 1.4 (1.1-1.8); Alkaline Phosphatase 119 U/L (38-126); Anion Gap 14.3 mEq/L (5-15); Aspartate Amino Transferase 22 U/L (17-59); Blood Urea Nitrogen 14 mg/dl (9-20); Calcium 9.1 mg/dl (8.4-10.2); Carbon Dioxide 29 mmol/L (22.0-30.0); Chloride 101 mmol/L (98-107); Cholesterol 169 mg/dl (140-200); Estimated Glomerular Filt Rate 56 ml/min (>60); GFR (African American) 67 ML/MIN (>60); Globulin 2.8 g/dL (1.3-3.2); Glucose 110 mg/dl (74-100); HDL Cholesterol 34 mg/dl (40-60); Potassium 4.3 mmoL/L (3.5-5.1); Sodium 140 mmol/L (136-145); Total Protein,Serum 6.6 g/dl (6.3-8.2); Triglycerides 143 mg/dl (30-150); VLDL Cholesterol 29 mg/dL (0-40)
[2022-09-07 17:47] LABS: Direct LDL Cholesterol 111.49 mg/dL (100-129)
[2022-09-07 18:05] LABS: Thyroid Stimulating Hormone 4.55 uIU/mL (0.465-4.68)
[2022-09-07 21:18] LABS: Hemoglobin A1C 6.6 % (4.0-6.0)
== END ==
PROVIDERS: PCP Family Medicine; Visit Provider Family Medicine
DX: I10 Essential (primary) hypertension (principal); E03.9 Hypothyroidism, unspecified; Z51.81 Encounter for therapeutic drug level monitoring; Z79.899 Other long term (current) drug therapy; E78.5 Hyperlipidemia, unspecified; E11.9 Type 2 diabetes mellitus without complications; Z79.84 Long term (current) use of oral hypoglycemic drugs
CPT/HCPCS: 80053; 80061; 80162; 83036; 84443; 85025

== ENCOUNTER → 2022-12-28 16:45 | Outpatient (CLI) | payer MEDICARE, SELFPAY ==
[2022-12-28 16:41] LABS: Basophils # 0.1 K/mm3 (0-0.2); Basophils % 1.2 % (0.1-2.0); Eosinophils # 0.1 K/mm3 (0.0-0.4); Eosinophils % 1.8 % (0.1-12.0); Hematocrit 50.5 % (42.0-52.0); Hemoglobin 17.4 g/dL (14.1-18.0); Lymphocytes # 1.1 K/mm3 (0.7-4.5); Lymphocytes % 14.8 % (10-50); Mean Corpuscular HGB Conc 34.4 g/dL (31.8-35.4); Mean Corpuscular Hemoglobin 32.1 pg (27.0-31.2); Mean Corpuscular Volume 93.3 fl (80-94); Mean Platelet Volume 9.6 fl (7.4-10.4); Monocytes # 0.6 K/mm3 (0.1-1.0); Monocytes % 8.2 % (1.7-9.3); Neutrophils # 5.5 K/mm3 (1.8-7.8); Platelet Count 189 K/mm3 (142-424); Red Blood Count 5.41 M/mm3 (4.60-6.20); Red Cell Distribution Width 14.1 % (11.5-17.5); White Blood Count 7.4 K/mm3 (4.8-10.8)
[2022-12-28 17:05] LABS: Alanine Aminotransferase 18 U/L (12-78); Albumin Level 3.2 g/dl (3.5-5.0); Albumin/Globulin Ratio 1.2 (1.1-1.8); Alkaline Phosphatase 102 U/L (38-126); Anion Gap 13.8 mEq/L (5-15); Aspartate Amino Transferase 24 U/L (17-59); Blood Urea Nitrogen 13 mg/dl (9-20); Calcium 8.6 mg/dl (8.4-10.2); Carbon Dioxide 27 mmol/L (22.0-30.0); Chloride 99 mmol/L (98-107); Chol/HDL Ratio 5.1 (1-3.5); Cholesterol 148 mg/dl (140-200); Estimated Glomerular Filt Rate 56 ml/min (>60); GFR (African American) 67 ML/MIN (>60); Globulin 2.6 g/dL (1.3-3.2); Glucose 117 mg/dl (74-100); HDL Cholesterol 29 mg/dl (40-60); Potassium 3.8 mmoL/L (3.5-5.1); Sodium 136 mmol/L (136-145); Total Protein,Serum 5.8 g/dl (6.3-8.2); Triglycerides 119 mg/dl (30-150); VLDL Cholesterol 24 mg/dL (0-40)
[2022-12-28 17:16] LABS: Direct LDL Cholesterol 105.47 mg/dL (100-129)
[2022-12-28 17:59] LABS: Hemoglobin A1C 6.6 % (4.0-6.0)
== END ==
PROVIDERS: PCP Family Medicine; Visit Provider Family Medicine
DX: E11.9 Type 2 diabetes mellitus without complications (principal); E66.9 Obesity, unspecified; E78.5 Hyperlipidemia, unspecified; E87.6 Hypokalemia; I48.91 Unspecified atrial fibrillation; Z68.38 Body mass index [BMI] 38.0-38.9, adult; Z79.84 Long term (current) use of oral hypoglycemic drugs; Z72.0 Tobacco use
CPT/HCPCS: 80053; 80061; 80162; 83036; 84443; 85025

== ENCOUNTER 2023-02-02 15:31 | Emergency (ER) | payer MEDICARE, SELFPAY ==
[2023-02-02] VITALS (7 sets, daily range): BP systolic 112–172; BP diastolic 65–83; PULSE 78–85; RESP 16–20; TEMP 36.8; O2SAT 95–98; BMI 34.0
--- NOTE | 2023-02-02 15:48 | XR_ITS ---
PROCEDURE INFORMATION: Exam: XR Left Foot Exam date and time: 02/02/2023 4:20 PM Age: 62 years old Clinical indication: Pain; Foot; Left; Additional info: Wound, pain, swelling infxn TECHNIQUE: Imaging protocol: Radiologic exam of the left foot. Views: 3 or more views. COMPARISON: CR XR FOOT LT MIN 3V 02/22/2019 8:38 AM FINDINGS: Bones/joints: Cortical erosion along the medial head of the 1st metatarsal concerning for osteomyelitis. No evidence of acute fracture or malalignment. Fifth metatarsophalangeal joint subluxation is grossly unchanged from 2020 radiograph. Previously demonstrated cortical erosion along the head of the 5th metatarsal is no longer present on today's exam. Pes planus with severe degenerative osteoarthrosis in the midfoot, not significantly changed from prior exam. Calcaneal enthesopathy, unchanged. Soft tissues: Soft tissue edema noted. IMPRESSION: Cortical erosion along the medial head of the 1st metatarsal concerning for osteomyelitis.
--- NOTE | 2023-02-02 15:48 | XR_ITS ---
PROCEDURE INFORMATION: Exam: XR Left Ankle Exam date and time: 02/02/2023 4:20 PM Age: 62 years old Clinical indication: Pain; Foot; Left; Additional info: Wound, pain, swelling infxn TECHNIQUE: Imaging protocol: Radiologic exam of the left ankle. Views: 3 or more views. COMPARISON: CR XR ANKLE LT MIN 3V 02/22/2019 8:38 AM FINDINGS: Bones/joints: No evidence of acute fracture or malalignment. Ankle mortise appears intact. Soft tissues: Soft tissue edema noted. IMPRESSION: No evidence of acute osseous abnormality in the left ankle.
--- NOTE | 2023-02-02 15:48 | CA_ITS ---
FINAL REPORT TECHNIQUE: Ultrasound images of the deep venous system were obtained from the left groin to the calf veins. CLINICAL HISTORY: Left lower leg swelling/redness/warmth with wound, Hx-osteomyelitis s/p right bka COMPARISON: None FINDINGS: The deep venous system is normally compressible. Normal flow is identified. There is a 2.9 cm prominent left inguinal lymph node which may be reactive. IMPRESSION: No evidence of left lower extremity DVT. Probable reactive left inguinal lymph node. Reviewed, Interpreted and Dictated by Bruce Reilly MD Transcribed by Soheila Forte Authenticated and [facility]
--- NOTE | 2023-02-02 15:48 | XR_ITS ---
PROCEDURE INFORMATION: Exam: XR Left Tibia and Fibula Exam date and time: 02/02/2023 4:20 PM Age: 62 years old Clinical indication: Pain; Foot; Left; Additional info: Wound, pain, swelling infxn TECHNIQUE: Imaging protocol: Radiologic exam of the left tibia and fibula. Views: 2 views. COMPARISON: CR XR ANKLE LT MIN 3V 02/02/2023 4:20 PM FINDINGS: Bones/joints: No evidence of acute fracture or malalignment. Soft tissues: Soft tissue edema noted. IMPRESSION: No evidence of acute osseous abnormality in the left tibia or fibula.
--- NOTE | 2023-02-02 16:56 | HMH.EDGENADL ---
Discharge Plan Disposition Patient Disposition: Xfer Short-Term Hosp Condition: Fair Chief Complaint: Skin/Abscess/Foreign Body Prescriptions Prescriptions: No Action diltiazem HCl 240 mg capsule,extended release 24 hr 240 mg PO DAILY Qty: 30 3RF levothyroxine 75 mcg tablet 75 mcg PO DAILY Qty: 30 3RF metformin 500 mg tablet extended release 24 hr 500 mg PO DAILY Qty: 90 1RF Entresto 49-51 mg tablet 1 tab PO BID 90 Days Qty: 180 0RF atorvastatin 20 mg tablet See Rx Instructions .ROUTE .COMPLEX Qty: 90 0RF Dose Instruction: TAKE 1 TABLET EVERY NIGHT AT BEDTIME FOR CHOLESTEROL Rx Instructions: TAKE 1 TABLET EVERY NIGHT AT BEDTIME FOR CHOLESTEROL Xarelto 20 mg tablet See Rx Instructions .ROUTE .COMPLEX Qty: 90 0RF Dose Instruction: TAKE 1 TABLET EVERY DAY. MUST ADMINISTER WITH EVENING MEAL Rx Instructions: TAKE 1 TABLET EVERY DAY. MUST ADMINISTER WITH EVENING MEAL furosemide 20 mg tablet 20 mg PO DAILY 90 Days Qty: 90 3RF allopurinol 300 mg tablet See Rx Instructions .ROUTE .COMPLEX Qty: 90 3RF Dose Instruction: TAKE 1 TABLET EVERY DAY FOR GOUT Rx Instructions: TAKE 1 TABLET EVERY DAY FOR GOUT digoxin 125 mcg (0.125 mg) tablet See Rx Instructions .ROUTE .COMPLEX Qty: 90 3RF Dose Instruction: TAKE 1 TABLET EVERY DAY FOR ANTIARRHYTHMIC Rx Instructions: TAKE 1 TABLET EVERY DAY FOR ANTIARRHYTHMIC Referrals Follow up/Referrals: Tonny Bean MD [Primary Care Provider] - See instructions Clinical Impressions Clinical Impression: Cellulitis of foot, left, Osteomyelitis Instructions Patient Instructions: DI for Skin Abscess Discharge ED Provider: Yessy Cope General Adult HPI General Chief complaint: Skin/Abscess/Foreign Body Stated complaint: sore of left foot, hx osteo & R BKA Time Seen by Provider: 02/02/23 15:40 Mode of Arrival: EMS Source of Information: Patient, EMS and Medical Record Limitations: Physical Limitations Description of Symptoms (Recalled from ER Triage Doc. by RN): Pt c/o LLE swelling, drainage, and discoloation. There is a diabetic ulcer to anterior of left foot. He has BKA of RLE d/t oseto. Pt is blind and cares for himself most of the time. He noticed last night that his LLE was having a lot od wound draining. Denies any body aches, fever, or chills. Reports appetite is good. He is on Xarelto for his chronic afib. History of Present Illness HPI narrative: This patient is a 62-year-old male with a history of diabetic foot wound status post right BKA, poorly controlled type 2 diabetes, peripheral arterial disease, tobacco use disorder, obesity, atrial fibrillation on Xarelto, CHF, hypertension, and hyperlipidemia presenting to the emergency department for evaluation with concern that he has a possibly infected left foot wound. Patient was seen by his primary care provider today for a foot wound that he reports popped up over the last few days. He states that it was not there previously. He states that his primary care provider told him that it was probably infected and he should come to the emergency department. He denies any fevers, chills, or systemic symptoms. He states that he is having left leg pain and foul-smelling drainage. No other concerns noted at this time. On medical review, he has been seen by podiatry here in the past for his right foot wounds, and he was deemed to be a poor surgical candidate given his cardiac history. It was recommended at that time that should he have any issues like this, he be sent to higher level of care, such as or [place]. Related Data Previous Rx's Medication Instructions Recorded diltiazem HCl 240 mg capsule,24 240 mg PO DAILY #30 caps 10/15/21 hr,extended release levothyroxine 75 mcg tablet 75 mcg PO DAILY synthroid #30 tabs 10/15/21 metformin 500 mg tablet,extended 500 mg PO DAILY #90 tabs 09/12/22 release 24 hr sacubitril 49 mg
--- NOTE | 2023-02-02 17:13 | PC.NURSE ---
Labs delayed d/t difficulty obtaining IV and labs. Lab notified to obtain blood cultures.
[2023-02-02 17:15] LABS: Basophils # 0.1 K/mm3 (0-0.2); Basophils % 0.7 % (0.1-2.0); Eosinophils # 0.1 K/mm3 (0.0-0.4); Hematocrit 43.2 % (42.0-52.0); Hemoglobin 14.8 g/dL (14.1-18.0); Mean Corpuscular HGB Conc 34.2 g/dL (31.8-35.4); Mean Corpuscular Hemoglobin 31.8 pg (27.0-31.2); Mean Platelet Volume 9.3 fl (7.4-10.4); Monocytes # 0.8 K/mm3 (0.1-1.0); Monocytes % 8.6 % (1.7-9.3); Neutrophils # 7.9 K/mm3 (1.8-7.8); Neutrophils % 79.8 % (37.0-80.0); Platelet Count 282 K/mm3 (142-424); Red Blood Count 4.64 M/mm3 (4.60-6.20); Red Cell Distribution Width 13.7 % (11.5-17.5); White Blood Count 9.8 K/mm3 (4.8-10.8)
[2023-02-02 17:18] LABS: Chloride 99 mmol/L (98-107); Potassium 3.8 mmoL/L (3.5-5.1); Sodium 133 mmol/L (136-145)
[2023-02-02 17:21] LABS: Alanine Aminotransferase 23 U/L (12-78); Albumin Level 3.2 g/dl (3.5-5.0); Alkaline Phosphatase 100 U/L (38-126); Anion Gap 8.8 mEq/L (5-15); Aspartate Amino Transferase 24 U/L (17-59); Blood Urea Nitrogen 17 mg/dl (9-20); Carbon Dioxide 29 mmol/L (22.0-30.0); Creatinine Clearance Estimated 97 mL/min (50-200); Estimated Glomerular Filt Rate 61 ml/min (>60); GFR (African American) 74 ML/MIN (>60); Globulin 3.3 g/dL (1.3-3.2); Total Protein,Serum 6.5 g/dl (6.3-8.2)
[2023-02-02 17:22] LABS: Glucose 127 mg/dl (74-100)
[2023-02-02 17:23] LABS: INR 1.12 (0.9-1.1)
[2023-02-02 17:26] LABS: C-Reactive Protein 122.7 mg/L (0-4)
[2023-02-02 17:39] LABS: Hemoglobin A1C 6.6 % (4.0-6.0)
[2023-02-02 17:47] LABS: Lactic Acid 1.1 mmol/L (0.7-2.1)
[2023-02-02 17:56] LABS: Erythrocyte Sedimentation Rate 86 mm/hr (0-20)
--- NOTE | 2023-02-02 18:19 | PC.NURSE ---
called vascular surgery at [facility] per Dr Candelario request with pts brother. yardage caller Dr Quarles called back and is spreaking with Dr Cope.
--- NOTE | 2023-02-02 18:21 | PC.NURSE ---
Called for disc from Radiology
--- NOTE | 2023-02-02 20:08 | PC.NURSE ---
nurse on phone giving report at this time to gurvinder nguyễn
--- NOTE | 2023-02-02 20:17 | PC.NURSE ---
notified EMS that pt is ready for transported to [facility] 8th floor room 810
== END 2023-02-02 21:51 | disposition short-term general hospital (02) ==
PROVIDERS: Emergency Provider Emergency Medicine; PCP Family Medicine
DX: E11.621 Type 2 diabetes mellitus with foot ulcer (principal); L03.116 Cellulitis of left lower limb; M86.172 Other acute osteomyelitis, left ankle and foot; E87.1 Hypo-osmolality and hyponatremia; I73.9 Peripheral vascular disease, unspecified; J44.9 Chronic obstructive pulmonary disease, unspecified; F17.210 Nicotine dependence, cigarettes, uncomplicated; E66.9 Obesity, unspecified; I48.0 Paroxysmal atrial fibrillation; I11.0 Hypertensive heart disease with heart failure; I50.9 Heart failure, unspecified; E78.5 Hyperlipidemia, unspecified; Z79.84 Long term (current) use of oral hypoglycemic drugs; Z89.511 Acquired absence of right leg below knee; Z79.01 Long term (current) use of anticoagulants; L97.529 Non-pressure chronic ulcer of other part of left foot with unspecified severity
CPT/HCPCS: 36415; 73590; 73610; 73630; 80053; 83036; 83605; 85025; 85610; 85651; 86140; 87040; 93971; 96365; 96366; 96367; 99285; J2543

== ENCOUNTER 2023-03-09 20:47 | Outpatient (CLI) | payer MEDICARE, SELFPAY ==
[2023-03-09 18:43] LABS: Basophils # 0.1 K/mm3 (0-0.2); Basophils % 0.9 % (0.1-2.0); Eosinophils # 0.3 K/mm3 (0.0-0.4); Eosinophils % 4.2 % (0.1-12.0); Hemoglobin 10.3 g/dL (14.1-18.0); Lymphocytes # 1.5 K/mm3 (0.7-4.5); Lymphocytes % 19.4 % (10-50); Mean Corpuscular HGB Conc 32.2 g/dL (31.8-35.4); Mean Corpuscular Hemoglobin 30.6 pg (27.0-31.2); Mean Corpuscular Volume 95.2 fl (80-94); Mean Platelet Volume 8.8 fl (7.4-10.4); Monocytes # 0.5 K/mm3 (0.1-1.0); Monocytes % 6.9 % (1.7-9.3); Neutrophils # 5.3 K/mm3 (1.8-7.8); Neutrophils % 68.6 % (37.0-80.0); Platelet Count 480 K/mm3 (142-424); Red Blood Count 3.36 M/mm3 (4.60-6.20); Red Cell Distribution Width 16.3 % (11.5-17.5); White Blood Count 7.7 K/mm3 (4.8-10.8)
[2023-03-09 19:00] LABS: Chloride 106 mmol/L (98-107); Potassium 3.3 mmoL/L (3.5-5.1); Sodium 139 mmol/L (136-145)
[2023-03-09 19:03] LABS: Anion Gap 11.3 mEq/L (5-15); Blood Urea Nitrogen 13 mg/dl (9-20); Calcium 8.3 mg/dl (8.4-10.2); Carbon Dioxide 25 mmol/L (22.0-30.0); Estimated Glomerular Filt Rate 75 ml/min (>60); GFR (African American) 91 ML/MIN (>60); Glucose 97 mg/dl (74-100)
== END 2023-03-09 23:59 ==
LOC: LAB.DROPOF 20:48
PROVIDERS: PCP Family Medicine; Visit Provider Family Medicine
DX: D64.9 Anemia, unspecified (principal); E11.9 Type 2 diabetes mellitus without complications; Z79.84 Long term (current) use of oral hypoglycemic drugs
CPT/HCPCS: 80048; 85025

== ENCOUNTER 2023-03-20 11:46 | Emergency (ER) | payer MEDICARE, SELFPAY ==
[2023-03-20 11:47] VITALS: BP 180/77; PULSE 68; RESP 18; TEMP 36.7; O2SAT 100; BMI 31.6
[2023-03-20 12:01] VITALS: BP 180/77; PULSE 72; RESP 20; O2SAT 99
--- NOTE | 2023-03-20 12:25 | PC.NURSE ---
DR FULLER AT BEDSIDE
[2023-03-20 12:31] VITALS: BP 174/74; PULSE 71; RESP 20; O2SAT 100
[2023-03-20 13:01] VITALS: BP 178/89; PULSE 64; RESP 20; O2SAT 99
--- NOTE | 2023-03-20 13:01 | ED_ITS ---
Discharge Plan Disposition Patient Disposition: Home, Self-Care Condition: Good Prescriptions Prescriptions: No Action diltiazem HCl 240 mg capsule,extended release 24 hr 240 mg PO DAILY Qty: 30 3RF levothyroxine 75 mcg tablet 75 mcg PO DAILY Qty: 30 3RF atorvastatin 40 mg tablet 40 mg PO HS clopidogrel 75 mg tablet 75 mg PO DAILY omeprazole 40 mg capsule,delayed release(DR/EC) 40 mg PO BID oxycodone 5 mg tablet 5 mg PO TID PRN (Reason: pain) Entresto 97-103 mg tablet 1 tab PO BID metformin 500 mg tablet extended release 24 hr 500 mg PO DAILY Qty: 90 1RF Xarelto 20 mg tablet See Rx Instructions .ROUTE .COMPLEX Qty: 90 0RF Dose Instruction: TAKE 1 TABLET EVERY DAY. MUST ADMINISTER WITH EVENING MEAL Rx Instructions: TAKE 1 TABLET EVERY DAY. MUST ADMINISTER WITH EVENING MEAL furosemide 20 mg tablet 20 mg PO DAILY 90 Days Qty: 90 3RF allopurinol 300 mg tablet See Rx Instructions .ROUTE .COMPLEX Qty: 90 3RF Dose Instruction: TAKE 1 TABLET EVERY DAY FOR GOUT Rx Instructions: TAKE 1 TABLET EVERY DAY FOR GOUT digoxin 125 mcg (0.125 mg) tablet See Rx Instructions .ROUTE .COMPLEX Qty: 90 3RF Dose Instruction: TAKE 1 TABLET EVERY DAY FOR ANTIARRHYTHMIC Rx Instructions: TAKE 1 TABLET EVERY DAY FOR ANTIARRHYTHMIC potassium chloride 10 mEq tablet extended release 10 meq PO DAILY Qty: 30 3RF nicotine 21 mg/24 hr patch 24 hour 1 patch transdermal DAILY Qty: 28 1RF fluconazole 150 mg tablet 150 mg PO Q3D 0 Days Qty: 2 0RF Referrals Follow up/Referrals: Tonny Bean MD [Primary Care Provider] - See instructions Activity Restrictions/Add. Instructions Additional Instructions/Restrictions: You were evaluated in the emergency department today. Please follow-up with your surgeon who performed the amputation of your foot over the next 3 days for wound reassessment. Continue with wound care at home as previously instructed. Return to the emergency department for new or worsening symptoms. Clinical Impressions Clinical Impression: Postoperative wound hemorrhage Instructions Patient Instructions: How to Care for a Surgical Wound Discharge ED Provider: Yessy Cope General Adult HPI General Chief complaint: Skin/Abscess/Foreign Body Stated complaint: foot pain Time Seen by Provider: 03/20/23 12:02 Mode of Arrival: EMS Source of Information: Patient and EMS Limitations: No Limitations Description of Symptoms (Recalled from ER Triage Doc. by RN): PT BROUGHT VIA EMS FOR BLEEDING OF LEFT GREAT TOE AMPUTATION SITE. NO BLEEDING NOTED AT SITE, PEA- SIZED AREA NOTED TO 2ND TOE WITH DRIED BLOOD AROUND SITE. PT DENIES PAIN. NO ACTIVE BLEEDING History of Present Illness HPI narrative: This patient is a 62-year-old male with a history of diabetic foot wound status post right BKA, poorly controlled type 2 diabetes, peripheral arterial disease, tobacco use disorder, obesity, atrial fibrillation on Xarelto, CHF, hypertension, and hyperlipidemia with recent amputation of his left great toe presenting with bleeding from the site. Bleeding started at home with the dressing change with home health and they were unable to get it to stop. Given this, EMS was called. EMS noted that the wound has been hemostatic en route. Patient states that the foot has been doing fine. He had no significant pain or other concerns. This is the first time that they had had any issues. Upon arrival, the wound is hemostatic with no active bleeding. Patient denies any other concerns or complaints and states that he has otherwise been doing well. Related Data Home Medications Medication Instructions Recorded Confirmed atorvastatin 40 mg tablet 40 mg PO HS Cholesterol 03/09/23 03/09/23 clopidogrel 75 mg tablet 75 mg PO DAILY 03/09/23 03/09/23 omeprazole 40 mg capsule,delayed 40 mg PO BID 03/09/23 03/09/23 release oxycodone 5 mg tablet 5 mg PO TID PRN pain 03/09/23 03/09/23 sacubitril 97 mg-valsartan 103 mg 1 tab PO BID 03/09/23 03/09/23 tablet (Entresto) Previous Rx's Medication Instructions Recorded diltiazem HCl 240 mg capsule,24 240 mg PO DAILY #30 caps 10/15/21 hr,extended release levothyroxine 75 mcg tablet 75 mcg PO DAILY synthroid #30 tabs 10/15/21 metformin 500 mg tablet,extended 500 mg PO DAILY #90 tabs 09/12/22 release 24 hr rivaroxaban 20 mg tablet (Xarelto) See Rx Instructions .Route 12/06/22 .COMPLEX #90 tabs furosemide 20 mg tablet 20 mg PO DAILY 90 days #90 tabs 01/17/23 allopurinol 300 mg tablet See Rx Instructions .Route 01/18/23 .COMPLEX #90 tabs digoxin 125 mcg (0.125 mg) tablet See Rx Instructions .Route 01/18/23 .COMPLEX #90 tabs fluconazole 150 mg tablet 150 mg PO Q3D 2 doses #2 tabs 03/10/23 nicotine 21 mg/24 hr daily 1 patch transdermal DAILY #28 ea 03/10/23 transdermal patch potassium chloride 10 mEq 10 meq PO DAILY #30 tabs 03/10/23 tablet,extended release Allergies Allergy/AdvReac Type Severity Reaction Status Date / Time [id number] Reductase Allergy Verified 03/10/23 08:44 Inhibitor PFSH [facility] Disclaimer: The information contained in this section may have been updated after the patient was seen, as this information can be updated by other users. 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 History of amputation of toe History of osteomyelitis HLD (hyperlipidemia) HTN (hypertension) Hypokalemia Lymphedema Lymphedema of both lower extremities Neuropathy Normal colonoscopy Onychodystrophy Onychogryphosis Onychomycosis Osteomyelitis Osteomyelitis of right foot PAD (peripheral artery disease) Sepsis Tobacco use disorder Varicose veins of both legs with edema Surgical History H/O eye surgery H/O heart artery stent History of colon surgery Family History Father Liver disease Other No significant family history Social History Smoking Status: Current every day smoker tobacco type: cigarettes packs per day: 1 alcohol intake: never substance use type: denies use current occupational status: unemployed and disabled Travel in the last 8 weeks: None household members: none housing: house lives independently: Yes ROS Obtained: Yes All systems reviewed & no additional complaints except as documented Physical Exam General General appearance: alert and in no apparent distress Head Head exam: atraumatic and normocephalic Eye Eye exam: Present normal appearance, PERRL and EOMI ENT ENT exam: Present normal exam, normal oropharynx, mucous membranes moist and normal external ear exam Neck Neck exam: Present normal inspection, full ROM and trachea midline; Absent tenderness Chest Chest inspection: Present normal inspection and symmetric chest wall rise; Absent tenderness Respiratory Respiratory exam: Present normal lung sounds bilaterally; Absent respiratory distress, wheezes, stridor or accessory muscle use Cardiovascular Cardiovascular exam: Present regular rate and normal rhythm Abdominal Exam Abdominal exam: Present soft; Absent distention, tenderness or guarding Extremities Exam Extremities exam: Present full ROM and normal capillary refill; Absent tenderness or edema Expanded Lower Extremity Exam Left: Foot/toe exam: Present other (site of L great toe amputation has minimal dried blood without active oozing. No surrounding erythema, warmth, purulence, or induration.) Back Exam Back exam: Present normal inspection and full ROM; Absent tenderness Neurological Exam Neurological exam: Present alert and oriented X3; Absent motor sensory deficit Psychiatric Psychiatric exam: Present normal affect and normal mood Skin Skin exam: Present warm and dry Medical Decision Making Medical Records Medical records reviewed: Yes I reviewed the patient's medical records. Mendez Inquiry Pt receiving controlled substance: No Vital Signs: 03/20/23 11:47 03/20/23 12:01 03/20/23 12:31 Temperature 98.0 F Temperature Source Oral Pulse Rate 72 71 Pulse Rate [Radial] 68 Respiratory Rate 18 20 20 Blood Pressure 180/77 H 174/74 H Blood Pressure [Right Arm] 180/77 H Blood Pressure Mean 111 107 Blood Pressure Mean [Right Arm] 111 Blood Pressure Source Blood Pressure Source [Right Arm] Automatic Cuff Blood Pressure Position Blood Pressure Position [Right Arm] Sitting 02 Sat by Pulse Oximetry 100 99 100 Oxygen Delivery Method Room Air 03/20/23 13:01 03/20/23 13:31 03/20/23 14:08 Temperature 98.1 F Temperature Source Oral Pulse Rate 64 60 64 Pulse Rate [Radial] Respiratory Rate 20 20 18 Blood Pressure 178/89 H 139/121 H 169/85 H Blood Pressure [Right Arm] Blood Pressure Mean 100 127 Blood Pressure Mean [Right Arm] Blood Pressure Source Automatic Cuff Blood Pressure Source [Right Arm] Blood Pressure Position Sitting Blood Pressure Position [Right Arm] 02 Sat by Pulse Oximetry 99 98 Oxygen Delivery Method Room Air Lab Data Lab results reviewed: Yes I reviewed the patient's lab results. Orders (Tests/Meds): ED MEDICATIONS Discontinued Medications Generic Name Dose Route Start Last Admin Trade Name Vipin PRN Reason Stop Dose Admin Bacitracin 1 gm 03/20/23 12:41 03/20/23 13:31 Bacitracin Zinc Oint 30gm Tube TP 03/20/23 12:42 1 gm ONCE ONE Administration Medical Decision Narrative: In summary, this patient is a 62-year-old male presenting to the Emergency Department for evaluation of bleeding from left foot wound that has resolved. Differential diagnoses considered include but are not limited to wound dehiscence, vascular injury, wound infection. Ruling out the most morbid conditions drove assessment. On exam, the patient is well-appearing. His vitals are reassuring on cardiac telemetry. His wound is clean and dry with minimal dried blood on small portion of the wound. No active bleeding at this time. No surrounding erythema, warmth, or purulence that would be concerning for infection. 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 I doubt he lost any significant amount of blood given a very short time period of bleeding, and I do not have concerns for infection based on clinical exam. He has outpatient follow-up with the surgeon arranged already. Wound care was performed, and the patient was deemed appropriate for discharge. He was given strict return precautions and was discharged in stable condition after all questions were answered. Critical Care Critical Care Time Critical Care Time: No
--- NOTE | 2023-03-20 13:16 | PC.NURSE ---
SPOKE WITH EMS, UNABLE TO TRANSPORT PT BACK HOME HE HAS NO ONE TO CARE FOR HIM, PT IS RIGHT BKA, AND RECENT SURGERY TO LEFT FOOT, WITH LEFT GREAT TOE AMPUTATION. PT BROUGHT VIA [facility]. NO WHEEL CHAIR AND FAMILY IS OUT OF TOWN. SPOKE WITH LEANN WITH [facility] TO ARRANGE TRANSFER BACK HOME. PT DOESN'T QUALIFY FOR [employer] [facility]. PT DOES NOT HAVE WHEELCHAIR AND CANNOT AMBULATE ALONE. LEANN WILL ATTEMPT TO CONTACT [facility] [email or web address] [facility] FOR HELP WITH TRANSPORT
--- NOTE | 2023-03-20 13:19 | PC.NURSE ---
Called Brother for transport home from ER. Stated that they are several states away and asked us to call [employer] [facility].
[2023-03-20 13:31] VITALS: BP 139/121; PULSE 60; RESP 20; O2SAT 98
[2023-03-20] MEDS: BACITRACIN ZINC OINT 30GM TUBE TP (13:31)
[2023-03-20 14:08] VITALS: BP 169/85; PULSE 64; RESP 18; TEMP 36.7; O2SAT 99
== END 2023-03-20 14:30 | disposition home or self-care (01) ==
PROVIDERS: Emergency Provider Emergency Medicine; PCP Family Medicine
DX: L76.22 Postprocedural hemorrhage of skin and subcutaneous tissue following other procedure (principal); E11.621 Type 2 diabetes mellitus with foot ulcer; I73.9 Peripheral vascular disease, unspecified; F17.210 Nicotine dependence, cigarettes, uncomplicated; I48.0 Paroxysmal atrial fibrillation; I11.0 Hypertensive heart disease with heart failure; I50.9 Heart failure, unspecified; E78.5 Hyperlipidemia, unspecified; Z79.01 Long term (current) use of anticoagulants; Z79.84 Long term (current) use of oral hypoglycemic drugs; L97.529 Non-pressure chronic ulcer of other part of left foot with unspecified severity
CPT/HCPCS: 99283

== ENCOUNTER 2023-05-02 16:51 | Outpatient (CLI) | payer MEDICARE, SELFPAY ==
[2023-05-02 16:46] LABS: Basophils # 0.1 K/mm3 (0-0.2); Basophils % 1.5 % (0.1-2.0); Eosinophils # 0.2 K/mm3 (0.0-0.4); Hematocrit 51.3 % (42.0-52.0); Hemoglobin 15.7 g/dL (14.1-18.0); Lymphocytes # 1.2 K/mm3 (0.7-4.5); Lymphocytes % 15.2 % (10-50); Mean Corpuscular HGB Conc 30.5 g/dL (31.8-35.4); Mean Corpuscular Volume 95.1 fl (80-94); Mean Platelet Volume 9.2 fl (7.4-10.4); Monocytes # 0.5 K/mm3 (0.1-1.0); Monocytes % 6.4 % (1.7-9.3); Neutrophils # 5.6 K/mm3 (1.8-7.8); Neutrophils % 74.9 % (37.0-80.0); Platelet Count 291 K/mm3 (142-424); Red Cell Distribution Width 15.1 % (11.5-17.5); White Blood Count 7.5 K/mm3 (4.8-10.8)
[2023-05-02 16:49] LABS: Albumin Level 3.7 g/dl (3.5-5.0); Albumin/Globulin Ratio 1.4 (1.1-1.8); Alkaline Phosphatase 124 U/L (38-126); Anion Gap 11.9 mEq/L (5-15); Bilirubin,Total 0.5 mg/dl (0.2-1.3); Blood Urea Nitrogen 13 mg/dl (9-20); Calcium 9.1 mg/dl (8.4-10.2); Carbon Dioxide 29 mmol/L (22.0-30.0); Chloride 103 mmol/L (98-107); Estimated Glomerular Filt Rate 61 ml/min (>60); GFR (African American) 74 ML/MIN (>60); Globulin 2.6 g/dL (1.3-3.2); Glucose 143 mg/dl (74-100); Potassium 3.9 mmoL/L (3.5-5.1); Sodium 140 mmol/L (136-145); Total Protein,Serum 6.3 g/dl (6.3-8.2)
[2023-05-02 17:20] LABS: Thyroid Stimulating Hormone 3.52 uIU/mL (0.465-4.68)
[2023-05-02 17:41] LABS: Alanine Aminotransferase 19 U/L (12-78); Aspartate Amino Transferase 38 U/L (17-59)
[2023-05-02 17:59] LABS: Hemoglobin A1C 6.2 % (4.0-6.0)
== END 2023-05-02 23:59 ==
LOC: LAB.DROPOF 16:51
PROVIDERS: PCP Family Medicine; Visit Provider Family Medicine
DX: E11.9 Type 2 diabetes mellitus without complications (principal); Z79.84 Long term (current) use of oral hypoglycemic drugs
CPT/HCPCS: 80053; 83036; 84443; 85025

== ENCOUNTER 2023-08-01 18:00 | Outpatient (CLI) | payer MEDICARE, SELFPAY ==
[2023-08-01 16:42] LABS: Basophils # 0.1 K/mm3 (0-0.2); Basophils % 1.3 % (0.1-2.0); Eosinophils # 0.2 K/mm3 (0.0-0.4); Eosinophils % 2.8 % (0.1-12.0); Hemoglobin 16.2 g/dL (14.1-18.0); Lymphocytes # 1.4 K/mm3 (0.7-4.5); Lymphocytes % 16.4 % (10-50); Mean Corpuscular HGB Conc 31.2 g/dL (31.8-35.4); Mean Corpuscular Hemoglobin 28.9 pg (27.0-31.2); Mean Corpuscular Volume 92.6 fl (80-94); Mean Platelet Volume 9.9 fl (7.4-10.4); Monocytes # 0.6 K/mm3 (0.1-1.0); Monocytes % 7.2 % (1.7-9.3); Neutrophils % 72.3 % (37.0-80.0); Platelet Count 236 K/mm3 (142-424); Red Blood Count 5.62 M/mm3 (4.60-6.20); Red Cell Distribution Width 17.4 % (11.5-17.5); White Blood Count 8.2 K/mm3 (4.8-10.8)
[2023-08-01 16:51] LABS: Alanine Aminotransferase 21 U/L (12-78); Albumin Level 3.5 g/dl (3.5-5.0); Albumin/Globulin Ratio 1.3 (1.1-1.8); Alkaline Phosphatase 94 U/L (38-126); Anion Gap 11.1 mEq/L (5-15); Aspartate Amino Transferase 25 U/L (17-59); Bilirubin,Total 1.3 mg/dl (0.2-1.3); Blood Urea Nitrogen 14 mg/dl (9-20); Carbon Dioxide 29 mmol/L (22.0-30.0); Chloride 103 mmol/L (98-107); Chol/HDL Ratio 5.7 (1-3.5); Cholesterol 164 mg/dl (140-200); Estimated Glomerular Filt Rate 56 ml/min (>60); GFR (African American) 67 ML/MIN (>60); Globulin 2.8 g/dL (1.3-3.2); Glucose 128 mg/dl (74-100); HDL Cholesterol 29 mg/dl (40-60); Potassium 4.1 mmoL/L (3.5-5.1); Sodium 139 mmol/L (136-145); Total Protein,Serum 6.3 g/dl (6.3-8.2); Triglycerides 170 mg/dl (30-150); VLDL Cholesterol 34 mg/dL (0-40)
[2023-08-01 17:02] LABS: Direct LDL Cholesterol 106.72 mg/dL (100-129)
[2023-08-01 17:21] LABS: Thyroid Stimulating Hormone 3.84 uIU/mL (0.465-4.68)
[2023-08-01 18:46] LABS: Hemoglobin A1C 6.9 % (4.0-6.0)
== END 2023-08-01 23:59 | disposition home or self-care (01) ==
LOC: LAB.DROPOF 08-02 08:19
PROVIDERS: PCP Family Medicine; Visit Provider Family Medicine
DX: I10 Essential (primary) hypertension (principal); E78.5 Hyperlipidemia, unspecified; E11.9 Type 2 diabetes mellitus without complications; Z79.84 Long term (current) use of oral hypoglycemic drugs; F17.210 Nicotine dependence, cigarettes, uncomplicated
CPT/HCPCS: 80050; 80053; 80061; 83036; 84443; 85025

== ENCOUNTER 2024-05-17 09:44 | Outpatient (CLI) | payer MEDICARE, SELFPAY ==
[2024-05-17 16:55] LABS: Basophils # 0.1 K/mm3 (0-0.2); Basophils % 1.3 % (0.1-2.0); Eosinophils # 0.2 K/mm3 (0.0-0.4); Eosinophils % 1.9 % (0.1-12.0); Hematocrit 50.3 % (42.0-52.0); Hemoglobin 15.5 g/dL (14.1-18.0); Lymphocytes # 1.5 K/mm3 (0.7-4.5); Lymphocytes % 15.8 % (10-50); Mean Corpuscular HGB Conc 30.8 g/dL (31.8-35.4); Mean Corpuscular Volume 94.2 fl (80-94); Monocytes # 0.7 K/mm3 (0.1-1.0); Monocytes % 7.3 % (1.7-9.3); Neutrophils # 6.9 K/mm3 (1.8-7.8); Neutrophils % 73.3 % (37.0-80.0); Platelet Count 280 K/mm3 (142-424); Red Blood Count 5.34 M/mm3 (4.60-6.20); White Blood Count 9.4 K/mm3 (4.8-10.8)
[2024-05-17 17:13] LABS: Alanine Aminotransferase 16 U/L (12-78); Albumin Level 3.3 g/dl (3.5-5.0); Albumin/Globulin Ratio 1.1 (1.1-1.8); Alkaline Phosphatase 112 U/L (38-126); Anion Gap 12.1 mEq/L (5-15); Aspartate Amino Transferase 21 U/L (17-59); Bilirubin,Total 0.7 mg/dl (0.2-1.3); Blood Urea Nitrogen 22 mg/dl (9-20); Carbon Dioxide 27 mmol/L (22.0-30.0); Chloride 104 mmol/L (98-107); Chol/HDL Ratio 5.6 (1-3.5); Cholesterol 156 mg/dl (140-200); Estimated Glomerular Filt Rate 51 ml/min (>60); GFR (African American) 62 ML/MIN (>60); Globulin 2.9 g/dL (1.3-3.2); Glucose 111 mg/dl (74-100); HDL Cholesterol 28 mg/dl (40-60); Potassium 4.1 mmoL/L (3.5-5.1); Sodium 139 mmol/L (136-145); Total Protein,Serum 6.2 g/dl (6.3-8.2); Triglycerides 144 mg/dl (30-150); VLDL Cholesterol 29 mg/dL (0-40)
[2024-05-17 17:23] LABS: Direct LDL Cholesterol 96.93 mg/dL (100-129)
[2024-05-17 17:43] LABS: Prostate Specific Ag Screen 2.4 ng/ml (0.0-4.0); Thyroid Stimulating Hormone 4.29 uIU/mL (0.465-4.68)
[2024-05-17 18:01] LABS: Hepatitis C Ab Qual. W/ RFX NEGATIVE (Negative)
[2024-05-17 18:16] LABS: Hemoglobin A1C 6.3 % (4.0-6.0)
[2024-05-17 18:34] LABS: HIV Combo NEGATIVE (Negative)
== END 2024-05-17 23:59 | disposition home or self-care (01) ==
LOC: LAB.DROPOF 05-18 11:57
PROVIDERS: PCP Family Medicine; Visit Provider Family Medicine
DX: E11.9 Type 2 diabetes mellitus without complications (principal); Z12.5 Encounter for screening for malignant neoplasm of prostate; Z11.59 Encounter for screening for other viral diseases
CPT/HCPCS: 80053; 80061; 80162; 83036; 84443; 85025; 86803; 87389; G0103

== ENCOUNTER 2024-07-17 13:48 | Emergency (ER) | payer MEDICARE, SELFPAY ==
[2024-07-17] VITALS (8 sets, daily range): BP systolic 168–197; BP diastolic 75–102; PULSE 68–80; RESP 18–20; TEMP 36.8; O2SAT 95–98; BMI 30.7
[2024-07-17 14:33] LABS: Basophils # 0.1 K/mm3 (0-0.2); Basophils % 0.9 % (0.1-2.0); Eosinophils # 0.2 Kmm3 (0.0-0.4); Eosinophils % 2.1 % (0.1-12.0); Hematocrit 44.4 % (42.0-52.0); Hemoglobin 14.3 g/dL (14.1-18.0); Immature Granulocytes # 0.05 10^3uL; Immature Granulocytes % 0.6 %; Lymphocytes # 1.5 K/mm3 (0.7-4.5); Lymphocytes % 16.8 % (10-50); Mean Corpuscular HGB Conc 32.2 g/dL (31.8-35.4); Mean Corpuscular Hemoglobin 29.5 pg (27.0-31.2); Mean Corpuscular Volume 91.5 fl (80-94); Mean Platelet Volume 9.7 fl (7.4-10.4); Monocytes # 0.5 K/mm3 (0.1-1.0); Monocytes % 6.3 % (1.7-9.3); Neutrophils # 6.3 K/mm3 (1.8-7.8); Neutrophils % 73.3 % (37.0-80.0); Nucleated Red Blood Cells # 0 10^3/uL; Nucleated Red Blood Cells % 0 %; Platelet Count 266 K/mm3 (142-424); Red Blood Count 4.85 M/mm3 (4.60-6.20); Red Cell Distribution Width 14.3 % (11.5-17.5); Red Cell Distribution Width-SD 47.7 fL; White Blood Count 8.6 K/mm3 (4.8-10.8)
[2024-07-17 14:35] LABS: VBG Base Excess 0.9 mmol/L (-2.4-2.3); VBG HCO3 26.3 mmol/L (23-30); VBG Oxygen Saturation 92.1 % (50-70); VBG PCO2 47.4 mmol/L (35-51); VBG PH 7.36 mmol/L (7.31-7.41); VBG Total CO2 27.8 mmol/L (23-27)
[2024-07-17 14:39] LABS: Microscopic, Urine URINE MICROSCOPIC (MICROSCOPIC)
[2024-07-17 14:40] LABS: Appearance,Urine CLEAR (Clear); Bilirubin,Urine Negative (Negative); Blood, Urine 1+ (Negative); Color,Urine YELLOW (Yellow); Glucose,Urine (UA) TRACE (Negative); Ketones,Urine Negative (Negative); Leukocyte Esterase,Urine Negative (Negative); Nitrate,Urine Negative (Negative); PH,Urine 6.5 (5.0-8.5); Protein,Urine 3+ (Negative); Urobilinogen,Urine 0.2 EU/dl (0.2)
--- NOTE | 2024-07-17 14:42 | XR_ITS ---
FINAL REPORT TECHNIQUE: Single view chest CLINICAL HISTORY: cough COMPARISON: 10/23/2020 FINDINGS: A single view of the chest was obtained. The heart and mediastinum are within normal limits. There are mild increased interstitial markings which could represent mild edema or interstitial pneumonia. There is no pneumothorax. IMPRESSION: Mildly increased interstitial markings which could represent mild edema or interstitial pneumonia. Recommend follow-up. Reviewed, Interpreted and Dictated by Claudia Long MD Transcribed by Shannan Deng Authenticated and [facility]
--- NOTE | 2024-07-17 14:42 | ED_ITS ---
<Statement entered by Yessy Cope DO - 07/18/24 07:06> I was consulted by the LISA, and we discussed the complexity of the problems being addressed. I approved the treatment and management plan for this patient's care in the emergency department, thus performing a substantive portion of the medical decision making. Yessy Cope DO Discharge Plan Disposition Patient Disposition: Home, Self-Care Prescriptions Prescriptions: New clindamycin HCl [Cleocin HCl] 300 mg capsule 300 mg PO BID 7 Days Qty: 14 0RF No Action levothyroxine 75 mcg tablet 75 mcg PO DAILY Qty: 30 3RF omeprazole 40 mg capsule,delayed release(DR/EC) 40 mg PO BID Entresto 97-103 mg tablet 1 tab PO BID 90 Days Qty: 180 2RF mupirocin 2 % ointment 1 applic topical BID Qty: 50 2RF glipizide 2.5 mg tablet 2.5 mg PO DAILY Qty: 90 3RF metformin 500 mg tablet extended release 24 hr 1,000 mg PO DAILY 90 Days Qty: 180 0RF digoxin 125 mcg (0.125 mg) tablet See Rx Instructions .ROUTE .COMPLEX Qty: 90 0RF Dose Instruction: TAKE 1 TABLET EVERY DAY FOR ANTIARRHYTHMIC Rx Instructions: TAKE 1 TABLET EVERY DAY FOR ANTIARRHYTHMIC allopurinol 300 mg tablet See Rx Instructions .ROUTE .COMPLEX Qty: 90 0RF Dose Instruction: TAKE 1 TABLET EVERY DAY FOR GOUT Rx Instructions: TAKE 1 TABLET EVERY DAY FOR GOUT atorvastatin 20 mg tablet See Rx Instructions .ROUTE .COMPLEX Qty: 90 0RF Dose Instruction: TAKE 1 TABLET EVERY NIGHT AT BEDTIME FOR CHOLESTEROL Rx Instructions: TAKE 1 TABLET EVERY NIGHT AT BEDTIME FOR CHOLESTEROL Xarelto 20 mg tablet See Rx Instructions .ROUTE .COMPLEX Qty: 90 0RF Dose Instruction: TAKE 1 TABLET EVERY DAY. MUST ADMINISTER WITH EVENING MEAL Rx Instructions: TAKE 1 TABLET EVERY DAY. MUST ADMINISTER WITH EVENING MEAL furosemide 20 mg tablet See Rx Instructions .ROUTE .COMPLEX Qty: 90 3RF Dose Instruction: TAKE 1 TABLET EVERY DAY Rx Instructions: TAKE 1 TABLET EVERY DAY clopidogrel 75 mg tablet See Rx Instructions .ROUTE .COMPLEX Qty: 90 3RF Dose Instruction: TAKE 1 TABLET EVERY DAY Rx Instructions: TAKE 1 TABLET EVERY DAY potassium chloride 10 mEq tablet,ER particles/crystals See Rx Instructions .ROUTE .COMPLEX Qty: 90 3RF Dose Instruction: TAKE 1 TABLET EVERY DAY Rx Instructions: TAKE 1 TABLET EVERY DAY diltiazem HCl 240 mg capsule,extended release 24hr 240 mg PO DAILY Qty: 90 0RF Referrals Follow up/Referrals: Marybel Ferrara MD [Referring, Dermatology] - See instructions Referral Note: Refer to [place] office Provider,MD Marky [Referring, Medical] - See instructions Activity Restrictions/Add. Instructions Additional Instructions/Restrictions: Take antibiotic as directed. Please follow-up with Dr. Ferrara for evaluation of the skin tag/callus on the left second toe. Make appointment for [place] office if this is closer for you. Clinical Impressions Clinical Impression: Skin tag Cellulitis Qualifiers: Site of cellulitis: extremity Site of cellulitis of extremity: lower extremity Laterality: right Qualified Code(s): L03.115 - Cellulitis of right lower limb Instructions Patient Instructions: Cellulitis Print Language Print Language: Citizen Of [place] Discharge ED Provider: Yessy Coep General Adult HPI <Adriane Lyn (ED), GENERATOR SWITCHBOARD OPERATOR - Last Filed: 07/17/24 16:43> General Chief complaint: Extremity Injury, Lower Stated complaint: leg pain Time Seen by Provider: 07/17/24 13:57 Mode of Arrival: EMS Source of Information: Patient Description of Symptoms (Recalled from ER Triage Doc. by RN): pt is here for left lower foot wound and leg redness, pt is blind and gets around with wheelchair, has a right bka, home health staff checked on him today and advised to go to ER History of Present Illness HPI narrative: 63-year-old male presents via EMS for left toe wound and left leg redness. Patient has a right BKA. Home health staff came out and checked on him today and advised him to go to the ER due to his wound on his left toe. It is draining some yellowish-brown drainage and is malodorous. He has no fevers or chills. No nausea, vomiting or diarrhea. No other symptoms. He states that he saw Dr. Oates at the end of the last year for this. He says that it was debrided back in December. He does get around in his home with a wheelchair does live alone but EMS states that he knows all the doorways and gets around very well. He does have a history of hypertension and diabetes. Dr. Bean is his family physician. Related Data Home Medications ?Medication ?Instructions ?Recorded ?Confirmed omeprazole 40 mg capsule,delayed 40 mg PO BID 03/09/23 05/22/24 release Previous Rx's ?Medication ?Instructions ?Recorded levothyroxine 75 mcg tablet 75 mcg PO DAILY synthroid #30 tabs 10/15/21 glipizide 2.5 mg tablet 2.5 mg PO DAILY #90 tabs metformin 500 mg tablet,extended 1,000 mg (2 x 500 mg) PO DAILY 90 04/11/24 release 24 hr days #180 tabs sacubitril 97 mg-valsartan 103 mg 1 tab PO BID 90 days #180 tabs 05/16/24 tablet (Entresto) mupirocin 2 % topical ointment 1 applic topical BID #5 0 grams 05/17/24 allopurinol 300 mg tablet See Rx Instructions .Route 0 06/17/24 .COMPLEX #90 tabs atorvastatin 20 mg tablet See Rx Instructions .Route 0 06/17/24 .COMPLEX #90 tabs digoxin 125 mcg (0.125 mg) tablet See Rx Instructions .Route 06/17/24 .COMPLEX #90 tabs rivaroxaban 20 mg tablet (Xarelto) See Rx Instructions .Route 06/17/24 .COMPLEX #90 tabs clopidogrel 75 mg tablet See Rx Instructions .Route 0 06/18/24 .COMPLEX #90 tabs furosemide 20 mg tablet See Rx Instructions .Route 0 06/18/24 .COMPLEX #90 tabs potassium chloride 10 mEq See Rx Instructions .Route 0 06/18/24 tablet,extended release(part/cryst) .COMPLEX #90 tabs diltiazem HCl 240 mg capsule,24 240 mg PO DAILY #90 ca ps 06/26/24 hr,extended release clindamycin HCl 300 mg capsule 300 mg PO BID 7 days #1 4 caps 07/17/24 (Cleocin HCl) Allergies Allergy/AdvReac Type Severity Reaction Status Date / Time No Known Allergies Allergy Verified 05/22/24 15:05 [facility] <Adriane Lyn (ED), GENERATOR SWITCHBOARD OPERATOR - Last Filed: 07/17/24 16:43> [facility] Disclaimer: The information contained in this section may have been updated after the patient was seen, as this information can be updated by other users. 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, congenital Diabetes mellitus Diverticula, colon Osteomyelitis Amputation below knee right Amputation of right lower extremity Amputation toe Normal colonoscopy Osteomyelitis of right foot Femoral arteriovenous fistula, right HTN (hypertension) HLD (hyperlipidemia) Coronary artery disease PAD (peripheral artery disease) Tobacco use disorder Gangrene associated with type 2 diabetes mellitus Onychomycosis Neuropathy Decreased pedal pulses Onychodystrophy Acquired hammertoes of both feet Onychogryphosis Acute hypoxemic respiratory failure Varicose veins of both legs with edema History of osteomyelitis Lymphedema of both lower extremities Hypokalemia Sepsis Coagulopathy Diabetes Class 2 obesity Blindness Lymphedema Atrial fibrillation Congestive heart failure Acute exacerbation of chronic obstructive airways disease Surgical History History of colon surgery H/O heart artery stent H/O eye surgery History of amputation of toe Family History Father Liver disease Other No significant family history Social History Smoking Status: Current every day smoker tobacco type: cigarettes packs per day: 1 alcohol intake: never substance use type: denies use current occupational status: unemployed and disabled Travel in the last 8 weeks?: None household members: none housing: house lives independently: Yes Other Medical History Have you received the Flu Vaccine for this season: No Have you received the Pneumonia Vaccine: No <Adriane Lyn (ED), GENERATOR SWITCHBOARD OPERATOR - Last Filed: 07/17/24 16:43> ROS Obtained: Yes Systems reviewed as appropriate & no additional complaints except as documented Constitutional Constitutional: Reports as per HPI Physical Exam <Adriane Lyn (ED), GENERATOR SWITCHBOARD OPERATOR - Last Filed: 07/17/24 16:43> General General appearance: alert and in no apparent distress Head Head exam: atraumatic and normocephalic Eye Eye exam: Present normal appearance ENT ENT exam: Present mucous membranes moist Neck Neck exam: Present full ROM and trachea midline Respiratory Respiratory exam: Present normal lung sounds bilaterally Cardiovascular Cardiovascular exam: Present regular rate, normal rhythm, normal heart sounds, +S1 and +S2 Abdominal Exam Abdominal exam: Present soft and normal bowel sounds Extremities Exam Extremities exam: Present edema and other (Right BKA. Left lower extremity edema, erythema and second toe erythema with yellowish-brown drainage and blister) Neurological Exam Neurological exam: Present alert and oriented X3 Skin Skin exam: Present intact, erythema and other (Left lower extremity with erythema, edema and left second toe with blister and yellowish-brownish drainage) Medical Decision Making <Adriane Lyn (ED), GENERATOR SWITCHBOARD OPERATOR - Last Filed: 07/17/24 16:43> Medical Records Medical records reviewed: Yes I reviewed the patient's medical records. Screening: Per USPSTF and CDC recommendations, given the prevalence of disease in our region, it is our hospital?s policy to screen for HIV and viral Hepatitis for all patients aged 18 and over and those with ongoing risk factors. Mendez Inquiry Pt receiving controlled substance: No Mendez was queried for this patient: No Vital Signs: 07/17/24 13:54 07/17/24 14:06 07/17/24 14:14 Temperature 98.3 F Temperature Source Oral Pulse Rate 69 75 Pulse Rate [Left Radial] 68 Respiratory Rate 18 20 18 Blood Pressure 197/79 H 186/80 H Blood Pressure [Right Arm] 197/79 H Blood Pressure Mean 114 117 Blood Pressure Mean [Right Arm] 118 02 Sat by Pulse Oximetry 97 97 97 Oxygen Delivery Method Room Air 07/17/24 14:39 07/17/24 15:02 07/17/24 15:31 Temperature Temperature Source Pulse Rate 71 68 71 Pulse Rate [Left Radial] Respiratory Rate 18 18 18 Blood Pressure 168/92 H 176/102 H 193/75 H Blood Pressure [Right Arm] Blood Pressure Mean 121 111 114 Blood Pressure Mean [Right Arm] 02 Sat by Pulse Oximetry 98 96 95 Oxygen Delivery Method 07/17/24 16:01 07/17/24 16:52 Temperature 98.2 F Temperature Source Pulse Rate 69 80 Pulse Rate [Left Radial] Respiratory Rate 20 Blood Pressure 178/93 H 170/90 H Blood Pressure [Right Arm] Blood Pressure Mean 104 Blood Pressure Mean [Right Arm] 02 Sat by Pulse Oximetry 95 Oxygen Delivery Method Room Air Room Air Lab Data Lab Results 07/17/24 14:20: WBC 8.6, RBC 4.85, Hgb 14.3, Hct 44.4, MCV 91.5, MCH 29.5, MCHC 32.2, RDW 14.3, Plt Count 266, MPV 9.7, Neut % (Auto) 73.3, Lymph % (Auto) 16.8, Leon % (Auto) 6.3, Eos % (Auto) 2.1, Baso % (Auto) 0.9, Neut # (Auto) 6.3, Lymph # (Auto) 1.5, Leon # (Auto) 0.5, Eos # (Auto) 0.2, Baso # (Auto) 0.1, ESR 21 H, Sodium 139, Potassium 3.6, Chloride 105, Carbon Dioxide 29, Anion Gap 8.6, BUN 17, Creatinine 1.40 H, Estimated Creat Clear 77, Estimated GFR 51 L, Est GFR ( Amer) 62, Glucose 104 H, Calcium 8.3 L, Magnesium 1.9, Total Bilirubin 0.7, AST 20, ALT 16, Alkaline Phosphatase 92, C-Reactive Protein 9.4 H, Total Protein 6.0 L, Albumin 3.2 L, Globulin 2.8, Albumin/Globulin Ratio 1.1, Lipase 77 07/17/24 14:30: Urine Color Yellow, Urine Appearance Clear, Urine pH 6.5, Ur Specific [place] 1.020, Urine Protein 3+ A, Urine Glucose (UA) Trace, Urine Ketones Negative, Urine Blood 1+ A, Urine Nitrate Negative, Urine Bilirubin Negative, Urine Urobilinogen 0.2, Ur Leukocyte Esterase Negative, Urine RBC 10- 20, Urine WBC 5-10, Ur Squamous Epith Cells Occasional 07/17/24 14:32: VBG pH 7.36, VBG pCO2 47.4, VBG pO2 65.0 H, VBG HCO3 26.3, VBG Total CO2 27.8 H, VBG O2 Saturation 92.1 H, VBG Base Excess 0.9, VBG Lactic Acid 2.0 07/17/24 14:20 07/17/24 14:20 Orders (Tests/Meds): ORDERS Category Date Time Status Chest XR -- portable [XR chest portable] Stat Exams 07/17/24 14:42 Completed CBC [Complete Blood Count Auto Diff] Stat Lab 07/17/24 14:20 Completed CRP [C-Reactive Protein] Stat Lab 07/17/24 14:20 Completed Comprehensive Metabolic Panel Stat Lab 07/17/24 14:20 Completed Erythrocyte Sedimentation Rate Stat Lab 07/17/24 14:20 Completed Lactate Venous Stat Lab 07/17/24 13:58 Stop Req Lipase Stat Lab 07/17/24 14:20 Completed Magnesium Stat Lab 07/17/24 14:20 Completed Urinalysis and Microscopic Stat Lab 07/17/24 14:30 Completed Blood Culture Stat Micro 07/17/24 14:40 Received Wound Culture and Gram Stain Stat Micro 07/17/24 14:15 Results VBG [Venous Blood Gas] Stat RT 07/17/24 14:32 Completed Medical Decision Narrative: patient is a 63-year-old male presenting to the emergency department for evaluation of left second toe drainage and erythema. Patient is hemodynamically stable and nontoxic-appearing upon arrival, afebrile. Differential diagnosis includes sepsis, lymphedema, cellulitis, among others. Workup will be conducted with hematologic labs, specific imaging, provocative tests. Initial inventions include obtaining wound culture of the left second toe. Initial workup reviewed by me normal white count of 8.6, slightly bumped creatinine of 1.4. Otherwise unremarkable nonactionable labs. Please see radiology report. I discussed case with Dr. Oates who was in the OR but wanted patient to see dermatology for a skin evaluation. We will refer patient out to Dr. Ferrara for evaluation of the skin tag/callus. Also talked to MACHINE PECAN GATHERER who works in podiatry who thinks this may be a skin cancer. Discussed with patient who is okay with this plan. Will place patient on antibiotics for the drainage/erythema of the site. Patient safe for discharge home. <Yessy Cope, DO - Last Filed: 07/18/24 07:06> Vital Signs: 07/17/24 13:54 07/17/24 14:06 07/17/24 14:14 Temperature 98.3 F Temperature Source Oral Pulse Rate 69 75 Pulse Rate [Left Radial] 68 Respiratory Rate 18 20 18 Blood Pressure 197/79 H 186/80 H Blood Pressure [Right Arm] 197/79 H Blood Pressure Mean 114 117 Blood Pressure Mean [Right Arm] 118 02 Sat by Pulse Oximetry 97 97 97 Oxygen Delivery Method Room Air 07/17/24 14:39 07/17/24 15:02 07/17/24 15:31 Temperature Temperature Source Pulse Rate 71 68 71 Pulse Rate [Left Radial] Respiratory Rate 18 18 18 Blood Pressure 168/92 H 176/102 H 193/75 H Blood Pressure [Right Arm] Blood Pressure Mean 121 111 114 Blood Pressure Mean [Right Arm] 02 Sat by Pulse Oximetry 98 96 95 Oxygen Delivery Method 07/17/24 16:01 07/17/24 16:52 Temperature 98.2 F Temperature Source Pulse Rate 69 80 Pulse Rate [Left Radial] Respiratory Rate 20 Blood Pressure 178/93 H 170/90 H Blood Pressure [Right Arm] Blood Pressure Mean 104 Blood Pressure Mean [Right Arm] 02 Sat by Pulse Oximetry 95 Oxygen Delivery Method Room Air Room Air Lab Data Lab Results 07/17/24 14:20: WBC 8.6, RBC 4.85, Hgb 14.3, Hct 44.4, MCV 91.5, MCH 29.5, MCHC 32.2, RDW 14.3, Plt Count 266, MPV 9.7, Neut % (Auto) 73.3, Lymph % (Auto) 16.8, Leon % (Auto) 6.3, Eos % (Auto) 2.1, Baso % (Auto) 0.9, Neut # (Auto) 6.3, Lymph # (Auto) 1.5, Leon # (Auto) 0.5, Eos # (Auto) 0.2, Baso # (Auto) 0.1, ESR 21 H, Sodium 139, Potassium 3.6, Chloride 105, Carbon Dioxide 29, Anion Gap 8.6, BUN 17, Creatinine 1.40 H, Estimated Creat Clear 77, Estimated GFR 51 L, Est GFR ( Amer) 62, Glucose 104 H, Calcium 8.3 L, Magnesium 1.9, Total Bilirubin 0.7, AST 20, ALT 16, Alkaline Phosphatase 92, C-Reactive Protein 9.4 H, Total Protein 6.0 L, Albumin 3.2 L, Globulin 2.8, Albumin/Globulin Ratio 1.1, Lipase 77 07/17/24 14:30: Urine Color Yellow, Urine Appearance Clear, Urine pH 6.5, Ur Specific [place] 1.020, Urine Protein 3+ A, Urine Glucose (UA) Trace, Urine Ketones Negative, Urine Blood 1+ A, Urine Nitrate Negative, Urine Bilirubin Negative, Urine Urobilinogen 0.2, Ur Leukocyte Esterase Negative, Urine RBC 10- 20, Urine WBC 5-10, Ur Squamous Epith Cells Occasional 07/17/24 14:32: VBG pH 7.36, VBG pCO2 47.4, VBG pO2 65.0 H, VBG HCO3 26.3, VBG Total CO2 27.8 H, VBG O2 Saturation 92.1 H, VBG Base Excess 0.9, VBG Lactic Acid 2.0 Orders (Tests/Meds): ORDERS Category Date Time Status Chest XR -- portable [XR chest portable] Stat Exams 07/17/24 14:42 Completed CBC [Complete Blood Count Auto Diff] Stat Lab 07/17/24 14:20 Completed CRP [C-Reactive Protein] Stat Lab 07/17/24 14:20 Completed Comprehensive Metabolic Panel Stat Lab 07/17/24 14:20 Completed Erythrocyte Sedimentation Rate Stat Lab 07/17/24 14:20 Completed Lactate Venous Stat Lab 07/17/24 13:58 Stop Req Lipase Stat Lab 07/17/24 14:20 Completed Magnesium Stat Lab 07/17/24 14:20 Completed Urinalysis and Microscopic Stat Lab 07/17/24 14:30 Completed Blood Culture Stat Micro 07/17/24 14:40 Received Wound Culture and Gram Stain Stat Micro 07/17/24 14:15 Results VBG [Venous Blood Gas] Stat RT 07/17/24 14:32 Completed Medical Decision Narrative: patient is a 63-year-old male presenting to the emergency department for evaluation of left second toe drainage and erythema. Patient is hemodynamically stable and nontoxic-appearing upon arrival, afebrile. Differential diagnosis includes sepsis, lymphedema, cellulitis, among others. Workup will be conducted with hematologic labs, specific imaging, provocative tests. Initial inventions include obtaining wound culture of the left second toe. Initial workup reviewed by me normal white count of 8.6, slightly bumped creatinine of 1.4. Otherwise unremarkable nonactionable labs. Please see radiology report. I discussed case with Dr. Oates who was in the OR but wanted patient to see dermatology for a skin evaluation. We will refer patient out to Dr. Ferrara for evaluation of the skin tag/callus. Also talked to GEO who works in podiatry who thinks this may be a skin cancer. Discussed with patient who is okay with this plan. Will place patient on antibiotics for the drainage/erythema of the site. Patient safe for discharge home. Critical Care <Adriane Lyn (ED), GEO - Last Filed: 07/17/24 16:43> Critical Care Time Critical Care Time: No
[2024-07-17 14:51] LABS: Alanine Aminotransferase 16 U/L (12-78); Albumin Level 3.2 g/dl (3.5-5.0); Albumin/Globulin Ratio 1.1 (1.1-1.8); Alkaline Phosphatase 92 U/L (38-126); Anion Gap 8.6 mEq/L (5-15); Aspartate Amino Transferase 20 U/L (17-59); Bilirubin,Total 0.7 mg/dl (0.2-1.3); Blood Urea Nitrogen 17 mg/dl (9-20); Calcium 8.3 mg/dl (8.4-10.2); Carbon Dioxide 29 mmol/L (22.0-30.0); Chloride 105 mmol/L (98-107); Creatinine Clearance Estimated 77 mL/min (50-200); Estimated Glomerular Filt Rate 51 ml/min (>60); GFR (African American) 62 ML/MIN (>60); Globulin 2.8 g/dL (1.3-3.2); Glucose 104 mg/dl (74-100); Lipase 77 U/L (23-300); Magnesium 1.9 mg/dl (1.6-2.3); Potassium 3.6 mmoL/L (3.5-5.1); Sodium 139 mmol/L (136-145)
[2024-07-17 14:53] LABS: Squamous Epithelial Cell,Urine Occasional #/hpf (0-5)
[2024-07-17 14:57] LABS: C-Reactive Protein 9.4 mg/L (0-4)
[2024-07-17 15:47] LABS: Erythrocyte Sedimentation Rate 21 mm/hr (0-20)
--- NOTE | 2024-07-17 15:48 | PC.NURSE ---
GEO speaking with podiatry GEO.
--- NOTE | 2024-07-18 08:00 | PC.NURSE ---
Prelim wound culture results reviewed by Dr. Cope, states ok pending sensitivity.
--- NOTE | 2024-07-19 14:31 | PC.NURSE ---
I discussed he pts wound culture prelim results with . No change needed in the pts treatment plan at this time.
--- NOTE | 2024-07-21 10:22 | PC.NURSE ---
I called and relayed the positive culture results to the pt. I spoke with and she sent in a second antibiotic to his pharmacy.
== END 2024-07-17 16:53 | disposition home or self-care (01) ==
PROVIDERS: Nurse Practitioner; Emergency Provider Emergency Medicine; PCP Family Medicine
DX: L03.115 Cellulitis of right lower limb (principal); L91.8 Other hypertrophic disorders of the skin; M79.604 Pain in right leg
CPT/HCPCS: 71045; 80053; 81001; 82803; 83690; 83735; 85025; 85651; 86140; 87040; 87070; 87077; 87186; 87205; 99283

== ENCOUNTER → 2024-09-06 14:48 | Outpatient (RCR) | payer MEDICARE, SELFPAY ==
--- NOTE | 2024-09-06 16:10 | HMH.OPLYMPH ---
Rehab Inpt Wound Evaluation Rehab OP Lymphedema Evaluation Start: 09/06/24 16:01 Freq: Status: Active Protocol: Document 09/06/24 16:01 CHARLIE (Rec: 09/06/24 16:09 PHOBOBBY [id number]) E-signed By Ray Haider, PT Subjective/History History History This is the initial PT eval for Jermaine Gaviria, 63 yowm who presents with c/o increased L LE lymphedema for greater than 10 years overall, but worse x 1-2 yrs. He is blind in both eyes and has hx of R BKA which limits his mobility. He reports increased edema with increased dependent positioning. He reports he has previously had compression stockings that helped the edema in his left LE, but they are worn out and don't help as much anymore. He presents with 2+ pitting edema and mild fibrotic edema throughout the L lower leg. Subjective Subjective Pt reports he would like to get fit for compression stockings. Lymphedema Eval Classification of Lymphedema Secondary Lymphedema Yes Stemmer's sign Stemmer's Sign yes Stage of Lymphedema Lymphedema stages Stage II (Pitting edema, increased fibrosis w/ decreased pitting) Skin Changes Dry Skin Yes Skin Folds Yes Redness Yes Discoloration of Yes Skin Other Changes Yes Pain Scale Pain Scale (0-10) 5 Affected Extremities Areas Affected by Left Lower Extremity Lymphedema/Edema Lower Extremity Measurements Left MTP Measurement (cm) 27.0 Heel Measurement (cm 39.1 ) 10 cm Proximal to 39.5 Lateral Malleoli Measurement (cm) 20 cm Proximal to 46.1 Lateral Malleoli Measurement (cm) 30 cm Proximal to 46.4 Lateral Malleoli Measurement (cm) 40 cm Proximal to 0 Lateral Malleoli Measurement (cm) 50 cm Proximal to 0 Lateral Malleoli Measurement (cm) 60 cm Proximal to 0 Lateral Malleoli Measurement (cm) Lower Extremity 198.1 Measurement Total ( cm) Wound Problems/Impairments Impairments Problems/ Impaired Transfers,Impaired Household Care,Lymphedema Impairmments Present,Subjective C/O Pain,Impaired Self Care/Self Management Prognosis Rehab Potential Good Comment Pt presents with considerable pitting and fibrotic edema which limits his ability to perform ADLs. Compression stockings would be easiest for him to don/ doff due to his blindness. Clinical Impression Consistent with Yes Diagnosis Outpatient Therapy Plan of Care Treatment Plan May Include Orthotics/Bracing/ Yes Splinting Manual Lymphatic Yes Drainage Eval/Re-Eval Yes Frequency Times per week 0 Duration Number of Weeks 0 Addendums This patient is a No candidate for social or vocational rehab ? Patient/Guardian Yes verbally acknowledges understanding of treatment program and consents to further treatment? Patient/Guardian Yes verbally acknowledges understanding of diagnosis, prognosis and goals for treatment? Eval Complexity PT Charges 71038 - High Complexity PHYSICIAN CERTIFICATION: I certify the specified therapy services for Jermaine Gaviria are required, authorized, and reviewed every 30 days.
== END ==
LOC: PT 14:48
PROVIDERS: PCP Family Medicine; Visit Provider Family Medicine
DX: I89.0 Lymphedema, not elsewhere classified (principal)
CPT/HCPCS: 97163

== ENCOUNTER 2024-11-20 12:00 | Outpatient (CLI) | payer MEDICARE, SELFPAY ==
--- OUTSIDE RECORDS SUMMARY | 2024-11-22 01:30 | XMS_ITS | Encounter Summary ---
Author Organization [facility] Address [facility] [place] [address] Phone Care Team Providers Care Pizza Hut Assistant Name Role Phone Pcp, Pending Only MD Primary Care Provider [phone] Reason for Visit * Reason Onset Date Comments GS Consult 02/25/2023 Encounter Details Date Type Department Care Team (Late st Contact Info) Description 02/25/2023 Telephone [facility]PP Gastroenterology [address] [place] [address] Rn/Spring Machine Operator, Answering Service Social History Tobacco Use Types Packs/Day Years Used Date Smoking Tobacco: Every Day Cigarettes 1 45 Smokeless Tobacco: Never Alcohol Use Standard Drinks/Week Comments Yes 0 (1 standard drink = 0.6 oz pur e alcohol) 8-12 beers per week Food Insecurities Answer Date Recorded Within the past 12 months, d id you worry that your food would run out before you got money to buy more? No 02/03/2023 Within the past 12 months, d id the food you bought just not last and you didn't have money to get more? No 02/03/2023 Housing/Utilities Answer Date Recorded Are you worried about losing your housing? No 02/03/2023 Within the past 12 months, h ave you ever stayed: outside, in a car, in a tent, in an overnight assisted, or temporarily in someone else's home (i.e. couch-surfing)? No 02/03/2023 Within the past 12 months, h ave you been unable to get utilities (heat, electricity) when it was really needed? No 023 Interpersonal Safety Answer Date Record ed Do you feel physically or em otionally unsafe where you currently live? No 02/03/2023 Within the past 12 months, h ave you been hit, slapped, kicked or otherwise physically hurt by anyone? No 02/03/2023 Within the past 12 months, h ave you been hit, slapped, kicked or otherwise physically hurt by anyone? No 02/03/2023 Transportation Answer Date Recorded Within the past 12 months, h as a lack of transportation kept you from medical appointments or from doing things needed for daily living? No 02/03/2023 Utilities Answer Date Recorded Are you worried about losing your housing? No 02/03/2023 Within the past 12 months, h ave you ever stayed: outside, in a car, in a tent, in an overnight assisted, or temporarily in someone else's home (i.e. couch-surfing)? No 02/03/2023 Within the past 12 months, h ave you been unable to get utilities (heat, electricity) when it was really needed? No 023 Sex and Gender Information Value Date Recorded Sex Assigned at Not on file Legal Sex Male 12:28 PM EDT Gender Identity Male 2020 6:21 PM EDT Sexual Orientation Not on file documented as of this encounter Functional Status * Are you deaf or do you have serious difficulty hearing? Answer Date of Assessment Author No 12/11/2020 11:10 AM Denise Ace Registered Nurse * Are you blind or do you have serious difficulty seeing, even when wearing glasses? Answer Date of Assessment Author Yes 12/11/2020 11:10 AM Denise Ace Registered Nurse * Do you have serious difficulty walking or climbing stairs? (5 years old or older) Answer Date of Assessment Author Yes 12/11/2020 11:10 AM Denise Ace Registered Nurse * Do you have difficulty dressing or bathing? (5 years old or older) Answer Date of Assessment Author No 12/11/2020 11:10 AM Denise Ace Registered Nurse * Because of a physical, mental, or emotional condition, do you have difficulty doing errands alone such as visiting a doctor???s office or shopping? (15 years old or older) Answer Date of Assessment Author No 12/11/2020 11:10 AM Denise Ace Registered Nurse documented as of this encounter Mental Status * Because of a physical, mental, or emotional condition, do you have serious difficulty concentrating, remembering, or making decisions? (5 years old or older) Answer Entry Date Author No 12/11/2020 11:10 AM Denise Ace Registered Nurse documented in this encounter Miscellaneous Notes * Telephone Encounter - Lise Kimball - 02/25/2023 1:54 PM EST Jacqui calling for GI consult request. routine Requesting physician: Dr. Long Facility Name [facility] Call back number: [phone] and Nurse Name: [facility] Room #: 842 Main desk # [phone] Admitting Diagnosis: Acute osteomyelitis left ankle or foot Reason for consult request: Downtrending hgb GI provider(s) cannoneer: Dr. Locke Voalte message sent to cannoneer GI provider: Sent 02/25/23, 1:57 PM Yep...will see 02/25/23, 1:58 PM documented in this encounter Plan of Treatment Not on file documented as of this encounter Visit Diagnoses Not on filedocumented in this encounter Care Teams Pizza Hut Assistant Relationship Specialty Start Date End Date Pcp, Pending Only, [place], [place] [id number] PCP - General Internal Medicine 11/18/20 documented as of this encounter
--- OUTSIDE RECORDS SUMMARY | 2024-11-22 01:30 | XMS_ITS | Clinical Summary ---
Author Organization Healthcare Address [address] [place] [address] Care Team Providers Care Steam And Gas Turbine Assembler Name Role Phone Tonny Bean MD Primary Care Provider Kevin Sanders MD Unavailable [phone] Allergies Active Allergy Reactions Criticality Noted Date Comments Statins Other - please docum ent in the comment field Low 11/24/2021 Medications allopurinol (Zyloprim) 300 MG tablet Take 1 tablet (300 mg) by mouth. Active atorvastatin (Lipitor) 20 MG tablet Take 1 tablet (20 mg) by mouth. Active digoxin (Lanoxin) 125 MCG tablet Take 1 tablet (125 mcg) by mouth. Active dilTIAZem ER (Tiazac) 180 MG 24 hr capsule Take 1 capsule (180 mg) by mouth. Active ertapenem (INVanz) 1 g injection Inject 1 g into the muscle. Active ferrous sulfate 325 (65 Fe) MG tablet Take 1 tablet (325 mg) by mouth twice a day. Active ferrous sulfate 325 (65 Fe) MG EC tablet Take 1 tablet (325 mg) by mouth twice a day. Active furosemide (Lasix) 20 MG tablet Take 1 tablet (20 mg) by mouth. Active Lactobacillus (Acidophilus) capsule Take 1 capsule by mouth 1 (one) time each day. Active levothyroxine (Synthroid, Levoxyl) 75 MCG tablet Take 1 tablet (75 mcg) by mouth 1 (one) time each day. Active lisinopril 40 MG tablet Take 1 tablet (40 mg) by mouth 1 (one) time each day. Active metFORMIN (Glucophage) 500 MG tablet Take 1 tablet (500 mg) by mouth. Active mupirocin (Bactroban) 2 % ointment 05/31/2021 Active rivaroxaban (Xarelto) 20 MG tablet Take 1 tablet (20 mg) by mouth 1 (one) time each day. Active sacubitril-vals rodriguez (Entresto) 24-26 MG tablet Take 1 tablet by mouth. Active clopidogrel (Plavix) 75 MG tablet Take 1 tablet (75 mg) by mouth 1 (one) time each day. 03/03/2023 Active omeprazole (PriLOSEC) [address] capsule Take 1 capsule (40 mg) by mouth 1 (one) time each day. Do not crush or chew. Active oxyCODONE (Roxicodone) 5 MG immediate release tablet Activ e potassium chloride CR (Klor-Con M10) 10 MEQ ER tablet Take 1 tablet (10 mEq) by mouth 1 (one) time each day. Do not crush or chew. 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 03/27/2023 Acute osteomyelitis of metatarsal bone of left f oot 03/14/2023 Surgical wound dehiscence, initial encounter Resolved Problems Problem Noted Date Diagnosed Date Resolved Date Peripheral edema 03/27/2023 11/03/2024 Left foot pain 03/14/2023 11/03/2024 Family History Medical History Relation Name Comments Hypertension Mother Relation Name Status Comments Mother Social History Tobacco Use Types Packs/Day Years Used Date Smoking Tobacco: Every Day Cigarettes Passive Smoke Exposure: Current Tobacco Cessation:Ready to Q uit: Not Asked; Counseling Given: Not Answered Alcohol Use Standard Drinks/Week Comments Yes 0 (1 standard drink = 0.6 oz pur e alcohol) PHQ-2 Answer Date Recorded Patient Health Questionnaire-2 Score 0 04/10/2023 PHQ-2A Answer Date Recorded Patient Health Questionnaire-2 Score 0 06/13/2022 Sex and Gender Information Value Date Recorded Sex Assigned at Not on file Legal Sex Male 8:53 PM EDT Gender Identity Not on file Sexual Orientation Not on file Last Filed Vital Signs Vital Sign Reading Time Taken Comments Blood Pressure 169/84 06/12/2023 11:00 AM EDT Pulse 74 06/12/2023 11:00 AM EDT Temperature 36.5 C (97.7 F) 06/12/2023 11:00 AM EDT Respiratory Rate 16 08/07/2017 10:08 AM EDT Oxygen Saturation 95% 06/12/2023 11:00 AM EDT Inhaled Oxygen Concentration - - Weight 106 kg (234 lb) 06/12/2023 11:00 AM EDT Height 180.3 cm (5' 11 ) 05/08/2023 11:28 AM EDT Body Mass Index 32.64 05/08/2023 11:28 AM EDT Plan of Treatment Health Maintenance Due Date Last Done Comments [facility]-Hepatitis C Screening 1958 [facility]-Medicare Annual Wellness (AWV) 1958 [facility]-/Child/Adol SDOH Screenings 1958 Diabetes: Dental Exam 1968 [facility]- SDOH Screenings 1976 [facility]-Adult SDOH Screenings 1976 [facility]-Pneumococcal Vaccine: 50+ Years (1 of 2 - PCV) 1977 CT Colonography 11/19/2003 Colonoscopy 11/19/2003 FIT-DNA 11/19/2003 FIT 11/19/2003 FOBT 11/19/2003 Sigmoidoscopy 11/19/2003 [facility]-Colorectal Cancer Screening 11/19/2003 [facility]-Zoster Vaccines (1 of 2) 2008 [facility]-Diabetes: Hemoglobin A1C 06/30/2015 12/31/2014 [facility]-RSV Vaccine: 60+ Years or (1 - Risk 60-74 years 1-dose series) 2018 [id number] Vaccine (2 - Moderna risk series) 01/22/2021 12/25/2020 [facility]-Abdominal Aortic Aneurysm (AAA) Screening 11/19/2023 [facility]-Depression Screening 04/10/2024 04/10/2023 [facility]-Influenza Vaccine (#1) 2024 [facility]-DTaP,Tdap,and Td Vaccines (2 - Td or Tdap) 07/07/2028 07/07/2018 [facility]-Obesity Intervention Completed 024, 05/08/2023, 04/10/2023, Additional history exists HPV Vaccines Aged Out No longer eligi ble based on patient's age to complete this topic [facility]-HIB Vaccines Aged Out No longer e ligible based on patient's age to complete this topic [facility]-Hepatitis A Vaccines Aged Out No longer eligible based on patient's age to complete this topic [facility]-IPV Vaccines Aged Out No longer e ligible based on patient's age to complete this topic [facility]-Rotavirus Vaccines Aged Out No lo nger eligible based on patient's age to complete this topic Procedures Procedure Name Priority Date/Time Associated Diagnosis Comments HEMOGLOBIN A1C Routine 12/31/2014 12:57 PM EST from Last 3 Months or Most Recently Relevant to Health Maintenance Results * (ABNORMAL) Hemoglobin A1c (12/31/2014 12:57 PM EST) Hemoglobin A1c 6.6(H) 4.7 - 6.0 % SUNQUEST Comment: (NOTE) Glycohemoglobin, 0 years and up: 4.7 - 6.0% . HbA1c assay performed by an ion-exchange chromatography method that is certified traceable to the DCCT. 12/31/2014 12:5 7 PM EST 12/31/2014 1:03 PM EST Nura Piedra DPM LAB BLOOD ORDERABLES Final Res ult SUNQUEST from Last 3 Months or Most Recently Relevant to Health Maintenance Additional Health Concerns Infection Onset Date Last Indicated ESBL Comment:Right foot ESBL 12/25/2018 07/07/2020 Insurance [facility] MEDICARE [facility] MEDICARE Care Teams Steam And Gas Turbine Assembler Relationship Specialty Start Date End Date Tonny Bean MD PCP - General Family Medicine 05/09/22 Kevin Walker MD [address] [facility] [address] [place] [id number] 05/09/22
--- OUTSIDE RECORDS SUMMARY | 2024-11-22 01:30 | XMS_ITS | Clinical Summary ---
Author Organization [facility] Address [address] [place] [address] Phone Care Team Providers Care Boilermaker Helper Name Role Phone Saud Guaman MD [ ] Conditions or Problems Problem Name Problem Code Onset Date Status Entry Date Provider Comment Standard Description Annotate Infective (teno)synoviti s, right foot/ankle, MSSA/PSA (B95.61)(B96.5 ) M65.171 (ICD-10-CM) Active 03/24 Jacqui Beth Other infective (teno)synoviti s, right ankle and foot Acute osteomyelitis, right foot, 5th toe M86.171 (ICD-10-CM) Active 03/24 Jacqui Beth Other acute osteomyelitis, right ankle and foot Benign Essential Hypertension 0698632 (SNOMED CT) Active 03/24 Jacqui Beth Benign essential hypertension Tobacco use 393511654 (SNOMED CT) Active 03/24 Jacqui Beth Tobacco user DM II E11.9 (ICD-10-CM) Active 03/24 Jacqui Beth Type 2 diabetes mellitus without complications Medications Medication Instructions Start Date Stop Date Generic Name [facility] Provider CIPRO 500 MG TABS take 1 tablet b.i.d. CIPROFLOXACIN HCL 71328693072 Yessy S TYLENOL 325 MG TABS take two tablets by mouth every 6 hours as needed for pain ACETAMINOPHEN [id number] Yessy S MOBIC 7.5 MG ORAL TABLET take one tablet by mouth daily MELOXICAM 44219650295 Yessy S FORTAZ (IV) FORTAZ (IV) Yessy S ZOSYN 3.375 (3-0.375) GM INTRAVENOUS SOLUTION RECONSTITUTED 3g-0.375gm IV q 6hrs [employer] [phone] PIPERACILLIN SOD-TAZOBACTAM SO [id number] Jamee Sheppard MINOCYCLINE HCL 100 MG CAPS take twice daily MINOCYCLINE HCL 79106106845 Saud Guaman MD CIPRO 500 MG TABS 1 by mouth twice a day CIPROFLOXACIN HCL [id number] Saud Guaman MD FORTAZ (IV) FORTAZ (IV) Yessy Alexander ZOSYN 3.375 (3-0.375) GM INTRAVENOUS SOLUTION RECONSTITUTED 3g-0.375gm IV q 6hrs [employer] [phone] PIPERACILLIN SOD-TAZOBACTAM SO [id number] Jamee Sheppard ORAZINC 110 MG ORAL TABLET take 1 tablet daily ZINC SULFATE 41839751333 Jayjay Sy NICOTINE 21-14-7 MG/24HR KIT apply once a day NICOTINE 63624737826 Jayjay Sy MULTIVITAMINS ORAL CAPSULE take 1 capsule daily MULTIPLE VITAMIN 99153176331 Jayjay Sy LISINOPRIL 40 MG TABS take 1 tablet daily LISINOPRIL [id number] Jayjay Sy HEPARIN SODIUM (PORCINE) 5000 UNIT/ML SOLN inject 1 mL subcu every 8 hours HEPARIN SODIUM (PORCINE) 94886481664 Jayjay Sy FOLIC ACID 1 MG TABS take 1 tablet daily FOLIC ACID 28436661468 Jayjay Sy CIPRO 500 MG TABS take 1 tablet b.i.d. CIPROFLOXACIN HCL 17351522785 Jayjay Sy ASCORBIC ACID 250 MG ORAL TABLET take 1 tablet daily ASCORBIC ACID 41601586176 Jayjay Sy AMLODIPINE BESYLATE 5 MG TABS take 1 tablet daily AMLODIPINE BESYLATE 12546596017 Jayjay Sy Medications Administered No information available. Allergies, Adverse Reactions, Alerts Observed no known allergies at Results Date Name Value Unit Range Flag Description Office Visit: [facility] Up Room #10 MEDS REVIEW Done Documenta tion of current medications (procedure) ORALTOBACUSE Never Tobacco smoking status CIGARET SMKG yes Tobacco smoking status SMOK STATUS Current every day smoker Tobacco smoking status Plan of Care Type Date Detail Pending order Discontinue IV a ntibiotics Pending order PICC Removal Patient education Medications Procedures No information available. Vital Signs Date Name Value Unit Description BMI (Body Mass Index) 32.99 kg/m2 Bod y Mass Index (Ratio) Body Temperature 97.1 [degF] temperat ure E&M BP Diastolic 82 mm[Hg] blood pressu re, diastolic BP Systolic 140 mm[Hg] blood pressur e, systolic Heart Rate 88 /min pulse rate Height 72 [in_us] height E&M Respiratory Rate 20 /min respirat ory rate E&M Weight Measured 243.3 [lb_av] weight E& M Weight Measured 243.3 [lb_av] weight E& M Immunizations No information available. Advance Directives No information available.
--- OUTSIDE RECORDS SUMMARY | 2024-11-22 01:30 | XMS_ITS | Clinical Summary ---
Author Organization [facility] Address [address] [place] [address] Care Team Providers Care Fish Worm Grower Name Role Phone Unavailable Primary Care Provider Unavailabl e Allergies No known active allergies Medications rivaroxaban (XARELTO) tablet Take 20 mg by mouth daily with breakfast. Active levothyroxine (SYNTHROID) 75 MCG tablet Take 75 mcg by mouth Daily at 6am. Active ferrous sulfate 325 mg, 65 mg elemental iron, (ferrous sulfate) 65 mg of iron EC tablet Take 325 mg by mouth 2 (two) times a day with Breakfast and Dinner. Active acetaminophen (TYLENOL) 500 MG tablet Take 2 tablets (1,000 mg total) by mouth every 8 (eight) hours as needed for mild pain. 0 1 Active polyethylene glycol (MIRALAX) 17 g packet Take 17 g by mouth daily. 10 each 1 Active sacubitril-vals rodriguez (ENTRESTO) 24-26 MG tablet tablet Take 1 tablet by mouth 2 (two) times a day. 0 1 Active Active Problems Problem Noted Date Diagnosed Date Status post BKA 12/03/2020 Type 2 diabetes mellitus without complication Acute osteomyelitis of the ankle and/or foot 08/2020 History of amputation of right foot 11/19/2020 Gangrene of right foot 11/19/2020 Coronary atherosclerosis 03/26/2018 Atrial fibrillation 03/26/2018 Immunizations Immunization Administration Dates Next Due 107-influenza, Unspecified 12/02/2020(De ferred: Offered and declined - needs to reieve) Family History Relation Name Status Comments Father Mother Social History Tobacco Use Types Packs/Day Years Used Date Smoking Tobacco: Former Smokeless Tobacco: Never Comments:one pack a day Alcohol Use Standard Drinks/Week Comments Yes 0 (1 standard drink = 0.6 oz pur e alcohol) occassional Sex and Gender Information Value Date Recorded Sex Assigned at Not on file Legal Sex Male 10:48 AM EDT Gender Identity Not on file Sexual Orientation Not on file Last Filed Vital Signs Vital Sign Reading Time Taken Comments Blood Pressure 155/84 12/23/2020 6:00 AM EST Pulse 68 12/23/2020 6:00 AM EST Temperature 36.3 C (97.4 F) 12/23/2020 6:00 AM EST Respiratory Rate 18 12/23/2020 6:00 AM EST Oxygen Saturation 100% 12/23/2020 6:00 AM EST Inhaled Oxygen Concentration - - Weight 84.6 kg (186 lb 6.4 oz) 12/20/2020 5:15 A M EST Height 180.3 cm (5' 11 ) 12/02/2020 5:06 PM EDT Body Mass Index 26 12/02/2020 5:06 PM EDT Plan of Treatment Health Maintenance Due Date Last Done Comments CT Colonography 1958 Colonoscopy 1958 Colorectal Cancer Screening 1958 FIT-DNA (Cologuard) 1958 FIT 1958 FOBT 1958 Hemoglobin A1C 1958 Sigmoidoscopy 1958 Annual Visit Topic 11/19/1959 MMR Vaccines (1 of 1 - Stand russell series) 11/19/1959 Ophthalmology Exam 1968 Urine Microalbumin 1968 Hepatitis C Screening 1976 DTaP/Tdap/Td Vaccines (1 - Tdap) 1977 Pneumococcal Vaccine: 65+ Ye ars (1 of 2 - PCV) 2008 PSA Test 2013 HIB Vaccines Aged Out No longer eligi ble based on patient's age to complete this topic HPV Vaccines Aged Out No longer eligi ble based on patient's age to complete this topic Hepatitis A Vaccines Aged Out No long er eligible based on patient's age to complete this topic Hepatitis B Vaccines Aged Out No long er eligible based on patient's age to complete this topic IPV Vaccines Aged Out No longer eligi ble based on patient's age to complete this topic Meningococcal Vaccine Aged Out No marco antonio jose eligible based on patient's age to complete this topic Advance Directives * Full Resuscitation (Latest Code Status on File) Date Activated Date Inactivated Comments 12/03/2020 2:12 PM 12/23/2020 7:57 PM
--- OUTSIDE RECORDS SUMMARY | 2024-11-22 01:30 | XMS_ITS | Clinical Summary ---
Author Organization [facility] Address [address] [place] [address] Care Team Providers Care Spinneret Cleaner Name Role Phone Kevin Walker MD Primary Care Provider [phone] Allergies No known active allergies Medications lisinopril (PRINIVIL,ZESTR IL) 40 MG tablet Take 40 mg by mouth Daily. Active rivaroxaban (XARELTO) 20 MG tablet Take 20 mg by mouth Daily With Dinner. Active atorvastatin (LIPITOR) 40 MG tablet Take 40 mg by mouth Every Night. 03/22/2018 Active furosemide (LASIX) 40 MG tablet Take 40 mg by mouth 2 (Two) Times a Day. 03/23/2018 Active potassium chloride (MICRO-K) 10 MEQ CR capsule Take 10 mEq by mouth 2 (Two) Times a Day. 03/21/2018 Active pantoprazole (PROTONIX) 40 MG EC tablet Take 40 mg by mouth Daily. 03/22/2018 Active Lactobacillus (ACIDOPHILUS) 100 MG capsule Take 1 capsule by mouth Daily. Active clopidogrel (PLAVIX) 75 MG tablet Take 1 tablet by mouth Daily. 30 tablet 11 03/29/2018 Active diltiaZEM CD (CARDIZEM CD) 180 MG 24 hr capsule Take 1 capsule by mouth Daily. 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 Not on file 12/2022 Does Anyone Keep You from Co ntacting Others or Doint Things Outside the Home? Not on file 11/23/2022 Physical Sign of Abuse Present Not on file 1 Housing Stability Answer Date Recorded Current Living Arrangements Not on file 11/13 Potentially Unsafe Housing Conditions Not on sailaja e 11/23/2022 Family and Community Support Answer Chetan e Recorded Help with Day-to-Day Activities Not on file 11/23/2022 Lonely or Isolated Not on file 11/23/2022 Employment Answer Date Recorded Do you want help finding or keeping work or a dagoberto b? Not on file 11/23/2022 Disabilities Answer Date Recorded Concentrating, Remembering, or Making Decisions Difficulty Not on file 11/23/2022 Doing Errands Independently Difficulty Not on fi le 11/23/2022 Education Answer Date Recorded Help with school or training? Not on file Preferred Language Not on file 11/23/2022 Sex and Gender Information Value Date Recorded Sex Assigned at Not on file Legal Sex Male 11:52 AM EDT Gender Identity Not on file Sexual Orientation Not on file Last Filed Vital Signs Vital Sign Reading Time Taken Comments Blood Pressure 133/76 03/28/2018 7:00 AM EST Pulse 63 03/27/2018 7:20 PM EST Temperature 36.9 C (98.4 F) 03/27/2018 7:20 PM EST Respiratory Rate 16 03/28/2018 7:00 AM EST Oxygen Saturation 91% 03/26/2018 1:59 PM EST Inhaled Oxygen Concentration - - Weight 116 kg (254 lb 12.8 oz) 03/28/2018 6:00 A M EST Height 180.3 cm (5' 11 ) 03/26/2018 4:18 PM EST Body Mass Index 35.54 03/26/2018 4:18 PM EST Plan of Treatment Health Maintenance Due Date Last Done Comments TDAP/TD VACCINES (1 - Tdap) 1977 COLOGUARD 11/19/2003 COLON CANCER SCREENING 5 YEAR SIGMOIDOSCOPY 11/19/2003 COLONOSCOPY 11/19/2003 COLORECTAL CANCER SCREENING 11/19/2003 CT COLONOGRAPHY 11/19/2003 FECAL OCCULT BLOOD TEST 11/19/2003 FIT Testing (1 year) 11/19/2003 Pneumococcal Vaccine 50+ (1 of 1 - PCV) 2008 ZOSTER VACCINE (1 of 2) 2008 ANNUAL PHYSICAL 03/28/2018 HEPATITIS C SCREENING 03/28/2018 AAA SCREEN ONCE 11/19/2023 INFLUENZA VACCINE 09/13/2024 COVID-19 Vaccine (2023- season) 2024 Insurance [employer] Advance Directives * CPR (Attempt to Resuscitate) (Latest Code Status on File) Date Activated Date Inactivated Comments 03/26/2018 2:25 PM 03/28/2018 6:29 PM Question Answer Comments Code Status (Patient has no pulse and is not breathing): CPR (Attempt to Resuscitate) Medical Interventions (Patie nt has pulse or is breathing): Full Care Teams Spinneret Cleaner Relationship Specialty Start Date End Date Kevin Walker MD [facility] [address] [place] [address] PCP - General Adolescent Medicine 03/26/18
--- OUTSIDE RECORDS SUMMARY | 2024-11-22 01:30 | XMS_ITS | Clinical Summary ---
Author Organization [facility] Address [address] [place] [address] Care Team Providers Care Mold Bunch Trimmer Name Role Phone Pcp, Pending Only MD Primary Care Provider Allergies No known active allergies Medications allopurinol (ZYLOPRIM) 300 MG TABS Take 300 mg by mouth daily. Active digoxin (LANOXIN) 0.125 MG TABS Take 125 mcg by mouth daily. Active furosemide (LASIX) 20 MG TABS Take 20 mg by mouth daily. Active metFORMIN (GLUCOPHAGE) 500 MG TABS Take 500 mg by mouth 2 (two) times daily with meals. Active rivaroxaban (XARELTO) 20 mg TABS Take 20 mg by mouth daily. Active levothyroxine (SYNTHROID, LEVOTHROID) 75 MCG TABS Take 75 mcg by mouth daily. Active ferrous sulfate 325 (65 FE) MG TABS Take 325 mg by mouth 2 (two) times a day. Active dilTIAZem (CARDIZEM CD) 240 MG CP24 Take 240 mg by mouth daily. 01/18/2023 Active sacubitril-valsa rtan (ENTRESTO) 97-103 mg TABS Take 1 tablet by mouth 2 (two) times daily. 60 tablet 02/22/2023 Active atorvastatin (LIPITOR) 40 MG TABS TAKE 1 TABLET BY MOUTH DAILY. 30 tablet 03/03/2023 Active Active Problems Problem Noted Date Diagnosed Date Acute osteomyelitis of left ankle or foot 2022 Overview (02/03/2023): L 1st metatarsal head JORY (acute kidney injury) 02/03/2023 Hematoma of groin 12/10/2020 Type 2 diabetes mellitus wit h diabetic peripheral angiopathy and gangrene, without long-term current use of insulin 11/26/2020 Acute osteomyelitis of right ankle or foot 11/19 Gangrene of right foot 11/19/2020 S/P transmetatarsal amputation of foot, right Blind in both eyes 11/19/2020 Hx of BKA, right 02/14/2020 History of ESBL E. coli infection 12/25/2012 Overview (02/03/2023): SQ ACC. NUMBER [id number] SPECIMEN DESCRIPTION: FOOT RIGHT SPECIAL REQUESTS: NONE QUANTITATION: HEAVY GROWTH CULTURE: 4+ ESCHERICHIA COLI This organism is an extended spectrum beta lactamase segment producer and therefore, may not respond to extended spectrum cephalosporins and penicillins. Please consult Infectious Disease Dept. for appropriate antibiotic choices. 4+ MORGANELLA MORGANII NOTE: Patient needs CONTACT precautions. REPORT STATUS: FINAL [id number] SQ ACC. NUMBER [id number] ORGANISM 4+ ESCHERICHIA COLI This organism is an extended spectrum beta lactamase segment producer and therefore, may not respond to extended spectrum cephalosporins and penicillins. Please consult Infectious Disease Dept. for appropriate antibiotic choices. METHOD HEIDY (mcg/mL) AMIKACIN <=8 SUSCEPTIBLE AMPICILLIN >16 RESISTANT AMPICILLIN/SULBACTAM 8/4 RESISTANT AZTREONAM 8 RESISTANT CEFAZOLIN >16 RESISTANT CEFEPIME 4 RESISTANT CEFTRIAXONE >32 RESISTANT GENTAMICIN <=2 SUSCEPTIBLE LEVOFLOXACIN >4 RESISTANT MEROPENEM <=0.5 SUSCEPTIBLE PIPERACILLIN/TAZOBACTAM <=2/4 SUSCEPTIBLE TETRACYCLINE >8 RESISTANT TOBRAMYCIN <=2 SUSCEPTIBLE TRIMETHOPRIM/SULFAMETHOXAZOLE <=0.5/9.5 SUSCEPTIBLE ERTAPENEM <=0.25 SUSCEPTIBLE SQ ACC. NUMBER [id number] ORGANISM 4+ MORGANELLA MORGANII METHOD HEIDY (mcg/mL) AMIKACIN <=8 SUSCEPTIBLE AMPICILLIN >16 RESISTANT AMPICILLIN/SULBACTAM >16/8 RESISTANT AZTREONAM <=2 SUSCEPTIBLE CEFAZOLIN >16 RESISTANT CEFEPIME <=1 SUSCEPTIBLE CEFTRIAXONE <=1 SUSCEPTIBLE GENTAMICIN <=2 SUSCEPTIBLE LEVOFLOXACIN >4 RESISTANT MEROPENEM <=0.5 SUSCEPTIBLE PIPERACILLIN/TAZOBACTAM <=2/4 SUSCEPTIBLE TETRACYCLINE <=2 SUSCEPTIBLE TOBRAMYCIN <=2 SUSCEPTIBLE TRIMETHOPRIM/SULFAMETHOXAZOLE >2/38 RESISTANT ERTAPENEM <=0.25 SUSCEPTIBLE SQ ACC. NUMBER [id number] ORGANISM 4+ ESCHERICHIA COLI This organism is an extended spectrum beta lactamase segment producer and therefore, may not respond to extended spectrum cephalosporins and penicillins. Please consult Infectious Disease Dept. for appropriate antibiotic choices. METHOD Aerobic Identificaion Billing Info Only ISOLATE IDENTIFICATION BY [place] ISOLATE IDENTIFIED SQ ACC. NUMBER [id number] ORGANISM 4+ MORGANELLA MORGANII METHOD Aerobic Identificaion Billing Info Only ISOLATE IDENTIFICATION BY [place] ISOLATE IDENTIFIED Specimen Collected: 12/25/18 16:58 Last Resulted: 04/08/20 07:56 PAD (peripheral artery disease) CAD (coronary artery disease) Hypertensive heart disease w ith chronic combined systolic and diastolic congestive heart failure Mixed hyperlipidemia Chronic atrial fibrillation Scrotal hematoma Social History Tobacco Use Types Packs/Day Years [...] car, in a tent, in an overnight mcc, or temporarily in someone else's home (i.e. Vtap-surfing)? No 02/03/2023 Within the past 12 months, [...] car, in a tent, in an overnight mcc, or temporarily in someone else's home (i.e. Vtap-surfing)? No 02/03/2023 Within the past 12 months, h ave you been unable to get utilities (heat, electricity) when it was really needed? No 023 Sex and Gender Information Value Date Recorded Sex Assigned at Not on file Legal Sex Male 12:28 PM EDT Gender Identity Male 2020 6:21 PM EDT Sexual Orientation Not on file Last Filed Vital Signs Vital Sign Reading Time Taken Comments Blood Pressure 121/46 03/03/2023 4:08 PM EST Pulse 67 03/03/2023 4:08 PM EST Temperature 36.4 C (97.6 F) 03/03/2023 4:08 PM EST Respiratory Rate 18 03/03/2023 4:08 PM EST Oxygen Saturation 99% 03/03/2023 4:08 PM EST Inhaled Oxygen Concentration - - Weight 105.8 kg (233 lb 4 oz) 02/08/2023 4:02 AM EST Height 180.3 cm (5' 11 ) 12/10/2020 11:21 AM EDT Body Mass Index 32.53 12/10/2020 11:21 AM EDT Plan of Treatment Health Maintenance Due Date Last Done Comments Abdominal Aortic Aneurysm Screening 1960 Pneumococcal 50+ (1 of 2 - PCV) 1977 Colonoscopy 11/19/2003 PSA YEARLY 2008 Shingrix (#1) 2008 RSV Vaccine (60+ or ) (1 - Risk 60-74 years 1-dose series) 2018 Influenza Vaccine (#1) 2024 DTap,Tdap,and Td (2 - Td or Tdap) 07/07/2028 019 Hepatitis C Screening Completed 11/20/2020 HPV Aged Out No longer eligi ble based on patient's age to complete this topic Meningococcal conjugate jamarcus nt 4 (MCV4) Aged Out No longer eligible b ased on patient's age to complete this topic RSV Immunization (<20 months) Aged Out No longer eligible based on patient's age to complete this topic Goals Goal Patient Goal Type Associated Problems Recent Progress Patient-Stated? Author MYC CC COLONOSCOPY PREP PATIENT EDUCATION GOAL TEMPLATE Care Plan MYC COLONOSCOPY PREP EDUCATION No Daily Holguin, Registered Nurse Procedures Procedure Name Priority Date/Time Associated Diagnosis Comments HEPATITIS C ANTIBODY WITH REFLEX TO HCV QUANT NAAT STAT 11/20/2020 7:33 PM EDT from Last 3 Months or Most Recently Relevant to Health Maintenance Results * Hepatitis C Antibody (11/20/2020 7:33 PM EDT) HEPATITIS C AB NONREACTIVE NONREACTIVE [facility] Comment:Tested at: [facility] [place] [id number] 11/20/2020 7:33 PM EDT 11/20/2020 7:52 PM EDT Chirag Dave MD LAB BLOOD ORDERABLES Final Result [facility] [address] [place] [address] [facility] [address] [place] [address] from Last 3 Months or Most Recently Relevant to Health Maintenance Additional Health Concerns Active Problems Noted Date Diagnosed Date MYC COLONOSCOPY PREP EDUCATION 02/26/2023 Insurance MEDICARE ALL OTHER Advance Directives * Full Code (Latest Code Status on File) Date Activated Date Inactivated Comments 02/08/2023 1:57 PM 03/03/2023 6:42 PM * Full Code Date Activated Date Inactivated Comments 02/08/2023 7:56 AM 02/08/2023 1:57 PM * Full Code Date Activated Date Inactivated Comments 02/03/2023 12:39 AM 02/08/2023 7:56 AM * Full Code Date Activated Date Inactivated Comments 2020 7:25 PM 12/02/2020 5:47 PM Care Teams Mold Bunch Trimmer Relationship Specialty Start Date End Date Pcp, Pending Only, [place], [place] [phone] PCP - General Internal Medicine 11/18/20
--- OUTSIDE RECORDS SUMMARY | 2024-11-22 01:30 | XMS_ITS | Encounter Summary ---
Author Organization [facility] Address [address] [place] [address] [place] [address] Phone Care Team Providers Care Scrap Yard Worker Name Role Phone Pcp, Pending Only MD Primary Care Provider [phone] Encounter Details Date Type Department Care Team (Late st Contact Info) Description 03/03/2023 Telephone - Conversion [id number] [place] [address] Radha Dumont MD [address] [facility] 3rd Flr Rm [address] [place] [address] Social History Tobacco Use Types Packs/Day Years [...] car, in a tent, in an overnight alf, or temporarily in someone else's home (i.e. [...] car, in a tent, in an overnight alf, or temporarily in someone else's home (i.e. [...] Assessment Author No 12/11/2020 11:10 AM Denise Ace, Registered Nurse * Are you blind or do you have serious difficulty seeing, even when wearing glasses? Answer Date of Assessment Author Yes 02/28/2023 3:22 PM Alexander Silva Registered Nurse * Do you have serious difficulty walking or climbing stairs? (5 years old or older) Answer Date of Assessment Author Yes 12/11/2020 11:10 AM Denise Ace, Registered Nurse * Do you have difficulty dressing or bathing? (5 years old or older) Answer Date of Assessment Author No 12/11/2020 11:10 AM Denise Ace, Registered Nurse * Because of a physical, mental, or emotional condition, do you have difficulty doing errands alone such as visiting a doctor???s office or shopping? (15 years old or older) Answer Date of Assessment Author No 12/11/2020 11:10 AM Denise Ace, Registered Nurse documented as of this encounter Mental Status * Because of a physical, mental, or emotional condition, do you have serious difficulty concentrating, remembering, or making decisions? (5 years old or older) Answer Entry Date Author No 12/11/2020 11:10 AM Denise Ace, Registered Nurse documented in this encounter Plan of Treatment Not on file documented as of this encounter Goals Goal Patient Goal Type Associated Problems Recent Progress Patient-Stated? Author DAISY CC COLONOSCOPY PREP PATIENT EDUCATION GOAL TEMPLATE Care Plan MYC COLONOSCOPY PREP EDUCATION No Daily Holguin Registered Nurse documented as of this encounter Visit Diagnoses Not on filedocumented in this encounter Additional Health Concerns Active Problems Noted Date Diagnosed Date MYC COLONOSCOPY PREP EDUCATION 02/26/2023 documented as of this encounter Care Teams Scrap Yard Worker Relationship Specialty Start Date End Date Pcp, Pending Only, [place] [address] PCP - General Internal Medicine 11/18/20 documented as of this encounter
== END 2024-11-20 23:59 | disposition home or self-care (01) ==
LOC: LAB.DROPOF 11-22 01:29
PROVIDERS: PCP Family Medicine; Visit Provider Family Medicine
DX: E11.9 Type 2 diabetes mellitus without complications (principal)
CPT/HCPCS: 82043; 82570

== ENCOUNTER 2025-02-03 12:44 | Inpatient (IN) | payer MEDICARE, SELFPAY ==
[2025-02-03] VITALS (29 sets, daily range): BP systolic 80–131; BP diastolic 34–82; PULSE 48–88; RESP 14–21; TEMP 36.1–36.8; O2SAT 92–100; BMI 33.5
--- NOTE | 2025-02-03 13:03 | PC.NURSE ---
VBG sent with RT
[2025-02-03 13:05] LABS: Lactate Venous 2.1 mmol/L (0.4-2.0); VBG HCO3 20.5 mmol/L (23-30); VBG PCO2 36.2 mmol/L (35-51); VBG PH 7.37 mmol/L (7.31-7.41); VBG PO2 28.2 mmol/L (28-40)
--- NOTE | 2025-02-03 13:12 | ED_ITS ---
<Statement entered by Simon Arteaga MD - 02/04/25 10:04> Simon Arteaga MD: I was consulted by the LISA, and we discussed the complexity of the problems being addressed. I approved the treatment and management plan for this patient's care in the emergency department, thus performing a substantive portion of the medical decision making. Discharge Plan Disposition Patient Disposition: Admitted Condition: Fair Clinical Impressions Clinical Impression: GI (gastrointestinal bleed), Non-ST elevation ME (NSTEMI) Discharge ED Provider: Simon Arteaga General Adult HPI <MYRIAM Malagon - Last Filed: 02/03/25 16:04> General Chief complaint: GI Bleed Stated complaint: SOB Time Seen by Provider: 02/03/25 13:07 Mode of Arrival: EMS Source of Information: Patient and EMS Description of Symptoms (Recalled from ER Triage Doc. by RN): patient presents via EMS for possibly GI Bleed. patient lives at home with a neighbor that takes care of him. per EMS the neighbor stated that he has had bloody stools for the last 3 days . patient is blind and unable to describe the bowel movements. neighbor is not at bedside. patient stated he does not have a history of GI bleed. patient AxO 4 with no further complaints. History of Present Illness HPI narrative: 64-year-old male presents to the emergency department via EMS for possible GI bleed, patient is legally blind, and his neighbor is estimator paperboard boxes, noted some what sounds like dark stool/melena today, patient endorses generalized weakness for the last 1 to 2 weeks, as well as some shortness of breath for the last 1 week, and occasional waxing waning chest pain, patient denies any chest pain currently, denies any fever or chills, admits to cough, no congestion, no real abdominal pain, no nausea no vomiting, patient is unsure of how long the dark stools been going on for as he has not been able to see it, denies any urinary symptomatology, patient does endorse some right knee pain at his BKA site, patient states has been going on for quite some time states he has arthritis . Patient is currently a smoker, admits to former alcohol use, denies any other illicit drug use, other past medical history is consistent with atrial fibrillation on anticoagulation therapy with Eliquis, CAD status post 2 stent placements, hypothyroidism, right BKA, T2DM, congenital glaucoma, obesity, hyperlipidemia, hypertension, CHF, lymphedema, peripheral artery disease, diabetic polyneuropathy, osteoarthritis, Please note that above description of symptoms, in this electronic medical record under categorization of recalled from ER triage doctor by RN are reflective of an initial nursing assessment, however, is not reflective of my full history and physical exam that was personally taken and clarified. Consequentially, this preceding description of symptoms, which may include the patient's categorized chief complaint in the EMR, do not reflect my personal clinical impression, and the ultimate description of history of present illness and patient stated complaints should be deferred to this section of the note. Unless stated otherwise or congruent with this section of the note, additional signs, symptoms, or incongruence should be interpreted as inaccurate with my clinical impression. Onset (ago): unknown Related Data Home Medications ?Medication ?Instructions ?Recorded ?Confirmed omeprazole 40 mg capsule,delayed 40 mg PO BID 03/09/23 02/03/25 release allopurinol 300 mg tablet 300 mg PO DAILY 02/03/25 atorvastatin 20 mg tablet 20 mg PO HS 02/03/25 clopidogrel 75 mg tablet 75 mg PO DAILY 02/03/2501/14 digoxin 125 mcg (0.125 mg) tablet 125 mcg PO DAILY 02/03/25 furosemide 20 mg tablet 20 mg PO DAILY 02/03/2501/14 metformin 500 mg tablet,extended 1,000 mg PO DAILY 02/03/25 release 24 hr potassium chloride 10 mEq 10 meq PO DAILY 02/03/25 tablet,extended release(part/cryst) rivaroxaban 20 mg tablet (Xarelto) 20 mg PO QPMWITHMEA L 02/03/25 02/04/25 triamcinolone acetonide 0.1 % 1 applic topical BID 02/03/25 topical cream Previous Rx's ?Medication ?Instructions ?Recorded glipizide 2.5 mg tablet 2.5 mg PO DAILY #90 tabs diltiazem HCl 240 mg 240 mg PO DAILY #90 caps 03/09 capsule,extended release 24 hr Allergies Allergy/AdvReac Type Severity Reaction Status Date / Time No Known Allergies Allergy Verified 11/20/24 10:13 PFS <MYRIAM Malagon - Last Filed: 02/03/25 16:04> [facility] Disclaimer: The information contained in this section may have been updated after the patient was seen, as this information can be updated by other users. 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, congenital Diabetes mellitus Diverticula, colon Osteomyelitis Amputation below knee Amputation of right lower extremity Amputation toe Normal colonoscopy Osteomyelitis of right foot Femoral arteriovenous fistula, right HTN (hypertension) HLD (hyperlipidemia) Coronary artery disease PAD (peripheral artery disease) Tobacco use disorder Gangrene associated with type 2 diabetes mellitus Onychomycosis Neuropathy Decreased pedal pulses Onychodystrophy Acquired hammertoes of both feet Onychogryphosis Acute hypoxemic respiratory failure Varicose veins of both legs with edema History of osteomyelitis Lymphedema of both lower extremities Hypokalemia Sepsis Coagulopathy Diabetes Class 2 obesity Blindness Lymphedema Atrial fibrillation Congestive heart failure Acute exacerbation of chronic obstructive airways disease Surgical History History of colon surgery H/O heart artery stent H/O eye surgery History of amputation of toe Family History Father Liver disease Other No significant family history Social History Smoking Status: Current every day smoker tobacco type: cigarettes packs per day: 1 alcohol intake: never substance use type: denies use current occupational status: unemployed and disabled Travel in the last 8 weeks?: None household members: none housing: house lives independently: Yes Have you lived/traveled outside [place] in past 30 days?: No Contact w/someone who lives/traveled outside US past 30 days?: No Exposure to someone with infectious disease in past 14 days?: No Do you have a fever (greater than 100.4 F or 38 C)?: No Have you tested positive for COVID-19?: No Exposed to someone with COVID-19 in past 14 days?: No Do you have a sore throat?: No Do you have a cough?: No Do you have any weakness?: No Do you have any diarrhea?: No Are you experiencing any unusual bleeding?: No Do you have any muscle aches/pain?: No Do you have any abdominal pain?: No Are you experiencing loss of taste or smell?: No Other Medical History Have you received the Flu Vaccine for this season: No Have you received the Pneumonia Vaccine: No <MYRIAM Malagon - Last Filed: 02/03/25 16:04> ROS Obtained: Yes All systems reviewed & no additional complaints except as documented Physical Exam <MYRIAM Malagon - Last Filed: 02/03/25 16:04> General General appearance: alert and in no apparent distress Comment: Somewhat pale appearing male Head Head exam: atraumatic and normocephalic Eye Eye exam: Present PERRL and EOMI ENT ENT exam: Present mucous membranes moist Neck Neck exam: Present normal inspection Chest Chest inspection: Present normal inspection and symmetric chest wall rise Respiratory Respiratory exam: Present wheezes and other (Minimal to mild wheezes/crackles noted at the bilateral lung cardona.); Absent normal lung sounds bilaterally or respiratory distress Cardiovascular Cardiovascular exam: Present regular rate and normal rhythm Abdominal Exam Abdominal exam: Present soft; Absent tenderness, guarding, rebound, rigidity or trauma Rectal Exam Rectal exam: Present black stool Extremities Exam Extremities exam: Present normal inspection, full ROM, edema and other (Bilateral lymphedema, obvious BKA to the right lower extremity, otherwise neurovasc intact) Neurological Exam Neurological exam: Present alert and oriented X3 Psychiatric Psychiatric exam: Present normal affect Skin Skin exam: Present warm and dry Medical Decision Making <MYRIAM Malagon - Last Filed: 02/03/25 16:04> Medical Records Medical records reviewed: Yes I reviewed the patient's medical records. Screening: Per USPSTF and CDC recommendations, given the prevalence of disease in our region, it is our hospital?s policy to screen for HIV and viral Hepatitis for all patients aged 18 and over and those with ongoing risk factors. Mendez Inquiry Pt receiving controlled substance: No Vital Signs: 02/03/25 12:45 02/03/25 12:51 02/03/25 13:29 Temperature 98.2 F Temperature Source Oral Pulse Rate 78 Pulse Rate [Right Radial] 88 Respiratory Rate 18 Blood Pressure 115/62 Blood Pressure [Right Arm] 131/74 Blood Pressure Mean [Right Arm] 93 Blood Pressure Source [Right Arm] Automatic Cuff Blood Pressure Position [Right Arm] Sitting 02 Sat by Pulse Oximetry 98 100 98 Oxygen Delivery Method Room Air Room Air 02/03/25 15:02 02/03/25 15:15 02/03/25 15:31 Temperature Temperature Source Pulse Rate 61 49 L Pulse Rate [Right Radial] Respiratory Rate 17 21 Blood Pressure 98/65 L 106/50 L 117/64 Blood Pressure [Right Arm] Blood Pressure Mean [Right Arm] Blood Pressure Source [Right Arm] Blood Pressure Position [Right Arm] 02 Sat by Pulse Oximetry 100 100 Oxygen Delivery Method Lab Data Lab results reviewed: Yes I reviewed the patient's lab results. Lab Results 02/03/25 12:49: WBC 10.6, RBC 2.11 L, Hgb 6.1 L*, Hct 20.5 L*, MCV 97.2 H, MCH 28.9, MCHC 29.8 L, RDW 17.2, Plt Count 312, MPV 11.1 H, Neut % (Auto) 76.2, Lymph % (Auto) 13.7, Jennings % (Auto) 6.1, Eos % (Auto) 1.2, Baso % (Auto) 0.7, N eut # (Auto) 8.1 H, Lymph # (Auto) 1.5, Jennings # (Auto) 0.7, Eos # (Auto) 0.1, Baso # (Auto) 0.1, PT 15.6 H, INR 1.44 H, APTT 40.7 H, VBG pH 7.37, VBG pCO2 36.2, VBG pO2 28.2, VBG HCO3 20.5 L, VBG Total CO2 21.6 L, VBG O2 Saturation 50.0, VBG Base Excess -4.8 L, VBG Lactic Acid 2.1 H, Sodium 136, Potassium 4.9, Chloride 106, Carbon Dioxide 22, Anion Gap 12.9, BUN 75 H, Creatinine 2.10 H, Estimated Creat Clear 53, Estimated GFR 32 L, Est GFR ( Amer) 38 L, G lucose 111 H, Lactate 1.9, Calcium 8.7, Total Bilirubin 0.4, AST 29, ALT 17, Alkaline Phosphatase 58, Troponin I 0.26 H, NT-Pro-B Natriuret Pep 4900 H, Total Protein 5.9 L, Albumin 3.4 L, Globulin 2.5, Albumin/Globulin Ratio 1.4, Lipase 99, Plasma/Serum Alcohol < 10, Blood Type Confirm B Positive 02/03/25 13:20: Urine Color Yellow, Urine Appearance Clear, Urine pH 5.5, Ur Specific [place] 1.020, Urine Protein 2+ A, Urine Glucose (UA) Negative, Urine Ketones Negative, Urine Blood Negative, Urine Nitrate Negative, Urine Bilirubin Negative, Urine Urobilinogen 0.2, Ur Leukocyte Esterase Negative, Urine RBC None, Urine WBC 3-5, Ur Squamous Epith Cells None, Urine Bacteria 1+, Hyaline Casts 3-5 02/03/25 13:54: Stool Occult Blood Positive A 02/03/25 14:12: Blood Type B Positive, Antibody Screen Negative, Crossmatch (AHG) See Detail 02/04/25 05:00 02/04/25 05:00 Orders (Tests/Meds): ED MEDICATIONS Generic Name Dose Route Start Last Admin Trade Name Freq PRN Reason Stop Dose Admin Diazepam 5 mg 02/03/25 23:33 02/03/25 23:49 Diazepam 10mg/2ml Syringe IV 03/05/25 23:32 5 mg Q1HP PRN Administration CIWA Score 8-15 Diazepam 5 mg 02/04/25 00:17 Diazepam 5mg Tablet PO 03/06/25 00:16 Q6HP PRN CIWA 2-7 Digoxin 125 mcg 02/04/25 09:00 02/04/25 09:32 Digoxin 0.125mg Tablet PO 03/06/25 08:59 125 mcg DAILY MICHAEL Administration Diltiazem HCl 240 mg 02/04/25 09:00 Diltiazem Er 240mg Capsule PO 03/06/25 08:59 DAILY MICHAEL Finasteride 5 mg 02/04/25 10:00 Finasteride 5mg Tablet PO 03/06/25 09:59 DAILY MICHAEL Folic Acid 1 mg 02/04/25 09:00 02/04/25 09:32 Folic Acid 1mg Tablet PO 03/06/25 08:59 1 mg DAILY MICHAEL Administration Sodium Chloride 250 mls @ 25 mls/hr 02/03/25 14:00 02/04/25 09:51 Sod Chlor 0.9% 250ml Bag IV 02/04/25 13:59 Infused .Q10H MICHAEL Infusion Octreotide Acetate 500 mcg/ 255 mls @ 25.5 mls/hr 02/03/25 15:00 02/04/25 00:57 Sodium Chloride IV 03/05/25 14:59 50 mcg/hr .Q10H MICHAEL 25.5 mls/hr 50 MCG/HR Administration Ceftriaxone Sodium 1 gm/ 50 mls @ 100 mls/hr 02/04/25 15:00 Sodium Chloride IV 02/14/25 14:59 Q24H MICHAEL Sodium Chloride 250 mls @ 25 mls/hr 02/03/25 17:00 02/04/25 08:13 Sod Chlor 0.9% 250ml Bag IV 02/04/25 16:59 Not Given .Q10H MICHAEL Insulin Human Lispro 0 unit 02/03/25 21:00 02/04/25 06:17 Humalog 100 Units/Ml 10ml Vial ([facility]) SUBCUT 03/05/25 20:59 Not Given ACHS MICHAEL Protocol Levothyroxine Sodium 75 mcg 02/04/25 09:00 02/04/25 09:32 Levothyroxine 75mcg (0.075mg) Tab PO 03/06/25 08:59 75 mcg DAILYDM MICHAEL Administration Morphine Sulfate 4 mg 02/04/25 07:16 Morphine 4mg/Ml Syringe IV 03/06/25 07:15 Q4HP PRN Moderate to Severe Pain (4-10) Multivitamins 1 each 02/04/25 17:00 Multivitamin Tablet PO 03/06/25 16:59 1700 MICHAEL Nicotine 21 mg 02/03/25 16:21 Nicotine 21mg/24hr Patch TD 03/05/25 16:20 DAILYP PRN Nicotine Cravings Ondansetron HCl 4 mg 02/03/25 23:33 Ondansetron 4mg/2ml Vial IV 03/05/25 23:32 Q6HP PRN Nausea Pantoprazole Sodium 40 mg 02/03/25 21:00 02/04/25 09:37 Pantoprazole 40mg Vial IV 03/05/25 20:59 40 mg BID MICHAEL Administration Thiamine HCl 100 mg 02/04/25 09:00 02/04/25 09:32 Thiamine 100mg Tablet PO 02/06/25 09:01 100 mg DAILY MICHAEL Administration Discontinued Medications Generic Name Dose Route Start Last Admin Trade Name Freq PRN Reason Stop Dose Admin Hydromorphone HCl 0.5 mg 02/03/25 14:46 02/03/25 15:01 Hydromorphone 2mg/Ml Syringe IV 02/03/25 14:47 0.5 mg ONCE ONE Administration Hydromorphone HCl 0.5 mg 02/03/25 22:33 02/03/25 22:40 Hydromorphone 2mg/Ml Syringe IV 02/03/25 22:34 0.5 mg ONCE ONE Administration Pantoprazole Sodium 80 mg/ 100 mls @ 100 mls/hr 02/03/25 13:59 02/03/25 18:06 Sodium Chloride IV 02/03/25 14:58 Infused ONCE ONE Infusion Ceftriaxone Sodium 2 gm/ 100 mls @ 200 mls/hr 02/03/25 14:54 02/03/25 15:50 Sodium Chloride IV 02/03/25 15:23 Infused ONCE ONE Infusion Iopamidol 80 ml 02/03/25 14:25 02/03/25 14:26 Iopamidol-370 (76%);100ml Bottle IV 02/03/25 14:26 80 ml ONCE ONE Administration Morphine Sulfate 2 mg 02/03/25 13:55 02/03/25 14:07 Morphine 2mg/Ml Syringe IV 02/03/25 13:56 2 mg ONCE ONE Administration Morphine Sulfate 2 mg 02/03/25 20:21 02/03/25 20:30 Morphine 2mg/Ml Syringe IV 03/05/25 20:20 2 mg Q6HP PRN Administration Moderate to Severe Pain (4-10) Morphine Sulfate 2 mg 02/04/25 06:20 02/04/25 06:27 Morphine 2mg/Ml Syringe IV 03/06/25 06:19 2 mg Q6HP PRN Administration Moderate to Severe Pain (4-10) Ondansetron HCl 4 mg 02/03/25 13:55 02/03/25 14:08 Ondansetron 4mg/2ml Vial IV 02/03/25 13:56 4 mg ONCE ONE Administration Sodium Chloride 50 ml 02/03/25 14:25 02/03/25 14:26 0.9 % Sodium Chloride 50 Ml Vial IV 02/03/25 14:26 50 ml ONCE ONE Administration Sodium Chloride 10 ml 02/03/25 14:25 02/03/25 14:26 Sodium Chloride 0.9% 10ml Syr (Rad Only) IV 03/05/25 14:24 10 ml NEEDED PRN Administration Maintain IV Site ORDERS Category Date Time Status Blood transfusion [Red Blood Cells] Stat BBK 02/03/25 14:12 Results Type and Screen Stat BBK 02/03/25 14:[address] angio abd/pel - GI Bleed Stat Cat Scan 02/03/25 13:46 Completed GI consult [Consult to Gastroenterology] [CONS] Routine Cons 02/03/25 15:24 Active XR chest portable Stat Exams 02/03/25 13:46 Completed CMP [Comprehensive Metabolic Panel] Stat Lab 02/03/25 12:49 Completed Complete Blood Count Auto Diff AMLAB Lab 02/04/25 05:00 Completed Complete Blood Count Auto Diff Stat Lab 02/03/25 12:49 Completed Comprehensive Metabolic Panel AMLAB Lab 02/04/25 05:00 Completed Ethanol [Ethyl Alcohol] Stat Lab 02/03/25 12:49 Completed Lactic Acid Stat Lab 02/03/25 12:49 Completed Lipase Stat Lab 02/03/25 12:49 Completed Magnesium AMLAB Lab 02/04/25 05:00 Completed NT Pro Brain Natriuretic Pep. Stat Lab 02/03/25 12:49 Completed Occult Blood,Stool Stat Lab 02/03/25 13:54 Completed PT INR [Prothrombin Time INR] Stat Lab 02/03/25 12:49 Completed PTT [Activated Partial Thrombo Time] Stat Lab 02/03/25 12:49 Completed Troponin I Q3H Lab 02/03/25 15:54 Completed Troponin I Q3H Lab 02/03/25 20:24 Completed Troponin I Stat Lab 02/03/25 12:49 Completed UA [Urinalysis and Microscopic] Stat Lab 02/03/25 13:20 Completed VBG [Venous Blood Gas] Stat RT 02/03/25 12:49 Completed Medical Decision Narrative: 64-year-old male presents to the emergency department via EMS for history of melena generalized weakness and shortness of breath for the last 1 to 2 weeks, differential diagnose include but not limited to, upper GI bleed, lower GI bleed, cardiac arrhythmia, electrolyte disturbance, anemia, COPD exacerbation, pneumonia, among others. I discussed this patient's case with the attending physician Will obtain basic laboratory studies, type and screen, EKG, chest x-ray, CT angio GI bleed protocol, coags, VBG, type and screen, ethyl alcohol level lactic acid lipase level fecal occult stool, troponin urinalysis, 2 mg morphine for pain and 4 mg of Zofran for nausea. VBG is notable for normal pH, decreased bicarb at 20.5, venous lactic acid is minimally elevated at 2.1 CBC is notable for erythrocyte opinion at 2.1, hemoglobin is decreased to 6.1, hematocrit 20.5, MCV is elevated at 97.2 Coagulation studies are notable for an elevated prothrombin time at 15.6, INR is 1.4, APTT is 40.7 which is elevated. CMP is notable for elevated BUN at 75, creatinine elevation at 2.1, lipase level within normal limits. Will give 80 mg IV Protonix for melena, and will transfuse 2 units PRBC at this time. alcohol level within normal limit Fecal occult stool positive. proBNP is notable for 4900 which is elevated Troponin is elevated at 0.26 I had a long discussion with the patient's next of kin brother and [id number] at the bedside, they provide additional history and states that the patient actually utilizes alcohol quite frequently, patient then tells me he drinks 2 beers , a day, and family states it is most likely 4- 5 . Still complaining of some knee pain on the right, will give 0.5 mg IV Dilaudid for pain. And repeat an EKG due to elevated troponin. Because of history of alcohol use will also add on 2 g IV ceftriaxone and 50 mcg IV octreotide bolus and 500 IV microgram octreotide drip. I attempted to call GI physician at approximately 2:56 PM, no answer we will try again. I reviewed the patient's chest x-ray along the corresponding radiologic report, no acute abnormality. Blood type is B+, antibody screen negative I discussed this patient's case with the hospitalist physician at approximately 3:17 PM, he is in agreement with the current treatment plan/admission plan, he will place orders shortly, and pending GI callback, patient will be admitted with GI consultation and most likely scope in the upcoming days, discussed the CTA read is not yet back. Will not hold admission. I discussed need for admission with the patient family bedside patient and family in agreement with the current admission plan/treatment plan. Reviewed the patient's CT abdomen pelvis without contrast, the corresponding radiologic report, no active GI hemorrhage, diverticulosis at the entire colon without evidence of diverticulitis, greater than 70% stenosis or near occlusion superior mesenteric artery and right common femoral artery widespread atherosclerotic disease, cholelithiasis no biliary ductal dilatation, nonenhancing cyst in both kidneys moderate to large right pleural effusion cardiomegaly. I discussed this patient's case with the on-call GI physician at approximately 3:50 PM, he is in agreement with the current admission plan for GI bleed, he we will see the patient in consultation on inpatient side. He will most likely perform EGD tomorrow morning, n.p.o. after midnight, hold patient's anticoagulants. <Simon Arteaga MD - Last Filed: 02/04/25 10:05> Vital Signs: 02/03/25 12:45 02/03/25 12:51 02/03/25 13:29 Temperature 98.2 F Temperature Source Oral Pulse Rate 78 Pulse Rate [Right Radial] 88 Respiratory Rate 18 Blood Pressure 115/62 Blood Pressure [Right Arm] 131/74 Blood Pressure Mean [Right Arm] 93 Blood Pressure Source [Right Arm] Automatic Cuff Blood Pressure Position [Right Arm] Sitting 02 Sat by Pulse Oximetry 98 100 98 Oxygen Delivery Method Room Air Room Air 02/03/25 15:02 02/03/25 15:15 02/03/25 15:31 Temperature Temperature Source Pulse Rate 61 49 L Pulse Rate [Right Radial] Respiratory Rate 17 21 Blood Pressure 98/65 L 106/50 L 117/64 Blood Pressure [Right Arm] Blood Pressure Mean [Right Arm] Blood Pressure Source [Right Arm] Blood Pressure Position [Right Arm] 02 Sat by Pulse Oximetry 100 100 Oxygen Delivery Method Lab Data Lab Results 02/03/25 12:49: WBC 10.6, RBC 2.11 L, Hgb 6.1 L*, Hct 20.5 L*, MCV 97.2 H, MCH 28.9, MCHC 29.8 L, RDW 17.2, Plt Count 312, MPV 11.1 H, Neut % (Auto) 76.2, Lymph % (Auto) 13.7, [place] % (Auto) 6.1, Eos % (Auto) 1.2, Baso % (Auto) 0.7, N eut # (Auto) 8.1 H, Lymph # (Auto) 1.5, [place] # (Auto) 0.7, Eos # (Auto) 0.1, Baso # (Auto) 0.1, PT 15.6 H, INR 1.44 H, APTT 40.7 H, VBG pH 7.37, VBG pCO2 36.2, VBG pO2 28.2, VBG HCO3 20.5 L, VBG Total CO2 21.6 L, VBG O2 Saturation 50.0, VBG Base Excess -4.8 L, VBG Lactic Acid 2.1 H, Sodium 136, Potassium 4.9, Chloride 106, Carbon Dioxide 22, Anion Gap 12.9, BUN 75 H, Creatinine 2.10 H, Estimated Creat Clear 53, Estimated GFR 32 L, Est GFR ( Amer) 38 L, G lucose 111 H, Lactate 1.9, Calcium 8.7, Total Bilirubin 0.4, AST 29, ALT 17, Alkaline Phosphatase 58, Troponin I 0.26 H, NT-Pro-B Natriuret Pep 4900 H, Total Protein 5.9 L, Albumin 3.4 L, Globulin 2.5, Albumin/Globulin Ratio 1.4, Lipase 99, Plasma/Serum Alcohol < 10, Blood Type Confirm B Positive 02/03/25 13:20: Urine Color Yellow, Urine Appearance Clear, Urine pH 5.5, Ur Specific [place] 1.020, Urine Protein 2+ A, Urine Glucose (UA) Negative, Urine Ketones Negative, Urine Blood Negative, Urine Nitrate Negative, Urine Bilirubin Negative, Urine Urobilinogen 0.2, Ur Leukocyte Esterase Negative, Urine RBC None, Urine WBC 3-5, Ur Squamous Epith Cells None, Urine Bacteria 1+, Hyaline Casts 3-5 02/03/25 13:54: Stool Occult Blood Positive A 02/03/25 14:12: Blood Type B Positive, Antibody Screen Negative, Crossmatch (AHG) See Detail Orders (Tests/Meds): ED MEDICATIONS Generic Name Dose Route Start Last Admin Trade Name Freq PRN Reason Stop Dose Admin Diazepam 5 mg 02/03/25 23:33 02/03/25 23:49 Diazepam 10mg/2ml Syringe IV 03/05/25 23:32 5 mg Q1HP PRN Administration CIWA Score 8-15 Diazepam 5 mg 02/04/25 00:17 Diazepam 5mg Tablet PO 03/06/25 00:16 Q6HP PRN CIWA 2-7 Digoxin 125 mcg 02/04/25 09:00 02/04/25 09:32 Digoxin 0.125mg Tablet PO 03/06/25 08:59 125 mcg DAILY MICHAEL Administration Diltiazem HCl 240 mg 02/04/25 09:00 Diltiazem Er 240mg Capsule PO 03/06/25 08:59 DAILY MICHAEL Finasteride 5 mg 02/04/25 10:00 Finasteride 5mg Tablet PO 03/06/25 09:59 DAILY MICHAEL Folic Acid 1 mg 02/04/25 09:00 02/04/25 09:32 Folic Acid 1mg Tablet PO 03/06/25 08:59 1 mg DAILY MICHAEL Administration Sodium Chloride 250 mls @ 25 mls/hr 02/03/25 14:00 02/04/25 09:51 Sod Chlor 0.9% 250ml Bag IV 02/04/25 13:59 Infused .Q10H MICHAEL Infusion Octreotide Acetate 500 mcg/ 255 mls @ 25.5 mls/hr 02/03/25 15:00 02/04/25 00:57 Sodium Chloride IV 03/05/25 14:59 50 mcg/hr .Q10H MICHAEL 25.5 mls/hr 50 MCG/HR Administration Ceftriaxone Sodium 1 gm/ 50 mls @ 100 mls/hr 02/04/25 15:00 Sodium Chloride IV 02/14/25 14:59 Q24H MICHAEL Sodium Chloride 250 mls @ 25 mls/hr 02/03/25 17:00 02/04/25 08:13 Sod Chlor 0.9% 250ml Bag IV 02/04/25 16:59 Not Given .Q10H MICHAEL Insulin Human Lispro 0 unit 02/03/25 21:00 02/04/25 06:17 Humalog 100 Units/Ml 10ml Vial ([facility]) SUBCUT 03/05/25 20:59 Not Given ACHS [facility] Protocol Levothyroxine Sodium 75 mcg 02/04/25 09:00 02/04/25 09:32 Levothyroxine 75mcg (0.075mg) Tab PO 03/06/25 08:59 75 mcg DAILYDM MCIHAEL Administration Morphine Sulfate 4 mg 02/04/25 07:16 Morphine 4mg/Ml Syringe IV 03/06/25 07:15 Q4HP PRN Moderate to Severe Pain (4-10) Multivitamins 1 each 02/04/25 17:00 Multivitamin Tablet PO 03/06/25 16:59 1700 MICHAEL Nicotine 21 mg 02/03/25 16:21 Nicotine 21mg/24hr Patch TD 03/05/25 16:20 DAILYP PRN Nicotine Cravings Ondansetron HCl 4 mg 02/03/25 23:33 Ondansetron 4mg/2ml Vial IV 03/05/25 23:32 Q6HP PRN Nausea Pantoprazole Sodium 40 mg 02/03/25 21:00 02/04/25 09:37 Pantoprazole 40mg Vial IV 03/05/25 20:59 40 mg BID MICHAEL Administration Thiamine HCl 100 mg 02/04/25 09:00 02/04/25 09:32 Thiamine 100mg Tablet PO 02/06/25 09:01 100 mg DAILY MICHAEL Administration Discontinued Medications Generic Name Dose Route Start Last Admin Trade Name Freq PRN Reason Stop Dose Admin Hydromorphone HCl 0.5 mg 02/03/25 14:46 02/03/25 15:01 Hydromorphone 2mg/Ml Syringe IV 02/03/25 14:47 0.5 mg ONCE ONE Administration Hydromorphone HCl 0.5 mg 02/03/25 22:33 02/03/25 22:40 Hydromorphone 2mg/Ml Syringe IV 02/03/25 22:34 0.5 mg ONCE ONE Administration Pantoprazole Sodium 80 mg/ 100 mls @ 100 mls/hr 02/03/25 13:59 02/03/25 18:06 Sodium Chloride IV 02/03/25 14:58 Infused ONCE ONE Infusion Ceftriaxone Sodium 2 gm/ 100 mls @ 200 mls/hr 02/03/25 14:54 02/03/25 15:50 Sodium Chloride IV 02/03/25 15:23 Infused ONCE ONE Infusion Iopamidol 80 ml 02/03/25 14:25 02/03/25 14:26 Iopamidol-370 (76%);100ml Bottle IV 02/03/25 14:26 80 ml ONCE ONE Administration Morphine Sulfate 2 mg 02/03/25 13:55 02/03/25 14:07 Morphine 2mg/Ml Syringe IV 02/03/25 13:56 2 mg ONCE ONE Administration Morphine Sulfate 2 mg 02/03/25 20:21 02/03/25 20:30 Morphine 2mg/Ml Syringe IV 03/05/25 20:20 2 mg Q6HP PRN Administration Moderate to Severe Pain (4-10) Morphine Sulfate 2 mg 02/04/25 06:20 02/04/25 06:27 Morphine 2mg/Ml Syringe IV 03/06/25 06:19 2 mg Q6HP PRN Administration Moderate to Severe Pain (4-10) Ondansetron HCl 4 mg 02/03/25 13:55 02/03/25 14:08 Ondansetron 4mg/2ml Vial IV 02/03/25 13:56 4 mg ONCE ONE Administration Sodium Chloride 50 ml 02/03/25 14:25 02/03/25 14:26 0.9 % Sodium Chloride 50 Ml Vial IV 02/03/25 14:26 50 ml ONCE ONE Administration Sodium Chloride 10 ml 02/03/25 14:25 02/03/25 14:26 Sodium Chloride 0.9% 10ml Syr (Rad Only) IV 03/05/25 14:24 10 ml NEEDED PRN Administration Maintain IV Site ORDERS Category Date Time Status Blood transfusion [Red Blood Cells] Stat BBK 02/03/25 14:12 Results Type and Screen Stat BBK 02/03/25 14:[address] angio abd/pel - GI Bleed Stat Cat Scan 02/03/25 13:46 Completed GI consult [Consult to Gastroenterology] [CONS] Routine Cons 02/03/25 15:24 Active XR chest portable Stat Exams 02/03/25 13:46 Completed CMP [Comprehensive Metabolic Panel] Stat Lab 02/03/25 12:49 Completed Complete Blood Count Auto Diff AMLAB Lab 02/04/25 05:00 Completed Complete Blood Count Auto Diff Stat Lab 02/03/25 12:49 Completed Comprehensive Metabolic Panel AMLAB Lab 02/04/25 05:00 Completed Ethanol [Ethyl Alcohol] Stat Lab 02/03/25 12:49 Completed Lactic Acid Stat Lab 02/03/25 12:49 Completed Lipase Stat Lab 02/03/25 12:49 Completed Magnesium AMLAB Lab 02/04/25 05:00 Completed NT Pro Brain Natriuretic Pep. Stat Lab 02/03/25 12:49 Completed Occult Blood,Stool Stat Lab 02/03/25 13:54 Completed PT INR [Prothrombin Time INR] Stat Lab 02/03/25 12:49 Completed PTT [Activated Partial Thrombo Time] Stat Lab 02/03/25 12:49 Completed Troponin I Q3H Lab 02/03/25 15:54 Completed Troponin I Q3H Lab 02/03/25 20:24 Completed Troponin I Stat Lab 02/03/25 12:49 Completed UA [Urinalysis and Microscopic] Stat Lab 02/03/25 13:20 Completed VBG [Venous Blood Gas] Stat RT 02/03/25 12:49 Completed ECG Data Tracing #1: Independently interpreted by me rate is 62, rhythm is irregular, no ST elevation in anatomical contiguous leads, QTc 410 Critical Care <MYRIAM Malagon - Last Filed: 02/03/25 16:04> Critical Care Time Critical Care Time: Yes Attestation: On 02/03/25, the high probability of a clinically significant, sudden or life threatening deterioration of the following system(s) required my full and direct attention, intervention and personal management. The time I documented below is in addition to time spent performing reported procedures but includes the following listed in this critical care notation. Total Time Total Critical Care Time: 60
--- OUTSIDE RECORDS SUMMARY | 2025-02-03 13:28 | XMS_ITS | Clinical Summary ---
Author Organization [facility] Address [address] [place] [address] Care Team Providers Care Account [facility] Name Role Phone Unavailable Primary Care Provider [...]
--- OUTSIDE RECORDS SUMMARY | 2025-02-03 13:28 | XMS_ITS | Clinical Summary ---
Author Organization [facility] Address [address] [place] [address] Phone Care Team Providers Care Drafter Seismograph Name Role Phone Saud Guaman MD [ [...] right ankle and foot Benign Essential Hypertension 9389485 (SNOMED CT) Active 03/24 Jacqui Beth Benign essential hypertension Tobacco use [id number] (SNOMED CT) Active 03/24 Jacqui Beth Tobacco user DM II E11.9 (ICD-10-CM) Active 03/24 Jacqui Beth Type 2 diabetes mellitus without complications Medications Medication Instructions Start Date Stop Date Generic Name [facility] Provider CIPRO 500 MG TABS take 1 tablet b.i.d. CIPROFLOXACIN HCL 27803946320 Yessy S TYLENOL 325 MG TABS take two tablets by mouth every 6 hours as needed for pain ACETAMINOPHEN [id number] Yessy S MOBIC 7.5 MG ORAL TABLET take one tablet by mouth daily MELOXICAM 48497939802 Yessy S FORTAZ (IV) FORTAZ (IV) Yessy S ZOSYN 3.375 (3-0.375) GM INTRAVENOUS SOLUTION RECONSTITUTED 3g-0.375gm IV q 6hrs [facility] [phone] PIPERACILLIN SOD-TAZOBACTAM SO [id number] Jamee Sheppard MINOCYCLINE HCL 100 MG CAPS take twice daily MINOCYCLINE HCL 87336013694 Saud Guaman MD CIPRO 500 MG TABS 1 by mouth twice a day CIPROFLOXACIN HCL 92596071131 Saud Guaman MD FORTAZ (IV) FORTAZ (IV) Yessy Alexander ZOSYN 3.375 (3-0.375) GM INTRAVENOUS SOLUTION RECONSTITUTED 3g-0.375gm IV q 6hrs [facility] [phone] PIPERACILLIN SOD-TAZOBACTAM SO [id number] Jamee Sheppard ORAZINC 110 MG ORAL TABLET take 1 tablet daily ZINC SULFATE 19052546681 Jayjay Sy NICOTINE 21-14-7 MG/24HR KIT apply once a day NICOTINE 05665125962 Jayjay Sy MULTIVITAMINS ORAL CAPSULE take 1 capsule daily MULTIPLE VITAMIN 57730580988 Jayjay Sy LISINOPRIL 40 MG TABS take 1 tablet daily LISINOPRIL 24073429800 Jayjay Sy HEPARIN SODIUM (PORCINE) 5000 UNIT/ML SOLN inject 1 mL subcu every 8 hours HEPARIN SODIUM (PORCINE) 02490485670 Jayjay Sy FOLIC ACID 1 MG TABS take 1 tablet daily FOLIC ACID 22663930128 Jayjay Sy CIPRO 500 MG TABS take 1 tablet b.i.d. CIPROFLOXACIN HCL 91321280572 Jayjay Sy ASCORBIC ACID 250 MG ORAL TABLET take 1 tablet daily ASCORBIC ACID 92608483322 Jayjay Sy AMLODIPINE BESYLATE 5 MG TABS take 1 tablet daily AMLODIPINE BESYLATE 11929112725 Jayjay Sy Medications Administered No information available. Allergies, Adverse Reactions, Alerts Observed no known allergies at Results Date Name Value Unit Range Flag Description Office Visit: [facility] Up Room #10 MEDS REVIEW Done [...]
--- OUTSIDE RECORDS SUMMARY | 2025-02-03 13:28 | XMS_ITS | Clinical Summary ---
Author Organization [facility] Address [address] [place] [address] Care Team Providers Care Director Of Child Welfare Services Name Role Phone Kevin Walker MD Primary Care Provider [phone] Allergies No known active allergies Medications lisinopril [...] syndrome 03/26/2018 Coronary artery disease invo lving cheesh-na coronary artery of cheesh-na heart without angina pectoris 03/26/2018 A-fib 03/26/2018 [...] pulse or is breathing): Full Care Teams Director Of Child Welfare Services Relationship Specialty Start Date End Date Kevin Walker MD [address] [facility] [address] [place] [address] PCP - General Adolescent Medicine 03/26/18
--- OUTSIDE RECORDS SUMMARY | 2025-02-03 13:28 | XMS_ITS | Clinical Summary ---
Author Organization Healthcare Address [address] [place] [address] Care Team Providers Care Filling Mixer Name Role Phone Tonny Bean MD Primary Care Provider Kevin Sanders MD Unavailable [phone] Allergies Active Allergy Reactions Criticality Noted Date [...] Last Done Comments [facility]-Hepatitis C Screening 1958 [facility]-Medicare Annual Wellness (AWV) 1958 [facility]-Infant/Child/Adol SDOH Screenings 1958 Diabetes: Dental Exam 1968 [facility]- SDOH Screenings 1976 [facility]-Adult SDOH Screenings 1976 [facility]-Pneumococcal Vaccine: 50+ Years (1 of 2 - PCV) 1977 CT Colonography 11/19/2003 Colonoscopy 11/19/2003 [facility]-DNA 11/19/2003 FIT 11/19/2003 FOBT 11/19/2003 Sigmoidoscopy 11/19/2003 [facility]-Colorectal Cancer Screening 11/19/2003 [facility]-RSV Vaccine: 60+ Years or (1 - Risk 50-74 years 1-dose series) 2008 [facility]-Zoster Vaccines (1 of 2) 2008 [facility]-Diabetes: Hemoglobin A1C 06/30/2015 12/31/2014 MFA-UNEDZ-28 Vaccine (2 - Moderna risk series) 01/22/2021 12/25/2020 [facility]-Abdominal Aortic Aneurysm (AAA) Screening 11/19/2023 [facility]-Depression Screening 04/10/2024 04/10/2023 [facility]-Influenza Vaccine (#1) 2024 [facility]-DTaP,Tdap,and Td Vaccines (2 - Td or Tdap) 07/07/2028 07/07/2018 [facility]-Obesity Intervention Completed 024, 05/08/2023, 04/10/2023, Additional history exists HPV Vaccines (No Doses Required) Completed [facility]-HIB Vaccines Aged Out No longer e [...] ESBL Comment:Right foot ESBL 12/25/2018 07/07/2020 Insurance Member Subscriber Plan / Payer (Ef fective 2022-Present) Name:Celso Gaviria Relation to Subscriber:Self Name:Celso Gaviria Payer ID:[id number] (NAIC) Type:Not on file Address: [place] [phone] [facility] Care Teams Filling Mixer Relationship Specialty Start Date End Date Tonny Bean MD PCP - General Family Medicine 05/09/22 Kevin Walker MD [address] [place] [address] [place] [address] 05/09/22
[2025-02-03 13:43] LABS: Immature Granulocytes % 2.1 %; Mean Corpuscular HGB Conc 29.8 g/dL (31.8-35.4); Mean Corpuscular Hemoglobin 28.9 pg (27.0-31.2); Mean Corpuscular Volume 97.2 fl (80-94); Nucleated Red Blood Cells % 0.5 %; Platelet Count 312 K/mm3 (142-424); Red Blood Count 2.11 M/mm3 (4.60-6.20); Red Cell Distribution Width-SD 53.9 fL; White Blood Count 10.6 K/mm3 (4.8-10.8)
--- NOTE | 2025-02-03 13:46 | CT_ITS ---
PROCEDURE INFORMATION: Exam: CTA Abdomen and Pelvis With Contrast Exam date and time: 02/03/2025 2:23 PM Age: 64 years old Clinical indication: Other: Weakness; Additional info: Generalized weakness, history of melena TECHNIQUE: Imaging protocol: Computed tomographic angiography of the abdomen and pelvis with contrast. Exam focused on the arteries. 3D rendering (Not supervised by radiologist): MIP and/or 3D reconstructed images were created by the technologist. Radiation optimization: All CT scans at this facility use at least one of these dose optimization techniques: automated exposure control; mA and/or kV adjustment per patient size (includes targeted exams where dose is matched to clinical indication); or iterative reconstruction. Contrast material: ISOVUE 370; Contrast volume: 80 ml; Contrast route: INTRAVENOUS (IV); COMPARISON: CT ANGIO CHEST 02/21/2019 3:19 PM FINDINGS: Pleural spaces: Moderately large right pleural effusion. Heart: Cardiomegaly. Coronary arteries: Coronary artery calcifications. Aorta: No aortic aneurysm. No aortic dissection. 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 Renal arteries: No occlusion or significant stenosis. Right iliac arteries: 50-69% stenosis in the proximal right external iliac artery. Near occlusion of the right common iliac artery and multifocal moderate stenoses in the right and left superficial femoral arteries as imaged. Left iliac arteries: No occlusion or significant stenosis. Other arteries: Multiple areas of moderate to heavy atherosclerotic calcification. Liver: No mass. Gallbladder and biliary ducts: Gallbladder has several calcified stones without wall thickening or luminal distention. No biliary ductal dilatation. Pancreas: No mass. No ductal dilation. Spleen: Spleen has calcified granulomas and no mass or surrounding fluid. No splenomegaly. Adrenal glands: No mass. Kidneys and ureters: Both kidneys have a few nonenhancing cysts, the largest measuring 3 cm. No solid renal masses, calcified stones, or hydroureteronephrosis. Stomach and bowel: No active GI bleeding. Diverticula are scattered throughout the entire colon, especially the sigmoid. No bowel wall thickening, intestinal masses, or abnormal luminal dilatation. Appendix: No evidence of appendicitis. Intraperitoneal space: No free air. No significant fluid collection. Lymph nodes: No enlarged lymph nodes. Urinary bladder: No asymmetric bladder wall thickening or enhancement. Reproductive: No abnormalities as visualized. Bones/joints: No acute fracture or focal bone lesions. Soft tissues: No soft tissue masses. IMPRESSION: 1. No active GI hemorrhage. 2. Diverticulosis throughout the entire colon without evidence of diverticulitis. 3. 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 Widespread atherosclerotic disease. 4. Cholelithiasis. No biliary ductal dilatation. 5. Nonenhancing cysts in both kidneys. 6. Moderately large right pleural effusion. 7. Cardiomegaly.
--- NOTE | 2025-02-03 13:46 | XR_ITS ---
FINAL REPORT CLINICAL HISTORY: Shortness of breath COMPARISON: none FINDINGS: A single frontal view of the chest was obtained. No acute pulmonary opacity is present. There is no evidence of effusion or pneumothorax. Mediastinum is unremarkable. Heart size is normal. IMPRESSION: No acute abnormality. Reviewed, Interpreted and Dictated by Shiela Davila MD Transcribed by Soheila Forte Authenticated and [facility]
[2025-02-03 13:47] LABS: Hematocrit 20.5 % (42.0-52.0); Hemoglobin 6.1 g/dL (14.1-18.0)
[2025-02-03 13:48] LABS: Activated Partial Thrombo Time 40.7 seconds (22.8-30.6); INR 1.44 (0.9-1.1); Prothrombin Time 15.6 seconds (10.1-12.5)
--- NOTE | 2025-02-03 13:49 | PC.NURSE ---
lab called to notify of need for type and screen to be drawn
[2025-02-03 13:50] LABS: Albumin Level 3.4 g/dl (3.5-5.0); Chloride 106 mmol/L (98-107); Potassium 4.9 mmoL/L (3.5-5.1); Sodium 136 mmol/L (136-145)
[2025-02-03 13:52] LABS: Lipase 99 U/L (23-300)
[2025-02-03 13:53] LABS: Alanine Aminotransferase 17 U/L (12-78); Albumin/Globulin Ratio 1.4 (1.1-1.8); Alkaline Phosphatase 58 U/L (38-126); Anion Gap 12.9 mEq/L (5-15); Aspartate Amino Transferase 29 U/L (17-59); Bilirubin,Total 0.4 mg/dl (0.2-1.3); Blood Urea Nitrogen 75 mg/dl (9-20); Calcium 8.7 mg/dl (8.4-10.2); Carbon Dioxide 22 mmol/L (22.0-30.0); Creatinine Clearance Estimated 53 mL/min (50-200); Creatinine,Serum 2.10 mg/dl (0.66-1.25); Estimated Glomerular Filt Rate 32 ml/min (>60); GFR (African American) 38 ML/MIN (>60); Globulin 2.5 g/dL (1.3-3.2); Glucose 111 mg/dl (74-100); Total Protein,Serum 5.9 g/dl (6.3-8.2)
--- NOTE | 2025-02-03 13:55 | PC.NURSE ---
rectal exam performed by Rommel Guerra PA-C, this RN present. hemoccult stool specimen collected by BG and sent to lab at this time.
[2025-02-03 14:01] LABS: Occult Blood,Stool Positive (Negative)
[2025-02-03] MEDS: MORPHINE 2MG/ML SYRINGE 2 MG IV ×2 (14:07→20:30)
[2025-02-03] MEDS: ONDANSETRON 4MG/2ML VIAL 4 MG IV (14:08)
[2025-02-03] MEDS: PANTOPRAZOLE SODIUM 80 MG in 0.9 % SODIUM CHLORIDE 100 ML 100 MG IV (14:08)
[2025-02-03 14:13] LABS: NT Pro Brain Natriuretic Pep. 4900 pg/mL (0-125)
[2025-02-03] MEDS: IOPAMIDOL-370 (76%);100ML BOTTLE 80 ML IV (14:26)
[2025-02-03] MEDS: SODIUM CHLORIDE 0.9% 10ML SYR (RAD ONLY) 10 ML IV (14:26)
[2025-02-03] MEDS: 0.9 % SODIUM CHLORIDE 50 ML VIAL IV (14:26)
[2025-02-03 14:39] LABS: Troponin I 0.26 ng/ml (0.00-0.034)
--- NOTE | 2025-02-03 14:44 | ECG_ITS ---
APPROVED REPORT Exam: Resting ECG HR:54 bpm ECG Measurements Heart Rate 54 AXES QRSd 116 QRS 79 QT 399 T -60 QTc 385 Conclusion ATRIAL FIBRILLATION WITH SLOW VENTRICULAR RESPONSE LOW QRS VOLTAGE IN EXTREMITY LEADS [QRS DEFLECTION < 0.5 mV IN LIMB LEADS] POSSIBLE ANTERIOR MYOCARDIAL INFARCTION , OF INDETERMINATE AGE [30 ms Q WAVE IN V3/V4, OR R < 0.2 mV IN V4] ST DEPRESSION, CONSIDER SUBENDOCARDIAL INJURY [0.1+ mV ST DEPRESSION] TYPE 3 BRUGADA PATTERN (NON-DIAGNOSTIC) [COVED/SADDLEBACK ST ELEVATION > 0.1mV IN 2 OF V1-3] ABNORMAL ECG Significant wandering Electronically signed by : WICHO CASON, 02/06/2025 07:12:58
--- NOTE | 2025-02-03 14:51 | ECG_ITS ---
APPROVED REPORT Exam: Resting ECG HR:62 bpm ECG Measurements Heart Rate 62 AXES QRSd 98 QRS 91 QT 404 T 107 QTc 410 Conclusion ATRIAL FIBRILLATION BORDERLINE RIGHT AXIS DEVIATION [QRS AXIS > 90] LOW QRS VOLTAGE IN EXTREMITY LEADS [QRS DEFLECTION < 0.5 mV IN LIMB LEADS] POSSIBLE ANTERIOR MYOCARDIAL INFARCTION , OF INDETERMINATE AGE [30 ms Q WAVE IN V3/V4, OR R < 0.2 mV IN V4] ABNORMAL ECG Electronically signed by : WICHO CASON, 02/03/2025 16:03:40
--- NOTE | 2025-02-03 14:57 | PC.NURSE ---
JEAN Benitez RN to bedside to perform ultrasound guided IV
[2025-02-03] MEDS: HYDROMORPHONE 2MG/ML SYRINGE 0.5 MG IV ×2 (15:01→22:40)
--- NOTE | 2025-02-03 15:26 | EXP.HP ---
History of Present Illness *Admission Date: 02/03/25 *Reason for visit:: Weakness, black stool *History of present illness: 64-year-old male with history of congenital blindness, diabetes, amputation of right lower extremity due to gangrenous diabetic ulcer, CAD, PAD, tobacco use disorder, obesity, and A-fib. Who presents to the ER because of several days of black stools per his caregiver. Patient has become more weak and been more short of breath over the past week. On arrival to the ER, patient is somnolent and confused with minimal responsiveness to exam per nursing report. Workup shows significant anemia with hemoglobin of 6.1, hemoglobin 14.3 in July of this year. BUN elevated at 75 with creatinine 2.1, discordant and consistent with suspected GI bleed. Patient is on Xarelto and possibly Plavix for A-fib and PAD/CAD. He is stable on room air. Initiated on pantoprazole, octreotide drip, 2 units typed and crossmatched. GI consulted for evaluation and possible EGD. Medicine consulted for admission. On my evaluation after arriving to the floor, patient is altered and not at baseline mentation. Knows his name but unable to provide much history. Does not know what is going on at this time just knows he feels bad. Unable to open eyes due to blindness. Best verbal response is confused. Attempts to obey commands. [facility] Disclaimer: The information contained in this section may have been updated after the patient was seen, as this information can be updated by other users. 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, congenital Diabetes mellitus Diverticula, colon Osteomyelitis Amputation below knee Amputation of right lower extremity Amputation toe Normal colonoscopy Osteomyelitis of right foot Femoral arteriovenous fistula, right HTN (hypertension) HLD (hyperlipidemia) Coronary artery disease PAD (peripheral artery disease) Tobacco use disorder Gangrene associated with type 2 diabetes mellitus Onychomycosis Neuropathy Decreased pedal pulses Onychodystrophy Acquired hammertoes of both feet Onychogryphosis Acute hypoxemic respiratory failure Varicose veins of both legs with edema History of osteomyelitis Lymphedema of both lower extremities Hypokalemia Sepsis Coagulopathy Diabetes Class 2 obesity Blindness Lymphedema Atrial fibrillation Congestive heart failure Acute exacerbation of chronic obstructive airways disease Surgical History History of colon surgery H/O heart artery stent H/O eye surgery History of amputation of toe Family History Father Liver disease Other No significant family history Social History Smoking Status: Current every day smoker tobacco type: cigarettes packs per day: 1 alcohol intake: never substance use type: denies use current occupational status: unemployed and disabled Travel in the last 8 weeks?: None household members: none housing: house lives independently: Yes Have you lived/traveled outside [place] in past 30 days?: No Contact w/someone who lives/traveled outside US past 30 days?: No Exposure to someone with infectious disease in past 14 days?: No Do you have a fever (greater than 100.4 F or 38 C)?: No Have you tested positive for COVID-19?: No Exposed to someone with COVID-19 in past 14 days?: No Do you have a sore throat?: No Do you have a cough?: No Do you have any weakness?: No Do you have any diarrhea?: No Are you experiencing any unusual bleeding?: No Do you have any muscle aches/pain?: No Do you have any abdominal pain?: No Are you experiencing loss of taste or smell?: No Other Medical History Have you received the Flu Vaccine for this season: No Have you received the Pneumonia Vaccine: No Review of Systems Review of Systems Review of systems:: unable to obtain Meds Home Medications and Allergies Home Medications ?Medication ?Instructions ?Recorded ?Confirmed ?Type levothyroxine 75 mcg tablet 75 mcg PO DAILY synthroid #30 tabs 10/15/21 02/03/25 Rx omeprazole 40 mg capsule,delayed 40 mg PO BID 03/09/23 02/03/25 History release glipizide 2.5 mg tablet 2.5 mg PO DAILY #90 tabs 02/26/24 02/03/25 Rx mupirocin 2 % topical ointment 1 applic topical BID #50 grams 05/17/24 02/03/25 Rx diltiazem HCl 240 mg 240 mg PO DAILY #90 caps 01/13/25 02/03/25 Rx capsule,extended release 24 hr allopurinol 300 mg tablet 300 mg PO DAILY 02/03/25 02/03/25 History atorvastatin 20 mg tablet 20 mg PO HS 02/03/25 02/03/25 History clopidogrel 75 mg tablet 75 mg PO DAILY 02/03/25 02/03/25 History digoxin 125 mcg (0.125 mg) tablet 125 mcg PO DAILY 02/03/25 02/03/25 History furosemide 20 mg tablet 20 mg PO DAILY 02/03/25 02/03/25 History metformin 500 mg tablet,extended 1,000 mg PO DAILY 02/03/25 02/03/25 History release 24 hr potassium chloride 10 mEq 10 meq PO DAILY 02/03/25 02/03/25 History tablet,extended release(part/cryst) rivaroxaban 20 mg tablet (Xarelto) 20 mg PO DAILY 02/03/25 02/03/25 History triamcinolone acetonide 0.1 % 1 applic topical BID 02/03/25 02/03/25 History topical cream New Prescriptions to Start Prescriptions: Allergies Allergy/AdvReac Type Severity Reaction Status Date / Time No Known Allergies Allergy Verified 11/20/24 10:13 Exam Data for Last 24 hours Vital signs and Labs for Last 24 Hours: Temp Pulse Resp BP Pulse Ox O2 Del Method 98.2 F 88 18 131/74 100 Room Air 02/03/25 12:45 02/03/25 12:45 02/03/25 12:45 02/03/25 12:45 02/03/25 12:51 02/03/25 12:51 Laboratory Results - last 24 hr 02/03/25 12:49: WBC 10.6, RBC 2.11 L, Hgb 6.1 L*, Hct 20.5 L*, MCV 97.2 H, MCH 28.9, MCHC 29.8 L, RDW 17.2, Plt Count 312, MPV 11.1 H, Neut % (Auto) 76.2, Lymph % (Auto) 13.7, [place] % (Auto) 6.1, Eos % (Auto) 1.2, Baso % (Auto) 0.7, Neut # (Auto) 8.1 H, Lymph # (Auto) 1.5, [place] # (Auto) 0.7, Eos # (Auto) 0.1, Baso # (Auto) 0.1, PT 15.6 H, INR 1.44 H, APTT 40.7 H, VBG pH 7.37, VBG pCO2 36.2, VBG pO2 28.2, VBG HCO3 20.5 L, VBG Total CO2 21.6 L, VBG O2 Saturation 50.0, VBG Base Excess -4.8 L, VBG Lactic Acid 2.1 H, Sodium 136, Potassium 4.9, Chloride 106, Carbon Dioxide 22, Anion Gap 12.9, BUN 75 H, Creatinine 2.10 H, Estimated Creat Clear 53, Estimated GFR 32 L, Est GFR ( Amer) 38 L, Glucose 111 H, Lactate 1.9, Calcium 8.7, Total Bilirubin 0.4, AST 29, ALT 17, Alkaline Phosphatase 58, Troponin I 0.26 H, NT-Pro-B Natriuret Pep 4900 H, Total Protein 5.9 L, Albumin 3.4 L, Globulin 2.5, Albumin/Globulin Ratio 1.4, Lipase 99, Plasma/Serum Alcohol < 10 02/03/25 13:54: Stool Occult Blood Positive A 02/03/25 14:12: Blood Type B Positive, Antibody Screen Negative, Crossmatch (AHG) See Detail I & O for Last 24 hours: Intake & Output 01/31/25 02/01/25 02/02/25 02/03/25 23:59 23:59 23:59 23:59 Weight 108.862 kg Constitutional Constitutional: mild distress, obese, chronically ill appearing and somnolent *Routine HEENT Exam Head: Present normocephalic Eye: Present other (Not opening eyes, clinically blind) ENT: Present mucous membranes dry *Routine Neck Exam Neck: Present supple; Absent lymphadenopathy *Routine Respiratory Exam Respiratory: Present CTA bilaterally; Absent respiratory distress, stridor or wheezes *Routine Cardiovascular Exam Cardiovascular: Present irregularly irregular Comments: Rate controlled *Routine Abdominal Exam Abdominal: Present soft and normoactive bowel sounds; Absent tenderness *Routine Rectal Exam Rectal:: deferred *Routine Genitalia Exam Genitalia:: deferred *Routine Extremities Exam Extremities: Present edema ([place] chronic lymphedema of left lower extremity with superimposed pitting edema); Absent cyanosis or clubbing Comments: Right BKA, absent left great toe *Routine Skin Exam Skin: Present intact and warm; Absent rash Comments: Stasis dermatitis left lower extremity with hyperkeratosis *Routine Neurological Exam Neurological: Present alert, altered mental status and moving all extremities Comments: Falling asleep during interview. Knows his name but is confused to situation and condition. GCS NT-10, E(NT), V(4), M(6) Assessment and Plan *Assessment and plan (1) Acute blood loss anemia: Status: Acute Category: Medical Code(s): D62 - Acute posthemorrhagic anemia (2) GI (gastrointestinal bleed): Status: Acute Category: Medical Code(s): K92.2 - Gastrointestinal hemorrhage, unspecified (3) Non-ST elevation [place] (NSTEMI): Status: Acute Category: Medical Code(s): I21.4 - Non-ST elevation (NSTEMI) myocardial infarction (4) Tobacco use disorder: Status: Chronic Category: Medical Code(s): F17.200 - Nicotine dependence, unspecified, uncomplicated (5) PAD (peripheral artery disease): Status: Chronic Category: Medical Code(s): I73.9 - Peripheral vascular disease, unspecified (6) Coronary artery disease: Status: Chronic Qualifiers: Associated angina: without angina Coronary Disease-Associated Artery/Lesion type: [place] artery [place] vs. transplanted heart: [place] heart Qualified Code(s): I25.10 - Atherosclerotic heart disease of [place] coronary artery without angina pectoris Category: Medical Code(s): I25.10 - Atherosclerotic heart disease of [place] coronary artery without angina pectoris (7) Diabetes: Status: Chronic Qualifiers: Diabetes mellitus complication detail: with polyneuropathy Diabetes mellitus complication status: with neurologic complications Diabetes mellitus skilled nursing insulin use: without skilled nursing use Diabetes mellitus type: type 2 Qualified Code(s): E11.42 - Type 2 diabetes mellitus with diabetic polyneuropathy Category: Medical Code(s): E11.9 - Type 2 diabetes mellitus without complications (8) Blindness: Status: Chronic Qualifiers: Left eye visual impairment category: left - unspecified blindness Right eye visual impairment category: right - unspecified blindness Qualified Code(s): H54.3 - Unqualified visual loss, both eyes Category: Medical Code(s): H54.7 - Unspecified visual loss (9) Lymphedema: Status: Chronic Category: Medical Code(s): I89.0 - Lymphedema, not elsewhere classified (10) Atrial fibrillation: Status: Chronic Qualifiers: Atrial fibrillation type: unspecified chronic Qualified Code(s): I48.20 - Chronic atrial fibrillation, unspecified Category: Medical Code(s): I48.91 - Unspecified atrial fibrillation (11) Type 2 diabetes mellitus: Status: Chronic Qualifiers: Diabetes mellitus complication detail: with polyneuropathy Diabetes mellitus complication status: with neurologic complications Diabetes mellitus skilled nursing insulin use: without terminologist use Qualified Code(s): E11.42 - Type 2 diabetes mellitus with diabetic polyneuropathy Category: Medical Code(s): E11.9 - Type 2 diabetes mellitus without complications (12) Obesity (BMI 30.0-34.9): Status: Chronic Category: Medical Code(s): E66.811 - Obesity, class 1 (13) Acute metabolic encephalopathy: Status: Acute Category: Medical Code(s): G93.41 - Metabolic encephalopathy Plan 64-year-old male with multiple comorbidities and condition complicated by blindness, poorly controlled diabetes, history of amputation, A-fib on anticoagulation. Presents with weakness. Found to be frankly anemic suspected secondary to GI bleed. Discussed case with ER provider, request admission for transfusion and further workup of possible GI bleed. I decided to admit to stepdown level of care given that patient is on anticoagulation, has significant drop in his hemoglobin to 6.1, is quite symptomatic and encephalopathic. Awaiting transfusion of 2 units. GI consulted to assist with management. High risk for decompensation. Prognosis guarded. Problems addressed as follows: Acute blood loss anemia GI bleed Metabolic encephalopathy -Per chart review patient's hemoglobin is dropped from 14.3 on 08/07-6.1 on admission. Platelets 312. White count 10.6. MCV 97. Typed and crossed 2 units. Transfuse with repeat H&H 1 hour later. Hemoglobin goal greater than 9 in the setting of NSTEMI, CAD, PAD. - Suspect blood loss secondary to anticoagulation use as he is on Xarelto and Plavix. Initiated on 80 mg IV once pantoprazole in the ER. Will continue 40 mg IV twice daily. Initiate octreotide drip. - Received 2 g ceftriaxone IV once in the ER due to unknown history of cirrhosis or varices. Will continue 1 g daily. Cultures obtained and pending. - BUN elevated at 75, creatinine 2.1. Baseline creatinine 1.4. Does have an JORY but BUN is disproportionate consistent with GI bleed. - Encephalopathic from mix of cerebral hypoxia due to anemia, uremia from elevated BUN. Monitor for improvement with transfusion. - INR mildly elevated at 1.4. Holding Xarelto, Plavix. Discussed possible reversal however at this time as patient's blood pressure and heart rate are controlled, will hold on reversal unless patient has poor response to transfusion. - GI consulted to evaluate for possible EGD in the morning. Patient n.p.o. at this time. - Of note, patient does drink 2-5 beers a day. This complicates his risk for bleeding. Monitor for withdrawal symptoms. NSTEMI: Suspect type II with supply/demand mismatch given arline anemia. Troponin 0.26, BNP 4900. Will trend with transfusion. May need diuresis in between units of blood given elevated BNP and peripheral edema. Will consult cardiology if patient more hemodynamically stable from GI standpoint. A-fib: CAD PAD - will resume patient's digoxin 0.125mg daily and diltiazem 240mg ER daily. Holding diuretics pending transfusion.; Monitor blood pressure given hypovolemia, will consider resuming Entresto if blood pressure elevates - holding Lipitor and allopurinol in the acute setting, reevaluate resuming tomorrow Diabetes: Hypothyroid: - Sliding scale insulin and fingersticks ACHS. A1c and TSH ordered and pending. Glucose 111 on presentation. - Holding home metformin and glipizide - Continue home levothyroxine 75 mcg daily JORY: As mentioned above creatinine 2.1 on presentation, baseline 1.4 per chart review. Anticipate improvement with volume resuscitation with PRBCs. Repeat CBC, CMP, magnesium ordered for the morning. - Potassium normal at 4.9, sodium 136, glucose 111. Obesity and blindness complicate all aspects of his care. Will have therapy evaluate. Concern for patient's ability to care for himself at home at this time. Further dispo recommendations pending therapy evals. Case management consulted to assist with home-based needs and dispo planning Tobacco use disorder: Smokes at least a pack a day, initiate 21 mg patch daily. Full code SCDs, anticoagulation contraindicated; holding home Xarelto N.p.o.
--- NOTE | 2025-02-03 15:27 | PC.NURSE ---
called house for bed at this time.
--- NOTE | 2025-02-03 15:29 | PC.NURSE ---
PT ADMITTED TO RM 216 SD.
[2025-02-03 15:34] LABS: Microscopic, Urine URINE MICROSCOPIC (MICROSCOPIC)
[2025-02-03 15:41] LABS: Bilirubin,Urine Negative (Negative); Color,Urine YELLOW (Yellow); Glucose,Urine (UA) Negative (Negative); Ketones,Urine Negative (Negative); Leukocyte Esterase,Urine Negative (Negative); PH,Urine 5.5 (5.0-8.5); Protein,Urine 2+ (Negative); Specific Gravity, Urine 1.020 (1.005-1.030); Urobilinogen,Urine 0.2 EU/dl (0.2)
--- NOTE | 2025-02-03 15:47 | PC.NURSE ---
report called [id number] to Noemy JIANG
--- NOTE | 2025-02-03 15:51 | PC.NURSE ---
lab called at this time and notified this RN that the 2 units of PRBC are ready to go.
--- NOTE | 2025-02-03 15:59 | PC.NURSE ---
arrived by stretcher from ED
[2025-02-03 16:10] LABS: Bacteria,Urine 1+ /lpf
[2025-02-03 16:44] LABS: Troponin I 0.27 ng/ml (0.00-0.034)
[2025-02-03] MEDS: 0.9 % SODIUM CHLORIDE 250 ML 25 ML IV ×2 (16:59→20:23)
[2025-02-03 17:06] LABS: Reflex Lactic Add Lactic Reflex
[2025-02-03 17:14] LABS: POC Glucose,Bedside 178 gm/dL (70-110)
--- NOTE | 2025-02-03 17:45 | PC.NURSE ---
md aware of troponin results.
--- NOTE | 2025-02-03 18:16 | PC.NURSE ---
upon retrieving patient from floor it was relayed that lab had called ed about blood being ready. patient brought to floor and once settled and assessed blood was obtained from lab. currently going with no issues noted. no complaints besides feeling tired. educated patient on phone and call light. bp on lower side, and heart rate fluctuations 40-70s. irregular. patient brother and sister in law assisted with admission. fsbs 178 at 1700. troponin 0.26 to 0.27 md aware. bath give per techs. r bka noted. able to turn self well. alert and oriented. no bm since coming to floor. purwick in place. noted lungs to have ronchi and wheezes. sats remain stable on room air. encouraged patient to ring out as needed. patient password is [email or web address]
[2025-02-03 18:23] LABS: Lactic Acid Follow Up (RFLX 1) 3.2 mmol/L (0.7-2.1)
--- NOTE | 2025-02-03 18:39 | PC.NURSE ---
patient asked for nurses to give warren information on phone about care
[2025-02-03 18:53] LABS: Thyroid Stimulating Hormone 5.83 uIU/mL (0.465-4.68)
[2025-02-03 20:10] LABS: Reflex Lactic (2 hrs) Add Lactic Reflex
[2025-02-03 20:47] LABS: Lactic Acid Follow up (RFLX 2) 2.2 mmol/L (0.7-2.1)
[2025-02-03 21:06] LABS: Troponin I 0.28 ng/ml (0.00-0.034)
--- NOTE | 2025-02-03 21:39 | PC.NURSE ---
Called Provider, Yessy Dent APRN, for a critical lab of a second troponin of 0.28. Provider stated that we will continue to monitor.
[2025-02-03] MEDS: PANTOPRAZOLE 40MG VIAL 40 MG IV (22:40)
[2025-02-03 22:58] LABS: POC Glucose,Bedside 170 gm/dL (70-110)
--- NOTE | 2025-02-03 23:44 | PC.NURSE ---
CIWA 7. Seizure pads placed on bed rails for safety. SCD's on LLE
[2025-02-03 23:46] LABS: Hematocrit 26.2 % (42.0-52.0); Immature Granulocytes % 2.1 %; Mean Corpuscular HGB Conc 31.7 g/dL (31.8-35.4); Mean Corpuscular Hemoglobin 30.2 pg (27.0-31.2); Mean Corpuscular Volume 95.3 fl (80-94); Nucleated Red Blood Cells % 1.0 %; Platelet Count 328 K/mm3 (142-424); Red Blood Count 2.75 M/mm3 (4.60-6.20); Red Cell Distribution Width-SD 52.3 fL; White Blood Count 11.6 K/mm3 (4.8-10.8)
--- NOTE | 2025-02-03 23:46 | PC.NURSE ---
CIWA 8. Seizure pads placed on bed rails for safety. SCD's on LLE
[2025-02-03 23:49] LABS: Hemoglobin 8.3 g/dL (14.1-18.0)
[2025-02-03] MEDS: diazePAM 10MG/2ML SYRINGE 5 MG IV (23:49)
[2025-02-04] VITALS (34 sets, daily range): BP systolic 106–191; BP diastolic 55–109; PULSE 57–100; RESP 12–20; TEMP 36.2–36.8; O2SAT 90–100; BMI 34.8
--- NOTE | 2025-02-04 04:38 | PC.NURSE ---
Spoke with Yessy GUARDADO with concerns about patient being unable to urinate and having no output this shift. Received orders to place monsalve catheter for patient.
[2025-02-04 05:12] LABS: Albumin Level 3.5 g/dl (3.5-5.0); Chloride 108 mmol/L (98-107); Potassium 5.7 mmoL/L (3.5-5.1); Sodium 136 mmol/L (136-145)
[2025-02-04 05:14] LABS: Blood Urea Nitrogen 72 mg/dl (9-20); Creatinine Clearance Estimated 46 mL/min (50-200); Creatinine,Serum 2.50 mg/dl (0.66-1.25); Estimated Glomerular Filt Rate 26 ml/min (>60); GFR (African American) 31 ML/MIN (>60)
[2025-02-04 05:15] LABS: Alanine Aminotransferase 28 U/L (12-78); Albumin/Globulin Ratio 1.5 (1.1-1.8); Alkaline Phosphatase 74 U/L (38-126); Anion Gap 11.7 mEq/L (5-15); Aspartate Amino Transferase 38 U/L (17-59); Bilirubin,Total 0.5 mg/dl (0.2-1.3); Calcium 8.4 mg/dl (8.4-10.2); Carbon Dioxide 22 mmol/L (22.0-30.0); Globulin 2.4 g/dL (1.3-3.2); Glucose 129 mg/dl (74-100); Magnesium 2.6 mg/dl (1.6-2.3); Total Protein,Serum 5.9 g/dl (6.3-8.2)
[2025-02-04 05:36] LABS: Hematocrit 30.1 % (42.0-52.0); Immature Granulocytes % 1.5 %; Mean Corpuscular HGB Conc 31.6 g/dL (31.8-35.4); Mean Corpuscular Hemoglobin 29.7 pg (27.0-31.2); Mean Corpuscular Volume 94.1 fl (80-94); Nucleated Red Blood Cells % 1.1 %; Platelet Count 306 K/mm3 (142-424); Red Blood Count 3.20 M/mm3 (4.60-6.20); Red Cell Distribution Width-SD 52.4 fL; White Blood Count 10.7 K/mm3 (4.8-10.8)
[2025-02-04 05:38] LABS: Hemoglobin 9.6 g/dL (14.1-18.0)
[2025-02-04 05:52] LABS: Phosphorous 5.1 mg/dl (2.5-4.5)
[2025-02-04] MEDS: MORPHINE 2MG/ML SYRINGE 2 MG IV (06:27)
--- NOTE | 2025-02-04 07:00 | CA_ITS ---
APPROVED REPORT EXAM: Comprehensive 2D, Doppler, and color-flow Echocardiogram Field Ring Assembler: OSMIN Cardona, RVS Ht: 5 ft 11 in Wt: 240lbs BSA: 2.28 BP: 131/74 mmHg Indications: NSTEMI, GI Bleed, CAD, Afib, Anemia, CM, Mitral stenosis Echo Enhancing Agent Comments: TDS: Patient in constant motion and unaccepting of probe contact. 2D Dimensions Left Atrium 4.20 cm M: 3.0 - 4.0 LA Volume 96.10 mL LA Volume Index 42.816342 mL/m2 (M/F) 16-34 EF AP4 50.40 % GL Strain -18.8 % M-Mode Dimensions RVDd 3.51 cm (0.9-2.6) LA Diam 5.13 cm (1.9-4.0) LVDd 4.03 cm (3.5-5.7) LVDs 3.34 cm (3.5-5.7) IVSd 1.41 cm (0.6-1.1) PWd 1.55 cm (0.6-1.1) EF (Teich) 51.70% EPSs 0.71 cm FS 26.30% EDV (Teich) 93.90 mL TAPSE 1.38 (<1.7) ESV (Teich) 45.40 mL LV Diastology E Decel Time 550 (160-240 msec) E/A Ratio 3.90 Aortic Valve MIKAELA Index 0.98 cm2/m2 AoV Peak Conrad. 148.0 (50-130 cm/s) AI PHT 396.00 ms AO Peak GR. 8.80 mmHg AO Mean GR. 4.40 (<5 mmHg) AO VTI 27.7 (18-25 cm) MIKAELA (VTI) 2.29 (2.5-4.5 cm2) Mitral Valve MV A Velocity 50.0 (40-130 cm/s) E/A Ratio 3.90 MV Mean Gr. 7.80 (<2mmHg) MV PHT 108.0 ms Tricuspid Valve TR P. Velocity 327.00 cm/s RAP Estimate 10.00 mmHg RVSP 52.80 mmHg Left Ventricle The left ventricle is normal size. Left ventricular systolic function is normal. The left ventricular ejection fraction is within the normal range. There is increased left ventricular wall thickness. There is normal LV segmental wall motion. The left ventricular diastolic function is indeterminate. LVEF is 55% Right Ventricle The right ventricle is moderately dilated. The right ventricular systolic function is moderately reduced. Atria Left atrium is mildly dilated. Right atrium is mildly dilated. There is no color Doppler evidence of interatrial shunt. Aortic Valve The aortic valve is mildly thickened. There is no hemodynamically significant aortic valvular stenosis. Trace aortic regurgitation is present. Mitral Valve The mitral valve is mildly thickened. Mild mitral valve stenosis is present. Mean MV gradient 7 mmHg. MVA is 2.0 cm2 by PHT method. Moderate mitral regurgitation is present. Tricuspid Valve The tricuspid valve leaflets are thin and pliable. Mild tricuspid regurgitation. RVSP is 40-45mmHg. Pulmonic Valve The pulmonary valve is grossly normal in structure. Trace pulmonic valve regurgitation is present. Great Vessels The aortic root is normal in size. IVC is normal in size and collapses >50% with inspiration. Pericardium There is no pericardial effusion. Other Information Study Quality: Technically Difficult Conclusion Normal LV systolic function. Moderate RV dilation with moderate reduction in RV function. Biatrial dilation. Mild MS (mean MV gradient 7 mmHg). Moderate MR. Mild AI, mild TR. Electronically signed by : Hannah Fisher MD 02/05/2025 19:35:37
--- NOTE | 2025-02-04 07:49 | HMH.PHAINT1 ---
Pharmacy Intervention Comments: MEDICATION RECONCILIATION COMPLETED ON PATIENT USING EXTERNAL FILL HISTORY FROM PHARMACY. -KASIE GANT, [facility]
--- NOTE | 2025-02-04 08:09 | EXP.ACUTE.PN ---
Subjective *Date: 02/04/25 *Time: 17:05 Interval history: Little bit more energetic today. On room air this morning on rounds. 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 No fever, nausea, vomiting. Answering questions appropriately. Medical Exam Vital signs and Labs for Last 24 Hours: Vital Signs Temp Pulse Pulse Pulse Resp BP BP 02/04/25 06:44 02/04/25 05:00 02/04/25 04:00 97.5 F L 70 12 155/70 H 02/04/25 04:00 80 02/04/25 04:00 02/04/25 03:55 97.8 F 84 18 132/77 02/04/25 03:30 97.8 F 84 18 153/78 H 02/04/25 03:00 02/04/25 02:30 97.8 F 71 18 153/62 H 02/04/25 02:00 97.8 F 71 18 153/62 H 02/04/25 01:30 97.7 F 75 18 135/63 02/04/25 01:15 97.7 F 74 18 129/63 02/04/25 01:00 97.8 F 86 18 124/62 02/04/25 01:00 02/04/25 00:45 97.8 F 72 18 166/59 H 02/04/25 00:40 97.7 F 76 18 120/58 L 02/04/25 00:35 97.7 F 80 18 116/56 L 02/04/25 00:30 97.7 F 75 18 107/70 L 02/04/25 00:28 97.7 F 72 18 114/55 L 02/04/25 00:00 97.7 F 72 18 114/55 L 02/04/25 00:00 80 02/03/25 23:20 97.6 F 77 16 91/51 L 02/03/25 23:00 02/03/25 22:20 97.4 F L 69 18 111/53 L 02/03/25 22:10 97.6 F 71 16 126/52 L 02/03/25 21:10 97.7 F 82 14 101/73 L 02/03/25 20:55 97.5 F L 79 15 109/82 L 02/03/25 20:54 02/03/25 20:40 97.6 F 74 18 98/34 L 02/03/25 20:25 97.3 F L 68 16 127/48 L 02/03/25 20:20 97.1 F L 69 16 116/68 02/03/25 20:15 97.4 F L 68 16 120/56 L 02/03/25 20:10 96.9 F L 62 15 131/58 L 02/03/25 20:00 02/03/25 20:00 80 02/03/25 19:58 96.9 F L 61 18 120/60 02/03/25 19:24 97.5 F L 62 14 120/54 L 02/03/25 18:42 02/03/25 18:40 97.7 F 72 18 104/50 L 02/03/25 17:40 97.6 F 55 L 18 92/45 L 02/03/25 17:25 97.4 F L 61 18 98/43 L 02/03/25 17:10 97.6 F 54 L 16 95/49 L 02/03/25 17:00 02/03/25 16:55 97.4 F L 64 18 103/42 L 02/03/25 16:50 97.4 F L 54 L 18 80/48 L 02/03/25 16:45 48 L 02/03/25 16:45 97.5 F L 48 L 18 95/46 L 02/03/25 16:30 97.6 F 56 L 18 83/52 L 02/03/25 16:11 60 02/03/25 15:56 98.2 F 54 L 18 112/67 02/03/25 15:31 21 117/64 02/03/25 15:15 49 L 17 106/50 L 02/03/25 15:02 61 98/65 L 02/03/25 13:29 78 115/62 02/03/25 12:51 02/03/25 12:45 98.2 F 88 18 131/74 Pulse Ox O2 Del Method O2 Flow Rate 02/04/25 06:44 Nasal Cannula 2 02/04/25 05:00 Nasal Cannula 2 02/04/25 04:00 100 Nasal Cannula 2 02/04/25 04:00 02/04/25 04:00 100 Nasal Cannula 2 02/04/25 03:55 100 02/04/25 03:30 100 02/04/25 03:00 Nasal Cannula 2 02/04/25 02:30 100 02/04/25 02:00 100 Nasal Cannula 2 02/04/25 01:30 100 02/04/25 01:15 100 02/04/25 01:00 100 02/04/25 01:00 Nasal Cannula 2 02/04/25 00:45 100 02/04/25 00:40 100 02/04/25 00:35 98 02/04/25 00:30 100 02/04/25 00:28 100 02/04/25 00:00 100 Nasal Cannula 2 02/04/25 00:00 02/03/25 23:20 92 L 02/03/25 23:00 Room Air 02/03/25 22:20 99 02/03/25 22:10 98 02/03/25 21:10 100 02/03/25 20:55 100 02/03/25 20:54 Room Air 02/03/25 20:40 97 02/03/25 20:25 96 02/03/25 20:20 100 02/03/25 20:15 98 02/03/25 20:10 99 02/03/25 20:00 98 Room Air 02/03/25 20:00 02/03/25 19:58 100 02/03/25 19:24 99 02/03/25 18:42 Room Air 02/03/25 18:40 99 02/03/25 17:40 96 02/03/25 17:25 96 02/03/25 17:10 97 02/03/25 17:00 Room Air 02/03/25 16:55 99 02/03/25 16:50 97 02/03/25 16:45 97 Room Air 02/03/25 16:45 98 02/03/25 16:30 97 02/03/25 16:11 02/03/25 15:56 Nasal Cannula 02/03/25 15:31 02/03/25 15:15 100 02/03/25 15:02 100 02/03/25 13:29 98 02/03/25 12:51 100 Room Air 02/03/25 12:45 98 Room Air Intake and Output 02/03/25 02/04/25 02/04/25 23:59 07:59 15:59 Intake Total 844.583 / 944.583 496.925 / 496.925 Output Total 1150 / 1150 Balance 844.583 / 944.583 -653.075 / -653.075 Intake: Intake, Total IV Amount 344.583 / 444.583 246.925 / 246.925 0.9 % Sodium Chloride 250 ml @ 164.583 / 164.583 25 mls/hr IV .Q10H [facility] Rx#: [id number] 0.9 % Sodium Chloride 250 ml @ 80 / 80 25 mls/hr IV .Q10H [facility] Rx#: [id number] Octreotide Acetate 500 mcg In 0 246.925 / 246.925 .9 % Sodium Chloride 250 ml @ 50 MCG/HR 25.5 mls/hr IV .Q10H [facility] Rx#:[id number] Pantoprazole Sodium 80 mg In 0. 100 / 100 9 % Sodium Chloride 100 ml @ 100 mls/hr IV ONCE ONE Rx#: [id number] Intake (Blood Product) Amt 500 / 500 250 / 250 Red Blood Cells Unit 250 / 250 [id number] Red Blood Cells Unit 250 / 250 [id number] Red Blood Cells Unit 250 / 250 [id number] Output: Output, Urine Amount 1150 / 1150 Other: Number of Unmeasured Voids 1 Weight 112.99 kg Patient Weight 02/04/25 23:59 Weight 112.99 kg Laboratory Results - last 24 hr 02/03/25 12:49: WBC 10.6, RBC 2.11 L, Hgb 6.1 L*, Hct 20.5 L*, MCV 97.2 H, MCH 28.9, MCHC 29.8 L, RDW 17.2, Plt Count 312, MPV 11.1 H, Neut % (Auto) 76.2, Lymph % (Auto) 13.7, [place] % (Auto) 6.1, Eos % (Auto) 1.2, Baso % (Auto) 0.7, Neut # (Auto) 8.1 H, Lymph # (Auto) 1.5, [place] # (Auto) 0.7, Eos # (Auto) 0.1, Baso # (Auto) 0.1, PT 15.6 H, INR 1.44 H, APTT 40.7 H, VBG pH 7.37, VBG pCO2 36.2, VBG pO2 28.2, VBG HCO3 20.5 L, VBG Total CO2 21.6 L, VBG O2 Saturation 50.0, VBG Base Excess -4.8 L, VBG Lactic Acid 2.1 H, Sodium 136, Potassium 4.9, Chloride 106, Carbon Dioxide 22, Anion Gap 12.9, BUN 75 H, Creatinine 2.10 H, Estimated Creat Clear 53, Estimated GFR 32 L, Est GFR ( Amer) 38 L, Glucose 111 H, Lactate 1.9, Calcium 8.7, Total Bilirubin 0.4, AST 29, ALT 17, Alkaline Phosphatase 58, Troponin I 0.26 H, NT-Pro-B Natriuret Pep 4900 H, Total Protein 5.9 L, Albumin 3.4 L, Globulin 2.5, Albumin/Globulin Ratio 1.4, Lipase 99, Plasma/Serum Alcohol < 10, Blood Type Confirm B Positive 02/03/25 13:20: Urine Color Yellow, Urine Appearance Clear, Urine pH 5.5, Ur Specific [place] 1.020, Urine Protein 2+ A, Urine Glucose (UA) Negative, Urine Ketones Negative, Urine Blood Negative, Urine Nitrate Negative, Urine Bilirubin Negative, Urine Urobilinogen 0.2, Ur Leukocyte Esterase Negative, Urine RBC None, Urine WBC 3-5, Ur Squamous Epith Cells None, Urine Bacteria 1+, Hyaline Casts 3-5 02/03/25 13:54: Stool Occult Blood Positive A 02/03/25 14:12: Blood Type B Positive, Antibody Screen Negative, Crossmatch (AHG) See Detail 02/03/25 15:54: Troponin I 0.27 H, TSH 5.83 H 02/03/25 17:06: POC Glucose 178 H 02/03/25 18:06: Lactate 3.2 H 02/03/25 20:24: Lactate 2.2 H, Troponin I 0.28 H 02/03/25 22:19: POC Glucose 170 H 02/03/25 23:38: WBC 11.6 H, RBC 2.75 L D, Hgb 8.3 L D, Hct 26.2 L, MCV 95.3 H, MCH 30.2, MCHC 31.7 L, RDW 17.2, Plt Count 328, MPV 10.9 H, Neut % (Auto) 77.3, Lymph % (Auto) 11.8, [place] % (Auto) 7.7, Eos % (Auto) 0.4, Baso % (Auto) 0.7, Neut # (Auto) 9.0 H, Lymph # (Auto) 1.4, [place] # (Auto) 0.9, Eos # (Auto) 0.1, Baso # (Auto) 0.1 02/04/25 05:00: WBC 10.7, RBC 3.20 L, Hgb 9.6 L D, Hct 30.1 L, MCV 94.1 H, MCH 29.7, MCHC 31.6 L, RDW 17.2, Plt Count 306, MPV 10.7 H, Neut % (Auto) 76.0, Lymph % (Auto) 11.6, [place] % (Auto) 9.5 H, Eos % (Auto) 0.7, Baso % (Auto) 0.7, Neut # (Auto) 8.1 H, Lymph # (Auto) 1.2, [place] # (Auto) 1.0, Eos # (Auto) 0.1, Baso # (Auto) 0.1, Sodium 136, Potassium 5.7 H, Chloride 108 H, Carbon Dioxide 22, Anion Gap 11.7, BUN 72 H, Creatinine 2.50 H, Estimated Creat Clear 46, Estimated GFR 26 L, Est GFR ( Amer) 31 L, Glucose 129 H, Calcium 8.4, Phosphorus 5.1 H, Magnesium 2.6 H, Total Bilirubin 0.5, AST 38 D, ALT 28 D, Alkaline Phosphatase 74, Total Protein 5.9 L, Albumin 3.5, Globulin 2.4, Albumin/Globulin Ratio 1.5 I & O for Labs for Last 24 Hours: Intake & Output 02/01/25 02/02/25 02/03/25 02/04/25 23:59 23:59 23:59 23:59 Intake Total 944.583 / 944.583 496.925 / 496.925 Output Total 1150 / 1150 Balance 944.583 / 944.583 -653.075 / -653.075 Weight 108.862 kg 112.99 kg Constitutional: Present no acute distress, obese, chronically ill appearing and cooperative Respiratory: Present normal respiratory effort; Absent rhonchi, wheezes or crackles Cardiac: Present Regular Rhythm Comment:: Irregularly irregular GI: Present soft and normal bowel sounds; Absent distention or tenderness Extremities: Present full ROM Comment:: Right BKA; 3 quarter sized ulcerations through epidermis distal right BKA stump Skin: Present wounds; Absent erythema Comment:: 3 quarter sized ulcerations through the epidermis distal right BKA stump. Present on admission Neuro: Present Grossly Intact, alert, awake, oriented x 3 and moves all extremities Assessment and Plan *Assessment and plan (1) Acute blood loss anemia: Status: Acute Category: Medical Code(s): D62 - Acute posthemorrhagic anemia (2) GI (gastrointestinal bleed): Status: Acute Category: Medical Code(s): K92.2 - Gastrointestinal hemorrhage, unspecified (3) Non-ST elevation UT (NSTEMI): Status: Acute Category: Medical Code(s): I21.4 - Non-ST elevation (NSTEMI) myocardial infarction (4) Tobacco use disorder: Status: Chronic Category: Medical Code(s): F17.200 - Nicotine dependence, unspecified, uncomplicated (5) PAD (peripheral artery disease): Status: Chronic Category: Medical Code(s): I73.9 - Peripheral vascular disease, unspecified (6) Coronary artery disease: Status: Chronic Qualifiers: Associated angina: without angina Coronary Disease-Associated Artery/Lesion type: [place] artery [place] vs. transplanted heart: [place] heart Qualified Code(s): I25.10 - Atherosclerotic heart disease of [place] coronary artery without angina pectoris Category: Medical Code(s): I25.10 - Atherosclerotic heart disease of [place] coronary artery without angina pectoris (7) Diabetes: Status: Chronic Qualifiers: Diabetes mellitus complication detail: with polyneuropathy Diabetes mellitus complication status: with neurologic complications Diabetes mellitus half-way insulin use: without half-way use Diabetes mellitus type: type 2 Qualified Code(s): E11.42 - Type 2 diabetes mellitus with diabetic polyneuropathy Category: Medical Code(s): E11.9 - Type 2 diabetes mellitus without complications (8) Blindness: Status: Chronic Qualifiers: Left eye visual impairment category: left - unspecified blindness Right eye visual impairment category: right - unspecified blindness Qualified Code(s): H54.3 - Unqualified visual loss, both eyes Category: Medical Code(s): H54.7 - Unspecified visual loss (9) Lymphedema: Status: Chronic Category: Medical Code(s): I89.0 - Lymphedema, not elsewhere classified (10) Atrial fibrillation: Status: Chronic Qualifiers: Atrial fibrillation type: unspecified chronic Qualified Code(s): I48.20 - Chronic atrial fibrillation, unspecified Category: Medical Code(s): I48.91 - Unspecified atrial fibrillation (11) Type 2 diabetes mellitus: Status: Chronic Qualifiers: Diabetes mellitus complication detail: with polyneuropathy Diabetes mellitus complication status: with neurologic complications Diabetes mellitus half-way insulin use: without half-way use Qualified Code(s): E11.42 - Type 2 diabetes mellitus with diabetic polyneuropathy Category: Medical Code(s): E11.9 - Type 2 diabetes mellitus without complications (12) Obesity (BMI 30.0-34.9): Status: Chronic Category: Medical Code(s): E66.811 - Obesity, class 1 (13) Acute metabolic encephalopathy: Status: Acute Category: Medical Code(s): G93.41 - Metabolic encephalopathy Plan 64-year-old male with multiple comorbidities and condition complicated by blindness, poorly controlled diabetes, history of amputation, A-fib on anticoagulation. Presents with weakness. Found to be frankly anemic suspected secondary to GI bleed. Discussed case with ER provider, request admission for transfusion and further workup of possible GI bleed. I decided to admit to stepdown level of care given that patient is on anticoagulation, has significant drop in his hemoglobin to 6.1, is quite symptomatic and encephalopathic. Received 3 units packed red blood cells yesterday with improvement in hemoglobin. GI to evaluate today and scope. Patient's condition serious with prognosis guarded. More oriented today. Problems addressed as follows: Acute blood loss anemia GI bleed Metabolic encephalopathy -Per chart review patient's hemoglobin is dropped from 14.3 on 07/2024 to 6.1 on admission. Platelets 312. White count 10.6. MCV 97. Transfused 3 units. Hemoglobin stable at 9.6. Repeat H&H this afternoon. - Hemoglobin goal greater than 9 in the setting of NSTEMI, CAD, PAD. - Suspect blood loss secondary to anticoagulation use as he is on Xarelto and Plavix. Initiated on 80 mg IV once pantoprazole in the ER. Will continue 40 mg IV twice daily. Discontinue octreotide drip today. - Discontinue antibiotics today. - Encephalopathic from mix of cerebral hypoxia due to anemia, uremia from elevated BUN. Showing improvement. Responding appropriately to questions. GCS normal today with no deficits - INR mildly elevated at 1.4. Holding Xarelto, Plavix. No indication for reversal agents - GI consulted to evaluate for EGD, currently NPO. Discussed case with GI, findings include Erosive duodenitis and mild chronic gastritis. - Of note, patient does drink 2-5 beers a day. This complicates his risk for bleeding. Having some minor withdrawal symptoms. CIWA scoring and treatment per protocol NSTEMI: Suspect type II with supply/demand mismatch given arline anemia. Troponin troponin flat at 0.26-0.27. BNP elevated at 4900 on admission. Echo obtained this morning. Formal read pending. Cardiology to evaluate in the morning. Will discuss anticoagulation and further ischemic eval. A-fib: CAD PAD - Continue digoxin 0.125mg daily - Systolic blood pressure 150 this morning on rounds. will resume diltiazem 240mg ER daily - Holding Entresto, consider diuretics after cardiology evaluation this morning. - holding Lipitor and allopurinol in the acute setting, reevaluate resuming tomorrow Diabetes: Hypothyroid: - Sliding scale insulin and fingersticks ACHS. - A1c pending. TSH 5.8. Glucose 129 this morning on labs - Holding home metformin and glipizide - Continue home levothyroxine 75 mcg daily JORY: - Creatinine worse this morning 2.5, BUN 72. Continue to monitor for improvement with treatment of anemia. Baseline creatinine 1.4. - Repeat CBC, CMP, magnesium ordered for the morning. - Potassium 5.7, magnesium 2.6. Phosphorus 5.1. Pain in right BKA. Initiate lidocaine patch. Initiate hydrocodone 5 mg every 6 hours as needed for moderate to severe pain. Monitor for toxicity. Obesity and blindness complicate all aspects of his care. Will have therapy evaluate. Concern for patient's ability to care for himself at home at this time. Further dispo recommendations pending therapy evals. Case management consulted to assist with home-based needs and dispo planning Tobacco use disorder: Smokes at least a pack a day, initiate 21 mg patch daily. Full code SCDs, anticoagulation contraindicated; holding home Xarelto Clear liquid diet, advance cautiously
--- NOTE | 2025-02-04 09:00 | SW/DCPLANNER ---
Addendum entered by Yamile Barber RN 02/10/25 10:40: Patient discharged back to [facility] level of care on 02/08/2025. Addendum entered by Yamile Barber RN 02/07/25 16:16: P2P has been completed and should be approved now. It is still not showing in the system per Jacqui with [facility]. Jacqui will notify me once she has auth information. Addendum entered by Yamile Barber RN 02/07/25 07:35: I have reached out to Jacqui this morning, she will let me know when she receives authorization. Addendum entered by Noemy Baldwin 02/05/25 09:58: Per Jacqui w/ [facility] auth is still pending at this time. Addendum entered by Noemy Baldwin 02/04/25 15:05: I have updated patient's brother and sister in law regarding discharge plans. Addendum entered by Noemy Baldwin 02/04/25 13:33: Per Vida w/ [facility] they can accept patient and auth will be started today. Original Note: I spoke w/ patient regarding plans once medically stable for discharge. Patient currently resides at home alone and does have family and friends that check on him often. PT/OT evaluated and placement was recommended. Patient is somewhat agreeable to placement at this time. Patient is agreeable for information to be faxed to [facility]. CM will continue to follow up. Discharge date is unknown at this time.
--- NOTE | 2025-02-04 09:02 | HMH.PHAAMS2 ---
- Antimicrobial Stewardship Review culture & sensitivity review Stewardship interventions: culture & sensitivity review, reviewed - no change Comments: ON ROCEPHIN FOR ENCEPHALOPATHY/GI BLEED WITH UNKNOWN HISTORY OF CIRRHOSIS OR VARICES , NO CULTURES CURRENTLY ORDERED. WBC WNL TODAY AT 10.7 K/mm3, AFEBRILE OVER 24 HR.
[2025-02-04] MEDS: LEVOTHYROXINE 75MCG (0.075MG) TAB 75 MCG PO (09:32)
[2025-02-04] MEDS: FOLIC ACID 1MG TABLET 1 MG PO (09:32)
[2025-02-04] MEDS: DIGOXIN 0.125MG TABLET 125 MCG PO (09:32)
[2025-02-04] MEDS: THIAMINE 100MG TABLET 100 MG PO (09:32)
[2025-02-04] MEDS: PANTOPRAZOLE 40MG VIAL 40 MG IV ×2 (09:37→21:10)
--- NOTE | 2025-02-04 09:45 | HMH.OTEV ---
OT Evaluation Rehab OT IP Evaluation Start: 02/03/25 16:34 Freq: ONCE Status: Active Protocol: Document 02/04/25 09:36 JOHNNYERBACON (Rec: 02/04/25 09:45 [facility] [id number]) Rehab OT IP Assessment Subjective History Pt oriented x 2 on arrival. Pt admitted on 02/03/25 due to weakness, NSTEMI, and GI bleed. 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 Who presents to the ER because of several days of black stools per his caregiver. Patient has become more weak and been more short of breath over the past week. On arrival to the ER, patient is somnolent and confused with minimal responsiveness to exam per nursing report. Workup shows significant anemia with hemoglobin of 6.1, hemoglobin 14.3 in July of this year. BUN elevated at 75 with creatinine 2.1, discordant and consistent with suspected GI bleed. Patient is on Xarelto and possibly Plavix for A-fib and PAD/CAD. He is stable on room air. Initiated on pantoprazole, octreotide drip, 2 units typed and crossmatched. GI consulted for evaluation and possible EGD. Medicine consulted for admission. On my evaluation after arriving to the floor, patient is altered and not at baseline mentation. Knows his name but unable to provide much history. Does not know what is going on at this time just knows he feels bad. Unable to open eyes due to blindness. Best verbal response is confused. Attempts to obey commands Subjective Prior to being in the hospital, pt lived at home alone. Pt does have a caregiver that assists as needed. Pt claims he is normally independent with ADLs, but requires assistance with all IADLs. Pt does use a wheelchair at times due to amputation to Right AKA. Pt claims he does have a prosthesis but does not have it with him at this time. Objective Patient Orientation Person,Birthday Right Upper Min Limitation <25% Extremity Gross ROM Left Upper Extremity Min Limitation <25% Gross ROM Shoulder ROM Muscle Weakness Limitations Elbow ROM Muscle Weakness Limitations Wrist Limitations of Muscle Weakness Range of Motion Bed Mobility bed mobility-scooting,bed mobility - supine/sit Assist Level Moderate x 1 (50% assist) Rehab OT IP prob,goals,plan Problems Date of Evaluation: 02/04/25 OT IP Problems Bed Mobility,Transfers,Balance,Self care,Safety Rehab Potential Rehab Potential Good Equipment Needs Assistive Devices Rolling / Wheeled Walker,Wheelchair Plan OT intervention Plan Bed Mobility,Transfers,Balance,Self care,Safety, Therapeutic Exercise OT Plan Frequency Daily Duration LOS Discharge Goals Bed Mobility Ability Assistance x1 Sit to Stand Chair Moderate x 1 (50% assist) Transfer Ability Chair Transfer Moderate x 1 (50% assist) Ability Chair Transfer Stand Pivot Technique Chair Transfer Rolling Walker Assistive Devices Lower Body Dressing Moderate Assistance Ability Upper Body Dressing Minimal Assistance Ability Performing Toilet Moderate Assistance Hygiene Ability Overall Commode/ Moderate Assistance Toilet Transfer Ability Commode/Toilet Stand Pivot Transfer Technique Discharge Plan OT Discharge Plan Pt will continue to be seen for OT services while at [facility]. Pt would benefit most from short term rehab at SNF following discharge from hospital. He presents below baseline with functional transfers and ADL independence. Continued skilled therapy is important in order for patient to improve strength, safety, endurance, ADL independence, and functional transfers to reach PLOF. Eval Complexity Eval Charge Codes 09391 - Moderate Complexity PHYSICIAN CERTIFICATION: I certify the specified therapy services for Jermaine Gaviria are required, authorized, and reviewed every 30 days.
--- NOTE | 2025-02-04 09:51 | HMH.PTEV ---
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 Who presents to the ER because of several days of black stools per his caregiver. Patient has become more weak and been more short of breath over the past week. On arrival to the ER, patient is somnolent and confused with minimal responsiveness to exam per nursing report. Workup shows significant anemia with hemoglobin of 6.1, hemoglobin 14.3 in July of this year. BUN elevated at 75 with creatinine 2.1, discordant and consistent with suspected GI bleed. Patient is on Xarelto and possibly Plavix for A-fib and PAD/CAD. He is stable on room air. Initiated on pantoprazole, octreotide drip, 2 units typed and crossmatched. GI consulted for evaluation and possible EGD. Medicine consulted for admission. On my evaluation after arriving to the floor, patient is altered and not at baseline mentation. Knows his name but unable to provide much history. Does not know what is going on at this time just knows he feels bad. Unable to open eyes due to blindness. Best verbal response is confused. Attempts to obey commands. Subjective Subjective PLOF: IND with w/c mobility and transfers. Uses a w/c for all mobility. HOME: Lives in a home [address]. ASSIST: Pt reports he does not have assistance at home. [facility] How much help from another person do you currently need... Turning from your A little back to your side while in a flat bed without using bedrails? Moving from lying on A little back to sitting on the side of a flat bed without using bedrails? Moving to and from a A little bed to a chair ( including a wheelchair)? Standing up from a A little chair using your arms? (e.g., wheelchair, bedside chair) Walking in hospital Total room? Climbing 3-5 steps Total with a railing? Mobility Score 14 Mobility Level Jasso Machado Mobility 4 Move to chair/commode Mobility Calculator Rehab PT IP Eval Objective Appearance Patient Behavior Appropriate,Cooperative Patient Orientation Person Difficulty following none instructions Speech Pattern Clear Ambulation Patient Able to No Ambulate Balance Ability to Arise Able, uses arms to help Sitting Balance Leans or slides in chair Transfers Bed Transfer Ability Minimal x 1 (25% assist) Rehab PT IP prob,goals,plan Problems Date of Evaluation: 02/04/25 PT IP Problems Bed Mobility,Transfers,Gait,Balance,Self care,Safety Rehab Potential Rehab Potential Good Plan PT Intervention Plan Bed Mobility,Transfers,Gait,Balance,Self care,Safety, Therapeutic Exercise Other Intervention 1-2 times Plan PT Plan Frequency Daily Duration Goals Met Discharge Goals Bed Transfer Ability Supervision/Stand by Sit to Stand Chair Minimal x 1 (25% assist) Transfer Ability Discharge Plan PT Discharge Plan Initial physical therapy evaluation performed. Patient presents below baseline at this time in functional mobility, transfers, and strength. Pt not safe to return home at this time d/t current level of functional mobility. PT recommending inpatient rehabilitation facility (IRF) placement upon d/c from [facility]. Pt would benefit from skilled PT while at [facility] to prevent further functional decline and maximize safety with mobility. Eval Complexity Eval Charge Codes 91770 - Moderate Complexity PHYSICIAN CERTIFICATION: I certify the specified therapy services for Jermaine Gaviria are required, authorized, and reviewed every 30 days.
[2025-02-04] MEDS: dilTIAZem ER 240MG CAPSULE 240 MG PO (10:32)
[2025-02-04] MEDS: FINASTERIDE 5MG TABLET 5 MG PO (10:32)
[2025-02-04 11:17] LABS: POC Glucose,Bedside 144 gm/dL (70-110)
--- NOTE | 2025-02-04 11:43 | PC.NURSE ---
patient going down for scope at this time
--- NOTE | 2025-02-04 12:04 | P.PNANES_ITS ---
[facility] Disclaimer: The information contained in this section may have been updated after the patient was seen, as this information can be updated by other users. 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, congenital Diabetes mellitus Diverticula, colon Osteomyelitis Amputation below knee Amputation of right lower extremity Amputation toe Normal colonoscopy Osteomyelitis of right foot Femoral arteriovenous fistula, right HTN (hypertension) HLD (hyperlipidemia) Coronary artery disease PAD (peripheral artery disease) Tobacco use disorder Gangrene associated with type 2 diabetes mellitus Onychomycosis Neuropathy Decreased pedal pulses Onychodystrophy Acquired hammertoes of both feet Onychogryphosis Acute hypoxemic respiratory failure Varicose veins of both legs with edema History of osteomyelitis Lymphedema of both lower extremities Hypokalemia Sepsis Coagulopathy Diabetes Class 2 obesity Blindness Lymphedema Atrial fibrillation Congestive heart failure Acute exacerbation of chronic obstructive airways disease Surgical History History of colon surgery H/O heart artery stent H/O eye surgery History of amputation of toe Family History Father Liver disease Other No significant family history Social History Smoking Status: Current every day smoker tobacco type: cigarettes packs per day: 1 alcohol intake: never substance use type: denies use current occupational status: unemployed and disabled Travel in the last 8 weeks?: None household members: none housing: house lives independently: Yes Have you lived/traveled outside US in past 30 days?: No Contact w/someone who lives/traveled outside US past 30 days?: No Exposure to someone with infectious disease in past 14 days?: No Do you have a fever (greater than 100.4 F or 38 C)?: No Have you tested positive for COVID-19?: No Exposed to someone with COVID-19 in past 14 days?: No Do you have a sore throat?: No Do you have a cough?: No Do you have any weakness?: No Do you have any diarrhea?: No Are you experiencing any unusual bleeding?: No Do you have any muscle aches/pain?: No Do you have any abdominal pain?: No Are you experiencing loss of taste or smell?: No [facility] Anesthesia Checklist Patient Identification Patient Identification: Arm Band Structural Data Admitted From: Home Planned Operative Procedure/s: EGD Consent for Planned Operative Procedure(s) Verified: Yes Verified Documents: Surgical Consent and History and Physical NPO Status Verified Time NPO: 00:00 Additional verifications Anesthesia Reactions: No Hx Blood Transfusions: Yes Blood Transfusion Reaction: No Airway Assessment Mallampati Score:: Class II C-Spine Mobility Assessed: Yes TMJ Mobility Assessed: Yes Dentition: Poor Dentition Neurological Assessment Level of Consciousness: Awake, Alert and Appropriate Anesthesia Plan Anesthesia Risk discussed: Yes Anesthesia Plan: Verified ASA Class: III Anesthesia Type: MAC
--- NOTE | 2025-02-04 12:19 | EXP.HP ---
History of Present Illness *Admission Date: 02/03/25 *History of present illness: 64-year-old male with history of congenital blindness, diabetes, amputation of right lower extremity due to gangrenous diabetic ulcer, CAD, PAD, tobacco use disorder, obesity, and A-fib. Who presents to the ER because of several days of black stools per his caregiver. Patient has become more weak and been more short of breath over the past week. On arrival to the ER, patient is somnolent and confused with minimal responsiveness to exam per nursing report. Workup shows significant anemia with hemoglobin of 6.1, hemoglobin 14.3 in July of this year. BUN elevated at 75 with creatinine 2.1, discordant and consistent with suspected GI bleed. Patient is on Xarelto and possibly Plavix for A-fib and PAD/CAD. He is stable on room air. Initiated on pantoprazole, octreotide drip, 2 units typed and crossmatched. GI consulted for evaluation and possible EGD. Medicine consulted for admission. On my evaluation after arriving to the floor, patient is altered and not at baseline mentation. Knows his name but unable to provide much history. Does not know what is going on at this time just knows he feels bad. Unable to open eyes due to blindness. Best verbal response is confused. Attempts to obey commands. [facility] Disclaimer: The information contained in this section may have been updated after the patient was seen, as this information can be updated by other users. 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, congenital Diabetes mellitus Diverticula, colon Osteomyelitis Amputation below knee Amputation of right lower extremity Amputation toe Normal colonoscopy Osteomyelitis of right foot Femoral arteriovenous fistula, right HTN (hypertension) HLD (hyperlipidemia) Coronary artery disease PAD (peripheral artery disease) Tobacco use disorder Gangrene associated with type 2 diabetes mellitus Onychomycosis Neuropathy Decreased pedal pulses Onychodystrophy Acquired hammertoes of both feet Onychogryphosis Acute hypoxemic respiratory failure Varicose veins of both legs with edema History of osteomyelitis Lymphedema of both lower extremities Hypokalemia Sepsis Coagulopathy Diabetes Class 2 obesity Blindness Lymphedema Atrial fibrillation Congestive heart failure Acute exacerbation of chronic obstructive airways disease Surgical History History of colon surgery H/O heart artery stent H/O eye surgery History of amputation of toe Family History Father Liver disease Other No significant family history Social History Smoking Status: Current every day smoker tobacco type: cigarettes packs per day: 1 alcohol intake: never substance use type: denies use current occupational status: unemployed and disabled Travel in the last 8 weeks?: None household members: none housing: house lives independently: Yes Have you lived/traveled outside US in past 30 days?: No Contact w/someone who lives/traveled outside US past 30 days?: No Exposure to someone with infectious disease in past 14 days?: No Do you have a fever (greater than 100.4 F or 38 C)?: No Have you tested positive for COVID-19?: No Exposed to someone with COVID-19 in past 14 days?: No Do you have a sore throat?: No Do you have a cough?: No Do you have any weakness?: No Do you have any diarrhea?: No Are you experiencing any unusual bleeding?: No Do you have any muscle aches/pain?: No Do you have any abdominal pain?: No Are you experiencing loss of taste or smell?: No Other Medical History Have you received the Flu Vaccine for this season: No Have you received the Pneumonia Vaccine: No Review of Systems Review of Systems Review of systems (narrative): Negative *Cardiovascular Comments: Negative *Gastrointestinal Comments: Negative *Genitourinary Comments: Negative *Musculoskeletal Comments: Negative *Neurologic Comments: Negative Meds Home Medications and Allergies Home Medications ?Medication ?Instructions ?Recorded ?Confirmed ?Type omeprazole 40 mg capsule,delayed 40 mg PO BID 03/09/23 02/03/25 History release glipizide 2.5 mg tablet 2.5 mg PO DAILY #90 tabs 02/26/24 02/03/25 Rx diltiazem HCl 240 mg 240 mg PO DAILY #90 caps 01/13/25 02/03/25 Rx capsule,extended release 24 hr allopurinol 300 mg tablet 300 mg PO DAILY 02/03/25 02/03/25 History atorvastatin 20 mg tablet 20 mg PO HS 02/03/25 02/03/25 History clopidogrel 75 mg tablet 75 mg PO DAILY 02/03/25 02/03/25 History digoxin 125 mcg (0.125 mg) tablet 125 mcg PO DAILY 02/03/25 02/03/25 History furosemide 20 mg tablet 20 mg PO DAILY 02/03/25 02/03/25 History metformin 500 mg tablet,extended 1,000 mg PO DAILY 02/03/25 02/03/25 History release 24 hr potassium chloride 10 mEq 10 meq PO DAILY 02/03/25 02/03/25 History tablet,extended release(part/cryst) rivaroxaban 20 mg tablet (Xarelto) 20 mg PO QPMWITHMEAL 02/03/25 02/04/25 History triamcinolone acetonide 0.1 % 1 applic topical BID 02/03/25 02/03/25 History topical cream New Prescriptions to Start Prescriptions: Allergies Allergy/AdvReac Type Severity Reaction Status Date / Time No Known Allergies Allergy Verified 11/20/24 10:13 Exam Data for Last 24 hours Vital signs and Labs for Last 24 Hours: Temp Pulse Resp BP Pulse Ox O2 Del Method O2 Flow Rate 98.3 F 78 18 128/62 92 L Room Air 2 02/04/25 08:03 02/04/25 09:58 02/04/25 09:58 02/04/25 09:58 02/04/25 09:58 02/04/25 11:00 02/04/25 09:00 Laboratory Results - last 24 hr 02/03/25 12:49: WBC 10.6, RBC 2.11 L, Hgb 6.1 L*, Hct 20.5 L*, MCV 97.2 H, MCH 28.9, MCHC 29.8 L, RDW 17.2, Plt Count 312, MPV 11.1 H, Neut % (Auto) 76.2, Lymph % (Auto) 13.7, [place] % (Auto) 6.1, Eos % (Auto) 1.2, Baso % (Auto) 0.7, Neut # (Auto) 8.1 H, Lymph # (Auto) 1.5, [place] # (Auto) 0.7, Eos # (Auto) 0.1, Baso # (Auto) 0.1, PT 15.6 H, INR 1.44 H, APTT 40.7 H, VBG pH 7.37, VBG pCO2 36.2, VBG pO2 28.2, VBG HCO3 20.5 L, VBG Total CO2 21.6 L, VBG O2 Saturation 50.0, VBG Base Excess -4.8 L, VBG Lactic Acid 2.1 H, Sodium 136, Potassium 4.9, Chloride 106, Carbon Dioxide 22, Anion Gap 12.9, BUN 75 H, Creatinine 2.10 H, Estimated Creat Clear 53, Estimated GFR 32 L, Est GFR ( Amer) 38 L, Glucose 111 H, Lactate 1.9, Calcium 8.7, Total Bilirubin 0.4, AST 29, ALT 17, Alkaline Phosphatase 58, Troponin I 0.26 H, NT-Pro-B Natriuret Pep 4900 H, Total Protein 5.9 L, Albumin 3.4 L, Globulin 2.5, Albumin/Globulin Ratio 1.4, Lipase 99, Plasma/Serum Alcohol < 10, Blood Type Confirm B Positive 02/03/25 13:20: Urine Color Yellow, Urine Appearance Clear, Urine pH 5.5, Ur Specific [place] 1.020, Urine Protein 2+ A, Urine Glucose (UA) Negative, Urine Ketones Negative, Urine Blood Negative, Urine Nitrate Negative, Urine Bilirubin Negative, Urine Urobilinogen 0.2, Ur Leukocyte Esterase Negative, Urine RBC None, Urine WBC 3-5, Ur Squamous Epith Cells None, Urine Bacteria 1+, Hyaline Casts 3-5 02/03/25 13:54: Stool Occult Blood Positive A 02/03/25 14:12: Blood Type B Positive, Antibody Screen Negative, Crossmatch (AHG) See Detail 02/03/25 15:54: Troponin I 0.27 H, TSH 5.83 H 02/03/25 17:06: POC Glucose 178 H 02/03/25 18:06: Lactate 3.2 H 02/03/25 20:24: Lactate 2.2 H, Troponin I 0.28 H 02/03/25 22:19: POC Glucose 170 H 02/03/25 23:38: WBC 11.6 H, RBC 2.75 L D, Hgb 8.3 L D, Hct 26.2 L, MCV 95.3 H, MCH 30.2, MCHC 31.7 L, RDW 17.2, Plt Count 328, MPV 10.9 H, Neut % (Auto) 77.3, Lymph % (Auto) 11.8, [place] % (Auto) 7.7, Eos % (Auto) 0.4, Baso % (Auto) 0.7, Neut # (Auto) 9.0 H, Lymph # (Auto) 1.4, [place] # (Auto) 0.9, Eos # (Auto) 0.1, Baso # (Auto) 0.1 02/04/25 05:00: WBC 10.7, RBC 3.20 L, Hgb 9.6 L D, Hct 30.1 L, MCV 94.1 H, MCH 29.7, MCHC 31.6 L, RDW 17.2, Plt Count 306, MPV 10.7 H, Neut % (Auto) 76.0, Lymph % (Auto) 11.6, [place] % (Auto) 9.5 H, Eos % (Auto) 0.7, Baso % (Auto) 0.7, Neut # (Auto) 8.1 H, Lymph # (Auto) 1.2, [place] # (Auto) 1.0, Eos # (Auto) 0.1, Baso # (Auto) 0.1, Sodium 136, Potassium 5.7 H, Chloride 108 H, Carbon Dioxide 22, Anion Gap 11.7, BUN 72 H, Creatinine 2.50 H, Estimated Creat Clear 46, Estimated GFR 26 L, Est GFR ( Amer) 31 L, Glucose 129 H, Calcium 8.4, Phosphorus 5.1 H, Magnesium 2.6 H, Total Bilirubin 0.5, AST 38 D, ALT 28 D, Alkaline Phosphatase 74, Total Protein 5.9 L, Albumin 3.5, Globulin 2.4, Albumin/Globulin Ratio 1.5 02/04/25 11:06: POC Glucose 144 H I & O for Last 24 hours: Intake & Output 02/01/25 02/02/25 02/03/25 02/04/25 23:59 23:59 23:59 23:59 Intake Total 944.583 / 944.583 751.925 / 751.925 Output Total 1300 / 1300 Balance 944.583 / 944.583 -548.075 / -548.075 Weight 240 lb 249 lb 1.6 oz *Routine HEENT Exam Head: Present normocephalic Eye: Present EOMI and PERRL ENT: Present mucous membranes moist *Routine Neck Exam Neck: Present supple *Routine Respiratory Exam Respiratory: Present CTA bilaterally *Routine Cardiovascular Exam Cardiovascular: Present RRR *Routine Abdominal Exam Abdominal: Present soft and normoactive bowel sounds; Absent tenderness *Routine Rectal Exam Rectal:: deferred *Routine Genitalia Exam Genitalia:: deferred *Routine Extremities Exam Extremities: Absent cyanosis, clubbing or edema *Routine Skin Exam Skin: Present warm; Absent rash *Routine Neurological Exam Neurological: Present alert and oriented X3 Assessment and Plan *Assessment and plan (1) Acute blood loss anemia: Status: Acute Category: Medical Code(s): D62 - Acute posthemorrhagic anemia (2) GI (gastrointestinal bleed): Status: Acute Category: Medical Code(s): K92.2 - Gastrointestinal hemorrhage, unspecified (3) Melena: Status: Acute Category: Medical Code(s): K92.1 - Melena Plan A/P: 1. GI bleeding with melena and acute GI blood loss is the preprocedural diagnosis. The patient will be anesthetized/sedated using MAC sedation. The patient has been seen and examined. Cardiac and lung assessment prior to the examination is stable. Proceed with planned diagnostic EGD.
--- NOTE | 2025-02-04 12:20 | P.PCN_ITS ---
[facility] Procedure Note Date: 02/04/25 Time: 12:30 Procedure Note:: Upper Endoscopy Procedure Report: Esophagogastroduodenoscopy with cold biopsies Endoscopost: Bernabe Winston II, MD Referring Physician: Tonny Bean MD Date of Procedure: February 04, 2025 Equipment: Olympus GIF-1100 standard upper endoscope Sedation: MAC sedation Indications: Mr. Gaviria is a 64-year-old gentleman who presents with acute GI bleeding with melanotic stools. He reports no abdominal pain or hematemesis. The patient did receive 3 units of PRBCs yesterday with improvement of hemoglobin. The patient's hemoglobin hematocrit upon presentation was 6.1 and 20.5 (from normal hemoglobin hematocrit in July 2024 (14.3 and 44.4)). His hemoglobin hematocrit this morning were 9.6 and 30.1. He does have normal liver chemistries. Iron studies have not been obtained. He is in atrial fibrillation and is likely to be placed on anticoagulation. Procedure: Prior to the procedure, a history and physical exam was performed, and patient's medications and allergies were reviewed. The risks, benefits and alternatives of the sedation and procedure were discussed with the patient. All questions were answered and informed consent was obtained. The patient was brought to the procedure room. Patient identification and proposed procedure were verified by the physician and the nurse. The patient was placed in a left lateral decubitus position and the scope was passed under direct vision. Throughout the procedure, the patient's blood pressure, pulse, and oxygen saturations were monitored continuously. The upper GI endoscopy was accomplished without difficulty. The patient tolerated the procedure well. Findings: The scope was passed directly into the upper esophagus and advanced to the third portion of the duodenum. The post bulbar duodenum was normal. There was some peptic duodenitis of the duodenal bulb with erosions but no ulcerations of the duodenal bulb. There was no heme identified within the duodenum or stomach. The scope was withdrawn through a normal pylorus into the stomach. There was mild proximal chronic gastritis of the body and fundus of the stomach and biopsies were taken along the lesser curvature to rule out H. pylori. There were no ulcerations or erosions identified. There was some blanching of the gastric mucosa suggestive of thready mesenteric arterial blood flow. Upon retroflexion there was a very small sliding hiatal hernia. The scope was then withdrawn into the esophagus. There was no evidence of reflux esophagitis. There was a serrated Z-line and biopsies were taken from the GE junction. The remainder of the esophageal mucosa was normal. Impression: 1. Erosive duodenitis 2. Mild chronic gastritis Plan: I will follow-up the biopsies. There was no evidence of any heme or active bleeding in the upper digestive tract. The patient will be anticoagulated. I will inquire about last colonoscopy and we likely will need to consider as a source of GI blood loss. I will check iron studies. I did notice that there was minor blanching of the lining of his mucosa which often indicates thready blood flow to the stomach through the mesenteric arteries (and there must be blockage of 2 out of 3 arteries to result in major ischemia of the SMA, ES and celiac branches). 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
--- OUTSIDE RECORDS SUMMARY | 2025-02-04 12:33 | XMS_ITS | Clinical Summary ---
Author Organization Healthcare Address [address] [place] [address] Care Team Providers Care Tripe Finisher Name Role Phone Tonny Bean MD Primary Care Provider Kevin Sanders MD Unavailable [phone] Allergies Active Allergy Reactions Criticality Noted Date [...] 2) 2008 [facility]Y-Diabetes: Hemoglobin A1C 06/30/2015 12/31/2014 [id number] Vaccine (2 - Moderna risk series) 01/22/2021 [...] ESBL Comment:Right foot ESBL 12/25/2018 07/07/2020 Insurance [employer] MEDICARE Care Teams Tripe Finisher Relationship Specialty Start Date End Date Tonny Bean MD PCP - General Family Medicine 05/09/22 Kevin Walker MD [facility] [id number] 05/09/22
--- OUTSIDE RECORDS SUMMARY | 2025-02-04 12:33 | XMS_ITS | Clinical Summary ---
Author Organization [facility] Address [address] [place] [address] Phone Care Team Providers Care Slot Router Name Role Phone Saud Guaman MD [ [...] right ankle and foot Benign Essential Hypertension 0814533 (SNOMED CT) Active 03/24 Jacqui Beth Benign essential hypertension Tobacco use 080809077 (SNOMED CT) Active 03/24 Jacqui Beth Tobacco user DM II E11.9 (ICD-10-CM) Active 03/24 Jacqui Beth Type 2 diabetes mellitus without complications Medications Medication Instructions Start Date Stop Date Generic Name [facility] Provider CIPRO 500 MG TABS take 1 tablet b.i.d. CIPROFLOXACIN HCL 88818049864 Yessy S TYLENOL 325 MG TABS take two tablets by mouth every 6 hours as needed for pain ACETAMINOPHEN [id number] Yessy S MOBIC 7.5 MG ORAL TABLET take one tablet by mouth daily MELOXICAM [id number] Yessy S FORTAZ (IV) FORTAZ (IV) Yessy S ZOSYN 3.375 (3-0.375) GM INTRAVENOUS SOLUTION RECONSTITUTED 3g-0.375gm IV q 6hrs [facility] [phone] PIPERACILLIN SOD-TAZOBACTAM SO [id number] Jamee Sheppard MINOCYCLINE HCL 100 MG CAPS take twice daily MINOCYCLINE HCL [id number] Saud Guaman MD CIPRO 500 MG TABS 1 by mouth twice a day CIPROFLOXACIN HCL [id number] Saud Guaman MD FORTAZ (IV) FORTAZ (IV) Yessy Alexander ZOSYN 3.375 (3-0.375) GM INTRAVENOUS SOLUTION RECONSTITUTED 3g-0.375gm IV q 6hrs [facility] [phone] PIPERACILLIN SOD-TAZOBACTAM SO [id number] Jamee Sheppard ORAZINC 110 MG ORAL TABLET take 1 tablet daily ZINC SULFATE 73649717376 Jayjay Sy NICOTINE 21-14-7 MG/24HR KIT apply once a day NICOTINE [id number] Jayjay Sy MULTIVITAMINS ORAL CAPSULE take 1 capsule daily MULTIPLE VITAMIN [id number] Jayjay Sy LISINOPRIL 40 MG TABS take 1 tablet daily LISINOPRIL [id number] Jayjay Sy HEPARIN SODIUM (PORCINE) 5000 UNIT/ML SOLN inject 1 mL subcu every 8 hours HEPARIN SODIUM (PORCINE) [id number] Jayjay Sy FOLIC ACID 1 MG TABS take 1 tablet daily FOLIC ACID [id number] Jayjay Sy CIPRO 500 MG TABS take 1 tablet b.i.d. CIPROFLOXACIN HCL [id number] Jayjay Sy ASCORBIC ACID 250 MG ORAL TABLET take 1 tablet daily ASCORBIC ACID 32390429501 Jayjay Sy AMLODIPINE BESYLATE 5 MG TABS take 1 tablet daily AMLODIPINE BESYLATE [id number] Jayjay Sy Medications Administered No information available. Allergies, Adverse Reactions, Alerts Observed no known allergies at Results Date Name Value Unit Range Flag Description Office Visit: [facility] Up Room #10 MEDS REVIEW Done [...]
--- OUTSIDE RECORDS SUMMARY | 2025-02-04 12:33 | XMS_ITS | Encounter Summary ---
Author Organization [facility] Address [facility] [place] [address] Phone Care Team Providers Care Veneer Taping Machine Operator Name Role Phone Pcp, Pending Only MD Primary Care Provider Encounter Details Date Type Department Care Team (Late st Contact Info) Description 03/03/2023 Telephone - Conversion [id number] [address] [place] [address] Radha Dumont MD [address] [place] [address] Social History Tobacco Use Types Packs/Day Years [...] car, in a tent, in an overnight detention, or temporarily in someone else's home (i.e. [...] past 12 months, h ave you been humiliated or emotionally abused by anyone? No 02/03/2023 Transportation Answer Date [...] car, in a tent, in an overnight detention, or temporarily in someone else's home (i.e. [...] Yes 02/28/2023 3:22 PM Alexander Silva Registered * Do you have serious difficulty walking [...] documented as of this encounter Care Teams Veneer Taping Machine Operator Relationship Specialty Start Date End Date Pcp, Pending Only, [place], [place] [phone] PCP - General Internal Medicine 11/18/20 documented as of this encounter
--- OUTSIDE RECORDS SUMMARY | 2025-02-04 12:33 | XMS_ITS | Clinical Summary ---
Author Organization [facility] Address [address] [place] [address] Care Team Providers Care Metal Bonding Press Operator Name Role Phone Kevin Walker MD Primary Care Provider [phone] Allergies No known active allergies Medications lisinopril [...] syndrome 03/26/2018 Coronary artery disease invo lving em[place] coronary artery of [place] heart without angina pectoris 03/26/2018 A-fib 03/26/2018 [...] pulse or is breathing): Full Care Teams Metal Bonding Press Operator Relationship Specialty Start Date End Date Kevin Walker MD [address] [facility] [address] [place] [id number] PCP - General Adolescent Medicine 03/26/18
--- OUTSIDE RECORDS SUMMARY | 2025-02-04 12:33 | XMS_ITS | Encounter Summary ---
Author Organization [facility] Address [facility] [place] [address] Phone Care Team Providers Care Improvement Director Name Role Phone Pcp, Pending Only MD Primary Care Provider Reason for Visit * Reason Onset Date Comments GS Consult 02/25/2023 Encounter Details Date Type Department Care Team (Late st Contact Info) Description 02/25/2023 Telephone [facility]PP Gastroenterology [address] [place] [address] Rn/Bomb Squad Officer, Answering Service Social History Tobacco Use Types [...] Ace, Registered Nurse documented in this encounter Miscellaneous Notes * Telephone Encounter - Lise Kimball - 02/25/2023 1:54 PM EST Jacqui calling for GI consult request. routine Requesting physician: Dr. Long Facility Name [facility] Call back number: [phone] Nurse Name: [facility] Room #: 842 Main desk # [phone] Admitting Diagnosis: Acute osteomyelitis left ankle or foot Reason for consult request: Downtrending hgb GI provider(s) marketing community liaison: Dr. Locke Voalexandrate message sent to marketing community liaison GI provider: Sent 02/25/23, 1:57 PM Yep...will see 02/25/23, 1:58 PM documented in this encounter Plan of Treatment Not on file documented as of this encounter Visit Diagnoses Not on filedocumented in this encounter Care Teams Improvement Director Relationship Specialty Start Date End Date Pcp, Pending Only, [place], [place] [phone] PCP - General Internal Medicine 11/18/20 documented as of this encounter
--- OUTSIDE RECORDS SUMMARY | 2025-02-04 12:33 | XMS_ITS | Clinical Summary ---
Author Organization [facility] Address [address] [place] [address] Care Team Providers Care Handy Worker Name Role Phone Pcp, Pending Only MD Primary Care Provider [phone] Allergies No known active allergies Medications allopurinol [...] infection 12/25/2012 Overview (02/03/2023): SQ ACC. NUMBER [id number] SPECIMEN DESCRIPTION: FOOT RIGHT SPECIAL REQUESTS: NONE QUANTITATION: HEAVY GROWTH CULTURE: 4+ ESCHERICHIA COLI This organism is an extended spectrum beta lactamase event producer and therefore, may not respond to extended spectrum cephalosporins and penicillins. Please consult Infectious Disease Dept. for appropriate antibiotic choices. 4+ MORGANELLA MORGANII NOTE: Patient needs CONTACT precautions. REPORT STATUS: FINAL [id number] SQ ACC. NUMBER [id number] ORGANISM 4+ ESCHERICHIA COLI This organism is an extended spectrum beta lactamase event producer and therefore, may not respond to [...] SUSCEPTIBLE ERTAPENEM <=0.25 SUSCEPTIBLE SQ ACC. NUMBER [id number] ORGANISM 4+ MORGANELLA MORGANII METHOD HEIDY (mcg/mL) AMIKACIN <=8 SUSCEPTIBLE AMPICILLIN >16 RESISTANT AMPICILLIN/SULBACTAM >16/8 RESISTANT AZTREONAM <=2 SUSCEPTIBLE CEFAZOLIN >16 RESISTANT CEFEPIME <=1 SUSCEPTIBLE CEFTRIAXONE <=1 SUSCEPTIBLE GENTAMICIN <=2 SUSCEPTIBLE LEVOFLOXACIN >4 RESISTANT MEROPENEM <=0.5 SUSCEPTIBLE PIPERACILLIN/TAZOBACTAM <=2/4 SUSCEPTIBLE TETRACYCLINE <=2 SUSCEPTIBLE TOBRAMYCIN <=2 SUSCEPTIBLE TRIMETHOPRIM/SULFAMETHOXAZOLE >2/38 RESISTANT ERTAPENEM <=0.25 SUSCEPTIBLE SQ ACC. NUMBER [id number] ORGANISM 4+ ESCHERICHIA COLI This organism is an extended spectrum beta lactamase event producer and therefore, may not respond to extended spectrum cephalosporins and penicillins. Please consult Infectious Disease Dept. for appropriate antibiotic choices. METHOD Aerobic Identificaion Billing Info Only ISOLATE IDENTIFICATION BY [place] ISOLATE IDENTIFIED SQ ACC. NUMBER [id number] ORGANISM 4+ MORGANELLA MORGANII METHOD Aerobic Identificaion [...] car, in a tent, in an overnight long-term, or temporarily in someone else's home (i.e. So1-surfing)? No 02/03/2023 Within the past 12 months, [...] car, in a tent, in an overnight long-term, or temporarily in someone else's home (i.e. MuscleGenesch-surfing)? No 02/03/2023 Within the past 12 months, [...] PCV) 1977 Colonoscopy 11/19/2003 PSA YEARLY 2008 RSV Vaccine (60+ or ) (1 - Risk 50-74 years 1-dose series) 2008 Shingrix (#1) 2008 Influenza Vaccine (#1) 2024 DTap,Tdap,and Td (2 [...] NONREACTIVE NONREACTIVE [facility] Comment:Tested at: [facility] [place] [id number] 11/20/2020 7:33 PM EDT 11/20/2020 7:52 PM EDT Chirag Dave MD LAB BLOOD ORDERABLES Final Result Performing Organization Address City/State/[facility] Co de Phone Number [facility] [id number] [place] [phone] [facility] [address] [place] [address] from Last 3 Months or Most Recently [...] 7:25 PM 12/02/2020 5:47 PM Care Teams Handy Worker Relationship Specialty Start Date End Date Pcp, Pending Only, [place] [address] PCP - General Internal Medicine 11/18/20
--- NOTE | 2025-02-04 13:06 | PC.NURSE ---
Patient arrived to room 216 at this time. Continuation of care plan.
[2025-02-04 15:03] LABS: Iron 38 ug/dL (49-181)
[2025-02-04 15:13] LABS: Total Iron Binding Capacity 340 ug/dL (261-462)
[2025-02-04 15:40] LABS: Ferritin 55.6 ng/ml (17.9-464)
[2025-02-04 15:49] LABS: POC Glucose,Bedside 145 gm/dL (70-110)
[2025-02-04 16:04] LABS: POC Glucose,Bedside 156 gm/dL (70-110)
[2025-02-04] MEDS: HYDROCODONE/APAP 5/325 MG TABLET 1 TAB PO (16:17)
[2025-02-04] MEDS: MULTIVITAMIN TABLET 1 EACH PO (16:17)
[2025-02-04] MEDS: humaLOG 100 UNITS/ML 10ML VIAL (SSI) SUBCUT (16:18)
[2025-02-04] MEDS: LIDOCAINE 5% TRANSDERMAL PATCH 1 EACH TD (16:19)
[2025-02-04] MEDS: IRON SUCROSE COMPLEX 200 MG in 0.9 % SODIUM CHLORIDE 100 ML 220 MG IV (16:19)
[2025-02-04] MEDS: NICOTINE 21MG/24HR PATCH 21 MG TD (16:20)
[2025-02-04 17:11] LABS: Hematocrit 27.9 % (42.0-52.0); Hemoglobin 8.9 g/dL (14.1-18.0)
[2025-02-04] MEDS: FUROSEMIDE 40MG/4ML VIAL 40 MG IV (18:11)
--- NOTE | 2025-02-04 18:38 | PC.NURSE ---
Addendum entered by Khadra Santamaria RN 02/04/25 19:12: Patients indwelling catheter intact and draining urine at 1840. Original Note: Patient states he feels like he still has the need to pee with his monsalve catheter at this time. Primary RN notified at this time. states patients indwelling monsalve catheter may be removed at 2200 tonight. Continuation of care plan.
[2025-02-04 20:11] LABS: POC Glucose,Bedside 127 gm/dL (70-110)
[2025-02-04] MEDS: MORPHINE 4MG/ML SYRINGE 4 MG IV (21:10)
--- NOTE | 2025-02-04 23:00 | PC.NURSE ---
Per day shift RN pt complained of pain with his urinary catheter. Per dr sauceda note and day shift nurse report, urinary catheter can come out at 2200. Pt called out numerous times complaining of pain. Urinary catheter was pulled at approximately 2130.
[2025-02-05] VITALS (9 sets, daily range): BP systolic 98–132; BP diastolic 45–86; PULSE 60–106; RESP 16–18; TEMP 36.4–37; O2SAT 92–97; BMI 33.6
[2025-02-05 01:20] LABS: Hematocrit 30.2 % (42.0-52.0); Hemoglobin 9.4 g/dL (14.1-18.0)
[2025-02-05] MEDS: HYDROCODONE/APAP 5/325 MG TABLET 1 TAB PO (05:01)
[2025-02-05 06:04] LABS: Hematocrit 32.8 % (42.0-52.0); Hemoglobin 9.7 g/dL (14.1-18.0); Immature Granulocytes % 1.4 %; Mean Corpuscular HGB Conc 29.6 g/dL (31.8-35.4); Mean Corpuscular Hemoglobin 28.9 pg (27.0-31.2); Mean Corpuscular Volume 97.6 fl (80-94); Nucleated Red Blood Cells % 2.6 %; Platelet Count 296 K/mm3 (142-424); Red Blood Count 3.36 M/mm3 (4.60-6.20); Red Cell Distribution Width-SD 58.4 fL; White Blood Count 7.7 K/mm3 (4.8-10.8)
[2025-02-05 06:13] LABS: Chloride 108 mmol/L (98-107)
[2025-02-05 06:14] LABS: Potassium 5.1 mmoL/L (3.5-5.1); Sodium 137 mmol/L (136-145)
[2025-02-05 06:16] LABS: Alanine Aminotransferase 31 U/L (12-78); Aspartate Amino Transferase 46 U/L (17-59); Blood Urea Nitrogen 72 mg/dl (9-20); Carbon Dioxide 20 mmol/L (22.0-30.0); Creatinine Clearance Estimated 45 mL/min (50-200); Creatinine,Serum 2.50 mg/dl (0.66-1.25); Estimated Glomerular Filt Rate 26 ml/min (>60); GFR (African American) 31 ML/MIN (>60); Total Protein,Serum 6.2 g/dl (6.3-8.2)
[2025-02-05 06:17] LABS: Alkaline Phosphatase 76 U/L (38-126); Bilirubin,Total 0.5 mg/dl (0.2-1.3); Calcium 7.9 mg/dl (8.4-10.2); Glucose 106 mg/dl (74-100); Magnesium 2.7 mg/dl (1.6-2.3)
[2025-02-05 06:59] LABS: Anion Gap 14.1 mEq/L (5-15)
[2025-02-05 07:09] LABS: POC Glucose,Bedside 128 gm/dL (70-110)
[2025-02-05 07:31] LABS: Albumin Level 3.6 g/dl (3.5-5.0); Albumin/Globulin Ratio 1.4 (1.1-1.8); Globulin 2.6 g/dL (1.3-3.2)
[2025-02-05] MEDS: PANTOPRAZOLE 40MG VIAL 40 MG IV ×2 (08:50→21:37)
[2025-02-05] MEDS: FINASTERIDE 5MG TABLET 5 MG PO (08:51)
[2025-02-05] MEDS: THIAMINE 100MG TABLET 100 MG PO (08:51)
[2025-02-05] MEDS: DIGOXIN 0.125MG TABLET 125 MCG PO (08:51)
[2025-02-05] MEDS: LEVOTHYROXINE 75MCG (0.075MG) TAB 75 MCG PO (08:51)
[2025-02-05] MEDS: FOLIC ACID 1MG TABLET 1 MG PO (08:51)
[2025-02-05] MEDS: dilTIAZem ER 240MG CAPSULE 240 MG PO (08:51)
[2025-02-05 11:00] LABS: POC Glucose,Bedside 156 gm/dL (70-110)
--- NOTE | 2025-02-05 11:01 | P.PN_ITS ---
Subjective *Date: 02/05/25 *Time: 12:12 Interval history: Patient improving and mentation and energy level. Still having pain in right stump. Discussed trialing Lyrica today. No further signs of bleeding. Hemoglobin stable. On room air. No nausea or vomiting. Medical Exam Vital signs and Labs for Last 24 Hours: Vital Signs Temp Pulse Pulse Pulse Resp BP BP 02/05/25 10:55 02/05/25 09:00 02/05/25 08:51 87 02/05/25 08:00 70 02/05/25 05:00 02/05/25 04:00 98.6 F 66 18 111/57 L 02/05/25 04:00 80 02/05/25 03:00 02/05/25 01:00 02/05/25 00:00 90 02/04/25 23:48 97.7 F 79 18 129/68 02/04/25 23:00 02/04/25 21:00 02/04/25 20:00 100 H 02/04/25 20:00 02/04/25 20:00 98.3 F 68 20 134/75 02/04/25 18:57 02/04/25 18:10 80 18 118/94 H 02/04/25 17:00 02/04/25 16:15 97.4 F L 85 18 136/71 02/04/25 16:00 100 H 02/04/25 16:00 02/04/25 15:15 95 H 18 106/59 L 02/04/25 15:00 75 18 115/66 02/04/25 15:00 02/04/25 14:45 96 H 16 140/78 02/04/25 14:22 91 H 16 117/73 02/04/25 13:45 90 16 118/75 02/04/25 13:40 79 14 134/66 02/04/25 13:20 97.5 F L 78 14 122/69 02/04/25 13:19 02/04/25 13:10 91 H 16 123/63 02/04/25 13:05 97.1 F L 58 L 18 119/82 02/04/25 12:45 97.1 F L 69 18 191/61 H 02/04/25 12:35 97.1 F L 57 L 18 146/109 H Pulse Ox O2 Del Method O2 Flow Rate 02/05/25 10:55 Room Air 02/05/25 09:00 Room Air 02/05/25 08:51 02/05/25 08:00 02/05/25 05:00 Room Air 02/05/25 04:00 92 L Room Air 02/05/25 04:00 02/05/25 03:00 Room Air 02/05/25 01:00 Room Air 02/05/25 00:00 02/04/25 23:48 92 L Room Air 02/04/25 23:00 Room Air 02/04/25 21:00 Room Air 02/04/25 20:00 02/04/25 20:00 100 Room Air 02/04/25 20:00 97 Room Air 02/04/25 18:57 Room Air 02/04/25 18:10 95 Room Air 02/04/25 17:00 Room Air 02/04/25 16:15 94 L Room Air 02/04/25 16:00 02/04/25 16:00 90 L Room Air 02/04/25 15:15 96 Nasal Cannula 1 02/04/25 15:00 92 L Nasal Cannula 1 02/04/25 15:00 Nasal Cannula 1 02/04/25 14:45 92 L Nasal Cannula 1 02/04/25 14:22 95 Nasal Cannula 1 02/04/25 13:45 97 Nasal Cannula 1 02/04/25 13:40 97 Nasal Cannula 1 02/04/25 13:20 97 Nasal Cannula 1 02/04/25 13:19 Nasal Cannula 1 02/04/25 13:10 96 Nasal Cannula 1 02/04/25 13:05 93 L Room Air 02/04/25 12:45 92 L Room Air 02/04/25 12:35 93 L Room Air Intake and Output 02/04/25 02/05/25 02/05/25 23:59 07:59 15:59 Intake Total 203 / 1154.925 200 / 200 Output Total 1000 / 2575 350 / 530 180 / 530 Balance -797 / -1420.075 -150 / -330 -180 / -330 Intake: Intake, Oral Amount 60 / 260 200 / 200 Intake, Total IV Amount 143 / 644.925 Ceftriaxone Sodium 1 gm In 0.9 43 / 43 % Sodium Chloride 50 ml @ 100 mls/hr IV Q24H [facility] Rx#:[id number] Iron Sucrose Complex 200 mg In 100 / 100 0.9 % Sodium Chloride 100 ml @ 220 mls/hr IV ONCE ONE Rx#: [id number] Output: Output, Urine Amount 1000 / 2575 350 / 530 180 / 530 Other: Number of Unmeasured Voids 0 Weight 108.908 kg Patient Weight 02/05/25 23:59 Weight 108.908 kg Laboratory Results - last 24 hr 02/04/25 06:12: POC Glucose 145 H 02/04/25 11:06: POC Glucose 144 H 02/04/25 14:30: Iron 38 L, TIBC 340, Iron Saturation 11.48481 L, Ferritin 55.6 02/04/25 15:52: POC Glucose 156 H 02/04/25 17:05: Hgb 8.9 L, Hct 27.9 L 02/04/25 19:47: POC Glucose 127 H 02/05/25 01:09: Hgb 9.4 L, Hct 30.2 L 02/05/25 04:45: WBC 7.7 D, RBC 3.36 L, Hgb 9.7 L, Hct 32.8 L, MCV 97.6 H, MCH 28.9, MCHC 29.6 L, RDW 18.7 H, Plt Count 296, MPV 10.9 H, Neut % (Auto) 72.5, Lymph % (Auto) 14.3, [place] % (Auto) 9.0, Eos % (Auto) 2.2, Baso % (Auto) 0.6, Neut # (Auto) 5.6, Lymph # (Auto) 1.1, [place] # (Auto) 0.7, Eos # (Auto) 0.2, Baso # (Auto) 0.1, Sodium 137, Potassium 5.1, Chloride 108 H, Carbon Dioxide 20 L, Anion Gap 14.1, BUN 72 H, Creatinine 2.50 H, Estimated Creat Clear 45, Estimated GFR 26 L, Est GFR ( Amer) 31 L, Glucose 106 H, Calcium 7.9 L, Magnesium 2.7 H, Total Bilirubin 0.5, AST 46, ALT 31, Alkaline Phosphatase 76, Total Protein 6.2 L, Albumin 3.6, Globulin 2.6, Albumin/Globulin Ratio 1.4 02/05/25 06:50: POC Glucose 128 H 02/05/25 10:47: POC Glucose 156 H I & O for Labs for Last 24 Hours: Intake & Output 02/02/25 02/03/25 02/04/25 02/05/25 23:59 23:59 23:59 23:59 Intake Total 944.583 / 944.583 954.925 / 1154.925 200 / 200 Output Total 2575 / 2575 530 / 530 Balance 944.583 / 944.583 -1620.075 / -1420.075 -330 / -330 Weight 108.862 kg 112.99 kg 108.908 kg Constitutional: Present no acute distress, obese, chronically ill appearing and cooperative Respiratory: Present normal respiratory effort; Absent rhonchi, wheezes or crackles Cardiac: Present Regular Rhythm Comment:: Irregularly irregular GI: Present soft and normal bowel sounds; Absent distention or tenderness Extremities: Present full ROM Comment:: Right BKA; 3 quarter sized ulcerations through epidermis distal right BKA stump Skin: Present wounds; Absent erythema Comment:: 3 quarter sized ulcerations through the epidermis distal right BKA stump. Present on admission Neuro: Present Grossly Intact, alert, awake, oriented x 3 and moves all extremities Assessment and Plan *Assessment and plan (1) Acute blood loss anemia: Status: Acute Category: Medical Code(s): D62 - Acute posthemorrhagic anemia (2) GI (gastrointestinal bleed): Status: Acute Category: Medical Code(s): K92.2 - Gastrointestinal hemorrhage, unspecified (3) Non-ST elevation [place] (NSTEMI): Status: Acute Category: Medical Code(s): I21.4 - Non-ST elevation (NSTEMI) myocardial infarction (4) Tobacco use disorder: Status: Chronic Category: Medical Code(s): F17.200 - Nicotine dependence, unspecified, uncomplicated (5) PAD (peripheral artery disease): Status: Chronic Category: Medical Code(s): I73.9 - Peripheral vascular disease, unspecified (6) Coronary artery disease: Status: Chronic Qualifiers: Associated angina: without angina Coronary Disease-Associated Artery/Lesion type: [place] artery [place] vs. transplanted heart: [place] heart Qualified Code(s): I25.10 - Atherosclerotic heart disease of [place] coronary artery without angina pectoris Category: Medical Code(s): I25.10 - Atherosclerotic heart disease of [place] coronary artery without angina pectoris (7) Diabetes: Status: Chronic Qualifiers: Diabetes mellitus complication detail: with polyneuropathy Diabetes mellitus complication status: with neurologic complications Diabetes mellitus jail insulin use: without jail use Diabetes mellitus type: type 2 Qualified Code(s): E11.42 - Type 2 diabetes mellitus with diabetic polyneuropathy Category: Medical Code(s): E11.9 - Type 2 diabetes mellitus without complications (8) Blindness: Status: Chronic Qualifiers: Left eye visual impairment category: left - unspecified blindness Right eye visual impairment category: right - unspecified blindness Qualified Code(s): H54.3 - Unqualified visual loss, both eyes Category: Medical Code(s): H54.7 - Unspecified visual loss (9) Lymphedema: Status: Chronic Category: Medical Code(s): I89.0 - Lymphedema, not elsewhere classified (10) Atrial fibrillation: Status: Chronic Qualifiers: Atrial fibrillation type: unspecified chronic Qualified Code(s): I48.20 - Chronic atrial fibrillation, unspecified Category: Medical Code(s): I48.91 - Unspecified atrial fibrillation (11) Type 2 diabetes mellitus: Status: Chronic Qualifiers: Diabetes mellitus complication detail: with polyneuropathy Diabetes mellitus complication status: with neurologic complications Diabetes mellitus resource specialist insulin use: without jail use Qualified Code(s): E11.42 - Type 2 diabetes mellitus with diabetic polyneuropathy Category: Medical Code(s): E11.9 - Type 2 diabetes mellitus without complications (12) Obesity (BMI 30.0-34.9): Status: Chronic Category: Medical Code(s): E66.811 - Obesity, class 1 (13) Acute metabolic encephalopathy: Status: Acute Category: Medical Code(s): G93.41 - Metabolic encephalopathy Plan 64-year-old male with multiple comorbidities and condition complicated by blindness, poorly controlled diabetes, history of amputation, A-fib on an ticoagulation. Presents with weakness. Found to be frankly anemic suspected secondary to GI bleed. Discussed case with ER provider, request admission for transfusion and further workup of possible GI bleed. I decided to admit to stepdown level of care given that patient is on anticoagulation, has significant drop in his hemoglobin to 6.1, is quite symptomatic and encephalopathic. Received 3 units packed red blood cells yesterday with improvement in hemoglobin. Taken for EGD on 02/04. Found to have erosive duodenitis. No further bleeding. Hemoglobin stable. Will resume low-dose anticoagulation for A-fib. Monitor for other signs of bleeding or drop in hemoglobin. Advance diet. Awaiting insurance approval for rehab. Problems addressed as follows: Acute blood loss anemia GI bleed Metabolic encephalopathy, resolved -Per chart review patient's hemoglobin is dropped from 14.3 on 07/2024 to 6.1 on admission. Platelets 312. White count 10.6. MCV 97. Transfused 3 units. Hemoglobin stable this morning at 9.7, white count 7.7. Platelets 296. - Hemoglobin goal greater than 9 in the setting of NSTEMI, CAD, PAD. - Suspect blood loss secondary to anticoagulation use as he is on Xarelto and Plavix. Initiated on 80 mg IV once pantoprazole in the ER. Will continue 40 mg IV twice daily. - Encephalopathic from mix of cerebral hypoxia due to anemia, uremia from elevated BUN. Showing improvement. Responding appropriately to questions. GCS normal today with no deficits -No further signs of bleeding. Initiate Eliquis 2.5 mg twice daily given his abnormal renal function. Monitor for drop in hemoglobin or signs of bleeding. -GI evaluated on 02/04 with EGD. findings include Erosive duodenitis and mild chronic gastritis. - No further signs of withdrawal. Discontinue Valium. NSTEMI: Suspect type II with supply/demand mismatch given arline anemia. Troponin troponin flat at 0.26-0.27. BNP elevated at 4900 on admission. Echo obtained this morning. Formal read pending. Cardiology to evaluate in the morning. Will discuss anticoagulation and further ischemic eval. A-fib: CAD PAD - Continue digoxin 0.125mg daily - resume diltiazem 240mg ER daily - Holding Entresto in the setting of JORY and normotensive state. - Consider resuming diuretics in the morning. - holding Lipitor and allopurinol in the acute setting, reevaluate resuming tomorrow Diabetes: Hypothyroid: - Sliding scale insulin and fingersticks ACHS. - A1c pending. TSH 5.8. Glucose 129 this morning on labs - Holding home metformin and glipizide - Continue home levothyroxine 75 mcg daily JORY: - Creatinine stable at 2.5, BUN 72. Continue to monitor for improvement with treatment of anemia. Baseline creatinine 1.4. - Repeat CBC, CMP, magnesium ordered for the morning. Pain in right BKA/Neuropathy: Initiate lidocaine patch. Initiate hydrocodone 5 mg every 6 hours as needed for moderate to severe pain. Initiate Lyrica 50 mg twice daily. Monitor for improvement and for toxicity. Obesity and blindness complicate all aspects of his care. Will have therapy evaluate. Concern for patient's ability to care for himself at home at this time. Further dispo recommendations pending therapy evals. Case management consulted to assist with home-based needs and dispo planning Tobacco use disorder: Smokes at least a pack a day, initiate 21 mg patch daily. Full code SCDs, resume eliquis 2.5mg BID regular diet
[2025-02-05] MEDS: humaLOG 100 UNITS/ML 10ML VIAL (SSI) SUBCUT ×3 (11:21→21:36)
[2025-02-05] MEDS: APIXABAN 5MG TABLET 2.5 MG PO ×2 (12:38→21:36)
[2025-02-05] MEDS: PREGABALIN 50MG CAPSULE 50 MG PO ×2 (12:38→21:37)
[2025-02-05] MEDS: LIDOCAINE 5% TRANSDERMAL PATCH 1 EACH TD (15:57)
[2025-02-05] MEDS: MULTIVITAMIN TABLET 1 EACH PO (16:00)
[2025-02-05 16:03] LABS: POC Glucose,Bedside 193 gm/dL (70-110)
[2025-02-05] MEDS: NICOTINE 21MG/24HR PATCH 21 MG TD (16:30)
--- NOTE | 2025-02-05 17:10 | PC.NURSE ---
patient a/ox4 remains on room air. has been up to chair for most of the shift. placed on regular diet today. FSBS treated per APR. voids per urinal. c/o right knee pain, lidocaine patch applied per APR. call light within reach. no further requests at this time.
--- NOTE | 2025-02-05 19:39 | PC.NURSE ---
Notified Danilo Leigh RN of BP 98/45.
[2025-02-05 21:33] LABS: POC Glucose,Bedside 204 gm/dL (70-110)
--- NOTE | 2025-02-05 22:30 | EXP.EVENT.NO ---
Patient's hemoglobin levels remained stable over the past 24 hours. Patient has not required any further blood transfusions since 02/03. Will continue current management with no current indication for further blood transfusions..
[2025-02-06] VITALS (18 sets, daily range): BP systolic 98–155; BP diastolic 36–78; PULSE 47–82; RESP 14–20; TEMP 36.3–37.1; O2SAT 94–100; BMI 34.4
[2025-02-06] MEDS: HYDROCODONE/APAP 5/325 MG TABLET 1 TAB PO (00:43)
[2025-02-06 02:54] LABS: Hemoglobin A1C 5.7 % (4.0-6.0)
[2025-02-06 06:48] LABS: Hematocrit 27.2 % (42.0-52.0); Hemoglobin 8.1 g/dL (14.1-18.0); Immature Granulocytes % 1.7 %; Mean Corpuscular HGB Conc 29.8 g/dL (31.8-35.4); Mean Corpuscular Hemoglobin 29.3 pg (27.0-31.2); Mean Corpuscular Volume 98.6 fl (80-94); Nucleated Red Blood Cells % 1.6 %; Platelet Count 260 K/mm3 (142-424); Red Blood Count 2.76 M/mm3 (4.60-6.20); Red Cell Distribution Width-SD 59.6 fL; White Blood Count 6.4 K/mm3 (4.8-10.8)
[2025-02-06 06:54] LABS: Albumin Level 3.1 g/dl (3.5-5.0); Chloride 110 mmol/L (98-107)
[2025-02-06 06:54] LABS: POC Glucose,Bedside 112 gm/dL (70-110)
[2025-02-06 06:55] LABS: Potassium 4.4 mmoL/L (3.5-5.1); Sodium 138 mmol/L (136-145)
[2025-02-06 06:57] LABS: Alanine Aminotransferase 21 U/L (12-78); Albumin/Globulin Ratio 1.3 (1.1-1.8); Anion Gap 12.4 mEq/L (5-15); Aspartate Amino Transferase 32 U/L (17-59); Blood Urea Nitrogen 62 mg/dl (9-20); Carbon Dioxide 20 mmol/L (22.0-30.0); Creatinine Clearance Estimated 46 mL/min (50-200); Creatinine,Serum 2.50 mg/dl (0.66-1.25); Estimated Glomerular Filt Rate 26 ml/min (>60); GFR (African American) 31 ML/MIN (>60); Globulin 2.3 g/dL (1.3-3.2); Total Protein,Serum 5.4 g/dl (6.3-8.2)
[2025-02-06 06:58] LABS: Alkaline Phosphatase 74 U/L (38-126); Bilirubin,Total 0.3 mg/dl (0.2-1.3); Calcium 7.5 mg/dl (8.4-10.2); Glucose 93 mg/dl (74-100)
[2025-02-06] MEDS: LEVOTHYROXINE 75MCG (0.075MG) TAB 75 MCG PO (09:17)
[2025-02-06] MEDS: THIAMINE 100MG TABLET 100 MG PO (09:18)
[2025-02-06] MEDS: DIGOXIN 0.125MG TABLET 125 MCG PO (09:18)
[2025-02-06] MEDS: FOLIC ACID 1MG TABLET 1 MG PO (09:19)
[2025-02-06] MEDS: dilTIAZem ER 240MG CAPSULE 240 MG PO (09:19)
[2025-02-06] MEDS: APIXABAN 5MG TABLET 2.5 MG PO ×2 (09:21→20:52)
[2025-02-06] MEDS: PREGABALIN 50MG CAPSULE 50 MG PO ×2 (09:25→20:52)
[2025-02-06] MEDS: PANTOPRAZOLE 40MG VIAL 40 MG IV (09:26)
[2025-02-06] MEDS: FINASTERIDE 5MG TABLET 5 MG PO (09:26)
--- NOTE | 2025-02-06 09:51 | CT_ITS ---
PROCEDURE INFORMATION: Exam: CT Head Without Contrast Exam date and time: 02/06/2025 10:12 AM Age: 64 years old Clinical indication: Speech disturbance; Aphasia; Additional info: Aphasia, left facial droop, anemia TECHNIQUE: Imaging protocol: Computed tomography of the head without contrast. Radiation optimization: All CT scans at this facility use at least one of these dose optimization techniques: automated exposure control; mA and/or kV adjustment per patient size (includes targeted exams where dose is matched to clinical indication); or iterative reconstruction. COMPARISON: No relevant prior studies available. FINDINGS: Limitations: streak artifact limits evaluation of the posterior fossa. Brain: No acute hemorrhage, edema, or mass effect. Areas of periventricular and subcortical hypoattenuation likely reflecting chronic microvascular ischemic changes given the patient's age. Cerebral ventricles: Generalized age-related cerebral volume loss. No hydrocephalus. Paranasal sinuses: Visualized sinuses are unremarkable. No fluid levels. Mastoid air cells: Visualized mastoid air cells are well aerated. Orbital cavities: Bilateral pthisis bulbi. Bones: Unremarkable. No acute fracture. Soft tissues: Unremarkable. IMPRESSION: 1. No acute hemorrhage, edema, or mass effect. 2. Moderate chronic microvascular ischemic changes. 3. If symptoms persist, consider MRI for further evaluation if no contraindication.
[2025-02-06] MEDS: NICOTINE 21MG/24HR PATCH 21 MG TD (10:50)
[2025-02-06] MEDS: CLOPIDOGREL 75MG TAB 75 MG PO (10:50)
[2025-02-06 13:20] LABS: Hematocrit 29.4 % (42.0-52.0); Hemoglobin 8.6 g/dL (14.1-18.0)
--- NOTE | 2025-02-06 14:47 | EXP.PN ---
Subjective *Date: 02/06/25 *Time: 14:58 Interval history: Hemoglobin stabilizing today, no active signs of bleeding. However, patient is endorsing slurred speech, some aphasia. Concerning for CVA in the setting of acute anemia. Follow-up brain MRI, MRI in the morning. Continue Plavix 75 mg. Ordered 1 unit PRBC, IV Lasix 40 mg. Exam Data for Last 24 hours Vital signs and Labs for Last 24 Hours: Temp Pulse Resp BP Pulse Ox O2 Del Method O2 Flow Rate 98.8 F 64 16 155/66 H 96 Room Air 2 02/06/25 12:00 02/06/25 12:00 02/06/25 12:00 02/06/25 12:00 02/06/25 12:00 02/06/25 12:00 02/06/25 06:49 Laboratory Results - last 24 hr 02/03/25 14:12: Crossmatch (AHG) See Detail 02/03/25 17:03: Hemoglobin A1c 5.7 02/05/25 15:56: POC Glucose 193 H 02/05/25 21:25: POC Glucose 204 H 02/06/25 06:15: WBC 6.4, RBC 2.76 L, Hgb 8.1 L, Hct 27.2 L, MCV 98.6 H, MCH 29.3, MCHC 29.8 L, RDW 18.4 H, Plt Count 260, MPV 10.7 H, Neut % (Auto) 66.9, Lymph % (Auto) 17.9, [place] % (Auto) 10.3 H, Eos % (Auto) 2.7, Baso % (Auto) 0.5, Neut # (Auto) 4.3, Lymph # (Auto) 1.2, [place] # (Auto) 0.7, Eos # (Auto) 0.2, Baso # (Auto) 0.0, Sodium 138, Potassium 4.4, Chloride 110 H, Carbon Dioxide 20 L, Anion Gap 12.4, BUN 62 H, Creatinine 2.50 H, Estimated Creat Clear 46, Estimated GFR 26 L, Est GFR ( Amer) 31 L, Glucose 93, Calcium 7.5 L, Total Bilirubin 0.3, AST 32 D, ALT 21 D, Alkaline Phosphatase 74, Total Protein 5.4 L, Albumin 3.1 L D, Globulin 2.3, Albumin/Globulin Ratio 1.3 02/06/25 06:48: POC Glucose 112 H 02/06/25 13:15: Hgb 8.6 L, Hct 29.4 L I & O for Last 24 hours: Intake & Output 02/03/25 02/04/25 02/05/25 02/06/25 23:59 23:59 23:59 23:59 Intake Total 944.583 / 944.583 954.925 / 4849.122 0200 / 1470 870 / 870 Output Total 2575 / 2575 1005 / 1005 300 / 300 Balance 944.583 / 944.583 -1620.075 / -1420.075 315 / 465 570 / 570 Weight 108.862 kg 112.99 kg 108.908 kg 111.856 kg Constitutional Constitutional: no acute distress and obese *Routine HEENT Exam Head: Present normocephalic Eye: Present EOMI and PERRL ENT: Present mucous membranes moist *Routine Neck Exam Neck: Present supple; Absent lymphadenopathy *Routine Respiratory Exam Respiratory: Present CTA bilaterally *Routine Cardiovascular Exam Cardiovascular: Present RRR *Routine Abdominal Exam Abdominal: Present soft and normoactive bowel sounds; Absent tenderness *Routine Extremities Exam Extremities: Present edema; Absent cyanosis or clubbing Comments: Right BKA *Routine Skin Exam Skin: Present warm; Absent rash *Routine Neurological Exam Neurological: Present alert and oriented X3 Assessment and Plan *Assessment and plan (1) Acute blood loss anemia: Status: Acute Category: Medical Code(s): D62 - Acute posthemorrhagic anemia (2) GI (gastrointestinal bleed): Status: Acute Category: Medical Code(s): K92.2 - Gastrointestinal hemorrhage, unspecified (3) Non-ST elevation [place] (NSTEMI): Status: Acute Category: Medical Code(s): I21.4 - Non-ST elevation (NSTEMI) myocardial infarction (4) Tobacco use disorder: Status: Chronic Category: Medical Code(s): F17.200 - Nicotine dependence, unspecified, uncomplicated (5) PAD (peripheral artery disease): Status: Chronic Category: Medical Code(s): I73.9 - Peripheral vascular disease, unspecified (6) Coronary artery disease: Status: Chronic Qualifiers: Associated angina: without angina Coronary Disease-Associated Artery/Lesion type: [place] artery [place] vs. transplanted heart: [place] heart Qualified Code(s): I25.10 - Atherosclerotic heart disease of [place] coronary artery without angina pectoris Category: Medical Code(s): I25.10 - Atherosclerotic heart disease of [place] coronary artery without angina pectoris (7) Diabetes: Status: Chronic Qualifiers: Diabetes mellitus complication detail: with polyneuropathy Diabetes mellitus complication status: with neurologic complications Diabetes mellitus terminal superintendent insulin use: without correction use Diabetes mellitus type: type 2 Qualified Code(s): E11.42 - Type 2 diabetes mellitus with diabetic polyneuropathy Category: Medical Code(s): E11.9 - Type 2 diabetes mellitus without complications (8) Blindness: Status: Chronic Qualifiers: Left eye visual impairment category: left - unspecified blindness Right eye visual impairment category: right - unspecified blindness Qualified Code(s): H54.3 - Unqualified visual loss, both eyes Category: Medical Code(s): H54.7 - Unspecified visual loss (9) Lymphedema: Status: Chronic Category: Medical Code(s): I89.0 - Lymphedema, not elsewhere classified (10) Atrial fibrillation: Status: Chronic Qualifiers: Atrial fibrillation type: unspecified chronic Qualified Code(s): I48.20 - Chronic atrial fibrillation, unspecified Category: Medical Code(s): I48.91 - Unspecified atrial fibrillation (11) Type 2 diabetes mellitus: Status: Chronic Qualifiers: Diabetes mellitus complication detail: with polyneuropathy Diabetes mellitus complication status: with neurologic complications Diabetes mellitus correction insulin use: without correction use Qualified Code(s): E11.42 - Type 2 diabetes mellitus with diabetic polyneuropathy Category: Medical Code(s): E11.9 - Type 2 diabetes mellitus without complications (12) Obesity (BMI 30.0-34.9): Status: Chronic Category: Medical Code(s): E66.811 - Obesity, class 1 (13) Acute metabolic encephalopathy: Status: Acute Category: Medical Code(s): G93.41 - Metabolic encephalopathy Plan Jermaine Gaviria is a 64-year-old male with multiple comorbidities and condition complicated by blindness (since childhood), poorly controlled diabetes, 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 Presents with weakness. Found to be frankly anemic suspected secondary to GI bleed and encephalopathy on admission. Received 3 units packed red blood cells with improvement in hemoglobin. Taken for EGD on 02/04. Found to have erosive duodenitis. No further bleeding. Hemoglobin stable. Will resume low-dose anticoagulation for A-fib. #Acute on chronic anemia #Suspected GI bleed #Erosive duodenitis, chronic gastritis #SMA stenosis ? Patient presented with weakness, encephalopathy in setting of acute anemia initial hemoglobin 6.1. Received 3 units PRBC. Patient has been on Xarelto, Plavix. ? GI consulted, s/p EGD 02/04/2025 which revealed erosive duodenitis and mild chronic gastritis. Dr. Winston did note there was some findings of possible mesenteric ischemia that could have contributed to the bleed. Patient does have 70% SMA stenosis. ? Today, drop from 9.7-8.1 this morning, improved to 8.6 this afternoon. No signs of bleeding. Vital signs stable. Does seem to have slurred speech, left-sided facial droop. See separate problem. ? Transition to p.o. Protonix 40 mg daily. ? Restarted Plavix 75 mg for CAD as below, but also for SMA stenosis. ? Will give additional 1 unit PRBC due to symptoms of CVA, JORY. ? From the standpoint of SMA stenosis, patient does not endorse abdominal pain or postprandial pain. Will refer to cardiology for further evaluation management. ? Continuous cardiac telemetry for now. ? Follow-up morning H&H. #Slurred speech, left-sided facial droop #Suspected CVA ? Patient's states he has been having issues with speech, particularly expressing what he is thinking. No gross aphasia on exam, but there is some slurred speech with left-sided facial droop. No other focal neurological deficits. ? Concerning for CVA in the setting of acute anemia and history of ASCVD. ? CT head on 02/06/2025 did not show acute findings. ? Follow-up brain MRI, MRI in the morning. ? Continue Plavix 75 mg. NSTEMI: #History of CAD #HFpEF ? Suspect type II with supply/demand mismatch given arline anemia. Troponin troponin flat at 0.26-0.27. BNP elevated at 4900 on admission. ? ECHO revealed moderate reduction in RV function but no wall motion abnormalities. Patient denies chest pain, shortness of breath. ? Plan for outpatient ischemic evaluation with cardiology. ? Will give one-time dose of IV Lasix 40 mg due to lower extremity edema, and transfusion of blood. ? Continue Plavix 75 mg daily. A-fib: CAD PAD - Continue digoxin 0.125mg daily - Continue diltiazem 240mg ER daily - Holding Entresto in the setting of JORY and, permissive hypertension. - Consider resuming diuretics in the morning. - holding Lipitor and allopurinol in the acute setting, reevaluate resuming tomorrow ? Continue low-dose Eliquis 2.5 mg twice daily and Plavix 75 mg. Diabetes: Hypothyroid: - Sliding scale insulin and fingersticks ACHS. - A1c 5.7%. TSH 5.8. Glucose 129 this morning on labs - Holding home metformin and glipizide - Continue home levothyroxine 75 mcg daily JORY on CKD: - Creatinine stable at 2.5, BUN 72. Continue to monitor for improvement with treatment of anemia. Baseline creatinine 1.4. - Repeat CBC, CMP, magnesium ordered for the morning. ? Will give additional 1 unit PRBC due to symptoms of CVA, JORY. Pain in right BKA/Neuropathy: Continue lidocaine patch. Continue hydrocodone 5 mg every 6 hours as needed for moderate to severe pain. Continue Lyrica 50 mg twice daily. No complaints today. Obesity and blindness complicate all aspects of his care. Will have therapy evaluate. Concern for patient's ability to care for himself at home at this time. Further dispo recommendations pending therapy evals. Case management consulted to assist with home-based needs and dispo planning Tobacco use disorder: Smokes at least a pack a day, initiate 21 mg patch daily. Full code SCDs, resume eliquis 2.5mg BID regular diet
[2025-02-06] MEDS: FUROSEMIDE 40MG/4ML VIAL 40 MG IV (17:47)
[2025-02-06] MEDS: LIDOCAINE 5% TRANSDERMAL PATCH 1 EACH TD (17:48)
[2025-02-06] MEDS: MULTIVITAMIN TABLET 1 EACH PO (17:48)
[2025-02-06] MEDS: PANTOPRAZOLE 40MG TABLET 40 MG PO (20:52)
[2025-02-06] MEDS: humaLOG 100 UNITS/ML 10ML VIAL (SSI) SUBCUT (21:10)
[2025-02-06 21:14] LABS: POC Glucose,Bedside 194 gm/dL (70-110)
[2025-02-06 22:43] LABS: Hematocrit 31.3 % (42.0-52.0)
[2025-02-06 22:51] LABS: Hemoglobin 9.6 g/dL (14.1-18.0)
[2025-02-07] VITALS (12 sets, daily range): BP systolic 115–156; BP diastolic 52–79; PULSE 36–78; RESP 15–18; TEMP 36.4–37.1; O2SAT 92–98; BMI 34.4
--- NOTE | 2025-02-07 02:56 | EXP.EVENT.NO ---
Patient's heart rate in 30s at 2:50 AM today. Gave atropine 0.5 mg x 1. Also placed patient's Cardizem CD to 240 mg on hold for 2 days. Recommend a.m. team reevaluate Cardizem CD dosage.
[2025-02-07 05:54] LABS: Hematocrit 34.0 % (42.0-52.0); Hemoglobin 10.4 g/dL (14.1-18.0); Immature Granulocytes % 1.2 %; Mean Corpuscular HGB Conc 30.6 g/dL (31.8-35.4); Mean Corpuscular Hemoglobin 29.6 pg (27.0-31.2); Mean Corpuscular Volume 96.9 fl (80-94); Nucleated Red Blood Cells % 0.6 %; Platelet Count 301 K/mm3 (142-424); Red Blood Count 3.51 M/mm3 (4.60-6.20); Red Cell Distribution Width-SD 59.5 fL; White Blood Count 6.9 K/mm3 (4.8-10.8)
--- NOTE | 2025-02-07 06:00 | MR_ITS ---
FINAL REPORT TECHNIQUE: 3-D [id number] sequences without contrast CLINICAL HISTORY: Slurred speech, left-sided facial droop, anemia COMPARISON: none FINDINGS: There is moderate stenoses at the junction of the distal cervical internal carotid artery and petrous portions of the internal carotid arteries. MCAs and ACAs are unremarkable. Basilar artery is widely patent. Distal right vertebral artery terminates at the right PICA as a normal variant. natural sciences manager are intact. No aneurysm is seen. IMPRESSION: Moderate distal ICA stenoses with no significant intracranial stenosis. Reviewed, Interpreted and Dictated by Shiela Davila MD Transcribed by Soheila Forte Authenticated and [facility]
--- NOTE | 2025-02-07 06:00 | MR_ITS ---
FINAL REPORT CLINICAL HISTORY: Slurred speech, left-sided facial droop, anemia COMPARISON: none FINDINGS: Multiple projection images of the neck arterial vasculature were obtained without contrast. Raw data images were also reviewed. Moderate motion artifact significantly limits exam quality. The right common carotid artery is patent. Moderate proximal right internal carotid artery stenosis of 50-60%. The right vertebral artery is patent. The left common carotid artery is patent. [id number] left internal carotid artery stenosis of 30-40%. The left vertebral artery is dominant and patent. IMPRESSION: Significant motion artifact limits exam. Follow-up CTA or contrast enhanced MRI may be considered. Reviewed, Interpreted and Dictated by Shiela Davila MD Transcribed by Soheila Forte Authenticated and [facility]
--- NOTE | 2025-02-07 06:00 | MR_ITS ---
FINAL REPORT TECHNIQUE: Multiplanar MR without contrast CLINICAL HISTORY: Slurred speech, left-sided facial droop, anemia COMPARISON: none FINDINGS: Punctate foci of increased signal on diffusion sequences is likely related to T2 shine through artifact. No convincing evidence of acute infarct. No hemorrhage or edema is seen. Moderate atrophy and chronic microvascular changes. Ventricles are normal. Major vascular flow voids are intact. IMPRESSION: Advanced atrophy and chronic microvascular changes. No definite acute infarct. Reviewed, Interpreted and Dictated by Shiela Davila MD Transcribed by Soheila Forte Authenticated and [facility]
[2025-02-07 06:01] LABS: POC Glucose,Bedside 112 gm/dL (70-110)
[2025-02-07 06:03] LABS: Albumin Level 3.3 g/dl (3.5-5.0); Chloride 110 mmol/L (98-107); Potassium 4.5 mmoL/L (3.5-5.1); Sodium 142 mmol/L (136-145)
[2025-02-07 06:06] LABS: Alanine Aminotransferase 23 U/L (12-78); Albumin/Globulin Ratio 1.3 (1.1-1.8); Alkaline Phosphatase 75 U/L (38-126); Anion Gap 14.5 mEq/L (5-15); Aspartate Amino Transferase 26 U/L (17-59); Bilirubin,Total 0.7 mg/dl (0.2-1.3); Blood Urea Nitrogen 58 mg/dl (9-20); Carbon Dioxide 22 mmol/L (22.0-30.0); Creatinine Clearance Estimated 48 mL/min (50-200); Creatinine,Serum 2.40 mg/dl (0.66-1.25); Estimated Glomerular Filt Rate 27 ml/min (>60); GFR (African American) 33 ML/MIN (>60); Globulin 2.6 g/dL (1.3-3.2); Total Protein,Serum 5.9 g/dl (6.3-8.2)
[2025-02-07 06:07] LABS: Calcium 8.0 mg/dl (8.4-10.2); Glucose 109 mg/dl (74-100)
[2025-02-07] MEDS: LEVOTHYROXINE 75MCG (0.075MG) TAB 75 MCG PO (06:28)
[2025-02-07] MEDS: APIXABAN 5MG TABLET 2.5 MG PO ×2 (11:29→20:36)
[2025-02-07] MEDS: FOLIC ACID 1MG TABLET 1 MG PO (11:29)
[2025-02-07] MEDS: SPIRONOLACTONE 25MG TABLET 25 MG PO (11:29)
[2025-02-07] MEDS: dilTIAZem HCL 180MG CAP.ER.24H 180 MG PO (11:29)
[2025-02-07] MEDS: FUROSEMIDE 100MG/10ML VIAL 80 MG IV ×2 (11:30→16:04)
[2025-02-07] MEDS: FINASTERIDE 5MG TABLET 5 MG PO (11:30)
[2025-02-07] MEDS: CLOPIDOGREL 75MG TAB 75 MG PO (11:30)
[2025-02-07] MEDS: PREGABALIN 50MG CAPSULE 50 MG PO ×2 (11:32→20:36)
[2025-02-07] MEDS: DIGOXIN 0.125MG TABLET 125 MCG PO (11:32)
[2025-02-07] MEDS: humaLOG 100 UNITS/ML 10ML VIAL (SSI) SUBCUT (12:01)
[2025-02-07 12:05] LABS: POC Glucose,Bedside 160 gm/dL (70-110)
[2025-02-07 14:22] LABS: Chloride 110 mmol/L (98-107); Potassium 4.4 mmoL/L (3.5-5.1); Sodium 141 mmol/L (136-145)
[2025-02-07 14:25] LABS: Anion Gap 12.4 mEq/L (5-15); Blood Urea Nitrogen 52 mg/dl (9-20); Calcium 7.8 mg/dl (8.4-10.2); Carbon Dioxide 23 mmol/L (22.0-30.0); Creatinine Clearance Estimated 50 mL/min (50-200); Creatinine,Serum 2.30 mg/dl (0.66-1.25); Estimated Glomerular Filt Rate 29 ml/min (>60); GFR (African American) 35 ML/MIN (>60); Glucose 133 mg/dl (74-100)
--- NOTE | 2025-02-07 15:32 | P.PN_ITS ---
Subjective *Date: 02/07/25 *Time: 15:32 Interval history: Patient's slurred speech is improving, feeling better today. However has significant lower extremity edema, concern for acute HFpEF. Increased IV Lasix diuresis, follow-up response. Creatinine improving with diuresis. Exam Data for Last 24 hours Vital signs and Labs for Last 24 Hours: Temp Pulse Resp BP Pulse Ox O2 Del Method O2 Flow Rate 98.2 F 67 18 128/72 95 Room Air 2 02/07/25 12:00 02/07/25 12:00 02/07/25 12:00 02/07/25 12:00 02/07/25 12:00 02/07/25 12:00 02/06/25 06:49 Laboratory Results - last 24 hr 02/06/25 15:25: Blood Type B Positive, Antibody Screen Negative, Crossmatch (AHG) See Detail 02/06/25 21:03: POC Glucose 194 H 02/06/25 22:36: Hgb 9.6 L D, Hct 31.3 L 02/07/25 05:22: WBC 6.9, RBC 3.51 L D, Hgb 10.4 L, Hct 34.0 L, MCV 96.9 H, MCH 29.6, MCHC 30.6 L, RDW 18.5 H, Plt Count 301, MPV 10.7 H, Neut % (Auto) 72.4, Lymph % (Auto) 14.0, [place] % (Auto) 8.9, Eos % (Auto) 2.9, Baso % (Auto) 0.6, Neut # (Auto) 5.0, Lymph # (Auto) 1.0, [place] # (Auto) 0.6, Eos # (Auto) 0.2, Baso # (Auto) 0.0, Sodium 142, Potassium 4.5, Chloride 110 H, Carbon Dioxide 22, Anion Gap 14.5, BUN 58 H, Creatinine 2.40 H, Estimated Creat Clear 48, Estimated GFR 27 L, Est GFR ( Amer) 33 L, Glucose 109 H, Calcium 8.0 L, Total Bilirubin 0.7, AST 26, ALT 23, Alkaline Phosphatase 75, Total Protein 5.9 L, Albumin 3.3 L, Globulin 2.6, Albumin/Globulin Ratio 1.3 02/07/25 05:52: POC Glucose 112 H 02/07/25 11:56: POC Glucose 160 H 02/07/25 14:10: Sodium 141, Potassium 4.4, Chloride 110 H, Carbon Dioxide 23, Anion Gap 12.4, BUN 52 H, Creatinine 2.30 H, Estimated Creat Clear 50, Estimated GFR 29 L, Est GFR ( Amer) 35 L, Glucose 133 H D, Calcium 7.8 L I & O for Last 24 hours: Intake & Output 02/04/25 02/05/25 02/06/25 02/07/25 23:59 23:59 23:59 23:59 Intake Total 954.925 / 3224.927 2038 / 1470 1480 / 1835 935 / 935 Output Total 2575 / 2575 1005 / 1005 1250 / 1350 1600 / 1600 Balance -1620.075 / -1420.075 315 / 465 230 / 485 -665 / -665 Weight 112.99 kg 108.908 kg 111.856 kg 111.85 kg Constitutional Constitutional: no acute distress and obese *Routine HEENT Exam Head: Present normocephalic Eye: Present EOMI and PERRL ENT: Present mucous membranes moist *Routine Neck Exam Neck: Present supple; Absent lymphadenopathy *Routine Respiratory Exam Respiratory: Present CTA bilaterally *Routine Cardiovascular Exam Cardiovascular: Present RRR *Routine Abdominal Exam Abdominal: Present soft and normoactive bowel sounds; Absent tenderness *Routine Extremities Exam Extremities: Present edema; Absent cyanosis or clubbing Comments: Right BKA, bilateral lower extremity pitting edema *Routine Skin Exam Skin: Present warm; Absent rash *Routine Neurological Exam Neurological: Present alert and oriented X3 Assessment and Plan *Assessment and plan (1) Acute blood loss anemia: Status: Acute Category: Medical Code(s): D62 - Acute posthemorrhagic anemia (2) GI (gastrointestinal bleed): Status: Acute Category: Medical Code(s): K92.2 - Gastrointestinal hemorrhage, unspecified (3) Non-ST elevation [place] (NSTEMI): Status: Acute Category: Medical Code(s): I21.4 - Non-ST elevation (NSTEMI) myocardial infarction (4) Tobacco use disorder: Status: Chronic Category: Medical Code(s): F17.200 - Nicotine dependence, unspecified, uncomplicated (5) PAD (peripheral artery disease): Status: Chronic Category: Medical Code(s): I73.9 - Peripheral vascular disease, unspecified (6) Coronary artery disease: Status: Chronic Qualifiers: Coronary Disease-Associated Artery/Lesion type: [place] artery [place] vs. transplanted heart: [place] heart Associated angina: without angina Qualified Code(s): I25.10 - Atherosclerotic heart disease of [place] coronary artery without angina pectoris Category: Medical Code(s): I25.10 - Atherosclerotic heart disease of [place] coronary artery without angina pectoris (7) Diabetes: Status: Chronic Qualifiers: Diabetes mellitus type: type 2 Diabetes mellitus longterm insulin use: without longterm use Diabetes mellitus complication status: with neurologic complications Diabetes mellitus complication detail: with polyneuropathy Qualified Code(s): E11.42 - Type 2 diabetes mellitus with diabetic polyneuropathy Category: Medical Code(s): E11.9 - Type 2 diabetes mellitus without complications (8) Blindness: Status: Chronic Qualifiers: Right eye visual impairment category: right - unspecified blindness Left eye visual impairment category: left - unspecified blindness Qualified Code(s): H54.3 - Unqualified visual loss, both eyes Category: Medical Code(s): H54.7 - Unspecified visual loss (9) Lymphedema: Status: Chronic Category: Medical Code(s): I89.0 - Lymphedema, not elsewhere classified (10) Atrial fibrillation: Status: Chronic Qualifiers: Atrial fibrillation type: unspecified chronic Qualified Code(s): I48.20 - Chronic atrial fibrillation, unspecified Category: Medical Code(s): I48.91 - Unspecified atrial fibrillation (11) Type 2 diabetes mellitus: Status: Chronic Qualifiers: Diabetes mellitus supervisor long goods insulin use: without longterm use Diabetes mellitus complication status: with neurologic complications Diabetes mellitus complication detail: with polyneuropathy Qualified Code(s): E11.42 - Type 2 diabetes mellitus with diabetic polyneuropathy Category: Medical Code(s): E11.9 - Type 2 diabetes mellitus without complications (12) Obesity (BMI 30.0-34.9): Status: Chronic Category: Medical Code(s): E66.811 - Obesity, class 1 (13) Acute metabolic encephalopathy: Status: Acute Category: Medical Code(s): G93.41 - Metabolic encephalopathy Plan Jermaine Gaviria is a 64-year-old male with multiple comorbidities and condition complicated by blindness (since childhood), poorly controlled diabetes, 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 Presents with weakness. Found to be frankly anemic suspected secondary to GI bleed and encephalopathy on admission. Received 3 units packed red blood cells with improvement in hemoglobin. Taken for EGD on 02/04. Found to have erosive duodenitis. No further bleeding. Hemoglobin stable. Will resume low-dose anticoagulation for A-fib. #Acute on chronic anemia #Suspected GI bleed #Erosive duodenitis, chronic gastritis #SMA stenosis ? Patient presented with weakness, encephalopathy in setting of acute anemia initial hemoglobin 6.1. Received 3 units PRBC. Patient has been on Xarelto, Plavix. ? GI consulted, s/p EGD 02/04/2025 which revealed erosive duodenitis and mild chronic gastritis. Dr. Winston did note there was some findings of possible mesenteric ischemia that could have contributed to the bleed. Patient does have 70% SMA stenosis. ? Received total of 4 units PRBC, hemoglobin 10.1 today. No signs of active bleeding. Vital signs stable. ? Continue Protonix 40 mg daily. ? Continue Plavix 75 mg for CAD as below, but also for SMA stenosis. Hemoglobin stable. ? From the standpoint of SMA stenosis, patient does not endorse abdominal pain or postprandial pain. Will refer to cardiology for further evaluation management. ? Follow-up morning H&H. #NSTEMI: #History of CAD #Acute HFpEF #JORY on CKD #Right heart failure ? Suspect type II with supply/demand mismatch given arline anemia. Troponin troponin flat at 0.26-0.27. BNP elevated at 4900 on admission. ? ECHO 02/04/2025 revealed moderate reduction in RV function but no wall motion abnormalities. Patient denies chest pain, shortness of breath. ? Plan for outpatient ischemic evaluation with cardiology. ?Patient has lower extremity pitting edema 3+ in the setting of 4 units PRBC. Seems acutely decompensated. Initial BNP 4900. ? Increased IV Lasix 80 mg twice daily, started spironolactone 25 mg. Diuresing well. ? Creatinine slowly improving, 2.3 today. Baseline around 1.5. ? Continue Plavix 75 mg daily. #Physical deconditioning ? PT/OT recommended SNF, patient accepted to [facility]. They can accept once patient is medically stable. #Slurred speech, improved #Left-sided facial droop ? Patient's states he has been having issues with speech, particularly expressing what he is thinking since admission. No gross aphasia on exam, but there was some slurred speech with left-sided facial droop. No other focal neurological deficits. Had concern for CVA with history of ASCVD. Unclear if left-sided facial droop is acute or chronic, patient cannot recall. This may be related to an old stroke. ? Slurred speech has improved patient feels and patient alert and oriented. Pleasant, conversational. ? Concerning for CVA in the setting of acute anemia and history of ASCVD. ? CT head on 02/06/2025 did not show acute findings. ? Recommend MRI did not show acute findings, did show advanced atrophy and chronic microvascular changes. ? Continue Plavix 75 mg. A-fib: CAD PAD - Continue digoxin 0.125mg daily -Decrease diltiazem to 180 mg as patient's heart rate dropped to the 30s overnight, though sleeping and asymptomatic. - Holding Entresto in the setting of JORY. Blood pressure stable. - Consider resuming diuretics in the morning. - holding Lipitor and allopurinol in the acute setting, reevaluate resuming tomorrow ? Continue low-dose Eliquis 2.5 mg twice daily and Plavix 75 mg. Diabetes: Hypothyroid: - Sliding scale insulin and fingersticks ACHS. - A1c 5.7%. TSH 5.8. - Holding home metformin and glipizide - Continue home levothyroxine 75 mcg daily Pain in right BKA/Neuropathy: Continue lidocaine patch. Continue hydrocodone 5 mg every 6 hours as needed for moderate to severe pain. Continue Lyrica 50 mg twice daily. No complaints today. Obesity and blindness complicate all aspects of his care. Will have therapy evaluate. Concern for patient's ability to care for himself at home at this time. Further dispo recommendations pending therapy evals. Case management consulted to assist with home-based needs and dispo planning Tobacco use disorder: Smokes at least a pack a day, initiate 21 mg patch daily. Full code SCDs, resume eliquis 2.5mg BID regular diet
[2025-02-07] MEDS: NICOTINE 21MG/24HR PATCH 21 MG TD (15:50)
[2025-02-07] MEDS: LIDOCAINE 5% TRANSDERMAL PATCH 1 EACH TD (16:05)
[2025-02-07] MEDS: MULTIVITAMIN TABLET 1 EACH PO (16:18)
[2025-02-07 16:39] LABS: POC Glucose,Bedside 140 gm/dL (70-110)
[2025-02-07] MEDS: PANTOPRAZOLE 40MG TABLET 40 MG PO (20:36)
[2025-02-07 20:49] LABS: POC Glucose,Bedside 176 gm/dL (70-110)
[2025-02-08] VITALS: PULSE 66
[2025-02-08 04:00] VITALS: BP 114/70; PULSE 54; PULSE 59; RESP 18; TEMP 36.8; O2SAT 96; BMI 34.2
[2025-02-08 07:19] LABS: Hematocrit 37.0 % (42.0-52.0); Hemoglobin 10.8 g/dL (14.1-18.0); Immature Granulocytes % 0.9 %; Mean Corpuscular HGB Conc 29.2 g/dL (31.8-35.4); Mean Corpuscular Hemoglobin 28.6 pg (27.0-31.2); Mean Corpuscular Volume 97.9 fl (80-94); Nucleated Red Blood Cells % 0.4 %; Platelet Count 309 K/mm3 (142-424); Red Blood Count 3.78 M/mm3 (4.60-6.20); Red Cell Distribution Width-SD 64.5 fL; White Blood Count 7.5 K/mm3 (4.8-10.8)
[2025-02-08 07:39] LABS: POC Glucose,Bedside 120 gm/dL (70-110)
[2025-02-08 07:46] LABS: Albumin Level 3.7 g/dl (3.5-5.0); Chloride 109 mmol/L (98-107); Potassium 4.6 mmoL/L (3.5-5.1); Sodium 142 mmol/L (136-145)
[2025-02-08 07:49] LABS: Alanine Aminotransferase 21 U/L (12-78); Albumin/Globulin Ratio 1.4 (1.1-1.8); Alkaline Phosphatase 87 U/L (38-126); Anion Gap 14.6 mEq/L (5-15); Aspartate Amino Transferase 31 U/L (17-59); Bilirubin,Total 0.5 mg/dl (0.2-1.3); Blood Urea Nitrogen 50 mg/dl (9-20); Calcium 8.3 mg/dl (8.4-10.2); Carbon Dioxide 23 mmol/L (22.0-30.0); Creatinine Clearance Estimated 54 mL/min (50-200); Creatinine,Serum 2.10 mg/dl (0.66-1.25); Estimated Glomerular Filt Rate 32 ml/min (>60); GFR (African American) 38 ML/MIN (>60); Globulin 2.7 g/dL (1.3-3.2); Glucose 106 mg/dl (74-100); Total Protein,Serum 6.4 g/dl (6.3-8.2)
[2025-02-08 07:50] LABS: Magnesium 2.5 mg/dl (1.6-2.3)
[2025-02-08 08:00] VITALS: BP 154/83; PULSE 60; PULSE 64; RESP 15; TEMP 36.7; O2SAT 97
[2025-02-08 08:54] LABS: Free T4 (Free Thyroxine) 1.06 ng/dl (0.78-2.19)
[2025-02-08] MEDS: FUROSEMIDE 100MG/10ML VIAL 80 MG IV (08:59)
[2025-02-08] MEDS: FINASTERIDE 5MG TABLET 5 MG PO (08:59)
[2025-02-08] MEDS: LEVOTHYROXINE 75MCG (0.075MG) TAB 75 MCG PO (09:00)
[2025-02-08] MEDS: FOLIC ACID 1MG TABLET 1 MG PO (09:00)
[2025-02-08 09:01] VITALS: PULSE 61
[2025-02-08] MEDS: APIXABAN 5MG TABLET 2.5 MG PO (09:01)
[2025-02-08] MEDS: DIGOXIN 0.125MG TABLET 125 MCG PO (09:01)
[2025-02-08] MEDS: CLOPIDOGREL 75MG TAB 75 MG PO (09:01)
[2025-02-08] MEDS: dilTIAZem HCL 180MG CAP.ER.24H 180 MG PO (09:02)
[2025-02-08] MEDS: SPIRONOLACTONE 25MG TABLET 25 MG PO (09:02)
[2025-02-08] MEDS: PREGABALIN 50MG CAPSULE 50 MG PO (09:03)
[2025-02-08 12:00] VITALS: BP 149/79; PULSE 50; PULSE 68; RESP 20; TEMP 36.9; O2SAT 99
[2025-02-08 12:20] LABS: POC Glucose,Bedside 148 gm/dL (70-110)
--- NOTE | 2025-02-08 13:46 | EXP.DC.SUM ---
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 Who presents to the ER because of several days of black stools per his caregiver. Patient has become more weak and been more short of breath over the past week. On arrival to the ER, patient is somnolent and confused with minimal responsiveness to exam per nursing report. Workup shows significant anemia with hemoglobin of 6.1, hemoglobin 14.3 in July of this year. BUN elevated at 75 with creatinine 2.1, discordant and consistent with suspected GI bleed. Patient is on Xarelto and possibly Plavix for A-fib and PAD/CAD. He is stable on room air. Initiated on pantoprazole, octreotide drip, 2 units typed and crossmatched. GI consulted for evaluation and possible EGD. Medicine consulted for admission. On my evaluation after arriving to the floor, patient is altered and not at baseline mentation. Knows his name but unable to provide much history. Does not know what is going on at this time just knows he feels bad. Unable to open eyes due to blindness. Best verbal response is confused. Attempts to obey commands. 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 Presents with weakness. Found to be frankly anemic suspected secondary to GI bleed and encephalopathy on admission. Received 3 units packed red blood cells with improvement in hemoglobin. Taken for EGD on 02/04. Found to have erosive duodenitis. No further bleeding. Hemoglobin stable. Will resume low-dose anticoagulation for A-fib. #Acute on chronic anemia #Suspected GI bleed #Erosive duodenitis, chronic gastritis #SMA stenosis ? Patient presented with weakness, encephalopathy in setting of acute anemia initial hemoglobin 6.1. Received 4 units PRBC, hemoglobin since improved to and stable at 10.8. Patient has been on Xarelto, Plavix. ? GI consulted, s/p EGD 02/04/2025 which revealed erosive duodenitis and mild chronic gastritis. Dr. Winston did note there was some findings of possible mesenteric ischemia that could have contributed to the bleed. Patient does have 70% SMA stenosis. However, patient does not endorse abdominal pain or postprandial pain. Will refer to cardiology for further evaluation management. ? Continue Protonix 40 mg daily. ? Continue Plavix 75 mg for CAD as below, but also for SMA stenosis. Hemoglobin stable. ? Follow-up with GI within 2 weeks. #NSTEMI, type II #History of CAD #Acute HFpEF #JORY on CKD #Right heart failure ? Suspect type II with supply/demand mismatch given arline anemia. Troponin troponin flat at 0.26-0.27. BNP elevated at 4900 on admission. No chest pain, shortness of breath. ? ECHO 02/04/2025 revealed moderate reduction in RV function but no wall motion abnormalities. Patient denies chest pain, shortness of breath. ? Plan for outpatient ischemic evaluation with cardiology. ? Patient has lower extremity pitting edema 3+ in the setting of 4 units PRBC. Seems acutely decompensated. Initial BNP 4900. ? Initial creatinine 2.1, baseline around 1.5. Likely cardiorenal syndrome in setting of volume overload. Creatinine worsened to 2.5 with 4 units PRBC. Creatinine improved to 2.1 with IV Lasix diuresis. ? Discharged with Lasix 40 mg twice daily, spironolactone 25 mg daily. ? Continue Plavix 75 mg daily. ? Patient will benefit from outpatient sleep study for RV failure. #Physical deconditioning ? PT/OT recommended SNF, patient accepted to [facility]. Medically stable for discharge. #Slurred speech, improved #Left-sided facial droop, chronic ? Patient's states he has been having issues with speech, particularly expressing what he is thinking since admission. No gross aphasia on exam, but there was some slurred speech with left-sided facial droop which was later noted to be chronic. No other focal neurological deficits. Had concern for CVA with history of ASCVD. ? Slurred speech has improved patient feels and patient alert and oriented. Pleasant, conversational. ? CT head on 02/06/2025 did not show acute findings. MRI without acute findings, but did show chronic microvascular disease. ? Continue Plavix 75 mg. A-fib CAD PAD - Continue digoxin 0.125mg daily - Decrease diltiazem to 180 mg as patient's heart rate dropped to the 30s overnight, though sleeping and asymptomatic. - Holding Entresto in the setting of JORY. Blood pressure stable. - Consider resuming diuretics in the morning. - holding Lipitor and allopurinol in the acute setting, reevaluate resuming tomorrow ? Continue low-dose Eliquis 2.5 mg twice daily and Plavix 75 mg. Diabetes: Hypothyroid: - Sliding scale insulin and fingersticks ACHS. - A1c 5.7%. TSH 5.8. - Holding home metformin and glipizide -Started levothyroxine 75 mcg daily. Repeat TFTs in 6 weeks. Pain in right BKA/Neuropathy: Started Lyrica 50 mg twice daily. Lidocaine patch as needed. Tobacco use disorder: Smokes at least a pack a day, continue nicotine 21 mg patch daily. Strongly encouraged cessation, patient agreeable to trying. Total time spent on discharge: 32 minutes on chart review, counseling, documentation, and direct care with patient. Exam Data for Last 24 hours Vital signs and Labs for Last 24 Hours: Temp Pulse Resp BP Pulse Ox O2 Del Method O2 Flow Rate 98.4 F 68 20 149/79 H 99 Room Air 2 02/08/25 12:00 02/08/25 12:00 02/08/25 12:00 02/08/25 12:00 02/08/25 12:00 02/08/25 13:00 02/06/25 06:49 Laboratory Results - last 24 hr 02/07/25 14:10: Sodium 141, Potassium 4.4, Chloride 110 H, Carbon Dioxide 23, Anion Gap 12.4, BUN 52 H, Creatinine 2.30 H, Estimated Creat Clear 50, Estimated GFR 29 L, Est GFR ( Amer) 35 L, Glucose 133 H D, Calcium 7.8 L 02/07/25 16:32: POC Glucose 140 H 02/07/25 20:34: POC Glucose 176 H 02/08/25 06:12: POC Glucose 120 H 02/08/25 06:36: WBC 7.5, RBC 3.78 L, Hgb 10.8 L, Hct 37.0 L, MCV 97.9 H, MCH 28.6, MCHC 29.2 L, RDW 18.7 H, Plt Count 309, MPV 10.5 H, Neut % (Auto) 68.3, Lymph % (Auto) 17.8, [place] % (Auto) 9.2, Eos % (Auto) 3.1, Baso % (Auto) 0.7, Neut # (Auto) 5.1, Lymph # (Auto) 1.3, [place] # (Auto) 0.7, Eos # (Auto) 0.2, Baso # (Auto) 0.1, Sodium 142, Potassium 4.6, Chloride 109 H, Carbon Dioxide 23, Anion Gap 14.6, BUN 50 H, Creatinine 2.10 H, Estimated Creat Clear 54, Estimated GFR 32 L, Est GFR ( Amer) 38 L, Glucose 106 H D, Calcium 8.3 L, Magnesium 2.5 H, Total Bilirubin 0.5, AST 31, ALT 21, Alkaline Phosphatase 87, Total Protein 6.4, Albumin 3.7 D, Globulin 2.7, Albumin/Globulin Ratio 1.4, Free T4 1.06 02/08/25 11:33: POC Glucose 148 H I & O for Last 24 hours: Intake & Output 02/05/25 02/06/25 02/07/25 02/08/25 23:59 23:59 23:59 23:59 Intake Total 1320 / 1470 1480 / 1835 1055 / 1055 1070 / 1070 Output Total 1005 / 1005 1250 / 1350 4050 / 4050 2049 / 2049 Balance 315 / 465 230 / 485 -2995 / -2995 -980 / -980 Weight 108.908 kg 111.856 kg 111.85 kg 110.92 kg Constitutional Constitutional: no acute distress and obese *Routine HEENT Exam Head: Present normocephalic Eye: Present EOMI and PERRL ENT: Present mucous membranes moist *Routine Neck Exam Neck: Present supple; Absent lymphadenopathy *Routine Respiratory Exam Respiratory: Present CTA bilaterally *Routine Cardiovascular Exam Cardiovascular: Present RRR *Routine Abdominal Exam Abdominal: Present soft and normoactive bowel sounds; Absent tenderness *Routine Extremities Exam Extremities: Present edema; Absent cyanosis or clubbing Comments: Right BKA, bilateral lower extremity pitting edema *Routine Skin Exam Skin: Present warm; Absent rash *Routine Neurological Exam Neurological: Present alert and oriented X3 Results Data Completed and Pending Labs on day of discharge: Labs from last 24 hours 02/08/25 02/08/25 02/08/25 11:33 06:36 06:12 WBC 7.5 RBC 3.78 L Hgb 10.8 L Hct 37.0 L MCV 97.9 H MCH 28.6 MCHC 29.2 L RDW 18.7 H Plt Count 309 MPV 10.5 H Neut % (Auto) 68.3 Lymph % (Auto) 17.8 [place] % (Auto) 9.2 Eos % (Auto) 3.1 Baso % (Auto) 0.7 Neut # (Auto) 5.1 Lymph # (Auto) 1.3 [place] # (Auto) 0.7 Eos # (Auto) 0.2 Baso # (Auto) 0.1 Sodium 142 Potassium 4.6 Chloride 109 H Carbon Dioxide 23 Anion Gap 14.6 BUN 50 H Creatinine 2.10 H Estimated Creat Clear 54 Estimated GFR 32 L Est GFR ( Amer) 38 L Glucose 106 H D POC Glucose 148 H 120 H Calcium 8.3 L Magnesium 2.5 H Total Bilirubin 0.5 AST 31 ALT 21 Alkaline Phosphatase 87 Total Protein 6.4 Albumin 3.7 D Globulin 2.7 Albumin/Globulin Ratio 1.4 Free T4 1.06 02/07/25 02/07/25 02/07/25 20:34 16:32 14:10 WBC RBC Hgb Hct MCV MCH MCHC RDW Plt Count MPV Neut % (Auto) Lymph % (Auto) [place] % (Auto) Eos % (Auto) Baso % (Auto) Neut # (Auto) Lymph # (Auto) [place] # (Auto) Eos # (Auto) Baso # (Auto) Sodium 141 Potassium 4.4 Chloride 110 H Carbon Dioxide 23 Anion Gap 12.4 BUN 52 H Creatinine 2.30 H Estimated Creat Clear 50 Estimated GFR 29 L Est GFR ( Amer) 35 L Glucose 133 H D POC Glucose 176 H 140 H Calcium 7.8 L Magnesium Total Bilirubin AST ALT Alkaline Phosphatase Total Protein Albumin Globulin Albumin/Globulin Ratio Free T4 DS: Diagnosis Discharge Diagnosis (1) Acute blood loss anemia: Status: Acute Code(s): D62 - Acute posthemorrhagic anemia (2) GI (gastrointestinal bleed): Status: Acute Code(s): K92.2 - Gastrointestinal hemorrhage, unspecified (3) Non-ST elevation MD (NSTEMI): Status: Acute Code(s): I21.4 - Non-ST elevation (NSTEMI) myocardial infarction (4) Tobacco use disorder: Status: Chronic Code(s): F17.200 - Nicotine dependence, unspecified, uncomplicated (5) PAD (peripheral artery disease): Status: Chronic Code(s): I73.9 - Peripheral vascular disease, unspecified (6) Coronary artery disease: Status: Chronic Code(s): I25.10 - Atherosclerotic heart disease of [place] coronary artery without angina pectoris Qualifiers: Associated angina: without angina Coronary Disease-Associated Artery/Lesion type: [place] artery [place] vs. transplanted heart: [place] heart Qualified Code(s): I25.10 - Atherosclerotic heart disease of [place] coronary artery without angina pectoris (7) Diabetes: Status: Chronic Code(s): E11.9 - Type 2 diabetes mellitus without complications Qualifiers: Diabetes mellitus complication detail: with polyneuropathy Diabetes mellitus complication status: with neurologic complications Diabetes mellitus joint terminal attack controller insulin use: without joint terminal attack controller use Diabetes mellitus type: type 2 Qualified Code(s): E11.42 - Type 2 diabetes mellitus with diabetic polyneuropathy (8) Blindness: Status: Chronic Code(s): H54.7 - Unspecified visual loss Qualifiers: Left eye visual impairment category: left - unspecified blindness Right eye visual impairment category: right - unspecified blindness Qualified Code(s): H54.3 - Unqualified visual loss, both eyes (9) Lymphedema: Status: Chronic Code(s): I89.0 - Lymphedema, not elsewhere classified (10) Atrial fibrillation: Status: Chronic Code(s): I48.91 - Unspecified atrial fibrillation Qualifiers: Atrial fibrillation type: unspecified chronic Qualified Code(s): I48.20 - Chronic atrial fibrillation, unspecified (11) Type 2 diabetes mellitus: Status: Chronic Code(s): E11.9 - Type 2 diabetes mellitus without complications Qualifiers: Diabetes mellitus complication detail: with polyneuropathy Diabetes mellitus complication status: with neurologic complications Diabetes mellitus joint terminal attack controller insulin use: without joint terminal attack controller use Qualified Code(s): E11.42 - Type 2 diabetes mellitus with diabetic polyneuropathy (12) Obesity (BMI 30.0-34.9): Status: Chronic Code(s): E66.811 - Obesity, class 1 (13) Acute metabolic encephalopathy: Status: Acute Code(s): G93.41 - Metabolic encephalopathy Meds Home Medications and Allergies Home Medications ?Medication ?Instructions ?Recorded ?Confirmed ?Type glipizide 2.5 mg tablet 2.5 mg PO DAILY #90 tabs 02/26/24 02/03/25 Rx allopurinol 300 mg tablet 300 mg PO DAILY 02/03/25 02/03/25 History atorvastatin 20 mg tablet 20 mg PO HS 02/03/25 02/03/25 History clopidogrel 75 mg tablet 75 mg PO DAILY 02/03/25 02/03/25 History digoxin 125 mcg (0.125 mg) tablet 125 mcg PO DAILY 02/03/25 02/03/25 History metformin 500 mg tablet,extended 1,000 mg PO DAILY 02/03/25 02/03/25 History release 24 hr triamcinolone acetonide 0.1 % 1 applic topical BID 02/03/25 02/03/25 History topical cream apixaban 5 mg tablet (Eliquis) 2.5 mg (1/2 x 5 mg) PO BID 30 days 02/08/25 Rx #30 tabs diltiazem HCl 180 mg 180 mg PO DAILY 30 days #30 caps 02/08/25 Rx capsule,extended release 24 hr finasteride 5 mg tablet 5 mg PO DAILY 30 days #30 tabs 02/08/25 Rx furosemide 40 mg tablet (Lasix) 40 mg PO BID 30 days #60 tabs 02/08/25 Rx levothyroxine 75 mcg tablet 75 mcg PO DAILYDM 30 days #30 tabs 02/08/25 Rx (Synthroid) multivitamin with folic acid 400 1 tab PO 1700 30 days #30 tabs 02/08/25 Rx mcg tablet (Tab-A-Neida) nicotine 21 mg/24 hr daily 21 mg transdermal DAILY Nicotine 02/08/25 Rx transdermal patch Cravings 30 days #30 ea omeprazole 40 mg capsule,delayed 40 mg PO DAILY 30 days #0 caps 02/08/25 02/03/25 Rx release pregabalin 50 mg capsule (Lyrica) 50 mg PO BID 30 days #60 caps 02/08/25 Rx spironolactone 25 mg tablet 25 mg PO DAILY 30 days #30 tabs 02/08/25 Rx New Prescriptions to Start Prescriptions: apixaban [Eliquis] Saud Mccrary diltiazem HCl Demetra,Saud finasteride Demetra,Saud furosemide [Lasix] Demetra,Saud levothyroxine [Synthroid] Saud Mccrary multivitamin with folic acid [Tab-A-Neida] Saud Mccrary nicotine Saud Mccrary pregabalin [Lyrica] Saud Mccrary spironolactone Saud Mccrary Allergies Allergy/AdvReac Type Severity Reaction Status Date / Time No Known Allergies Allergy Verified 11/20/24 10:13 Discharge Plan Disposition Patient Disposition: Xfer SNF Condition: Fair Discharge Order Discharge Orders: Discharge Order (Routine); Ordered 02/08/25 Ordered By: Saud Mccrary Follow up Plan Follow up with: Bernabe Winston II, MD [Staff Physician, Gastroenterology] - Enter time for follow up Gregory Fisher MD [Staff Physician, Cardiology] - Enter time for follow up Prescriptions/Medication Reconciliation: New diltiazem HCl 180 mg Capsule,Extended Release 24hr 180 mg PO DAILY 30 Days Qty: 30 0RF spironolactone 25 mg Tablet 25 mg PO DAILY 30 Days Qty: 30 0RF levothyroxine [Synthroid] 75 mcg Tablet 75 mcg PO DAILYDM 30 Days Qty: 30 0RF nicotine 21 mg/24 hr Patch 24 Hour 21 mg transdermal DAILY 30 Days Qty: 30 0RF finasteride 5 mg Tablet 5 mg PO DAILY 30 Days Qty: 30 0RF pregabalin [Lyrica] 50 mg Capsule 50 mg PO BID 30 Days Qty: 60 0RF multivitamin with folic acid [Tab-A-Neida] 400 mcg Tablet 1 tab PO 1700 30 Days Qty: 30 0RF Eliquis 5 mg Tablet 2.5 mg PO BID 30 Days Qty: 30 0RF furosemide [Lasix] 40 mg tablet 40 mg PO BID 30 Days Qty: 60 0RF Continued glipizide 2.5 mg tablet 2.5 mg PO DAILY Qty: 90 3RF atorvastatin 20 mg tablet 20 mg PO HS Rx Instructions: TAKE 1 TABLET EVERY NIGHT AT BEDTIME FOR CHOLESTEROL clopidogrel 75 mg tablet 75 mg PO DAILY Rx Instructions: TAKE 1 TABLET EVERY DAY allopurinol 300 mg tablet 300 mg PO DAILY Rx Instructions: TAKE 1 TABLET EVERY DAY FOR GOUT digoxin 125 mcg (0.125 mg) tablet 125 mcg PO DAILY Rx Instructions: TAKE 1 TABLET EVERY DAY FOR ANTIARRHYTHMIC metformin 500 mg tablet extended release 24 hr 1,000 mg PO DAILY Rx Instructions: TAKE 2 TABLETS EVERY DAY triamcinolone acetonide 0.1 % cream 1 applic topical BID Changed omeprazole 40 mg capsule,delayed release(DR/EC) 40 mg PO DAILY 30 Days Qty: 0 0RF Discontinued diltiazem HCl 240 mg capsule,extended release 24hr 240 mg PO DAILY Qty: 90 3RF furosemide 20 mg tablet 20 mg PO DAILY Rx Instructions: TAKE 1 TABLET EVERY DAY potassium chloride 10 mEq tablet,ER particles/crystals 10 meq PO DAILY Rx Instructions: TAKE 1 TABLET EVERY DAY Xarelto 20 mg tablet 20 mg PO QPMWITHMEAL Rx Instructions: TAKE 1 TABLET EVERY DAY. MUST ADMINISTER WITH EVENING MEAL Problem Reconciliation Problems Reviewed?: Yes Patient Discharge Instructions Patient Instructions: Anemia, DI for Gastrointestinal Bleeding, Gastrointestinal Bleeding, Catheter-Associated Urinary Tract Infection Print Language: Occitan Providers Primary Care Provider: Tonny Bean Admit Provider: Jag Carmichael Attending Provider: Jag Carmichael
[2025-02-08 16:00] VITALS: BP 166/81; PULSE 65; RESP 18; TEMP 36.6; O2SAT 96
--- NOTE | 2025-02-08 16:13 | PC.NURSE ---
Pt A&O x4. Sitting in the chair. No complaints stated. Pt has diuresed well this shift per urinal. Continues to have some edema to LLE. VSS. Call light within reach.
--- NOTE | 2025-02-08 16:25 | PC.NURSE ---
Brother of pt notified that pt will be DC today to [facility] facility
--- NOTE | 2025-02-08 17:08 | PC.NURSE ---
Report given to Lacy at [facility]. [facility] called.
[2025-02-08] MEDS: LIDOCAINE 5% TRANSDERMAL PATCH 1 EACH TD (17:28)
[2025-02-08] MEDS: humaLOG 100 UNITS/ML 10ML VIAL (SSI) SUBCUT (17:33)
[2025-02-08] MEDS: MULTIVITAMIN TABLET 1 EACH PO (17:34)
[2025-02-08] MEDS: POLYETHYLENE GLYCOL 3350 17 GM PACKET PO (17:40)
[2025-02-08 17:53] LABS: POC Glucose,Bedside 185 gm/dL (70-110)
== END 2025-02-08 18:55 | DRG 377 ==
LOC: ER 15:26 → 2ND 15:52
PROVIDERS: Internal Medicine; Internal Medicine Gastroenterology; Nurse Practitioner Acute Care; Physician Assistant; Student in an Organized Health Care Education/Training Program; Admitting Provider Internal Medicine Adolescent Medicine; Emergency Provider Emergency Medicine; PCP Family Medicine; Visit Provider Internal Medicine Adolescent Medicine
PROC: 0DJ08ZZ Inspection of Upper Intestinal Tract, Via Natural or Artificial Opening Endoscopic (ICD-10-PCS; principal; 2025-02-04 12:00)
DX: K29.81 Duodenitis with bleeding (principal); G93.41 Metabolic encephalopathy; I21.A1 Myocardial infarction type 2; I50.31 Acute diastolic (congestive) heart failure; D62 Acute posthemorrhagic anemia; I48.20 Chronic atrial fibrillation, unspecified; K55.1 Chronic vascular disorders of intestine; N17.9 Acute kidney failure, unspecified; I13.0 Hypertensive heart and chronic kidney disease with heart failure and stage 1 through stage 4 chronic kidney disease, or unspecified chronic kidney disease; F17.200 Nicotine dependence, unspecified, uncomplicated; I25.10 Atherosclerotic heart disease of native coronary artery without angina pectoris; E11.42 Type 2 diabetes mellitus with diabetic polyneuropathy; E66.811 Obesity, class 1; H54.3 Unqualified visual loss, both eyes; Z79.01 Long term (current) use of anticoagulants; Z89.511 Acquired absence of right leg below knee; K29.51 Unspecified chronic gastritis with bleeding; N18.9 Chronic kidney disease, unspecified; E11.22 Type 2 diabetes mellitus with diabetic chronic kidney disease; R47.81 Slurred speech; R29.810 Facial weakness; E11.51 Type 2 diabetes mellitus with diabetic peripheral angiopathy without gangrene; E03.9 Hypothyroidism, unspecified; F17.210 Nicotine dependence, cigarettes, uncomplicated; Z71.6 Tobacco abuse counseling; Z79.84 Long term (current) use of oral hypoglycemic drugs; Z79.02 Long term (current) use of antithrombotics/antiplatelets; Z79.890 Hormone replacement therapy; E78.5 Hyperlipidemia, unspecified; Z95.5 Presence of coronary angioplasty implant and graft; T87.89 Other complications of amputation stump; Y83.5 Amputation of limb(s) as the cause of abnormal reaction of the patient, or of later complication, without mention of misadventure at the time of the procedure; Z68.34 Body mass index [BMI] 34.0-34.9, adult; K44.9 Diaphragmatic hernia without obstruction or gangrene
CPT/HCPCS: 36415; 36430; 70450; 70544; 70547; 70551; 71045; 74174; 80048; 80053; 80320; 81001; 82272; 82728; 82803; 82962; 83036; 83540; 83550; 83605; 83690; 83735; 83880; 84100; 84439; 84443; 84484; 85014; 85018; 85025; 85610; 85730; 86850; 93005; 93306; 97110; 97162; 97166; 97530; 99285; G0328; J0696; J1171; J1756; J1938; J2003; J2270; J2354; J2405; J2470; J2704; J3360; J7050; P9016; Q9967